=== PATIENT | female | born 1950 | race Caucasian/White ===

== ENCOUNTER 2018-05-21 15:03 | Outpatient (REF) | payer OTHER, SELFPAY ==
[2018-05-22 06:44] LABS: ALT 20 U/L (12-78); AST 6 U/L (15-37); Albumin 4.1 g/dL (3.4-5.0); Alkaline Phosphatase 59 U/L (46-116); Anion Gap 10.4 mmol/L (3-11); BUN 29 mg/dL (7-18); Bilirubin, Total 0.4 mg/dL (0.2-1.0); CO2 27.6 mmol/L (21.0-32.0); CREATININE 1.26 mg/dL (0.55-1.02); Calcium 9.6 mg/dL (8.5-10.1); Chloride 104 mmol/L (98-107); Cholesterol 207 mg/dL (50-200); Estimated GFR 42.36 (mL/min/1.73m2); Glucose 135 mg/dL (70-100); HDL Cholesterol 27 mg/dL (40-60); LDL CHOLESTEROL 107 mg/dL (<100); Potassium 4.5 mmol/L (3.5-5.1); Sodium 142 mmol/L (136-145); TSH (W/Ref FT4) 2.77 uIU/mL (0.358-3.74); Total Protein 7.2 g/dL (6.4-8.2); Triglyceride 271 mg/dL (30-150)
[2018-05-22 08:28] LABS: Hemoglobin A1C 6.7 % (4.5-6.2)
== END 2018-05-21 15:23 ==
LOC: NCHCN 15:03
PROVIDERS: PCP Nurse Practitioner Family; Visit Provider Physician Assistant Medical
DX: E03.9 Hypothyroidism, unspecified (principal); I10 Essential (primary) hypertension; E78.5 Hyperlipidemia, unspecified; E11.9 Type 2 diabetes mellitus without complications
CPT/HCPCS: 80053; 80061; 83721; 83036; 84443

== ENCOUNTER 2019-01-27 08:51 | Outpatient (REF) | payer OTHER, SELFPAY ==
[2019-01-27 22:26] LABS: ALT 18 U/L (14-59); AST 6 U/L (15-37); Albumin 4.2 g/dL (3.4-5.0); Alkaline Phosphatase 56 U/L (46-116); Anion Gap 11.6 mmol/L (3-11); BUN 32 mg/dL (7-18); Bilirubin, Total 0.5 mg/dL (0.2-1.0); CO2 26.4 mmol/L (21.0-32.0); CREATININE 1.35 mg/dL (0.55-1.02); Calcium 9.7 mg/dL (8.5-10.1); Calculated LDL 124 mg/dL; Chloride 103 mmol/L (98-107); Cholesterol 204 mg/dL (<200); Estimated GFR 39.12 (mL/min/1.73m2); Glucose 125 mg/dL (74-106); HDL Cholesterol 26 mg/dL (40-60); Potassium 3.7 mmol/L (3.5-5.1); Sodium 141 mmol/L (136-145); TSH 2.63 uIU/mL (0.36-3.74); Total Protein 7.3 g/dL (6.4-8.2); Triglyceride 271 mg/dL (<150)
[2019-01-27 22:27] LABS: Hemoglobin A1C 6.4 % (4.5-6.2)
== END 2019-01-27 09:11 ==
LOC: NCHCN 08:51
PROVIDERS: PCP Physician Assistant Medical; Visit Provider Physician Assistant Medical
DX: I10 Essential (primary) hypertension (principal); E11.9 Type 2 diabetes mellitus without complications; E03.9 Hypothyroidism, unspecified
CPT/HCPCS: 80053; 80061; 83036; 84443

== ENCOUNTER 2019-02-28 14:20 | Outpatient (REF) | payer OTHER, SELFPAY ==
[2019-02-28 19:49] LABS: BUN 25 mg/dL (7-18); CREATININE 1.17 mg/dL (0.55-1.02); Calcium 9.7 mg/dL (8.5-10.1); Chloride 104 mmol/L (98-107); Estimated GFR 46.14 (mL/min/1.73m2); Glucose 137 mg/dL (74-106); Potassium 3.9 mmol/L (3.5-5.1); Sodium 142 mmol/L (136-145)
== END 2019-02-28 14:40 ==
LOC: NCHCN 14:20
PROVIDERS: PCP Physician Assistant Medical; Visit Provider Physician Assistant Medical
DX: I10 Essential (primary) hypertension (principal)
CPT/HCPCS: 80048

== ENCOUNTER 2019-09-19 13:50 | Outpatient (REF) | payer OTHER, SELFPAY ==
[2019-09-19 19:56] LABS: ALT 21 U/L (14-59); AST 12 U/L (15-37); Alkaline Phosphatase 58 U/L (46-116); Anion Gap 10.8 mmol/L (3-11); BUN 26 mg/dL (7-18); Bilirubin, Total 0.8 mg/dL (0.2-1.0); CO2 24.2 mmol/L (21.0-32.0); CREATININE 1.35 mg/dL (0.55-1.02); Calcium 9.3 mg/dL (8.5-10.1); Calculated LDL 116 mg/dL (<100); Chloride 107 mmol/L (98-107); Cholesterol 179 mg/dL (<200); Glucose 136 mg/dL (74-106); HDL Cholesterol 26 mg/dL (40-60); Potassium 4.1 mmol/L (3.5-5.1); Sodium 142 mmol/L (136-145); Total Protein 6.8 g/dL (6.4-8.2); Triglyceride 186 mg/dL (<150)
[2019-09-19 21:33] LABS: Hemoglobin A1C 6.5 % (3.8-5.6)
== END 2019-09-19 14:10 ==
LOC: NCHCN 13:50
PROVIDERS: PCP Physician Assistant Medical; Visit Provider Physician Assistant Medical
DX: E11.9 Type 2 diabetes mellitus without complications (principal); E78.5 Hyperlipidemia, unspecified
CPT/HCPCS: 80053; 80061; 83036

== ENCOUNTER 2019-10-03 02:31 | Outpatient (CLI) | payer OTHER, SELFPAY ==
--- NOTE | 2019-10-03 | DI.US_ITS ---
EXAM: US RENAL CLINICAL HISTORY: ELEVATED CREATININE,R79.89. TECHNIQUE: Cortez scale, color and spectral Doppler were used. COMPARISON: No exams were available for comparison FINDINGS: Renal size in cm: Right: 12.7. Left: 12.1. Echogenicity: Normal. Hydronephrosis: No. Cyst or mass: No. Nephrolithiasis: No. Other findings: None. Bladder:Normal. Ureteral jets: Right: Visualized and unremarkable. Left: Visualized and unremarkable. Prevoid vol:122 cc Postvoid vol:14 cc Renal color flow: Symmetric and within normal limits. IMPRESSION: Unremarkable examination. DATA REPOSITORY:
== END 2019-10-03 02:51 ==
PROVIDERS: PCP Physician Assistant Medical; Visit Provider Physician Assistant Medical
DX: R94.4 Abnormal results of kidney function studies (principal)
CPT/HCPCS: 76770

== ENCOUNTER 2019-11-12 01:16 | Outpatient (CLI) | payer OTHER, SELFPAY ==
--- NOTE | 2019-11-12 13:22 | DI.MAMMO_ITS ---
EXAM: MG MAMMO SCREENING CLINICAL HISTORY: SCREENING, PREVENTIVE HEALTH CARE,Z00.00, H/O BREAST REDUCTION,Z98.82 TECHNIQUE: Bilateral full field digital CC and MLO mammographic images were obtained with 3D tomosyn thesis and utilizing computer aided detection (CAD). COMPARISON: Available for comparison. FINDINGS: Masses/Architectural Distortion: The asymmetric density in the upper-outer quadrant of the right murphy st is again noted. There is a biopsy clip within this area. It is unchanged compared to prior exami nations. Microcalcifications: No suspicious pleomorphic-type are seen. Skin Thickening/Nipple Retraction: None. IMPRESSION: 1. No significant interval change with no specific features of malignancy noted. 2. Unless there is more urgent need, screening mammography is recommended, as per [employer] [place] [employer] guidelines. BI-RADS Category 2 - Benign Findings Breast Density - Category B - Scattered areas of fibroglandular density A negative radiographic report should not delay biopsy if a dominant or clinically suspicious mass is present. Up to ten percent of cancers are not identified on mammography. A negative report may reinforce clinical impression. Adenosis and dense breasts may obscure an underlying neoplasm. False positive reports average 6 to 10%. Patient will receive a letter notifying them of these results.
== END 2019-11-12 01:36 ==
PROVIDERS: PCP Physician Assistant Medical; Visit Provider Physician Assistant Medical
DX: Z12.31 Encounter for screening mammogram for malignant neoplasm of breast (principal); Z00.00 Encounter for general adult medical examination without abnormal findings
CPT/HCPCS: 77063; 77067

== ENCOUNTER 2020-07-12 09:29 | Outpatient (REF) | payer OTHER, SELFPAY ==
[2020-07-12 17:03] LABS: ALT 22 U/L (14-59); AST 12 U/L (15-37); Albumin 3.9 g/dL (3.4-5.0); Alkaline Phosphatase 62 U/L (46-116); Anion Gap 12.8 mmol/L (3-11); BUN 24 mg/dL (7-18); Bilirubin, Total 0.8 mg/dL (0.2-1.0); CO2 24.2 mmol/L (21.0-32.0); CREATININE 1.1 mg/dL (0.55-1.02); Calcium 9.1 mg/dL (8.5-10.1); Calculated LDL 101 mg/dL (<100); Chloride 104 mmol/L (98-107); Cholesterol 172 mg/dL (<200); Estimated GFR 49.25 (mL/min/1.73m2); Glucose 134 mg/dL (74-106); HDL Cholesterol 27 mg/dL (40-60); Potassium 4.5 mmol/L (3.5-5.1); Sodium 141 mmol/L (136-145); Total Protein 6.6 g/dL (6.4-8.2); Triglyceride 222 mg/dL (<150)
[2020-07-12 17:21] LABS: Hemoglobin A1C 6.5 % (<5.7)
== END 2020-07-12 09:30 | disposition home or self-care (01) ==
LOC: NCHCN 09:29
PROVIDERS: PCP Physician Assistant Medical; Visit Provider Physician Assistant Medical
DX: E11.9 Type 2 diabetes mellitus without complications (principal); E03.9 Hypothyroidism, unspecified; E78.5 Hyperlipidemia, unspecified; I10 Essential (primary) hypertension
CPT/HCPCS: 80053; 80061; 83036; 84443

== ENCOUNTER 2020-12-02 15:41 | Outpatient (REF) | payer MEDICARE, SELFPAY ==
[2020-12-04 11:59] LABS: COVID-19 RT-PCR UVMMC Result Negative (Negative)
== END 2020-12-02 15:42 | disposition home or self-care (01) ==
LOC: NCHCN 15:41
PROVIDERS: PCP Physician Assistant Medical; Visit Provider Nurse Practitioner Family
DX: Z20.822 Contact with and (suspected) exposure to COVID-19 (principal); R42 Dizziness and giddiness
CPT/HCPCS: U0003; U0005

== ENCOUNTER → 2021-07-15 00:18 | Outpatient (CLI) | payer MEDICARE, SELFPAY ==
--- NOTE | 2021-07-15 11:20 | DI.MAMMO_ITS ---
Exam(s) MAMMO SCREENING EXAM: MAMMO SCREENING CLINICAL HISTORY: SCREENING, Z12.39, PREVENTIVE CARE, Z00.00 TECHNIQUE: Mammograms were interpreted according to the usual protocol including computer analysis w Endocyte CAD system, tomosynthesis and C-view imaging. COMPARISON: 2011 through 2019 FINDINGS: The breasts are composed of scattered fibroglandular densities, Breast Density category B. No suspicious masses or suspicious microcalcifications are seen. A nodule with adjacent biopsy clip is again noted in the upper outer quadrant the right breast, stable. No skin thickening or abnormal axillary lymph nodes are seen. There has been no significant change from prior exams. IMPRESSION: BI-RADS Cat 2 - Benign Findings Yearly screening mammography is recommended. Breast Density - Category B, scattered fibroglandular densities. A negative radiographic report should not delay biopsy if a dominant or clinically suspicious mass is present. Up to ten percent of cancers are not identified on mammography. A negative report may reinforce clinical impression. Adenosis and dense breasts may obscure an underlying neoplasm. False positive reports average 6 to 10%. Patient will receive a letter notifying them of these results.
== END ==
PROVIDERS: PCP Physician Assistant Medical; Visit Provider Physician Assistant Medical
DX: Z12.31 Encounter for screening mammogram for malignant neoplasm of breast (principal)
CPT/HCPCS: 77063; 77067

== ENCOUNTER 2021-08-09 14:52 | Outpatient (REF) | payer MEDICARE, SELFPAY ==
[2021-08-09 19:07] LABS: Abs Immature Grans 0.01 10^3/uL (0.0-0.06); Absolute Basophil Count 0.02 10^3/uL (0.0-0.2); Absolute Eosinophil Count 0.12 10^3/uL (0.0-0.7); Absolute Lymphocyte Count 1.61 10^3/uL (1.2-3.4); Absolute Monocyte Count 0.28 10^3/uL (0.1-0.8); Absolute Neutrophil Count 2.18 10^3/uL (1.2-6.7); Basophils % 0.5; Eosinophils % 2.8; HGB 13.3 g/dL (11.2-15.7); Immature Grans % 0.2; Lymphocytes % 38.2; MCH 28.2 pg (27.0-33.0); MCHC 33.3 % (32.0-36.0); MCV 85 fL (80-95); MPV 11.4 fL (8.0-11.0); Monocytes % 6.6; Neutrophils % 51.7; Platelet Count 274 10^3/uL (130-400); RBC 4.71 10^6/uL (3.93-5.22); RDW-SD 43.9 fL; WBC 4.22 10^3/uL (4.4-10.8)
[2021-08-09 19:21] LABS: ALT 23 U/L (14-59); AST 18 U/L (15-37); Albumin 4.2 g/dL (3.4-5.0); Alkaline Phosphatase 60 U/L (46-116); Anion Gap 9.2 mmol/L (3-11); BUN 29 mg/dL (7-18); Bilirubin, Total 0.4 mg/dL (0.2-1.0); CO2 25.8 mmol/L (21.0-32.0); CREATININE 1.2 mg/dL (0.55-1.02); Calcium 9.2 mg/dL (8.5-10.1); Chloride 103 mmol/L (98-107); Estimated GFR 44.41 (mL/min/1.73m2); Glucose 134 mg/dL (74-106); Potassium 4.5 mmol/L (3.5-5.1); Sodium 138 mmol/L (136-145); Total Protein 7.5 g/dL (6.4-8.2)
== END 2021-08-09 14:53 | disposition home or self-care (01) ==
LOC: NCHCN 14:52
PROVIDERS: PCP Physician Assistant Medical; Visit Provider Physician Assistant Medical
DX: R42 Dizziness and giddiness (principal)
CPT/HCPCS: 80053; 85025

== ENCOUNTER 2022-08-09 17:19 | Outpatient (REF) | payer MEDICARE, SELFPAY ==
[2022-08-09 20:10] LABS: Hemoglobin A1C 6.5 % (<5.7)
[2022-08-09 20:22] LABS: ALT 21 U/L (14-59); AST 14 U/L (15-37); Albumin 4.1 g/dL (3.4-5.0); Alkaline Phosphatase 66 U/L (46-116); Anion Gap 9.7 mmol/L (3-11); BUN 22 mg/dL (7-18); Bilirubin, Total 0.7 mg/dL (0.2-1.0); CO2 24.3 mmol/L (21.0-32.0); CREATININE 1.2 mg/dL (0.55-1.02); Calcium 9.1 mg/dL (8.5-10.1); Calculated LDL 79 mg/dL (<100); Chloride 107 mmol/L (98-107); Cholesterol 178 mg/dL (<200); Estimated GFR 48.39 (mL/min/1.73m2); Glucose 155 mg/dL (74-106); HDL Cholesterol 30 mg/dL (40-60); Potassium 4.3 mmol/L (3.5-5.1); Sodium 141 mmol/L (136-145); TSH 1.99 uIU/mL (0.36-3.74); Total Protein 7.5 g/dL (6.4-8.2); Triglyceride 349 mg/dL (<150)
== END 2022-08-09 17:20 | disposition home or self-care (01) ==
LOC: NCHCN 17:19
PROVIDERS: PCP Physician Assistant Medical; Visit Provider Physician Assistant Medical
DX: E11.9 Type 2 diabetes mellitus without complications (principal); E03.9 Hypothyroidism, unspecified; E78.5 Hyperlipidemia, unspecified; I10 Essential (primary) hypertension
CPT/HCPCS: 80053; 80061; 83036; 84443

== ENCOUNTER 2023-03-07 13:16 | Outpatient (REF) | payer MEDICARE, SELFPAY ==
[2023-03-07 20:09] LABS: Anion Gap 10.5 mmol/L (3-11); BUN 19 mg/dL (7-18); CO2 25.5 mmol/L (21.0-32.0); CREATININE 1.2 mg/dL (0.55-1.02); Calcium 9.8 mg/dL (8.5-10.1); Chloride 105 mmol/L (98-107); Estimated GFR 48.39 (mL/min/1.73m2); Glucose 159 mg/dL (74-106); Potassium 4.3 mmol/L (3.5-5.1); Sodium 141 mmol/L (136-145); Uric Acid 6.2 mg/dL (2.6-6.0)
[2023-03-07 20:16] LABS: Hemoglobin A1C 6.6 % (<5.7)
== END 2023-03-07 13:17 | disposition home or self-care (01) ==
LOC: NCHCN 13:16
PROVIDERS: PCP Physician Assistant Medical; Visit Provider Physician Assistant Medical
DX: I10 Essential (primary) hypertension (principal); E11.9 Type 2 diabetes mellitus without complications; M79.671 Pain in right foot
CPT/HCPCS: 80048; 83036; 84550

== ENCOUNTER 2023-04-16 18:07 | Outpatient (REF) | payer MEDICARE, SELFPAY | END 2023-04-16 18:08 | disposition home or self-care (01) | LOC: NCHCN 18:07 | PROVIDERS: PCP Physician Assistant Medical; Visit Provider Nurse Practitioner Family | DX: L03.031 Cellulitis of right toe (principal) | CPT/HCPCS: 87070; 87205 ==

== ENCOUNTER 2023-08-08 16:47 | Outpatient (REF) | payer MEDICARE, SELFPAY ==
[2023-08-08 20:26] LABS: Hemoglobin A1C 7.5 % (<5.7)
[2023-08-08 20:27] LABS: ALT 21 U/L (14-59); AST 10 U/L (15-37); Albumin 4.4 g/dL (3.4-5.0); Alkaline Phosphatase 70 U/L (46-116); Anion Gap 11.7 mmol/L (3-11); BUN 20 mg/dL (7-18); CO2 24.3 mmol/L (21.0-32.0); CREATININE 1.3 mg/dL (0.55-1.02); Calcium 9.8 mg/dL (8.5-10.1); Chloride 107 mmol/L (98-107); Estimated GFR 43.69 (mL/min/1.73m2); Glucose 99 mg/dL (74-106); Potassium 3.9 mmol/L (3.5-5.1); Sodium 143 mmol/L (136-145); TSH (W/Ref FT4) 1.57 uIU/mL (0.36-3.74); Total Protein 7.1 g/dL (6.4-8.2)
[2023-08-08 20:39] LABS: Calculated LDL 98 mg/dL (<100); Cholesterol 177 mg/dL (<200); HDL Cholesterol 33 mg/dL (40-60); Triglyceride 233 mg/dL (<150)
== END 2023-08-08 16:48 | disposition home or self-care (01) ==
LOC: NCHCN 16:47
PROVIDERS: PCP Physician Assistant Medical; Visit Provider Physician Assistant Medical
DX: I10 Essential (primary) hypertension (principal); E11.9 Type 2 diabetes mellitus without complications; E78.5 Hyperlipidemia, unspecified; E03.9 Hypothyroidism, unspecified
CPT/HCPCS: 80053; 80061; 83036; 84443; 84550

== ENCOUNTER 2023-11-01 16:44 | Outpatient (REF) | payer MEDICARE, SELFPAY ==
--- OUTSIDE RECORDS SUMMARY | 2023-11-01 16:48 | XMS_ITS | Encounter Summary ---
Author Organization [facility] Address [facility] [place] [address] Care Team Providers Care Weight Loss Centre Manager Name Role Phone Rodrigo Shin Primary Care Provider +1- [phone] Encounter Details Date Type Department Care Team (Late st Contact Info) Description 02/17/2021 Telephone Dermatology at [facility] [address] [place] [address] Apollo Gillis MD [facility] [place] [address] Social History Tobacco Use Types Packs/Day Years Used Date Smoking Tobacco: Never Smokeless Tobacco: Never Alcohol Use Standard Drinks/Week Comments Yes 4 (1 standard drink = 0.6 oz pur e alcohol) Sex and Gender Information Value Date Recorded Sex Assigned at Not on file Gender Identity Not on file Sexual Orientation Not on file documented as of this encounter Miscellaneous Notes * Telephone Encounter - Vibha Barone LPN - 02/17/2021 2:07 PM EST Mohs consultation and preoperative note (H&P) Patient Name: Quyen Bill Age: 70 y.o. Date of : 1950 Today's Date: 02/17/2021 REFERRING PROVIDER: Chantale Martin MD CC: Mohs micrographic surgery for treatment of a cutaneous tumor HPI: Quyen Bill is a 70 y.o. female presenting for biopsy-proven Squamous cell carcinoma, at least in situ, transected at the peripheral and deep ??specimen edges, invasive squamous cell carcinoma cannot be excluded ,location on the Right nasal dorsum. The dermatologic preoperative information sheet was reviewed with pertinent positive and negative as below. DERMATOLOGIC PRE-OPERATIVE EVALUATION AND REVIEW OF SYSTEMS She has had her Vaccine and Booster History of Mohs surgery-No Pacemaker/Defibrillator-No Joint replacement or other implantable devices (e.g. Cochlear implant)-No Do you take a blood thinner-Yes ASA 81mg History of organ transplant-No History of artificial valve or stroke-No History of liver disease or bleeding disorder-No Do you have any medical problems that may affect your upcoming surgery-No Do you have any concerns regarding your upcoming surgery-No We ask patients to discontinue Fish oil/Multivitamin/Vit E/?? supplements and natural medicines not prescribed by a physician 1 week prior to surgery. SOCIAL HISTORY: Makes Own Decisions Yes Hearing aid or other devices: No Relevant travel history or future plans: No Tobacco use (amount per day, type of tobacco):No Do you have any physical limitations that may affect your surgery-No ALLERGIES: Allergies reviewed MEDICATIONS: Medications reviewed documented in this encounter Plan of Treatment Not on file documented as of this encounter Visit Diagnoses Not on filedocumented in this encounter Care Teams Weight Loss Centre Manager Relationship Specialty Start Date End Date Rodrigo Shin PA [address] [place] [address] PCP - General Family Medicine 12/02/19 documented as of this encounter
--- OUTSIDE RECORDS SUMMARY | 2023-11-01 16:48 | XMS_ITS | Encounter Summary ---
Author Organization [facility] Address [facility] [place] [address] Care Team Providers Care Gas Derrick Operator Name Role Phone Rodrigo Shin Primary Care Provider +1- [phone] Encounter Details Date Type Department Care Team (Late st Contact Info) Description 10/19/2021 3:45 PM EDT Office Visit Dermatology at [facility] [address] [place] [address] Nona Moore MD [facility] [place] [address] Actinic keratosis Social History Tobacco Use Types Packs/Day Years Used Date Smoking Tobacco: Never Smokeless Tobacco: Never Alcohol Use Standard Drinks/Week Comments Yes 4 (1 standard drink = 0.6 oz pur e alcohol) Sex and Gender Information Value Date Recorded Sex Assigned at Not on file Gender Identity Not on file Sexual Orientation Not on file documented as of this encounter Progress Notes * Nona Moore MD - 10/19/2021 3:45 PM EDT Images from the original note were not included. DEPARTMENT OF DERMATOLOGY Medical Dermatology Clinic Provider: Nona Moore MD Patient's preferred name Quyen Preferred contact method for results [x]Phone [x]myD-H []Letter Detailed phone message OK? yes Are there any other people with whom we may discuss your care? Past Medical History Date, location, treatment Melanoma no Dysplastic nevi no SCC SCCis right nasal dorsum s/p mohs 02/2021 BCC 03/29/2015 Right lateral arm, shave biopsy: Pigmented BCC, extending to the peripheral and deep specimen edges. - s/p WLE??05/12/15 AKs yes UV Exposure & Protection Other relevant past medical history Family History Details Melanoma no NMSC no Other relevant family history Social History Occupation: retired Hobbies: Other: Pre-Procedure Questions Details Allergy to lidocaine, epinephrine, Dermabond, chlorhexidine, or adhesives no Bleeding disorder or blood thinners ASA 81 Pacemaker, defibrillator, deep brain stimulator, cochlear implant no History of Present Illness: Quyen Bill is a 71 y.o. Patient returns to clinic today for lesion on nose. Patient had mohs in February for an SCCis on the right nasal dorsum. Pt notes tenderness on left side of nose where she thought was the area she had the mohs. Last visit at Dermatology: 10/19/2021 Last visit with this provider: 10/19/2021 Medications: Reviewed in eD-H Allergies: Reviewed in eD-H Skin Examination: Focused skin examination of the face was normal with the exception of the findings below. Assessment/Plan # Favor AK vs BCC - 6mm on left nasal dorsum - Recommended a skin biopsy to confirm/clarify the nature of the skin lesion. After discussion of potential risks (scarring, bleeding, infection) and recurrence, patient agreed to proceed. - Patient denies known allergies to lidocaine and epinephrine. Procedure: Skin shave biopsy. Location: left nasal dorsum Time of procedure: 04:00pm Discussed indications for procedure and expectations including risks and benefits. Verbal consent obtained. Skin prepped with alcohol. Local anesthesia with 1% xylocaine, 1/100,000 epinephrine. A sample of the lesion was removed by shave technique to the level of the dermis and submitted to Pathology. Hemostasis obtained (AlCl and/or electrocautery). There were no complications; patient toleratedthe procedure well. Wound dressed. Post-procedure expectations, wound care and activity restrictions reviewed. ?? - Follow-up based on pathology results. Figure 1 Photo(s) taken and charted with patient's verbal consent. Other: ??? N/A RTC: Pending pathology []Note routed to executive legal secretary []Recall placed in scheduling system []Appointment scheduled at checkout Scribe attestation: JOSE EDUARDO Chambers has performed the documentation for this encounter in the presence of and acting as a scribe for Nona Moore MD. I performed the above scribed service and agree with the accuracy of the documentation in this encounter. Reviewed and signed by: Nona Moore MD Dermatology [facility] * Nona Moore MD - 10/19/2021 3:45 PM EDT Notified pt of results. Discussed use of 5FU. Pt to use it 2 x per day x 6 weeks. Consider mohs if pt unable to finish 6 weeks or if inadequate results. documented in this encounter Plan of Treatment Not on file documented as of this encounter Procedures Procedure Name Priority Date/Time Associated Diagnosis Comments SPECIMEN TO PATHOLOGY Routine 10/19/2021 4:09 PM EDT Actinic keratosis SURGICAL PATHOLOGY REPORT Routine 10/19/2021 4:00 PM EDT documented in this encounter Results * Specimen to Pathology (10/19/2021 4:09 PM EDT) AP Specimen 10/19/2021 4:09 PM EDT 10/19/2021 4:09 PM EDT Narrative [facility] - 10/19/2021 4:09 PM EDT Specimen requisition ordered. ??Separate Pathology report to follow Nona Moore MD PATHOLOGY/CYTOLOGY O RDERABLES [facility] [place] [address] * Surgical Pathology Report (10/19/2021 4:00 PM EDT) Final Diagnosis [id number] ? Location: [facility] The signing pathologist has (i) examined the relevant preparation(s) for the specimen(s) and (ii) rendered or confirmed the diagnosis(es). . ?Surgical Pathology DIAGNOSIS L eft nasal dorsum, skin shave biopsy ONLY: - ??Squamous cell carcinoma, at least in situ, transected at the base, invasive squamous cell carcinoma cannot be excluded Electronically signed by: ?Henry HU, PhD, Daniel Verified: ??10/21/2021 13:33 ??Dermatopathol ogist Performed at: ??-[facility] Dept. of Pathology, [place], [place] SPECIMEN(S) SUBMITTED A - left nasal dorsum, skin shave biopsy ONLY (1) CLINICAL INFORMATION 6 mm. Favor AK versus BCC SPECIMEN PROCESSING A - Labeled/Fixativ e: Patient demographics, formalin. Quantity/Size: ??Single, 0.7 x 0.6 cm. Tissue Description: Irregular, non-oriented botello-white skin shave with a 0.5 x 0.1 x 0.1 cm raised, botello granular lesion. Sections/Proces sing: Inked, trisected and entirely submitted in 1 cassette labeled A1. ??shb 10/21/2021 1:33 PM EDT [facility] SPECIMEN FROM SKIN / Unknown 10/19/2021 4:00 PM EDT 10/19/2021 4:00 PM EDT Nona Moore MD PATHOLOGY/CYTOLOGY O YONAS [facility] [place] [address] documented in this encounter Visit Diagnoses Diagnosis Actinic keratosis documented in this encounter Care Teams Gas Derrick Operator Relationship Specialty Start Date End Date Rodrigo Shin PA [address] [place] [address] PCP - General Family Medicine 12/02/19 documented as of this encounter
--- OUTSIDE RECORDS SUMMARY | 2023-11-01 16:48 | XMS_ITS | Encounter Summary ---
Author Organization [facility] Address [facility] [place] [address] Care Team Providers Care Electric Welder Name Role Phone Rodrigo Shin Primary Care Provider +1- [phone] Reason for Visit * Reason Comments Procedure Encounter Details Date Type Department Care Team (Late st Contact Info) Description 10/19/2021 3:30 PM EDT Office Visit Dermatology at [facility] [address] [place] [address] Nona Moore MD [facility] [address] [place] [address] Encounter for cosmetic procedure Social History Tobacco Use Types Packs/Day Years [...] Notes * Nona Moore MD - 10/19/2021 3:30 PM EDT DATE OF SERVICE: 10/18/2021 PROVIDER: MD Shannon Fitzpatrickdeyvi Albah : 1950 PATIENT PREFERENCES: -prefers to be called: Quyen LANGE Quyen Bill is a 71 y.o. year old female. Here for vbeam procedure 10/18/2021. Concerns from previous visit?: no COSMETIC TREATMENT VISIT -Questions or concerns today? Lesion on nose, pt elects to have medical visit added on to evaluate.Pt aware the medical visit is billed through insurance. -Any change in health or new diagnosis since last visit?: no -HSV prophylaxis? no -, lactating or trying to conceive?: no ADR: No Known Allergies MEDS: Current Outpatient Medications Medication Sig Dispense Refill ??? rosuvastatin (Crestor) 5 mg Tablet ??? levothyroxine (Synthroid) 25 mcg Tablet ??? simvastatin (Zocor) 20 mg Tablet ??? fluorouraciL (EFUDEX) 5 % Cream Apply a thin layer to affected areas on the nose twice daily (morning and night) as tolerated for 3 weeks. (Patient not taking: Reported on 02/21/2021) 40 g 0 ??? hydrochlorothiazide (HYDRODIURIL) 25 mg Tablet Take 25 mg by mouth daily. ??? fish oil-omega-3 fatty acids 1,000 mg Capsule Take 2 g by mouth daily. Pt takes 2,400 mg ??? lisinopril (PRINIVIL;ZESTRIL) 2.5 mg tablet Take 40 mg by mouth daily. ??? metFORMIN (GLUCOPHAGE) 500 mg tablet Take 500 mg by mouth daily. ??? gabapentin (NEURONTIN) 300 mg capsule Take 600 mg by mouth daily. ??? aspirin 81 mg EC tablet Take 81 mg by mouth daily. ??? gemfibrozil (LOPID) 600 mg tablet Take 500 mg by mouth 2 times daily (before meals). ??? amlodipine (NORVASC) 10 mg tablet Take 10 mg by mouth daily. ??? cholecalciferol, Vitamin D3, 400 unit tablet Take 1,200 Units by mouth daily. No current facility-administered medications for this visit. EXAMINATION: -New findings: TREATMENT MAPS: * DIAGNOSIS/ASSESSMENT: #??IPL??treatments for photodamage located on??face - Number of treatments recommeded:??1-2+?? - Special considerations for this pt:??may need LN2 - Area of main concern:??face - HSV prophylaxis needed?:??no??If yes, does pt have rx?:??no??date verified:??01/05/2021?? - borrego quoted:??$350??per treatment - See laser log for treatment dates and details -Additional notes: -??01/05/2021??suspect pt may need medical visits in future for actinic keratoses/damage ?? # Chemoprevention/correction: Emphasized value of retinoid-based skin care system to amplify and maintain benefits of any anti aging plan/procedures. -special considerations: -retinoid:?Will start at next visit??date started:?? -ZO skincare regimen: regimen or products:??Exfoliating cleanser, danish, Oil control pads??reviewed by:??DW??date:??01/05/2021?? -instructions in AVS dated?? -discussed importance of meticulous sun protection ?? PROCEDURE/TREATMENT LOG(S): LASER TREATMENT LOG ?? Date:??03/09/2021?Laser: IPL?Area: full face?Spot: large??Energy(J): 18?Pulse Duration: 3.5/15/3.5?Pulse#:??79?Paid:??$350?Tx By:RL?Notes:? Date: 04/14/2021 Laser: IPL Area: full face Spot: large Energy(J): 20 Pulse Duration: 3.5/15/3.5 Pulse #: 78 Paid: $350 Tx By:RL Notes: Date: 10/19/2021 Laser: Vbeam Area: full face Spot: 10 Energy(J): 8.5 Pulse Duration: 10 Pulse #: 307 Paid: $350 Tx By:LEA Notes: FOLLOW UP RETURN TO CLINIC: 1 month Vi Peel with 30 min. Pt to discuss alternating Vipeel and hydrafacial for regular maintenance 6 months vbeam to face 15 min $350 COSMETIC COST TODAY: $[address] Moore I am documenting this encounter acting as the scribe for and in the presence of Nona Moore MD,JOSE EDUARDO Chambers I performed the above scribed service and agree with the accuracy of the documentation in this encounter, MD Nona Fitzpatrick MD Department of Dermatology documented in this encounter Plan of Treatment Not on file documented as of this encounter Visit Diagnoses Diagnosis Encounter for cosmetic procedure documented in this encounter Care Teams Electric Welder Relationship Specialty Start Date End Date Rodrigo Shin PA [address] [place] [address] PCP - General Family Medicine 12/02/19 documented as of this encounter
--- OUTSIDE RECORDS SUMMARY | 2023-11-01 16:48 | XMS_ITS | Encounter Summary ---
Author Organization [facility] Address [facility] [place] [address] Care Team Providers Care Plastics Heat Welder Name Role Phone Rodrigo Shin Primary Care Provider +1- [phone] Encounter Details Date Type Department Care Team (Late st Contact Info) Description 03/09/2021 2:15 PM EST Office Visit Dermatology at [facility] [address] [place] [address] Nona Moore MD [facility] [address] [place] [address] Encounter for cosmetic procedure Social History Tobacco [...] Progress Notes * Nona Moore MD - 03/09/2021 2:15 PM EST DATE OF SERVICE: 03/09/2021 PROVIDER: MD Quyen Fitzpatrick Juan Albah : 1950 PATIENT PREFERENCES: -prefers to be called: Quyen LANGE Quyen Bill is a 70 y.o. year old female. Here for IPL procedure 03/09/2021. COSMETIC TREATMENT VISIT -Questions or concerns today? Questions about skin care -Any change in health or new diagnosis [...] medications for this visit. EXAMINATION: -New findings: DIAGNOSIS/ASSESSMENT: # IPL treatments for photodamage located on face - Number of treatments recommeded: 1-2+ - Special considerations for this pt: may need LN2 - Area of main concern: face - HSV prophylaxis needed?: no If yes, does pt have rx?: no date verified: 01/05/2021 - borrego quoted: $350 per treatment - See laser log for treatment dates and details -Additional notes: - 01/05/2021 suspect pt may need medical visits in future for actinic keratoses/damage ?? # Chemoprevention/correction: Emphasized value of retinoid-based skin care system to amplify and maintain benefits of any anti aging plan/procedures. -special considerations: -retinoid: Will start at next visit date started: -ZO skincare regimen: regimen or products: Exfoliating cleanser, chinese, Oil control pads reviewed by: PETER date: 01/05/2021 -instructions in AVS dated -discussed importance of meticulous sun protection ?? PROCEDURE/TREATMENT LOG(S): LASER TREATMENT LOG Date: 03/09/2021 Laser: IPL Area: full face Spot: large Energy(J): 18 Pulse Duration: 3.5/15/3.5 Pulse #: 79 Paid: $350 Tx By:RL Notes: FOLLOW UP 1 month IPL 15 min $350 COSMETIC COST TODAY: $350 - $100 consult = $[address] Moore I am [...] procedure documented in this encounter Care Teams Plastics Heat Welder Relationship Specialty Start Date End Date Rodrigo Shin PA [address] [place] [address] PCP - General Family Medicine 12/02/19 documented as of this encounter
--- OUTSIDE RECORDS SUMMARY | 2023-11-01 16:48 | XMS_ITS | Encounter Summary ---
[place] [address] Care Team Providers Care Head Of Loss Prevention Name Role Phone Rodrigo Shin Primary Care Provider +1- [phone] Encounter Details Date Type Department Care Team (Latest Contact Info) Description 07/03/2023 Travel Social History Tobacco Use Types Packs/Day Years Used Date Smoking Tobacco: Never Smokeless Tobacco: Never Alcohol Use Standard Drinks/Week Comments Yes 4 (1 standard drink = 0.6 oz pur e alcohol) Sex and Gender Information Value Date Recorded Sex Assigned at Not on file Gender Identity Not on file Sexual Orientation Not on file documented as of this encounter Plan of Treatment Not on file documented as of this encounter Visit Diagnoses Not on filedocumented in this encounter Care Teams Head Of Loss Prevention Relationship Specialty Start Date End Date Rodrigo Shin PA [address] [place] [address] PCP - General Family Medicine 12/02/19 documented as of this encounter
--- OUTSIDE RECORDS SUMMARY | 2023-11-01 16:48 | XMS_ITS | Encounter Summary ---
Author Organization [facility] Address [facility] [place] [address] Care Team Providers Care Appeals Examiner Name Role Phone Rodrigo Shin Primary Care Provider [phone]- [phone] Encounter Details Date Type Department Care Team (Late st Contact Info) Description 07/03/2023 1:30 PM EDT Office [place] [address] [facility] [place] [address] S/P abdominoplasty Social History Tobacco Use Types Packs/Day Years Used Date Smoking Tobacco: Never Smokeless Tobacco: Never Alcohol Use Standard Drinks/Week Comments Yes 4 (1 standard drink = 0.6 oz pur e alcohol) Sex and Gender Information Value Date Recorded Sex Assigned at Not on file Gender Identity Not on file Sexual Orientation Not on file documented as of this encounter Last Filed Vital Signs Vital Sign Reading Time Taken Comments Blood Pressure - - Pulse - - Temperature - - Respiratory Rate - - Oxygen Saturation - - Inhaled Oxygen Concentration - - Weight 88.2 kg (194 lb 6.4 oz) 07/03/2023 1:23 P M EDT Height 170.2 cm (5' 7) 07/03/2023 1:23 PM EDT Body Mass Index 30.45 07/03/2023 1:23 PM EDT documented in this encounter Progress Notes * Brad Riggs MD - 07/03/2023 1:30 PM EDT Plastic Surgery Consultation Note Brad Riggs MD PCP: ALANNA Porter CC: residual fat s/p abdominoplasty Date of surgery: 04/18/16 Procedure(s): Bilateral mastopexy and abdominoplasty (Jed) Complications: None reported HPI: Quyen Bill is a 73 y.o. female here to re-establish care. She underwent a bilateral mastopexy and abdominoplasty on 04/18/2016, performed by Dr. Adkins. She reports that she followed Dr. Neil's directions and wore the compression wrap. She notes that her weight has been stable and reports that regardless of what she does, she is unable to get rid of her roll of her upper abdomen. Patient Active Problem List Diagnosis Date Noted S/P abdominoplasty 05/01/2016 Breast ptosis 12/14/2015 Abdominal pannus 12/14/2015 Ingrown nail 05/26/2015 Thickened nails 04/21/2015 Diabetes mellitus 04/21/2015 Breast mass 08/19/2010 Past Medical History: Diagnosis Date Breast cyst 06/2010 Diabetes Hypercholesteremia Hypertension Past Surgical History: Procedure Laterality Date BREAST BIOPSY BREAST REDUCTION SURGERY Bilateral 2017 SECTION SECTION COLONOSCOPY MAMMO US BIOPSY RIGHT Right 07/03/2018 Mammo Us Biopsy Right 07/03/2018 Bisi Bryan MD [facility] RAD MAMMOGRAPHY PRO EXCISE EXCESS SKIN TISSUE, ABDOMEN, ADD-ON Bilateral 04/18/2016 ABDOMINOPLASTY EXC,W/ UMBILICAL TRANSPOSITION, FASCIAL PLICATION (WRVU 17.04) performed by Lorenza Adkins MD at [facility] MAIN OR PRO SUSPENSION OF BREAST Bilateral 04/18/2016 MASTOPEXY, BILATERAL (WRVU 11.09) performed by Lorenza Adkins MD at [facility] MA[facility] OR Social History Socioeconomic History Marital status: Spouse name: Not on file Number of children: 2 Years of education: Not on file Highest education level: Not on file Occupational History Occupation: Retired banker Tobacco Use Smoking status: Never Smokeless tobacco: Never Vaping Use Vaping Use: Never used Substance and Sexual Activity Alcohol use: Yes Alcohol/week: 4.0 standard drinks of alcohol Types: 4 Glasses of wine per week Drug use: No Sexual activity: Yes Partners: Male Other Topics Concern Not on file Social History Narrative Not on file Social Determinants of Health Financial Resource Strain: Not on file Food Insecurity: Not on file Transportation Needs: Not on file Physical Activity: Not on file Intimate Partner Violence: Not on file Housing Stability: Not on file No Known Allergies Current Outpatient Medications on File Prior to Visit Medication Sig Dispense Refill rosuvastatin (Crestor) 5 mg Tablet levothyroxine (Synthroid) 25 mcg Tablet fish oil-omega-3 fatty acids 1,000 mg Capsule Take 2 g by mouth daily. Pt takes 2,400 mg lisinopril (PRINIVIL;ZESTRIL) 2.5 mg tablet Take 40 mg by mouth daily. metFORMIN (GLUCOPHAGE) 500 mg tablet Take 500 mg by mouth daily. gabapentin (NEURONTIN) 300 mg capsule Take 600 mg by mouth daily. [DISCONTINUED] fluorouraciL (EFUDEX) 5 % Cream Apply topically to affected area on nose once a day for 6 weeks 40 g 0 [DISCONTINUED] simvastatin (Zocor) 20 mg Tablet [DISCONTINUED] fluorouraciL (EFUDEX) 5 % Cream Apply a thin layer to affected areas on the nose twice daily (morning and night) as tolerated for 3 weeks. (Patient not taking: Reported on 02/21/2021) 40g 0 [DISCONTINUED] hydrochlorothiazide (HYDRODIURIL) 25 mg Tablet Take 25 mg by mouth daily. [DISCONTINUED] aspirin 81 mg EC tablet Take 81 mg by mouth daily. [DISCONTINUED] gemfibrozil (LOPID) 600 mg tablet Take 500 mg by mouth 2 times daily (before meals). [DISCONTINUED] amlodipine (NORVASC) 10 mg tablet Take 10 mg by mouth daily. [DISCONTINUED] cholecalciferol, Vitamin D3, 400 unit tablet Take 1,200 Units by mouth daily. No current facility-administered medications on file prior to visit. Examination: Ht 170.2 cm (5' 7) Wt 88.2 kg (194 lb 6.4 oz) BMI 30.45 kg/m?? Constitutional: No acute distress Cardiovascular: Regular Pulmonary: Unlabored, no audible wheeze On exam she has a well-healed scar from her prior abdominoplasty. She has a protuberant abdomen with excess adiposity confluently in her upper abdomen and lower abdomen and flanks. There is subtle excess adiposity in the superior abdomen relative to the inferior abdomen There is no palpable hernias. Impression: Quyen Bill 73 y.o. female patient with concerns for her upper abdomen. I explained that we could do some liposuction to that area but would not completely address the excess skin and adiposity the way she is describing it. We could do a reverse abdominoplasty but I still think what she is describing is a concern with general excess adipose tissue confluently throughout her abdomenwhich would be best addressed by weight reduction. We discussed that the best option is weight reduction. After this we could certainly consider a reverse abdominoplasty as an option. I can appreciate the challenge of this and recommend that she try to discuss help with this from her PCP or weight and wellness center so that they can find the right strategy. Plan: Follow up PRN. I, Aleshia Hernandes, am acting as scribe for Brad Riggs MD. All work documented was performed by Brad Riggs MD. I performed the services which were documented by the scribe, and I agree with the accuracy of the documentation in this encounter. BRAD RIGGS MD documented in this encounter Plan of Treatment Not on file documented as of this encounter Visit Diagnoses Diagnosis S/P abdominoplasty Other postprocedural status documented in this encounter Care Teams Appeals Examiner Relationship Specialty Start Date End Date Rodrigo Shin PA [address] [place] [address] PCP - General Family Medicine 12/02/19 documented as of this encounter
--- OUTSIDE RECORDS SUMMARY | 2023-11-01 16:48 | XMS_ITS | Encounter Summary ---
Author Organization [facility] Address [facility] [place] [address] Care Team Providers Care Corporate Administrator Name Role Phone Rodrigo Shin Primary Care Provider +1- [phone] Encounter Details Date Type Department Care Team (Latest Contact Info) Description 02/28/2021 2:15 PM EST Clinical Support Dermatology at [facility] [address] [place] [address] Apollo Gillis MD [facility] [place] [address] Encounter for removal of sutures Social History Tobacco Use Types Packs/Day Years Used Date Smoking Tobacco: Never Smokeless Tobacco: Never Alcohol Use Standard Drinks/Week Comments Yes 4 (1 standard drink = 0.6 oz pur e alcohol) Sex and Gender Information Value Date Recorded Sex Assigned at Not on file Gender Identity Not on file Sexual Orientation Not on file documented as of this encounter Progress Notes * Apollo Gillis MD - 02/28/2021 2:15 PM EST Images from the original note were not included. Patient: Quyen Bill Date of . 1950 Today's Date: 02/28/2021 Quyen Bill is a 70 y.o. female here for suture removal, 7 days post op. Photograph: well healing flap. Plan: 1. Sutures removed today. 2. Follow up with referring provider or mathematics academic chair for skin exams. 3. Follow up with Dr. Gillis: as needed Note initiated by ARIEL Corcoran CMA has performed the documentation for this encounter in the presence of and acting as a scribe for Dr. Gillis I performed the above scribed service and agree with the accuracy of the documentation in this encounter. Reviewed and signed by: Apollo Gillis Dermatology [facility] documented in this encounter Plan of Treatment Not on file documented as of this encounter Visit Diagnoses Diagnosis Encounter for removal of sutures documented in this encounter Care Teams Corporate Administrator Relationship Specialty Start Date End Date Rodrigo Shin PA [address] [place] [address] PCP - General Family Medicine 12/02/19 documented as of this encounter
--- OUTSIDE RECORDS SUMMARY | 2023-11-01 16:48 | XMS_ITS | Encounter Summary ---
Author Organization [facility] Address [facility] [place] [address] Care Team Providers Care Restaurant Cook Name Role Phone Rodrigo Shin Primary Care Provider +1- [phone] Encounter Details Date Type Department Care Team (Late st Contact Info) Description 11/10/2021 8:00 AM EDT Office Visit Dermatology at [facility] [address] [place] [address] Nona Moore MD [facility] [address] LM [place] [address] Akin Rudolph Encounter for cosmetic procedure Social History Tobacco [...] as of this encounter Progress Notes * Akin Rudolph - 11/10/2021 8:00 AM EDT PROVIDER: Nona Moore MD CARTRIDGE MAKER: Akin Rudolph Quyen Bill : 1950 PATIENT PREFERENCES: -prefers to be called: Quyen LANGE Quyen Bill is a 71 y.o. year old female. Here for Hydrafacial. Concerns from previous visit?: pt concerned about a spot on her nose that had been biopsied at her last visit. Dr. Moore went in to speak with her about the results and advised Efudex. COSMETIC TREATMENT VISIT -Questions or concerns today? 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 no -, lactating or trying [...] No current facility-administered medications for this visit. DIAGNOSIS/ASSESSMENT: #??IPL??treatments for photodamage located on??face - [...] -ZO skincare regimen: regimen or products:??Exfoliating cleanser, iranian, Oil control pads??reviewed by:??DW??date:??01/05/2021?? -instructions in AVS dated?? -discussed importance of meticulous sun protection # Hydrafacial for skin maintenance on face - Number of treatments recommended: gave pt a range of options but suggested she might do it more frequently in beginning e.g. 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 Date:??03/09/2021?Laser: IPL?Area: full face?Spot: large??Energy(J): 18?Pulse Duration: 3.5/15/3.5?Pulse#:??79?Paid:??$350?Tx By:RL?Notes:? Date:??04/14/2021?Laser: IPL?Area: full face?Spot: large??Energy(J): 20?Pulse Duration: 3.5/15/3.5?Pulse#:??78?Paid:??$350?Tx By:RL?Notes:? Date: 10/19/2021 Laser: Vbeam Area: full face Spot: 10 Energy(J): 8.5 Pulse Duration: 10 Pulse #: 307 Paid: $350 Tx By:RL Notes: ?? HYDRAFACIAL TREATMENT LOG: Date: 11/10/2021 - Cleansing Tip Color: Blue - Booster: Retinol - GlySal level: Da MD - Perk: no - Paid: $250 - Next treatment to be completed: Hydrafacial - Time advised between treatments: 6 weeks alternating with Vi Peel. FOLLOW UP RETURN TO CLINIC: Appointment scheduled for Hydrafacial with for 60 min and follow up about SCC on the nose with RL. Plan to alternate Hydrafacial and Vipeel through the winter. COSMETIC COST TODAY: $[address] Moore I am documenting this encounter acting as the scribe for and in the presence of Nona Moore MD, Andrea C Sheehan I performed the above scribed service and agree with the accuracy of the documentation in this encounter, MD Nona Fitzpatrick MD Department of Dermatology documented in this encounter Plan of Treatment Not on file documented as of this encounter Visit Diagnoses Diagnosis Encounter for cosmetic procedure documented in this encounter Care Teams Restaurant Cook Relationship Specialty Start Date End Date Rodrigo Shin PA [address] [place] [address] PCP - General Family Medicine 12/02/19 documented as of this encounter
--- OUTSIDE RECORDS SUMMARY | 2023-11-01 16:48 | XMS_ITS | Encounter Summary ---
Author Organization [facility] Address [facility] [place] [address] Care Team Providers Care Pattern Molder Name Role Phone Rodrigo Shin Primary Care Provider +1- [phone] Encounter Details Date Type Department Care Team (Latest Contact Info) Description 02/21/2021 7:45 AM EST Clinical Support Dermatology at [facility] [address] [place] [address] Apollo Gillis MD [facility] [place] [address] Squamous cell carcinoma of nose Social History Tobacco Use Types Packs/Day Years Used Date Smoking Tobacco: Never Smokeless Tobacco: Never Alcohol Use Standard Drinks/Week Comments Yes 4 (1 standard drink = 0.6 oz pur e alcohol) Sex and Gender Information Value Date Recorded Sex Assigned at Not on file Gender Identity Not on file Sexual Orientation Not on file documented as of this encounter Progress Notes * Tianna Oden CMA - 02/21/2021 7:45 AM EST Mohs consultation and preoperative note (H&P) Patient Name: Quyen Bill Age: 70 y.o. Date of : 1950 Today's Date: 02/21/2021 REFERRING PROVIDER: Chantale Martin MD CC: Mohs micrographic surgery for treatment of a cutaneous tumor HPI: Quyen Bill is a 70 y.o. female presenting for biopsy-proven Squamous cell carcinoma, at least in situ, transected at the peripheral and deep specimen edges, invasive squamous cell carcinoma cannot be excluded ,location on the Right nasal dorsum. The dermatologic preoperative information sheet was reviewed with pertinent positive and negative as below. DERMATOLOGIC PRE-OPERATIVE EVALUATION AND REVIEW OF SYSTEMS She has had her Vaccine and Booster History of Mohs surgery-No Pacemaker/Defibrillator-No Joint replacement or other implantable devices (e.g. Cochlear implant)-No Do you take a blood thinner-no History of organ transplant-No History of artificial [...] as of this encounter Visit Diagnoses Diagnosis Squamous cell carcinoma of nose Malignant neoplasm of head, face, and neck documented in this encounter Care Teams Pattern Molder Relationship Specialty Start Date End Date Rodrigo Shin PA [address] [place] [address] PCP - General Family Medicine 12/02/19 documented as of this encounter
--- OUTSIDE RECORDS SUMMARY | 2023-11-01 16:48 | XMS_ITS | Encounter Summary ---
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 documented in this encounter Progress Notes * Apollo Gillis MD - 12/22/2021 2:45 PM EDT Images from the original note were not included. Mohs consultation and preoperative note (H&P) Patient Name: Quyen Bill Age: 71 y.o. Date of : 1950 Today's Date: 12/22/2021 REFERRING PROVIDER: Chantale Martin MD CC: Mohs micrographic surgery for treatment of a cutaneous tumor HPI: Quyen Bill is a 71 y.o. female presenting for follow up of biopsy proven squamous cell carcinoma at least in situ, can not exclude invasion located on the left nasal dorsum. The dermatologic preoperative information sheet was reviewed with pertinent positive and negative as below. DERMATOLOGIC PRE-OPERATIVE EVALUATION AND REVIEW OF SYSTEMS She has had her Vaccine and Booster History of Mohs surgery-Yes with Dr. Gillis Right nasal dorsum on 02/21/2021 Pacemaker/Defibrillator-No Joint replacement or other implantable devices [...] surgery-No ALLERGIES: Allergies reviewed MEDICATIONS: Medications reviewed PHYSICAL EXAMINATION: General: patient is awake, alert, oriented and in no acute distress. Skin: Focused examination of surgical site(s) performed which shows an erythematous scar corresponding with recent biopsy site with minimal surrounding hyperkeratosis. PHYSICIAN REVIEW OF REPORTS, RECORDS, IMAGES: 1) The accompanying pathology report(s) associated with aforementioned biopsy slide(s) were/was also reviewed. Assessment: Quyen Bill is a 71 y.o. female presenting for: 1. Biopsy-proven squamous cell carcinoma at least in-situ, can not exclude invasion located on the left nasal dorsum. Plan: 1. Findings from the biopsy report, my independent review of the histopathology from the biopsy slides, today's clinical exam, and other pertinent details were reviewed with patient today. All questions were answered. 2. Discussed treatment options based on the above findings. We recommended Efudex for treatment of this tumor based on the subtle clinical findings and the patient's desires to avoid additional surgery. We discussed importance of 6 weektreatment course and very close clinical monitoring for recurrence. 3. We discussed risks, benefits, and alternative treatment options to the Mohs micrographic surgeryprocedure and pertinent information including but not limited to the following: ?? Risks include bleeding, infection, scar, recurrence, incomplete tumor removal or inability to cure with surgery alone if the tumor features are more aggressive than the initial pathology indicates. Occasionally, additional adjuvant treatments may be recommended. Additional risks include large wound, prolonged wound and healing, pain, swelling, bruising, increased appearance of vessels or worsening erythema of baseline skin; more rarely risks include damage to underlying structures such as nerves, cartilage, or muscle which could lead to temporary or permanent loss of sensation or motor function. ?? Benefit is precise tumor removal ?? If reconstruction is performed, it is specific to the patient and defect. ?? Discussed that the shape, size, depth of the wound is often not known until the tumor is clearedand thus the reconstruction options are sometimes not known until after tumor clearance. Occasionally, referrals to other providers may be recommended for reconstruction based on patient preference and need. ?? Reviewed the pros and cons of common reconstructions used for this tumor type, size, and location, and that reconstruction may lead to change in appearance. ?? Natural history of scar was discussed, including that the scar will continue to mature for 1-2 years. Recommended avoidance of special ointments or scar creams, and avoidance of direct sun exposure to the scar for optimal recovery. ?? Reviewed that there are some aspects of cosmesis that are dependent on patient's characteristicssuch as age, skin laxity/texture factors, inflammatory skin diseases such as rosacea, prior surgery/radiation, degree of actinic damage, smoking status, strength of the patient's immune system, diligent wound care, medications, and genetics. ?? Having Mohs surgery may lead to physical limitations for optimal healing, such as restricted physical activity and heavy lifting. 4. Signs and symptoms of skin cancer reviewed. Patient to report any new, changing, or symptomatic lesions and follow up with his or her business development officer or other skin provider. 5. Patient elects to treat area with topical Efudex cream. Discussed applying Efudex once daily to nose x 6 weeks. Will follow up in 2 months. Apollo Gillis MD PhD Mohs Micrographic Surgery and Dermatologic Oncology Section of Dermatology, Department of Surgery Note initiated by Tianna Oden CMA. Tianna Oden CMA has performed the documentation for this encounter in the presence of and acting as a scribe for Dr. Gillis I performed the above scribed service and agree with the accuracy of the documentation in this encounter. 

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
--- OUTSIDE RECORDS SUMMARY | 2023-11-01 16:48 | XMS_ITS | Encounter Summary ---
Author Organization [facility] Address [facility] [place] [address] Care Team Providers Care Sales Service Technician Name Role Phone Rodrigo Shin Primary Care Provider +1- [phone] Encounter Details Date Type Department Care Team (Late st Contact Info) Description 03/02/2022 Telephone Dermatology at [facility] [address] [place] [id number] Jenifer Marina CMA Social History Tobacco Use Types Packs/Day Years [...] encounter Miscellaneous Notes * Telephone Encounter - Jenifer Marina CMA - 03/02/2022 9:52 AM EST LMOM to schedule follow up appt with Dr Quijano, From note 12/22/21: Patient elects to treat area with topical Efudex cream. Discussed applying Efudex once daily to nose x 6 weeks. Will follow up in 2 months. ?? documented in this encounter Plan of Treatment Not on file documented as of this encounter Visit Diagnoses Not on filedocumented in this encounter Care Teams Sales Service Technician Relationship Specialty Start Date End Date Rodrigo Shin PA [address] [place] [address] PCP - General Family Medicine 12/02/19 documented as of this encounter
--- OUTSIDE RECORDS SUMMARY | 2023-11-01 16:48 | XMS_ITS | Encounter Summary ---
Author Organization [facility] Address [facility] [place] [address] Care Team Providers Care Classification Inspector Name Role Phone Rodrigo Shin Primary Care Provider +1- [phone] Reason for Referral * Consultation (Urgent) - Closed Specialty Diagnoses / Procedures Referred By Venancio medeiros Referred To Contact Dermatology Diagnoses Squamous cell carcinoma in situ Chantale Martin MD [facility] [place] [address] Apollo Gillis MD [facility] [place] [address] Referral ID Status Reason Start Date Expiration Date V isits Requested Visits Authorized [id number] Closed Consult, Test & Treat 01/11/2021 01/11/2022 1 1 Encounter Details Date Type Department Care Team (Late st Contact Info) Description 01/11/2021 Orders Only Dermatology at [facility] [address] [place] [address] Chantale Martin MD [facility] [place] [address] Squamous cell carcinoma in situ Social History Tobacco Use Types Packs/Day Years Used Date Smoking Tobacco: Never Smokeless Tobacco: Never Alcohol Use Standard Drinks/Week Comments Yes 4 (1 standard drink = 0.6 oz pur e alcohol) Sex and Gender Information Value Date Recorded Sex Assigned at Not on file Gender Identity Not on file Sexual Orientation Not on file documented as of this encounter Progress Notes * Viri Corona LPN - 01/11/2021 4:17 PM EST Referred to [facility] per Dr. 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
--- OUTSIDE RECORDS SUMMARY | 2023-11-01 16:48 | XMS_ITS | Encounter Summary ---
[place] [address] Care Team Providers Care Labeling Associate Name Role Phone Rodrigo Shin Primary Care Provider +1- [phone] Encounter Details Date Type Department Care Team (Latest Contact Info) Description 12/22/2021 Travel Social History Tobacco Use Types Packs/Day [...] on filedocumented in this encounter Care Teams Labeling Associate Relationship Specialty Start Date End Date Rodrigo Shin PA [address] [place] [address] PCP - General Family Medicine 12/02/19 documented as of this encounter
--- OUTSIDE RECORDS SUMMARY | 2023-11-01 16:48 | XMS_ITS | Clinical Summary ---
Author Organization [facility] Address [facility] [place] [address] Care Team Providers Care Technical Support Associate Name Role Phone Rodrigo Shin Primary Care Provider +1- [phone] Allergies No known active allergies Medications Medication Sig Dispensed Refills Start Date End Date Status lisinopril (PRINIVIL;ZESTRIL) 2.5 mg tablet Take 40 mg by mouth daily. Active metFORMIN (GLUCOPHAGE) 500 mg tablet Take 500 mg by mouth daily. 08/19/2010 Active gabapentin (NEURONTIN) 300 mg capsule Take 600 mg by mouth daily. 08/19/2010 Active fish oil-omega-3 fatty acids 1,000 mg Capsule Take 2 g by mouth daily. Pt takes 2,400 mg Active levothyroxine (Synthroid) 25 mcg Tablet 10/09/2018 Active rosuvastatin (Crestor) 5 mg Tablet 02/09/2021 Active Active Problems Problem Noted Date Diagnosed Date S/P abdominoplasty 05/01/2016 Breast ptosis 12/14/2015 Abdominal pannus 12/14/2015 Ingrown nail 05/26/2015 Thickened nails 04/21/2015 Diabetes mellitus 04/21/2015 Breast mass 08/19/2010 Family History Medical History Relation Comments Alcohol Use Disorder Father Kidney Disease Mother Pain medication abuse Breast Cancer Neg Hx Relation Status Comments Father Mother Social History Tobacco Use Types Packs/Day Years Used Date Smoking Tobacco: Never Smokeless Tobacco: Never Alcohol Use Standard Drinks/Week Comments Yes 4 (1 standard drink = 0.6 oz pur e alcohol) Sex and Gender Information Value Date Recorded Sex Assigned at Not on file Gender Identity Not on file Sexual Orientation Not on file Last Filed Vital Signs Vital Sign Reading Time Taken Comments Blood Pressure 154/82 02/21/2021 7:54 AM EST Pulse 75 02/21/2021 7:54 AM EST Temperature 37 ??C (98.6 ??F) 11/28/2018 10:17 AM EDT Respiratory Rate 16 11/28/2018 10:17 AM EDT Oxygen Saturation 99% 11/28/2018 10:17 AM EDT Inhaled Oxygen Concentration - - Weight 88.2 kg (194 lb 6.4 oz) 07/03/2023 1:23 P M EDT Height 170.2 cm (5' 7) 07/03/2023 1:23 PM EDT Body Mass Index 30.45 07/03/2023 1:23 PM EDT Plan of Treatment Health Maintenance Due Date Last Done Comments CT Colonography 1950 Colonoscopy 1950 Colorectal Cancer Screening 1950 FIT DNA 1950 FIT 1950 Sigmoidoscopy (10 year) with FIT yearly 1950 Sigmoidoscopy 1950 Pneumoccocal Vaccine: 65+ (1 of 2 - PCV) 04/25/1957 DM Hemoglobin A1c 04/25/1961 DM Opthalmology Exam 04/25/1961 DM Urine Microalbumin yearly 04/25/1961 Hepatitis C Screening 04/25/1969 Tdap adult 04/25/1970 Tetanus vaccine 04/25/1970 Breast Cancer Share Decision Needed 1991 Zoster vaccine (1 of 2) 04/25/2001 Advance Directive 04/25/2006 Bone Density Scan 04/25/2016 DM Creatinine yearly 11/29/2019 11/28/2018 Breast Cancer screening 06/26/2020 06/27/19 19, 06/27/2017, 03/29/2015, Additional history exists Covid-19 Vaccine (1 - 2022-2 4 season) 2023 Influenza (Flu) vaccine (1 o f 1 - Influenza standard series) 10/21/2023 Medical Devices Implanted Type Area Copy Machine Operator Device Identifier Shelf Expiration Date Model / Serial / Lot Breast Clip-07/03/2018 Implanted:Qty: 1 on 07/03/2018 by Bisi Bryan MD Breast Clip Right: Breast [id number] / [id number] / Description:[employer] ULTR[employer] R ZIGGY Procedures Procedure Name Priority Date/Time Associated Diagnosis Comments BASIC METABOLIC PANEL Routine 11/28/2018 9:09 AM EDT Varicose veins of lower extremity with pain, unspecified laterality MAMMO SCREENING CAD AND TEDDY BILATERAL Routine 06/26/2018 1:40 PM EDT Encounter for screening mammogram for breast cancer from Last 3 Months or Most Recently Relevant to Health Maintenance Results * (ABNORMAL) Basic Metabolic Panel (non-fasting) (11/28/2018 9:09 AM EDT) Glucose 139 65 - 199 mg/dL [facility] Comment:Diabetes: >=200 mg/d L plus symptoms Blood Urea Nitrogen 27(H) 8 - 18 mg/dL [facility] Creatinine 1.42(H) 0.70 - 1.20 mg/dL [facility] Sodium 141 135 - 145 mmol/L [facility] Potassium 3.6 3.5 - 5.0 mmol/L [facility] Comment: Please note: ??Patients with WBC >100,000 may have falsely elevated Potassium levels. ??For accurate Potassium quantification in these patients send serum separator tube (gold top) for subsequent determinations. ??Contact the Clinical Chemistry Laboratory if there are any questions. Chloride 101 98 - 107 mmol/L [facility] Carbon Dioxide 25 22 - 31 mmol/L [facility] Anion Gap 15 5 - 15 mmol/L [facility] Calcium 9.5 8.5 - 10.5 mg/dL [facility] Est Glomerular Filtration Rate 38(L) >=60 mL/min/1. 73 m?? [facility] Comment: The eGFR was calculated using the CKD-EPI equation. As with all creatinine based estimates of kidney function, eGFR values calculated with the CKD-EPI equation are not accurate in patients with acute kidney failure, extremes of body mass or the acutely ill. http://EvntLive/DHnkf eGFR 44(L) >=60 mL/min/1. 73 m?? [facility] Comment: The eGFR was calculated using the CKD-EPI equation. As with all creatinine based estimates of kidney function, eGFR values calculated with the CKD-EPI equation are not accurate in patients with acute kidney failure, extremes of body mass or the acutely ill. http://EvntLive/[email or web address] Blood specimen (specimen) 11/28/2018 9:09 AM EDT 11/28/2018 9:32 AM EDT Narrative Resulting Agency Comment Spec In Lab Espinoza Garvin MD CHEMISTRY ORDERABLES [facility] [place] [address] * Mammo Screening Cad and Teddy Bilateral (06/26/2018 1:40 PM EDT) Anatomical Region Laterality Modality Breast Bilateral Mammography Impressions 06/27/2018 10:53 AM EDT BIRADS CATEGORY 0: Additional imaging required. Diagnostic imaging of the right breast. Thank you for letting us participate in the care of this patient. For questions regarding this report, please contact the number below. ? Narrative 06/27/2018 10:53 AM EDT REASON FOR EXAM: Screening TECHNIQUE: CC and MLO views were obtained of the bilateral breasts. Computer aided detection was used. 3D tomosynthesis images were obtained in addition to 2D images. COMPARISONS: ??Compared with prior images. FINDINGS: Breast density: The breasts are heterogeneously dense, which may obscure small masses. Left breast. ??There are no suspicious microcalcifications, masses, or areas of distortion. No changes compared to prior studies. The Right breast is abnormal and additional imaging is required. There is a focal asymmetry of the upper and outer right breast at approximately 11:00, 7 cm from the nipple, and measuring 1.3 cm. Nae Guthrie MD IMG MAMMO ORDERABLES from Last 3 Months or Most Recently Relevant to Health Maintenance Advance Directives * Full Code (Latest Code Status on File) Date Activated Date Inactivated Comments 04/18/2016 3:51 PM 04/19/2016 5:01 PM Question Answer Comments Does patient have capacity to make decision: Yes Care Teams Technical Support Associate Relationship Specialty Start Date End Date Rodrigo Shin PA [address] [place] [address] PCP - General Family Medicine 12/02/19
--- OUTSIDE RECORDS SUMMARY | 2023-11-01 16:48 | XMS_ITS | Encounter Summary ---
Author Organization [place] [address] Care Team Providers Care Teller Manager Name Role Phone Rodrigo Shin Primary Care Provider +1- [phone] Encounter Details Date Type Department Care Team (Late st Contact Info) Description 12/27/2021 Interpretation Only [address] [id number] Chase Castro, DPL[address] [place] [address] Social History Tobacco Use Types Packs/Day Years [...] Procedure Name Priority Date/Time Associated Diagnosis Comments XR FOOT MIN 3 VIEWS RIGHT Routine 12/27/2021 3:05 PM EST documented in this encounter Results * XR Foot Min 3 views Right (Generic) (12/27/2021 3:05 PM EST) PT CLASS O RAD ADMITDTTM RAD PT RAD MD INFO [id number]^W KOFI^CHASE^ P DH RAD EXAM DESC [id number]^XR RIGHT FOOT ROUTINE^RIS RAD Anatomical Region Laterality Modality Foot Right Radiographic Maureen ging Impressions 12/27/2021 3:15 PM EST Degenerative changes as above. No acute fracture or dislocation. Thank you for letting us participate in the care of this patient. ??If you are a health care provider and have any questions regarding this report, please contact the number below. ??For patients who have questions please contact the health plant health care technician that requested your imaging first. ? Electronically signed by: Woody Oseguera MD, [facility] ([phone]), at 12/27/2021 3:15 PM Narrative 12/27/2021 3:15 PM EST EXAMINATION: XR RIGHT FOOT ROUTINE CLINICAL HISTORY: Pain in right foot TECHNIQUE: 3 views of the right foot COMPARISON: None FINDINGS: No acute fracture or dislocation. Fixed flexion deformity of second digit. A degenerative ossicle at the first interphalangeal joint dorsally and medially. Maintained longitudinal arch. Inferior and superior calcaneal spurring. No focal osseous lesions. Procedure Note Woody Oseguera MD - 12/27/2021 EXAMINATION: XR RIGHT FOOT ROUTINE CLINICAL HISTORY: Pain in right foot TECHNIQUE: 3 views of the right foot COMPARISON: None FINDINGS: No acute fracture or dislocation. Fixed flexion deformity of second digit.A degenerative ossicle at the first interphalangeal joint dorsally andmedially. Maintained longitudinal arch. Inferior and superior calcaneal spurring. Nofocal osseous lesions. IMPRESSION Degenerative changes as above. No acute fracture or dislocation. Thank you for letting us participate in the care of this patient. If youare a health care provider and have any questions regarding this report,please contact the number below. For patients who have questions please contactthe health plant health care technician that requested your imaging first. Chase Castro DPLiv IMG DX ORDERABLES documented in this encounter Visit Diagnoses Not on filedocumented in this encounter Care Teams Teller Manager Relationship Specialty Start Date End Date Rodrigo Shin PA [address] [place] [address] PCP - General Family Medicine 12/02/19 documented as of this encounter
--- OUTSIDE RECORDS SUMMARY | 2023-11-01 16:48 | XMS_ITS | Encounter Summary ---
Author Organization [facility] Address [facility] [place] [address] Care Team Providers Care Professor Of Mathematics Name Role Phone Rodrigo Shin Primary Care Provider [phone]- [phone] Encounter Details Date Type Department Care Team (Late st Contact Info) Description 01/05/2021 3:30 PM EST Office Visit Dermatology at [facility] [address] [place] [address] Nona Moore MD [facility] [address] [place] [address] Encounter for cosmetic procedure Social History Tobacco [...] this encounter Patient Instructions * Patient Instructions* Arik Johnson CCMA - 01/05/2021 3:30 PM EST Images from the original note were not included. LASER BORREGO QUOTE We discussed IPL treatment(s) to your full face. We predict you will need 2-3+ treatments to get a meaningful, long lasting result. Those treatments would ideally be spaced 3-6 weeks apart. After that, we recommend you consider maintenance treatments. The cost is $350 per treatment. This is not a package borrego. Maintenance prices would be the same borrego unless we discuss a new plan. Any quote we give you for a procedure is valid for up to 6 months after your consult. After that, prices are subject to change. If you are unsure about the cost, please ask us to clarify before you undergo your procedure. IPL BEFORE AND AFTER TREATMENT INSTRUCTIONS The IPL procedure is one of the most popular and effective cosmetic treatments available. It is effective against the red and brown discoloration that accumulates on our skin with sun and age. It is typically performed as a series of 2-5 treatments. The best results are seen in patients who avoid the sun and maintain their skin with a skincare regimen that includes a retinoid. Ask your provider for help with this if you aren't already on such a regimen. Before treatment: ??? Put a couple of wet washcloths in the refrigerator before you leave for your treatment. ??? Do not wear makeup to your treatment. ??? Avoid using self-lynne on treatment area for 2 weeks prior to your appointment. ??? Stop all retinols, vitamin C, hydroxy acids 5 days before your treatment. (If on a ZO regimen products to avoid include: C Bright, TE Pads, Exfoliating Icelandic, Vitascrub, Cebatrol, Glycogent, Melamix, Tretinoin, Retamax, Brightenex, Brightamax, Growth Factor, Invisapeel.) Check with your doctorif you are unsure. ??? Men: shave the day of your treatment. ??? Women: do not wax or use a depilatory on treatment area for one week prior to treatment. ??? Avoid sun exposure for at least 2 weeks prior to your treatment. After treatment: ??? Swelling, redness and transient mild discomfort are normal. Brown spots may appear darker. ??? Most patients do not feel any discomfort once the procedure is over, although this can be normal. ??? Apply the wet washcloths you prepared. Repeat as needed. Ice packs are another option. Repeat 10 min on and 10 min off until heat and discomfort dissipate. ??? Sleep with your head elevated if you experience swelling. ??? Treated freckles and sun spots will darken immediately after treatment, often giving a ???coffee grounds?? appearance on the surface of the skin. Let them flake off naturally for best results. ??? If the skin is broken or a blister appears, apply vaseline and contact Dr. Moore at the number below. Be extra careful to avoid sun exposure. ??? Localized redness may also be present and will typically resolve in 24 to 48 hours. ??? Avoid hot tubs or spas for at least 24 to 48 hours after treatment. ??? Makeup may be applied as long as the skin is not broken. Try to wait until the day after treatment to apply makeup. ??? Men: Avoid shaving for 24 hours after your treatment. ??? Women: Don???t wax, tweeze or use depilatories in first week after treatment. ??? Resume your normal skincare routine when all redness, swelling or sensitive areas have healed. It is ok to resume your skincare before all the dark areas have faded but be gentle when using any costa rican or scrub. ??? The recommended time interval between treatments is 3-4 weeks. ??? Avoid sun exposure for at least 2 weeks following your treatment. Questions and/or concerns please call: ???s appointment medical secretary teacher On weekends of off hours please call [facility] main number and ask for the thermal technician instructional technology specialist: Or in an emergency, call [phone] Moore's cell IPL Frequently Asked Questions (FAQs) What is Photorejuvenation? Photorejuvenation is a light-based treatment used to improve the skin. It treats brown and red discoloration, blood vessels and overall tone and texture. Photorejuvenation can be performed using a variety of lasers or light sources. We use an Intense Pulsed Light (or IPL) unit made by [employer] ([employer]) and occasionally use a separate alexandrite or pulsed dye laser for any stubborn spots. How does it work? The technology behind photorejuvenation with Intense Pulsed Light (IPL) is based on the principle of selective photothermolysis (photo = light, thermal = heat, lysis = destruction, selective = targeted). Each pulse from the IPL machine delivers a high intensity flash of light. These intense pulses of light are absorbed very selectively by chromophores in the skin. Chromophores are pigmented substances that include melanin and hemoglobin. Structures that concentrate these substances (like blood vessels and brown ???age spots?? ) will be targeted by the energy of each pulse. This process is ???non-ablative?? , meaning the surface of the skin is left intact. What areas can I treat? The most commonly treated areas include the face, neck, chest, and hands. The most commonly treated conditions are sun damage, visible blood vessels and rosacea. How many treatments will I need? A series of 3-5 treatments, with each one scheduled 4-6 weeks apart is recommended for optimal results. With good sun protection and regular skincare results can lastup to five years. After completing a series, most patients will benefit from a yearly maintenance tr eatment. Does it hurt? The treatment consists of multiple pulses delivered by the IPL device. Each pulse feels like a brief stinging or snapping sensation that is mildly- moderately uncomfortable. How do I prepare for the procedure? Avoid the sun for 4 weeks before and 2 weeks after the treatment. ??? Avoid self-lynne for 2 weeks prior to the treatment ??? Use gentle skin care for 5 days prior to the procedure. Products to stop during those 5 days include: Retin A, tretinoin, retinol, alpha-hydroxy acid, abrasive scrubs or vitamin C ??? Use gentle skin care and regular sunscreen after your procedure. Resume your usual regimen (with retinoids, scrubs, alpha-hydroxy acids and vitamin C) 3-5 days after your procedure. ??? If taking a medication that is photosensitizing (e.g. Oracea, MCN, doxycycline, Monodox etc), stop the medication 3 days prior to the treatment to prevent adverse side effects. Such medications can be restarted immediately after the treatment. ??? Let us know if you have a history of cold sores. Light treatments can trigger cold sores so we often prescribe a medication to prevent that. ??? Take up to 600mg of ibuprofen 1 hour prior to treatment to help make the process more comfortable. What should I expect after the procedure? Mild swelling and redness are typical immediately after the treatment and will resolve within 2days. ??? Discomfort is usually very temporary and most patients leave with no discomfort. A minority of patients (who need more aggressive treatments) will have moderate burning and stinging that can lastfor several hours. ??? Pigmented lesions (freckles or age spots) darken into a coffee grounds appearance on the skin???s surface before sloughing away in about 1-2 weeks on the face and 2-3 weeks for non-facial areas. ??? Most people feel comfortable returning to work and normal activities immediately after the treatment, but we advise that you plan to avoid major social events for one week. How is the treatment performed? Protective eye patches are applied, your face is cleaned and cold air is blown on your skin as we deliver pulses with the laser, covering the entire desired area. Sessions usually last about 20 minutes. What are the risks? Treated areas are prone to hyperpigmentation (darkening of the skin) if not protected from the sun. Avoidance of the sun and wearing sunscreen daily are advised. ??? Superficial lopez on the skin are very uncommon but possible. What type of results can I expect? Skin discoloration is improved with a fading of brown spots and reduction in redness. ??? Blood vessels are less noticeable ??? Pores are less visible ??? Overall skin tone is brighter and more youthful. ??? Excellent duration of effect when maintained with a good skincare regimen and sun protection. Each treatment will bring improvements but optimal results and better duration of response are seen when patients complete their series adequately treated by 3 treatments but the redness of rosacea mayrequire up to 5 treatments. Before IPL Series After Before IPL Series After documented in this encounter Progress Notes * Nona Moore MD - 01/05/2021 3:30 PM EST DATE OF SERVICE: 01/05/2021 PROVIDER: MD Quyen Fitzpatrick : 1950 PATIENT PREFERENCES: -prefers to be called: Quyen LANGE Quyen Martinez Landy is a 70 y.o. year old female. Here for consult 01/05/2021. ADR: No Known Allergies MEDS: Current Outpatient Medications Medication Sig Dispense Refill ??? levothyroxine (Synthroid) 25 mcg Tablet ??? simvastatin (Zocor) 20 mg Tablet ??? fluorouraciL (EFUDEX) 5 % Cream Apply a thin layer to affected areas on the nose twice daily (morning and night) as tolerated for 3 weeks. 40 g 0 ??? hydrochlorothiazide (HYDRODIURIL) 25 [...] medical visits in future for actinic keratoses/damage # Chemoprevention/correction: Emphasized value of retinoid-based skin care system to amplify and maintain benefits of any anti aging plan/procedures. -special considerations: -retinoid: Will start at next visit date started: -ZO skincare regimen: regimen or products: Exfoliating cleanser, costa rican, Oil control pads reviewed by: PETER date: 01/05/2021 -instructions in AVS dated -discussed importance of meticulous sun protection FOLLOW UP WHEN: next available FOR WHAT: IPL LENGTH OF VISIT: 15 min NUMBING?: no PICTURES NEEDED? no LEVEL: 2 Notes: COSMETIC COST TODAY: $100 consult Treatment delivered by Dr. Moore I am [...] procedure documented in this encounter Care Teams Professor Of Mathematics Relationship Specialty Start Date End Date Rodrigo Shin [place] [address] [place] [address] PCP - General Family Medicine 12/02/19 documented as of this encounter
--- OUTSIDE RECORDS SUMMARY | 2023-11-01 16:48 | XMS_ITS | Encounter Summary ---
Author Organization [facility] Address [facility] [place] [address] Care Team Providers Care Physician Allergist Immunologist Name Role Phone Rodrigo Shin Primary Care Provider [phone]- [phone] Encounter Details Date Type Department Care Team (Late st Contact Info) Description 04/14/2021 1:45 PM EST Office Visit Dermatology at [facility] [address] [place] [address] Nona Moore MD [facility] [address] [place] [address] Encounter for cosmetic procedure Social History Tobacco [...] * Patient Instructions* Arik Johnson CCMA - 04/14/2021 2:36 PM EST LASER BORREGO QUOTE We discussed Vbeam treatment(s) to your full face. We predict you will need 1+ treatments to get a meaningful, long lasting [...] to clarify before you undergo your procedure. VBEAM You've made a great choice! The Vbeam procedure is one of the most commonly performed treatments inour office. It is intense, effective and safe. This laser treatment treats redness and blood vessels that detract from a healthy, evenly colored complexion. It also treats the inflammation of rosaceaand acne and can be effective at stimulating collagen growth. Treatments are usually performed as a series. We often suggest 2-5 treatments, performed monthly toobtain substantial improvement. We then advise maintenance treatments every 6-12 months because, whether treating rosacea, sun damage or aging in general, there is always a tendency to re accumulate redness and blood vessels. The best, most long-lasting results are seen in patients who maintain with a good skincare routine that includes excellent sun protection and a retinoid. Discuss this with your provider if you don't have such a regimen. Before Your Vbeam Procedure: Consider taking 400-600 mg Ibuprofen to minimize discomfort during the procedure. Stop all retinols, vitamin C, hydroxy acids 5 days before your treatment. (If on a ZO regimen products to avoid include: C Bright, TE Pads, Exfoliating Khmer, Vitascrub, Cebatrol, Glycogent, Melamix, Tretinoin, Retamax, Brightenex, Brightamax, Growth Factor, Invisapeel.) Check with your doctor if you are unsure. If you plan to receive numbing cream, please be sure to come 30 min before your appointment time and tell the vest front presser that you were told to do so. Don't plan a major engagement within one week. (Prolonged swelling is very unlikely but better to be safe and allow a week.) Expect redness and swelling for typically 24 hours. After Your Vbeam Procedure: Apply ice jethro as needed for comfort. Avoid heat or sun exposure until redness and swelling subside. Swelling can be minimal to severe. If severe, consider sleeping with the head of your bed elevated. Blood vessels and redness may seem worse than they were before the treatment in some areas. This doesn't mean the treatment wasn't effective. Expect improvement to evolve over the following 3 weeks. OK to resume your normal skin care routine when swelling, sensitivity and redness have resolved (typically 24-48 hours). Avoid sun exposure directly to the skin for 1 week after treatment. Questions and/or concerns please call: ???s appointment workers compensation legal secretary For urgent concerns on weekends or off hours please call [facility] main number and ask for the armored cable machine operator medical oncologist: or call Dr. Moore's cell: [phone] documented in this encounter Progress Notes * Nona Moore MD - 04/14/2021 1:45 PM EST DATE OF SERVICE: 04/14/2021 PROVIDER: MD Quyen Fitzpatrick Juan Albah : 1950 PATIENT PREFERENCES: -prefers to be called: Quyen LANGE Quyen Bill is a 70 y.o. year old female. Here for IPL procedure 04/14/2021. Concerns from previous visit?: pt not sure what it did COSMETIC TREATMENT VISIT -Questions or concerns today? Had compound filler the glabella and lip area while on recent cruise -Any change in health or new diagnosis since last visit?: as above -HSV prophylaxis? no -, lactating or trying [...] for this visit. EXAMINATION: -New findings: DIAGNOSIS/ASSESSMENT: #??IPL??treatments for photodamage located on??face - [...] -ZO skincare regimen: regimen or products:??Exfoliating cleanser, greek, Oil control pads??reviewed by:??DW??date:??01/05/2021?? -instructions in AVS dated?? -discussed importance of meticulous sun protection PROCEDURE/TREATMENT LOG(S): LASER TREATMENT LOG ?? Date: 03/09/2021 Laser: IPL Area: full face Spot: large Energy(J): 18 Pulse Duration: 3.5/15/3.5 Pulse #: [phone] Paid: $350 Tx By:LEA Notes: ?? Date: 04/14/2021 Laser: IPL Area: full face Spot: large Energy(J): 20 Pulse Duration: 3.5/15/3.5 Pulse #: 78 Paid: $350 Tx By:RL Notes: FOLLOW UP July 2021 vbeam 15 min COSMETIC COST TODAY: $[address] Moore I am documenting this encounter acting as the scribe for and in the presence of Nona Moore MD,JOSE EDUARDO Romero I performed the above scribed service and agree with the accuracy of the documentation in this encounter, MD Nona Fitzpatrick MD Department of Dermatology documented in this encounter Plan of Treatment Not on file documented as of this encounter Visit Diagnoses Diagnosis Encounter for cosmetic procedure documented in this encounter Care Teams Physician Allergist Immunologist Relationship Specialty Start Date End Date Rodrigo Shin PA [address] [place] [address] PCP - General Family Medicine 12/02/19 documented as of this encounter
--- OUTSIDE RECORDS SUMMARY | 2023-11-01 16:48 | XMS_ITS | Encounter Summary ---
Author Organization [facility] Address [facility] [place] [address] Care Team Providers Care Hand Pattern Marker Name Role Phone Rodrigo Shin Primary Care Provider [phone] Reason for Visit * Consultation (Urgent) - Closed Specialty Diagnoses / Procedures Referred By Venancio medeiros Referred To Contact Dermatology Diagnoses Squamous cell carcinoma in situ Chantale Martin MD [facility] [place] [address] Apollo Gillis MD [facility] DR LM [facility] [address] Referral ID Status Reason Start Date Expiration Date V isits Requested Visits Authorized [id number] Closed Consult, Test & Treat 01/11/2021 01/11/2022 1 1 Encounter Details Date Type Department Care Team (Latest Contact Info) Description 02/21/2021 8:00 AM EST Procedure visit Dermatology at [facility] [address] [place] [address] Apollo Gillis MD [facility] DR LM [place] [address] Squamous cell carcinoma of nose Social History [...] Pulse 75 02/21/2021 7:54 AM EST Temperature - - Respiratory Rate - - Oxygen Saturation - - Inhaled Oxygen Concentration - - Weight - - Height - - Body Mass Index - - documented in this encounter Progress Notes * Apollo Gillis MD - 02/21/2021 8:00 AM EST Images from the original note were not included. Summary of Procedure(s): Site: right nasal dorsum Tumor Type: Squamous Cell Carcinoma in-situ Stages to clear tumor: 2 Repair: advancement flap Images: Note there was actinic keratoses identified at margin that after discussion were treated with curettage, I also think the patient would benefit from Efudex treatment to the entire nasal tip in the future. The patient was asked to call with any issues and is aware that I am available 11/09 should questions arise. Apollo Gillis MD PhD Mohs Micrographic Surgery and Dermatologic Oncology Department of Dermatology Please note that I have reviewed the preoperative checklist from today's nursing visit including relevant social history and medications. I have reviewed the preoperative photos if available and the biopsy report. VITAL SIGNS: BP 154/82 (BP Location (NBP): Left arm, Patient Position: Sitting, BP Cuff Sizes: Adult (25-34 cm)) Pulse 75 PHYSICAL EXAMINATION: General: patient is awake, alert, oriented and in no acute distress. Skin: Focused examination of surgical site(s) performed which shows a well healed biopsy site with poorly defined surrounding hyperkeratosis. PHYSICIAN REVIEW OF REPORTS, RECORDS, IMAGES: 1) The accompanying pathology report(s) associated with aforementioned biopsy slide(s) were/was also reviewed. Assessment: Quyen Bill is a 70 y.o. female presenting for: 1. 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 Plan: 1. Findings from the biopsy report, today's clinical exam, and other pertinent details were reviewed with patient today. All questions were answered. 2. Discussed treatment options based on the above findings. We recommended Mohs micrographic surgery for treatment of this tumor. Mohs micrographic surgery was indicated due to patient, site and/or tumor characteristics (see operative report for specific indication). 3. We discussed risks, benefits, and alternative [...] restricted physical activity and heavy lifting. 4. The nature of sun-induced photo-aging and skin cancers was discussed. Recommended sun avoidance when possible, especially peak hours of sun 10 am to 2pm, protective clothing such as wide-brimmed hats and long-sleeved clothing, and the use of SPF broad-spectrum sunscreen SPF 50 or higher. 5. Signs and symptoms of skin cancer reviewed. Patient to report any new, changing, or symptomatic lesions and follow up with his or her reimbursement liaison or other skin provider. 6. Discussed avoiding direct sun exposure to scars for best cosmetic result. Note initiated by ARIEL Zayas CMA has performed the documentation for this encounter in the presence of and acting as a scribe for Dr. Gillis I performed the above scribed service and agree with the accuracy of the documentation in this encounter. Reviewed and signed by: Apollo Gillis [facility]ermat[facility] * Apollo Gillis MD - 02/21/2021 8:00 AM EST Mohs micrographic Surgery Operative Report Patient name: Quyen Bill : 1950 Date: 02/21/2021 Staff Surgeon: Apollo Gillis MD PhD Nursing/Linen Grader(s): Kaye Joya RN, Tianna Oden CMA, Vibha Barone LPN, Jenifer Marina CMA, Franco Pantoja CMA, Bisi Richards CMA, Claribel Ga RN Genomics Scientist (s): Sherie Kahn Pre-operative diagnosis: Squamous Cell Carcinoma in-situ Post-operative diagnosis: Squamous Cell Carcinoma in-situ Location/Site:Right nasal dorsum Procedure: Mohs micrographic surgery Indication(s) for Mohs micrographic surgery: Anatomic location for tissue conservation Stages: 2 Preoperative size of tumor: 0.9 x 0.7 cm Stage I The nature and purpose of the procedure, associated risks, possible consequences and complications,and alternative forms of treatment were explained in detail. We reviewed the possible repairs basedon the clinical appearance of tumor but discussed that often the repair options may not be known until the tumor has hay extirpated. Informed consent and permission to take photographs were obtained. The site was confirmed with the patient/authorized traffic representative/referring physician and/or a photograph form time of biopsy. A pre-operative time-out (procedural pause) was conducted with no unresolved discrepancies noted. Local anesthesia was obtained with 1% lidocaine with 1:100,000 epinephrine. The surgical site was prepped and draped in the usual sterile manner. With all visible gross tumor completely excised, the borders of the tumor and 2- 3 mm margins were excised as a complete layer. Hemostasis was achieved by electrocoagulation. The excised tissue was oriented and divided into 2 sections, chromacoded, and submitted for frozen sections. The patient tolerated the procedure well and without complications. On microscopic evaluation of the frozen sections, residual tumor was identified as squamous cell carcinoma in-situ on section A2 (see section number on map). Stage II The surgical site was re-anesthetized with 1% lidocaine with 1:100,000 epinephrine, re-prepped and redraped in a sterile manner. The residual tumor was re-excised as a complete layer 2-3mm in thickness using the Mohs map to delineate area of residual tumor. Hemostasis was achieved with electrocoagul ation. The tissue was oriented and divided into 1 sections, chromacoded, and submitted for frozen sections. The patient tolerated the procedure well and without complications. On microscopic evaluation of the frozen sections, no residual tumor was identified on the deep or outer border of the sections. Note there was actinic keratosis that was treated with gentle curettage. I also think the patient would benefit from Efudex in the future. Depth of excision subcutaneous tissue Final defect size: 1.1 x 0.9 cm Apollo Gillis MD PhD Mohs Micrographic Surgery and Dermatologic Oncology Department of Dermatology [address] [place] [address] Repair Report (Flap) Patient name: Quyen Amaralrah Staff Surgeon: Apollo Gillis MD PhD Transition Mgr(s): same as above paperhanger assistant: Raj Nails MD, Tianna Oden [facility] Date: 02/21/2021 Clinical Diagnosis: skin and soft tissue defect status post Mohs micrographic surgery Location/Site: Right nasal dorsum Indication: repair of wound with yazidism of anatomy/function Defect size to be repaired: 1.1 x 0.9 cm Procedure: Advancement flap repair (tissue rearrangement) Final flap size: 3 x 2 cm 2 Procedure Details: Due to the size and location of the defect resulting from the complete removal of the tumor, the postoperative risk of hemorrhage, infection, and the possibility of serious deformity from scarring, and in order to restore proper function and prevent loss of function, the defect was closed with an advancement flap. The nature and purpose of the procedure, associated risks, possible consequences, complications andalternative methods of treatment were explained to the patient in detail. An informed consent was obtained. Local anesthesia was obtained with a solution of 1-% lidocaine with 1:100,000 epinephrine. The surgical site was prepped and draped in the usual sterile manner. Any beveled edges of the defect were repaired with a scalpel blade. The flap was created by making incisions along nasal dorsum and nasal tip. The flap and the wound edges were undermined, and hemostasis was obtained with electrocoagulation. The flap was advanced onto the defect. The skin edges were closed using 4.0 Monocryl dermal/subcutaneous sutures and 6.0 Prolene skin sutures. Final flap size: 3 x 2 cm2. Estimated blood loss: Minimal. Complications: None. Wound care: Routine. Follow up for suture removal in 7 days. The patient was discharged in good condition. Total local anesthesia with 1% lidocaine with 1:100,000 epinephrine used: 5.5 cc Total local with 0.25% bupivacaine used: 3 cc Apollo Gillis MD PhD Mohs Micrographic Surgery and Dermatologic Oncology Department of Dermatology [address] [place] [address] Note initiated by Tianna Oden CMA. Tianna Oden CMA has performed the documentation for this encounter in the presence of and acting as a scribe for Dr. Gillis I performed the above scribed service and agree with the accuracy of the documentation in this encounter. Reviewed and signed by: Apollo Gillis [facility]ermat[facility] documented in this encounter Plan of Treatment Not on file documented as of this encounter Visit Diagnoses Diagnosis Squamous cell carcinoma of nose Malignant neoplasm of head, face, and neck documented in this encounter Care Teams Hand Pattern Marker Relationship Specialty Start Date End Date Rodrigo Shin [place] [address] [place] [address] PCP - General Family Medicine 12/02/19 documented as of this encounter
--- OUTSIDE RECORDS SUMMARY | 2023-11-01 16:49 | XMS_ITS | Encounter Summary ---
Author Organization [facility] Address [facility] [place] [address] Care Team Providers Care Spiral Binder Name Role Phone Nae Guthrie MD Primary Care Provider [phone] Reason for Visit * Reason Comments Follow Up Surgery s/p abdominoplasty/m astopexy 04/18/16 Encounter Details Date Type Department Care Team (Late st Contact Info) Description 06/12/2016 1:30 PM EDT Office [place] [address] Lorenza Adkins MD [facility] [place] [address] S/P abdominoplasty Social History Tobacco Use Types [...] this encounter Patient Instructions * Patient Instructions* Lorenza Adkins MD - 06/12/2016 1:30 PM EDT Plan: 1. Follow up 6 months 2. Maintain support garments 3. No activity restrictions 4. Resume normal mammograms beginning 6 months after surgery. 5. Scar massage to any firm areas. -SCAR MASSAGE TECHNIQUE: to begin 4-6 weeks following surgery What is a scar? When an injury occurs, the body immediately begins to repair itself & the area becomes swollen & sore. Eventually small collagen fibers form, becoming a solid tissue that results in a scar. This scar will continue to change in appearance for 1-2 years. Ideally, a scar is smooth & flat, blending in with the surrounding skin. However, some scars may become highly visible & unattractive due to factors such as your age, scar location & size, nutrition, genetics, or infection. A hypertrophic scar occurs when there is an excess production of collagen tissue that is elevated but remains within the wound boundaries. The scar is tense, red, & can be associated with itching & tenderness. A hypertrophic scar can be ordinary (usually stabilizes in 3 months & may even get smaller and smoother) or keloid. The keloid scar invades nearby tissue that was not part of the original wound, tends to enlarge even after 6 months & does not get softer. Will scar massage make my scars disappear? Nothing can make scars disappear. However, massaging the scar assists the body in breaking down thescar tissue to give it a flatter, softer, appearance. Massage also mobilizes the scar, preventing it from adhering to underlying tissue, tendons, & nerves. You can make the greatest difference in the appearance of the scar if you massage it in the first 3months. What should I use on my scars? You will hear many recommendations. This clinic finds that it is the massage itself that reduces the scar & not necessarily the choice of ointments or creams. We do discourage the use of Vitamin E oil, however, due to studies that have reported scar inflammation & deterioration. How do I massage my scars? Generously apply the lotion or cream into the scar 3-4 times a day for 8 weeks on new scars, and 3-4 times per day for 3 to 6 months on existing scars. Using your finger, apply pressure to the scar in a crosswise & circular direction, bearing down as hard as tolerated. Remember to protect your scar from the sun, especially in the first 6-12 months, by using a moisturizer with sunblock and wearing a physical barrier (ie: a hat) when possible documented in this encounter Progress Notes * Lorenza Adkins MD - 06/12/2016 1:30 PM EDT Plastic Surgery Follow Up Note Reason for visit: F/U status post procedure Date of surgery: 04/18/16 Procedure(s): Mastopexy (30 g bilaterally), abdominoplasty (2.2 kg) Complications: None reported Pain: 0/10 HPI: Pt reports she has been well and pleased with her outcome thus far. She reports she feels fantastic. It has been difficult to find pants that fit. Examination: Patient is alert, conversant, comfortable, ambulating Breasts: NAC viable, pink Symmetric shape and size. No collection. No erythema. Scars fine, soft. Abdomen: Incision: CDI, healing well. No collection, no erythema, no evidence of cellulitis. Healthy and viable umbilicus. Flat abdominal scar. Dog ears bilaterally R > L Pathology Report: DIAGNOSIS A - Right breast, excision - Benign breast tissue. B - Left breast, excision - Benign breast tissue. Impression: Quyen Bill is a 66 y.o. female who was seen today for follow-up after the above procedure. Please see the operative note for details. She is doing well to date. We discussed the potential for dog ear revision in the future should she desire this. Plan: 1. Follow up 6 months 2. Maintain support garments 3. No activity restrictions 4. Resume normal mammograms beginning 6 months after surgery. 5. Scar massage to any firm areas. 6. Consider dog ear revisions if she wishes I, Margaret Brown, am acting as scribe for Dr Adkins. All work documented was performed by Dr Adkins. ???I performed the above scribed service and agree with the accuracy of the note?? LORENZA ADKINS MD documented in this encounter Plan of Treatment Not on file documented as of this encounter Visit Diagnoses Diagnosis S/P abdominoplasty Other postprocedural status documented in this encounter Care Teams Spiral Binder Relationship Specialty Start Date End Date Nae Guthrie MD [address] [place] [address] PCP - General Family Medicine 04/10/16 05/29/18 documented as of this encounter
--- OUTSIDE RECORDS SUMMARY | 2023-11-01 16:49 | XMS_ITS | Encounter Summary ---
Author Organization [facility] [place] [address] Care Team Providers Care Turbine Attendant Name Role Phone Nae Guthrie MD Primary Care Provider [phone] Encounter Details Date Type Department Care Team (Latest Contact Info) Description 06/27/2017 11:31 AM EDT - 06/27/2017 11:59 PM EDT Hospital En[place] [id number] Rodrigo Shin PA [address] [place] [address] Encounter for screening mammogram for breast cancer Discharge Disposition: Home Social History Tobacco Use Types Packs/Day Years Used Date Smoking Tobacco: Never Smokeless Tobacco: Never Alcohol Use Standard Drinks/Week Comments Yes 4 (1 standard drink = 0.6 oz pur e alcohol) Sex and Gender Information Value Date Recorded Sex Assigned at Not on file Gender Identity Not on file Sexual Orientation Not on file documented as of this encounter Medications at Time of Discharge Medication Sig Dispensed Refills Start Date End Date fish oil-omega-3 fatty acids 1,000 mg Capsule Take 2 g by mouth daily. Pt takes 2,400 mg lisinopril (PRINIVIL;ZESTRIL) 2.5 mg tablet Take 40 mg by mouth daily. metFORMIN (GLUCOPHAGE) 500 mg tablet Take 500 mg by mouth daily. 08/19/2010 gabapentin (NEURONTIN) 300 mg capsule Take 600 mg by mouth daily. 08/19/2010 hydrochlorothiazide (HYDRODIURIL) 25 mg Tablet Take 25 mg by mouth daily. 07/03/2023 aspirin 81 mg EC tablet Take 81 mg by mouth daily. 07/03/2023 gemfibrozil (LOPID) 600 mg tablet Take 500 mg by mouth 2 times daily (before meals). 07/03/2023 amlodipine (NORVASC) 10 mg tablet Take 10 mg by mouth daily. 07/03/2023 cholecalciferol, Vitamin D3, 400 unit tablet Take 1,200 Units by mouth daily. 07/03/2023 documented as of this encounter Plan of Treatment Not on file documented as of this encounter Procedures Procedure Name Priority Date/Time Associated Diagnosis Comments MAMMO SCREENING CAD AND TEDDY BILATERAL Routine 06/27/2017 11:47 AM EDT Encounter for screening mammogram for breast cancer documented in this encounter Results * Mammo Screening Cad and Teddy Bilateral (06/27/2017 11:47 AM EDT) Anatomical Region Laterality Modality Breast Bilateral Mammography Narrative 06/27/2017 12:12 PM EDT BILATERAL MAMMOGRAPHY REASON FOR EXAM: Screening TECHNIQUE: CC and MLO views were obtained of each breast using standard 2-D mammography as well as 3-D tomosynthesis. Computer aided detection was used. This is compared with prior images. FINDINGS: There are scattered areas of fibroglandular density. There are no suspicious microcalcifications, masses, or areas of distortion. The pattern is stable. CONCLUSION: No mammographic evidence of malignancy. RECOMMENDATION: The [employer] and The Society of Breast Imaging recommend annual screening beginning at age 40 for the general female population. Screening should continue as long as a woman is in good health and is expected to live 10 more years or longer. All women should be familiar with the known benefits, limitations, and potential harms linked to breast cancer screening. They should also know how their breasts normally look and feel and report any breast changes to a health care provider right away. Some women - because of their family history, a genetic tendency, or certain other factors - should be screened with MRIs along with mammograms. (The number of women who fall into this category is very small.) The patient and health care provider should discuss the patient history and decide if earlier screening and breast MRI are appropriate. A result letter has been sent to this patient by the [facility]. BIRADS CATEGORY 1: NEGATIVE Rodrigo [facility] IMG MAMMO ORDERABL ES documented in this encounter Visit Diagnoses Diagnosis Encounter for screening mammogram for breast cancer documented in this encounter Care Teams Turbine Attendant Relationship Specialty Start Date End Date Nae Guthrie MD [address] [place] [address] PCP - General Family Medicine 04/10/16 05/29/18 documented as of this encounter
--- OUTSIDE RECORDS SUMMARY | 2023-11-01 16:49 | XMS_ITS | Encounter Summary ---
Author Organization [facility] Address [facility] [place] [address] Care Team Providers Care Captain Cannery Tender Name Role Phone Nae Guthrie MD Primary Care Provider [phone] Reason for Visit * Reason Comments Procedure Encounter Details Date Type Department Care Team (Late st Contact Info) Description 02/25/2018 1:00 PM EST Office Visit Dermatology at [facility] [address] [place] [address] Nona Moore MD [facility] DR [place] [address] Arik Johnson RN Encounter for cosmetic procedure Social History Tobacco [...] as of this encounter Progress Notes * Arik Johnson - 02/25/2018 1:00 PM EST Chief Problem: 1. Unwanted fat distrubution HISTORY: 67 y.o. y.o. year old female, here for coolsculpting consultation with possible treatment today. Established patient to me. Hx of abdominal hernias? no Hx of cold induced urticaria? no Hx of bleeding disorders? no EXAMINATION: Focal examination of the abdomen. Abdomen with adequate fat distribution to benefit from cryolipolysis. Patient weight? 185lbs DIAGNOSIS/ASSESSMENT: # Photography: - Date: 10/09/2017 View: Coolsculpt view Initials: DW #Unwanted fat distrubution Area of primary concern upper abdomen Patient is amenable to cryolipolysis Goal areas for future treatments: lower abdomen Coolsculpting Log Treatment #1 Date: 10/09/2017 Area Treated: Upper abdomen Attachments: Coolcore advantage x 4 Total Cost- $3,000 Treatment #2 Date: 02/25/2018 Area Treated: Upper abdomen Attachments: Coolcore advantage x 2 Total Cost- $1,500 - 20% = $1,200 Cosmetic Cost paid today: $1,200 paid upon exiting clinic FOLLOW UP WHEN: 3 months FOR WHAT: Coolsculpt f/u LENGTH OF VISIT: 30 min NUMBING?: no PICTURES NEEDED? yes COST: no charge NOTES: Treatment delivered by Margarito Ralph (trained cool sculpting pen ruler operator) under indirect onsite supervision of Nona Moore MD. Margarito Ralph documented in this encounter Plan of Treatment Not on file documented as of this encounter Visit Diagnoses Diagnosis Encounter for cosmetic procedure documented in this encounter Care Teams Captain Cannery Tender Relationship Specialty Start Date End Date Nae Guthrie MD [address] [place] [address] PCP - General Family Medicine 04/10/16 05/29/18 documented as of this encounter
--- OUTSIDE RECORDS SUMMARY | 2023-11-01 16:49 | XMS_ITS | Encounter Summary ---
Author Organization [facility] [place] [address] Care Team Providers Care Clinical Care Leader Name Role Phone Rodrigo Shin Primary Care Provider [phone]- [phone] Reason for Visit * Auth/Cert Specialty Diagnoses / Procedures Referred By Venancio medeiros Referred To Contact Diagnoses varicose vein Procedures PRO ENDOVENOUS RF, 1ST VEIN ENDOVENOUS ABLATION THERAPY OF INCOMPETENT VEIN, EXTREMITY, FIRST VEIN (WRVU 5.3) Referral ID Status Reason Start Date Expiration Date Visits Re quested Visits Authorized [id number] 1 1 Encounter Details Date Type Department Care Team (Late st Contact Info) Description 11/28/2018 10:26 AM EDT Anesthesia [place] [address] Rehana Dickens MD [facility] [place] [address] Anesthesia Record Procedure Summary Procedure Name Responsible Anesthesiologist Anesthesia Start Time Anesthesia Stop Time ENDOVENOUS ABLATION THERAPY OF INCOMPETENT VEIN, EXTREMITY, FIRST VEIN (WRVU 5.3) (Right: Leg Upper) Events Date Time Event Comment 11/28/2018 1033 Meds * Agents No agents on file. * Blood No blood administrations on file. Lines, Drains, and Airways Type Details Placement Removal Drain/Device Site 04/18/16; 1302; Right; chest 0 04/18/16 1302 by Gatito Wayne, RN Drain/Device Site 04/18/16; 1303; Left; chest 1303 by Gatito Wayne RN Drain/Device Site 04/18/16; 1303; Righ t; abdomen 04/18/16 1303 by Gatito Wayne RN Drain/Device Site 04/18/16; 1304; Left; abdomen 04/18/16 1304 by Gatito Wayne RN documented in this encounter Social History Tobacco Use Types Packs/Day Years Used Date Smoking Tobacco: Never Smokeless Tobacco: Never Alcohol Use Standard Drinks/Week Comments Yes 4 (1 standard drink = 0.6 oz pur e alcohol) Sex and Gender Information Value Date Recorded Sex Assigned at Not on file Gender Identity Not on file Sexual Orientation Not on file documented as of this encounter OR Notes * Anesthesia Preprocedure Evaluation - Rehana Dickens MD - 11/27/2018 6:51 PM EDT Pre-Anesthesia Evaluation for: Quyen Juan hargrove 68 y.o. female. Procedure(s): ENDOVENOUS ABLATION THERAPY OF INCOMPETENT VEIN, EXTREMITY, FIRST VEIN (WRVU 5.3) Patient Active Problem List Diagnosis ??? S/P abdominoplasty ??? Breast ptosis ??? Abdominal pannus ??? Ingrown nail ??? Thickened nails ??? Diabetes mellitus ??? Breast mass Past Medical History: Diagnosis Date ??? Breast cyst 06/2010 ??? Diabetes ??? Hypercholesteremia ??? Hypertension Past Surgical History: Procedure Laterality Date ??? BREAST BIOPSY ??? BREAST REDUCTION SURGERY Bilateral 2016 ??? SECTION ??? SECTION ??? COLONOSCOPY ??? MAMMO US BIOPSY RIGHT Right 07/03/2018 Mammo Us Biopsy Right 07/03/2018 Bisi Bryan MD [facility] RAD MAMMOGRAPHY ??? PRO EXCISE EXCESS SKIN TISSUE, ABDOMEN, ADD-ON Bilateral 04/18/2016 ABDOMINOPLASTY EXC,W/ UMBILICAL TRANSPOSITION, FASCIAL PLICATION (WRVU 17.04) performed by Lorenza Adkins MD at [facility] MAIN OR ??? PRO SUSPENSION OF BREAST Bilateral 04/18/2016 MASTOPEXY, BILATERAL (WRVU 11.09) performed by Lorenza Adkins MD at [facility] MAIN OR Social History Tobacco Use ??? Smoking status: Never Smoker ??? Smokeless tobacco: Never Used Substance Use Topics ??? Alcohol use: Yes Alcohol/week: 4.0 standard drinks Types: 4 Glasses of wine per week Social History Substance and Sexual Activity Drug Use No No Known Allergies Medications: MAR and/or home medications have been reviewed. Physical Exam: There were no vitals filed for this visit. There is no height or weight on file to calculate BMI. Airway Assessment: Mallampati: II TM distance: >3 FB Neck ROM: full Cardiovascular Assessment: cardiovascular exam normal Pulmonary Assessment: pulmonary exam normal Dental Assessment: - normal exam Misc Assessment: Patient is wearing No contact(s). Anesthesia Plan: ASA 2 with a(n) intravenous induction Mrs. Bill is a 68 yo F with PMH of HTN, HLD, diabetes here for the following procedure. ENDOVENOUS ABLATION THERAPY OF INCOMPETENT VEIN, EXTREMITY, FIRST VEIN Previous Anesthesia: Easy mask, Grade 2b with mac 3/mil2, passed 7 ETT over boogie. Plan: GETA, CMAC, 7 ETT, Standard ASA monitoring Region - Other Informed Consent: Anesthetic plan and risks discussed with patient. Plan discussed with attending and resident. PAT Clinic Note documented in this encounter Plan of Treatment Not on file documented as of this encounter Visit Diagnoses Not on filedocumented in this encounter Care Teams Clinical Care Leader Relationship Specialty Start Date End Date Rodrigo Shin PA [address] [place] [address] PCP - General Family Medicine 05/30/18 10/07/19 documented as of this encounter
--- OUTSIDE RECORDS SUMMARY | 2023-11-01 16:49 | XMS_ITS | Encounter Summary ---
Author Organization [facility] [place] [address] Care Team Providers Care Balloon Seller Name Role Phone Rodrigo Shin Primary Care Provider +1- [phone] Encounter Details Date Type Department Care Team (Late st Contact Info) Description 02/20/2019 Telephone [place] [phone] Anna Adams Social History Tobacco Use Types Packs/Day Years [...] encounter Miscellaneous Notes * Telephone Encounter - Anna Adams - 02/20/2019 4:05 PM EST Left a message for patient to call and schedule follow up from recall documented in this encounter Plan of Treatment Not on file documented as of this encounter Visit Diagnoses Not on filedocumented in this encounter Care Teams Balloon Seller Relationship Specialty Start Date End Date Rodrigo Shin PA [address] [place] [address] PCP - General Family Medicine 05/30/18 10/07/19 documented as of this encounter
--- OUTSIDE RECORDS SUMMARY | 2023-11-01 16:49 | XMS_ITS | Encounter Summary ---
Author Organization [facility] [place] [address] Care Team Providers Care Paint Roller Covermaker Name Role Phone Rodrigo Shin Primary Care Provider +1- [phone] Encounter Details Date Type Department Care Team (Latest Contact Info) Description 06/26/2018 12:50 PM EDT - 06/26/2018 11:59 PM EDT Hospital Encounter Mammography/[place] [phone] Nae Guthrie MD [address] [place] [address] Encounter for screening mammogram for breast cancer [...] cm. Nae Guthrie MD IMG MAMMO ORDERABLES documented in this encounter Visit Diagnoses Diagnosis Encounter for screening mammogram for breast cancer documented in this encounter Care Teams Paint Roller Covermaker Relationship Specialty Start Date End Date Rodrigo Shin PA [address] [place] [address] PCP - General Family Medicine 05/30/18 10/07/19 documented as of this encounter
--- OUTSIDE RECORDS SUMMARY | 2023-11-01 16:49 | XMS_ITS | Encounter Summary ---
Author Organization [facility] Address [facility] [place] [address] Care Team Providers Care Pilot Submersible Name Role Phone Nae Guthrie MD Primary Care Provider [phone] Reason for Visit * Reason Comments Follow Up Surgery s/p abdominoplasty/m astopexy 04/18 Encounter Details Date Type Department Care Team (Late st Contact Info) Description 05/01/2016 1:30 PM EDT Office [place] [address] Lorenza Adkins MD [facility] [place] [address] S/P abdominoplasty Social History Tobacco Use Types [...] * Patient Instructions* Lorenza Adkins MD - 05/01/2016 1:30 PM EDT Plan: 1. Follow up 6 weeks 2. Maintain support garments 3. Place a piece of dry guaze in place in the IMF. 4. No lifting more than 5 lbs. 5. Apply Bacitracin twice daily to incision sites and switch to Aquaphor after 48 hours. documented in this encounter Progress Notes * Lorenza Adkins MD - 05/01/2016 1:30 PM EDT Plastic Surgery Post Op Note Reason for visit: F/U status post procedure Date of surgery: 04/18/16 Procedure(s): Mastopexy (30 g bilaterally), abdominoplasty (2.2 kg) Complications: None reported HPI: Pt reports that she is doing well. The patient is unaccompanied to today's visit. The patient reports her drain output is less than 20 ml for the last 2 days. She denies taking any pain medication. The patient believes her left breast is larger than her right. Examination: Patient is alert, conversant, comfortable, ambulating Breasts: NAC viable, pink Symmetric shape and size. No collection. No erythema. Abdomen: Incision: CDI, healing well. No collection, no erythema, no evidence of cellulitis. Left GOLD removed today. Healthy and viable umbilicus. Surfacing suture material was debrided. Flat abdominal scar. Umbilicus viable Impression: Quyen Bill is a 66 y.o. female who was seen today for follow-up after the above procedure. Please see the operative note for details. She is doing well without complaints. I discussedwith the patient that she is still experiencing swelling and this will improve over time. I assuredher these are not the final results of surgery. I advise the patient to apply Bacitracin to the incision sites twice daily for 48 hours and transition to Aquaphor. I recommend the patient keep a piece of dry guaze in place in the IMF. We discussed the importance of wearing a bra with compression. Pathology Report: DIAGNOSIS A - Right breast, excision - Benign breast tissue. B - Left breast, excision - Benign breast tissue. Plan: 1. Follow up 6 weeks 2. Maintain support garments 3. Place a piece of dry guaze in place in the IMF. 4. No lifting more than 5 lbs. 5. Apply Bacitracin twice daily to incision sites and switch to Aquaphor after 48 hours. I, Rajesh Curiel, am acting as scribe for Dr. Adkins. All work documented was performed by Dr. Adkins. ???I performed the above scribed service and agree with the accuracy of the note?? LORENZA ADKINS MD documented in this encounter Plan of Treatment Not on file documented as of this encounter Visit Diagnoses Diagnosis S/P abdominoplasty Other postprocedural status documented in this encounter Care Teams Pilot Submersible Relationship Specialty Start Date End Date Nae Guthrie MD [address] [place] [address] PCP - General Family Medicine 04/10/16 05/29/18 documented as of this encounter
--- OUTSIDE RECORDS SUMMARY | 2023-11-01 16:49 | XMS_ITS | Encounter Summary ---
Author Organization [facility] Address [facility] [place] [address] Care Team Providers Care Outpatient Physical Therapist Assistant Name Role Phone Rodrigo Shin Primary Care Provider [phone]- [phone] Reason for Visit * Reason Comments Procedure Encounter Details Date Type Department Care Team (Late st Contact Info) Description 08/03/2015 12:00 PM EDT Office Visit Dermatology at [facility] [address] [place] [address] Nell Davila MD [facility] [address] [place] [address] Vera Godoy RN Fat deposits Social History Tobacco Use Types Packs/Day Years Used Date Smoking Tobacco: Never Alcohol Use Standard Drinks/Week Comments Not Asked 0 (1 standard drink = 0.6 oz pur e alcohol) Sex and Gender Information Value Date Recorded Sex Assigned at Not on file Gender Identity Not on file Sexual Orientation Not on file documented as of this encounter Progress Notes * Vera Godoy RN - 08/03/2015 1:10 PM EDT Images from the original note were not included. Chief Problem: 1. Unwanted fat distrubution HISTORY & DISCUSSION: 65 y.o.. Year old female, here for treatment today for reduction of unwanted fat distribution Established patient to me. Happy with the results from previous coolsculpting procedures, feels like she has a waist. Patient most interested in the cryolipolysis treatment . Body sculpting with the cryolipolysis technique most appropriate for the patient and his/her expectations/goals. Re-discussed potential adverse events including pain, cramping, strong suction sensation, stinging and (during the procedure and 1-21 days after), , edema and erythema (temporary for 2-3 days) possible bruising (uncommon) . Patient clearly understood these potential risks. Wished to proceed. Multiple treatments may be required for optimum benefit. Total number of treatments depend on the baseline degree of fat deposits, patient's response, expectations and desires. Individual patients respond differently. No guarantees of outcome have been made. Discussed. The patient knows that cryolipolysis , for this purpose, is strictly a cosmetic procedure, and willnot be coverd by insurance. Discussed cost today. The patient will have to pay for the treatment, at the time of the procedure/visit. Understood. Patient without history of abdominal hernia, no cold induced urticaria, no bleeding disorders. EXAMINATION: Focal examination of the trunkel area Flanks with adequate fat distribution to benefit from cryolipolysis DIAGNOSIS/ASSESSMENT: 1. Unwanted fat distrubution 2. Amenable to cryolipolysis PLAN: 1. Patient wished to proceed. Verbal consent obtained, (original signed consent recorded in EDH), expectations, and potential adverse events discussed. 2. Coolmax treatment head measured and marked on patients right and left flanks 3. Photos taken with patient consent 4. Coolmax head applied to right and left flank and treatment was delivered x one hour per side. Patient tolerated procedure well. I would like to treat lower abdomen centrally as she has had right and left sides treated. Pt awarethat coolsculpting will not help with excess skin there for wishes to have consult in Plastics with, I called and scheduled with his office. Pt wishes to have a consult for a tummy tuck / excess skin with, scheduled on August 18, pt aware. She will have cool sculpting later the same day totreat lower abdomen centrally with coolmax. 5. Treatment sites massaged x 5 minutes after D/C of cooling Cosmetic Cost paid today: $ 2400.00 documented in this encounter Plan of Treatment Not on file documented as of this encounter Visit Diagnoses Diagnosis Fat deposits Localized adiposity documented in this encounter Care Teams Outpatient Physical Therapist Assistant Relationship Specialty Start Date End Date Rodrigo Shin PA [address] [place] [address] PCP - General Family Medicine 02/22/15 2 documented as of this encounter
--- OUTSIDE RECORDS SUMMARY | 2023-11-01 16:49 | XMS_ITS | Encounter Summary ---
Author Organization [facility] Address [facility] [place] [address] Care Team Providers Care Crutcher Helper Name Role Phone Rodrigo Shin Primary Care Provider [phone]- [phone] Reason for Visit * Reason Comments Procedure Encounter Details Date Type Department Care Team (Late st Contact Info) Description 08/19/2015 11:00 AM EDT Office Visit Dermatology at [facility] [address] [place] [address] Valentin Rothman MD [facility] [address] [place] [address] Vera Godoy RN Fat deposits Social History [...] Progress Notes * Vera Godoy RN - 08/19/2015 11:59 AM EDT Images from the original note were not included. Chief Problem: 1. Unwanted fat distrubution HISTORY & DISCUSSION: 65 y.o. female, here for treatment today for reduction of unwanted fat distribution Established patient to me. Happy with the results from previous coolsculpting procedures, feels like she has a waist and she is noticing improvement all the time Pt states she still has some discomfort from the last procedure on her right and left flanks. Was scheduled for a consult in plastic surgery today however was pulled for surgery so herappointment was canceled. Patient most interested in the cryolipolysis treatment [...] EXAMINATION: Focal examination of the trunkel area Lower abdomen with adequate fat distribution to benefit from cryolipolysis Photo below from previous treatmetn DIAGNOSIS/ASSESSMENT: 1. Unwanted fat distrubution 2. Amenable to cryolipolysis PLAN: 1. Patient wished to proceed. Verbal consent obtained, (original signed consent recorded in EDH), expectations, and potential adverse events discussed. 2. Coolmax treatment head measured and marked on patients lower abdomen centrally 3. Photos used from previous procedure 4. Coolmax head applied to lower abdomen centrally and treatment was delivered x one hour. Patient tolerated procedure well. Pt aware that coolsculpting will not help with excess skin there for wishes to still have consult in Plastics with , pt was scheduled with however he had to reschedule her, she is scheduled fo 09/02/2015. Pt wishes to have a consult for a tummy tuck / excess skin with, scheduled 5. Treatment sites massaged x 5 minutes after D/C of cooling Cosmetic Cost paid today: $ 1200.00 Treatment delivered by Vera Godoy RN (trained cool sculpting warping machine operator) under indirect on site supervision of documented in this encounter Plan of Treatment Not on file documented as of this encounter Visit Diagnoses Diagnosis Fat deposits Localized adiposity documented in this encounter Care Teams Crutcher Helper Relationship Specialty Start Date End Date Rodrigo Shin PA [address] [place] [address] PCP - General Family Medicine 02/22/15 04/09/16 documented as of this encounter
--- OUTSIDE RECORDS SUMMARY | 2023-11-01 16:49 | XMS_ITS | Encounter Summary ---
Author Organization [facility] Address [facility] [place] [address] Care Team Providers Care Calciminer Name Role Phone Rodrigo Shin Primary Care Provider +1- [phone] Encounter Details Date Type Department Care Team (Late st Contact Info) Description 07/03/2018 Notes [place] [id number] Dominick Torre MD [facility] [place] [address] Social History Tobacco Use Types Packs/Day Years Used Date Smoking Tobacco: Never Smokeless Tobacco: Never Alcohol Use Standard Drinks/Week Comments Yes 4 (1 standard drink = 0.6 oz pur e alcohol) Sex and Gender Information Value Date Recorded Sex Assigned at Not on file Gender Identity Not on file Sexual Orientation Not on file documented as of this encounter Progress Notes * Dominick Torre MD - 07/03/2018 3:37 PM EDT Pre-procedure note for needle breast biopsies performed in radiology. Procedure date: Today Procedure type: right breast ultrasound guided biopsy Allergies: Patient has no known allergies. Medications: Current Outpatient Medications: ??? hydrochlorothiazide (HYDRODIURIL) 25 mg Tablet, Take 25 mg by mouth daily., Disp: , Rfl: ??? fish oil-omega-3 fatty acids 1,000 mg Capsule, Take 2 g by mouth daily. Pt takes 2,400 mg, Disp: , Rfl: ??? lisinopril (PRINIVIL;ZESTRIL) 2.5 mg tablet, Take 40 mg by mouth daily., Disp: , Rfl: ??? metFORMIN (GLUCOPHAGE) 500 mg tablet, Take 500 mg by mouth daily., Disp: , Rfl: ??? gabapentin (NEURONTIN) 300 mg capsule, Take 600 mg by mouth daily., Disp: , Rfl: ??? aspirin 81 mg EC tablet, Take 81 mg by mouth daily., Disp: , Rfl: ??? gemfibrozil (LOPID) 600 mg tablet, Take 500 mg by mouth 2 times daily (before meals)., Disp: , Rfl: ??? amlodipine (NORVASC) 10 mg tablet, Take 10 mg by mouth daily., Disp: , Rfl: ??? cholecalciferol, Vitamin D3, 400 unit tablet, Take 1,200 Units by mouth daily., Disp: , Rfl: Anticoagulation status: low dose aspirin stopped on: N/A Imaging reviewed and procedural plan approved by Dr. DOMINICK TORRE MD documented in this encounter Plan of Treatment Not on file documented as of this encounter Visit Diagnoses Not on filedocumented in this encounter Care Teams Calciminer Relationship Specialty Start Date End Date Rodrigo Shin PA [address] [place] [address] PCP - General Family Medicine 05/30/18 10/07/19 documented as of this encounter
--- OUTSIDE RECORDS SUMMARY | 2023-11-01 16:49 | XMS_ITS | Encounter Summary ---
Author Organization [facility] Address [facility] [place] [address] Care Team Providers Care Hand Grinder Name Role Phone Rodrigo Shin Primary Care Provider +1- [phone] Encounter Details Date Type Department Care Team (Late st Contact Info) Description 04/21/[address] [facility] [address] [place] [phone] Arik Johnson RN Social History Tobacco Use Types Packs/Day Years [...] encounter Miscellaneous Notes * Telephone Encounter - Aurora Morris - 04/21/2019 4:14 PM EST I returned patient's call today to reschedule her canceled 04/18 appointment w/ Arik Johnson. I was unable to speak w/ anyone when I called, but I was able to leave [phone] for call back. documented in this encounter Plan of Treatment Not on file documented as of this encounter Visit Diagnoses Not on filedocumented in this encounter Care Teams Hand Grinder Relationship Specialty Start Date End Date Rodrigo Shin PA [address] [place] [address] PCP - General Family Medicine 05/30/18 10/07/19 documented as of this encounter
--- OUTSIDE RECORDS SUMMARY | 2023-11-01 16:49 | XMS_ITS | Encounter Summary ---
Author Organization [facility] [place] [address] Care Team Providers Care Referral Agent Name Role Phone Rodrigo Shin Primary Care Provider [phone] Reason for Visit * Auth/Cert Specialty Diagnoses / Procedures Referred By Venancio medeiros Referred To Contact Diagnoses varicose vein Procedures PRO ENDOVENOUS RF, 1ST VEIN ENDOVENOUS ABLATION THERAPY OF INCOMPETENT VEIN, EXTREMITY, FIRST VEIN (WRVU 5.3) Referral ID Status Reason Start Date Expiration Date Visits Re quested Visits Authorized [id number] 1 1 Encounter Details Date Type Department Care Team (Latest Contact Info) Description 11/28/2018 8:47 AM EDT - 11/28/2018 11:37 AM EDT Hospital Encounter [place] [address] Julianna Hernandes MD [facility] [place] [address] Varicose veins of lower extremity with pain, unspecified laterality Discharge Disposition: Home Social History Tobacco Use [...] Sign Reading Time Taken Comments Blood Pressure 123/72 11/28/2018 10:17 AM EDT Pulse 80 11/28/2018 10:17 AM EDT Temperature 37 ??C (98.6 ??F) 11/28/2018 10:17 AM EDT Respiratory Rate 16 11/28/2018 10:17 AM EDT Oxygen Saturation 99% 11/28/2018 10:17 AM EDT Inhaled Oxygen Concentration - - Weight - - Height - - Body Mass Index - - documented in this encounter Medications at Time of Discharge Medication Sig Dispensed Refills Start Date End Date levothyroxine (Synthroid) 25 mcg Tablet 10/09/2018 fish oil-omega-3 fatty acids 1,000 mg Capsule [...] daily. 07/03/2023 documented as of this encounter H&P Notes * Lennox Maurice MD - 11/28/2018 10:37 AM EDT Vascular Surgery History and Physical HPI: Ms Bill is a 68F who presents with symptomatic RLE varicose veins. She has had these for many years. They result in aching and cause her discomfort with prolonged standing. She has tried compression stockings for many months without relief. She denies history of DVT. Review of Systems: As per HPI Past Medical History Patient Active Problem List Diagnosis Code ??? Breast mass N63.0 ??? Thickened nails L60.2 ??? Diabetes mellitus E11.9 ??? Ingrown nail L60.0 ??? Breast ptosis N64.81 ??? Abdominal pannus E65 ??? S/P abdominoplasty Z98.890 Past Surgical History Past Surgical History: Procedure Laterality Date ??? BREAST BIOPSY ??? BREAST REDUCTION SURGERY Bilateral 2016 ??? SECTION ??? SECTION ??? COLONOSCOPY ??? MAMMO US BIOPSY RIGHT Right 07/03/2018 Mammo Us Biopsy Right 07/03/2018 Bisi Bryan MD [facility] RAD MAMMOGRAPHY ??? PRO EXCISE EXCESS SKIN TISSUE, ABDOMEN, ADD-ON Bilateral 04/18/2016 ABDOMINOPLASTY EXC,W/ UMBILICAL TRANSPOSITION, FASCIAL PLICATION (WRVU 17.04) performed by Lorenza Adkins MD at [facility] MAIN OR ??? PRO SUSPENSION OF BREAST Bilateral 04/18/2016 MASTOPEXY, BILATERAL (WRVU 11.09) performed by Lorenza Adkins MD at [facility] MAIN OR Functional Status/Social Hx: Social History Socioeconomic History ??? Marital status: Spouse name: Not on file ??? Number of children: 2 ??? Years of education: Not on file ??? Highest education level: Not on file Occupational History ??? Occupation: Retired banker Social Needs ??? Financial resource strain: Not on file ??? Food insecurity: Worry: Not on file Inability: Not on file ??? Transportation needs: Medical: Not on file Non-medical: Not on file Tobacco Use ??? Smoking status: Never Smoker ??? Smokeless tobacco: Never Used Substance and Sexual Activity ??? Alcohol use: Yes Alcohol/week: 4.0 standard drinks Types: 4 Glasses of wine per week ??? Drug use: No ??? Sexual activity: Yes Partners: Male Lifestyle ??? Physical activity: Days per week: Not on file Minutes per session: Not on file ??? Stress: Not on file Relationships ??? Social connections: Talks on phone: Not on file Gets together: Not on file Attends catholic service: Not on file Active member of club or organization: Not on file Attends meetings of clubs or organizations: Not on file Relationship status: Not on file ??? Intimate partner violence: Fear of current or ex partner: Not on file Emotionally abused: Not on file Physically abused: Not on file Forced sexual activity: Not on file Other Topics Concern ??? Not on file Social History Narrative ??? Not on file Family Hx: Negative for Thrombosis, Bleeding Disorders Medications: No current facility-administered medications on file prior to encounter. Current Outpatient Medications on File Prior to Encounter Medication Sig Dispense Refill ??? hydrochlorothiazide (HYDRODIURIL) 25 mg Tablet Take [...] tablet Take 1,200 Units by mouth daily. Allergies: Patient has no known allergies. Physical Exam: Temp: [37 ??C (98.6 ??F)] Heart Rate: [80] Resp: [16] BP: (123)/(72) SpO2: [99 %] Heart Rate from SpO2: -- General: NAD, resting comfortably HEENT: PERRL, anicteric sclerae CVS: Regular rate Pulm: Clear bilaterally Abd: soft, non tender, non distended Ext: RLE: mild edema, spider veins of thigh; palpable pedal pulses Neuro: Grossly nonfocal, moving all extremities. Labs: Recent Labs 11/28/18 0919 WBC 10.3* HGB 12.0 HCT 36.2 PLATELET 315 Recent Labs 11/28/18 0909 NA 141 K 3.6 CL 101 CO2 25 BUN 27* CREATININE 1.42* CALCIUM 9.5 Imaging/Studies: Venous Reflux Study (11/28/18) Findings: ?? Right ?Reflux?Diameter (mm) ??Depth (mm) ?? Common Femoral Vein ??Competent ? Femoral Vein ? Competent ? Popliteal ?Competent ? GSV, Near SFJ ?Reflux ? 4.1 ?16.5 ?? GSV, Proximal Thigh ??Reflux ? 3.5 ?14.6 ?? GSV, Mid Thigh ? Reflux ? 2.9 ?12.5 ?? GSV, Distal Thigh ?Competent ? GSV, ??Knee ? Competent ? GSV Prox Calf ?Competent ? GSV, Mid Calf ?Competent ? GSV, Distal Calf ? Competent ? SSV ?Competent ? Interpretation: ?? RIGHT: Superficial venous reflux >1.0 seconds in the great saphenous vein from the level of the saphenofemoral junction to the mid thigh. ?? No significant reflux noted in the common femoral vein, femoral vein in the thigh, the popliteal vein or the small saphenous vein. ?? No evidence of common femoral, femoral, or popliteal DVT. No evidence of superficial (GSV and SSV) thrombus. Assessment and Plan: Ms Bill is a 68F presenting with symptomatic RLE varicose veins. Plan for RLE GSV VNUS ablation today Lennox Maurice MD Vascular Surgery Resident Addendum After discussion about risks and benefits of procedure, patient elects to hold off on GSV ablation procedure today. Will arrange for clinic follow up to discuss sclerotherapy of R thigh telangiectasias documented in this encounter Plan of Treatment Not on file documented as of this encounter Procedures Procedure Name Priority Date/Time Associated Diagnosis Comments EKG 12-LEAD Routine 11/28/2018 10:37 AM EDT Varicose veins of lower extremity with pain, unspecified laterality ENDOVENOUS ABLATION THERAPY OF INCOMPETENT VEIN, EXTREMITY, FIRST VEIN Routine 11/28/2018 9:21 AM EDT HC HEMOGLOBIN, BLOOD STAT 11/28/2018 9:19 AM EDT ABORH RECHECK STATUS STAT 11/28/2018 9:09 AM EDT HC ANTIBODY DETECTION,CAPTURE-R STAT 11/28/2018 9:09 AM EDT Varicose veins of lower extremity with pain, unspecified laterality ABO/RH TYPING STAT 11/28/2018 9:09 AM EDT Varicose veins of lower extremity with pain, unspecified laterality ANTIBODY SCREEN STAT 11/28/2018 9:09 AM EDT Varicose veins of lower extremity with pain, unspecified laterality HC PREALBUMIN, SERUM Routine 11/28/2018 9:09 AM EDT Varicose veins of lower extremity with pain, unspecified laterality BASIC METABOLIC PANEL Routine 11/28/2018 9:09 AM EDT Varicose veins of lower extremity with pain, unspecified laterality documented in this encounter Results * EKG 12 Lead (11/28/2018 10:37 AM EDT) Ventricular rate 70 BPM MUSE SYSTEM Atrial Rate 70 BPM MUSE SYSTEM P-R Interval 144 ms MUSE SYSTEM QRS Duration 92 ms MUSE SYSTEM Q-T Interval 408 ms MUSE SYSTEM QTC Calculated (Bezet) 440 ms MUSE SYSTEM Calculated P [place] 38 degrees MUSE SYSTEM Calculated R [place] 23 degrees MUSE SYSTEM Calculated T [place] 29 degrees MUSE SYSTEM INTERPRETATION Normal sinus rhythm Normal ECG No previous ECGs available Confirmed by ADRIAN, ??, CHASE ([id number]) on 11/28/2018 3:53:26 PM MUSE SYSTEM 11/28/2018 10:3 7 AM EDT 11/28/2018 3:53 PM EDT Espinoza Garvin MD ECG ORDERABLES MUSE SYSTEM * (ABNORMAL) Hemogram (11/28/2018 9:19 AM EDT) White Blood Cell 10.3(H) 4.0 - 9.5 x10(3)/mc L [facility] Red Blood Cell 4.14 4.00 - 5.21 x10(6)/mc L [facility] Hemoglobin 12.0 11.7 - 15.5 gm/dL [facility] Hematocrit 36.2 35.7 - 45.8 % [facility] Mean Cell Volume 87.4 82.6 - 94.4 fL [facility] Mean Cell Hemoglobin 29.0 27.1 - 32.0 pg [facility] Mean Cell Hemoglobin Concentration 33.1 31.7 - 35.0 gm/dL [facility] Platelet 315 145 - 357 x10(3)/mc L [facility] RDW Standard Deviation 43.2 37.0 - 46.0 fL [facility] RDW coefficient of variation 13.4 11.5 - 14.1 % [facility] Mean Platelet Volume 11.3 7.6 - 12.9 fL [facility] NRBC% auto 0.0 % [facility] NRBC Absolute 0.000 0.000 - 0.000 x10(3)/mc L [facility] Blood specimen (specimen) 11/28/2018 9:19 AM EDT 11/28/2018 9:31 AM EDT Narrative Resulting Agency Comment Spec In Lab Julianna Hernandes MD HEMATOLOGY ORDERABLE S [facility] [place] [address] * ABORH Recheck Status (11/28/2018 9:09 AM EDT) ABORH Recheck Order Order Placed [facility] ABORH Type Recheck Complete [facility] Blood specimen (specimen) 11/28/2018 9:09 AM EDT 11/28/2018 9:12 AM EDT Narrative Resulting Agency Comment Spec In Lab Espinoza Garvin MD BLOOD BANK LAB ORDER TIA Performing Organization Address [facility]/ZIP Co de Phone Number [facility] [place] [address] * Antibody screen (11/28/2018 9:09 AM EDT) Ab Screen Interp Negative [facility] Expires at [id number] on: 01/12/2019 [facility] Comment: Corrected from 12/01/18 0:00:00 EDT [Unknown] on 11/29/18 16:21:22 EDT by Delilah Pennington I.. Blood specimen (specimen) 11/28/2018 9:09 AM EDT 11/28/2018 9:12 AM EDT Narrative Resulting Agency Comment Spec In Lab Espinoza Garvin MD BLOOD BANK LAB ORDER TIA Performing Organization Address City/[facility]/ZIP Co de Phone Number [facility] [place] [address] * ABO/Rh Typing (11/28/2018 9:09 AM EDT) ABORH Type A Pos [facility] Blood specimen (specimen) 11/28/2018 9:09 AM EDT 11/28/2018 9:12 AM EDT Narrative Resulting Agency Comment Spec In Lab Espinoza Garvin MD BLOOD BANK LAB ORDER TIA [facility] [place] [address] * (ABNORMAL) Basic Metabolic Panel (non-fasting) (11/28/2018 9:09 AM EDT) Glucose 139 65 - 199 mg/dL [facility] Comment:Diabetes: >=200 mg/d L plus symptoms Blood Urea Nitrogen 27(H) 8 - 18 mg/dL [facility] Creatinine 1.42(H) 0.70 - 1.20 mg/dL [facility] Sodium 141 135 - 145 mmol/L [facility] Potassium 3.6 3.5 - 5.0 mmol/L [facility] Comment: Please note: ??Patients with WBC >100,000 may have falsely elevated Potassium levels. ??For accurate Potassium quantification in these patients send serum separator tube (gold top) for subsequent determinations. ??Contact the Clinical Chemistry Laboratory if there are any questions. Chloride 101 98 - 107 mmol/L [facility] Carbon Dioxide 25 22 - 31 mmol/L [facility] Anion Gap 15 5 - 15 mmol/L [facility] Calcium 9.5 8.5 - 10.5 mg/dL [facility] Est Glomerular Filtration Rate 38(L) >=60 mL/min/1. 73 m?? [facility] Comment: The eGFR was calculated using the CKD-EPI equation. As with all creatinine based estimates of kidney function, eGFR values calculated with the CKD-EPI equation are not accurate in patients with acute kidney failure, extremes of body mass or the acutely ill. [email or web address] eGFR 44(L) >=60 mL/min/1. 73 m?? [facility] Comment: The eGFR was calculated using the CKD-EPI equation. As with all creatinine based estimates of kidney function, eGFR values calculated with the CKD-EPI equation are not accurate in patients with acute kidney failure, extremes of body mass or the acutely ill. [email or web address] Blood specimen (specimen) 11/28/2018 9:09 AM EDT 11/28/2018 9:32 AM EDT Narrative Resulting Agency Comment Spec In Lab Espinoza Garvin MD CHEMISTRY ORDERABLES Performing Organization Address [facility] Co de Phone Number [facility] [place] [address] * Prealbumin (11/28/2018 9:09 AM EDT) Prealbumin 23 20 - 40 mg/dL [facility] Comment: Prealbumin levels are generally lower in the pediatric population; adult concentrations are usually attained near puberty. Blood specimen (specimen) 11/28/2018 9:09 AM EDT 11/28/2018 9:32 AM EDT Narrative Resulting Agency Comment Spec In Lab Espinoza Garvin MD CHEMISTRY ORDERABLES Performing Organization Address [facility] Co de Phone Number [facility] [place] [address] documented in this encounter Visit Diagnoses Diagnosis Varicose veins of lower extremity with pain, unspecified laterality documented in this encounter Administered Medications Inactive Administered Medications - up to 3 most recent administrations Medication Order MAR Action Action Date Dose Rate Site acetaminophen (TYLENOL) tablet 1,000 mg 1,000 mg, Oral, ONCE, 1 dose, On [place] 11/28/18 at 1030, Administer with SIP of H2O only., Day of Surgery (Day of Procedure), Routine Given 11/28/2018 10:30 AM EDT 1,000 mg lactated ringers infusion 1,000 mL, at 100 mL/hr, Intravenous, CONTINUOUS, Starting on [place] 11/28/18 at 1030, Until [place] 11/28/18 at 1337, Day of Surgery (Day of Procedure) lidocaine (XYLOCAINE) 10 mg/mL (1 %) injection 3 mg 3 mg (0.3 mL), Subcutaneous, ONCE PRN, 1 dose, Starting on [place] 11/28/18 at 1009, Until [place] 11/28/18 at 1337, for discomfort with PIV insertion, Day of Surgery (Day of Procedure), Routine sodium chloride 0.9 % (flush) flush 5-20 mL 5-20 mL, Intravenous, EVERY 1 MIN PRN, Starting on [place] 11/28/18 at 1009, Until [place] 11/28/18 at 1337, flush, Flush pertains to all indwelling lines. Flush per protocol found in the job aid using the link provided on this medication record., Day of Surgery (Day of Procedure), Routine documented in this encounter Active and Recently Administered Medications Times are shown in EDT. Scheduled Medication Order 11/26/2018 11/27/2018 11/28/2018 acetaminophen (TYLENOL) tablet 1,000 mg (COMPLETED) 1,000 mg, Oral, ONCE, 1 dose, On [place] 11/28/18 at 1030, Administer with SIP of H2O only., Day of Surgery (Day of Procedure), Routine 1030 (Given - Provid er: Randy Covarrubias RN) ceFAZolin (ANCEF) 2g in dextrose 5% 100 mL 2 g, Intravenous, ONCE, 1 dose, On [place] 11/28/18 at 1030, Administer over 30 Minutes, Redose every 3 hours if CrCl is greater than 20. Redose every 8 hours if CrCl is less than 20., Day of Surgery (Day of Procedure), Indication for (Active or Suspected): Prophylaxis 1030 (Due) Continuous Medication Order 11/26/2018 11/27/2018 11/28/2018 lactated ringers infusion 1,000 mL, at 100 mL/hr, Intravenous, CONTINUOUS, Starting on [place] 11/28/18 at 1030, Until [place] 11/28/18 at 1337, Day of Surgery (Day of Procedure) 1030 (Due) PRN Medication Order 11/26/2018 11/27/2018 11/28/2018 lidocaine (XYLOCAINE) 10 mg/mL (1 %) injection 3 mg 3 mg (0.3 mL), Subcutaneous, ONCE PRN, 1 dose, Starting on [place] 11/28/18 at 1009, Until [place] 11/28/18 at 1337, for discomfort with PIV insertion, Day of Surgery (Day of Procedure), Routine sodium chloride 0.9 % (flush) flush 5-20 mL 5-20 mL, Intravenous, EVERY 1 MIN PRN, Starting on [place] 11/28/18 at 1009, Until [place] 11/28/18 at 1337, flush, Flush pertains to all indwelling lines. Flush per protocol found in the job aid using the link provided on this medication record., Day of Surgery (Day of Procedure), Routine documented in this encounter Care Teams Referral Agent Relationship Specialty Start Date End Date Rodrigo Shin PA [address] [place] [address] PCP - General Family Medicine 05/30/18 10/07/19 documented as of this encounter
--- OUTSIDE RECORDS SUMMARY | 2023-11-01 16:49 | XMS_ITS | Encounter Summary ---
Author Organization [facility] [place] [address] Care Team Providers Care Meteorological Technician Name Role Phone Nae Guthrie MD Primary Care Provider [phone] Reason for Visit * Auth/Cert Specialty Diagnoses / Procedures Referred By Venancio medeiros Referred To Contact Diagnoses N64.81 - Breast ptosis E65 - Abdominal pannus Tentative DOS - 04/18/2016 CPT: [id number] Procedures PRO SUSPENSION OF BREAST MASTOPEXY, BILATERAL Referral ID Status Reason Start Date Expiration Date Visits Re quested Visits Authorized [id number] 1 1 Encounter Details Date Type Department Care Team (Latest Contact Info) Description 04/18/2016 9:31 AM EST - 04/19/2016 3:00 PM EST Hospital Encounter Intermediate [place] [address] Lorenza Mcmillan MD [facility] [place] [address] Discharge Disposition: Home Social History Tobacco Use [...] Sign Reading Time Taken Comments Blood Pressure 112/74 04/19/2016 11:38 AM EST Pulse 81 04/19/2016 11:38 AM EST Temperature 37 ??C (98.6 ??F) 04/19/2016 11:38 AM EST Respiratory Rate 17 04/19/2016 11:38 AM EST Oxygen Saturation 93% 04/19/2016 11:38 AM EST Inhaled Oxygen Concentration - - Weight 85.5 kg (188 lb 9.6 oz) 04/18/2016 10:08 AM EST Height 167.6 cm (5' 6) 04/18/2016 10:08 AM EST Body Mass Index 30.44 04/18/2016 10:08 AM EST documented in this encounter Discharge Summaries * Mariaelena Phillips PA - 04/19/2016 8:18 AM EST PLASTIC SURGERY DISCHARGE SUMMARY Patient Name: Quyen Bill Patient Age, : 65 y.o. 1950 Language, race, ethnicity: Vietnamese, White, Not nor Date of Admission: 04/18/2016 Date of Discharge: 04/19/2016 Attending Physician: Lorenza Mcmillan MD Discharge Physician: Lorenza Mcmillan MD Discharge Diagnoses (Hospital Problems) and Secondary Diagnoses (Chronic Problems): Active Hospital Problems Diagnosis ??? Breast ptosis Resolved Hospital Problems Diagnosis Date Resolved No resolved problems to display. Active Non-Hospital Problems Diagnosis ??? Abdominal pannus ??? Ingrown nail ??? Thickened nails ??? Diabetes mellitus ??? Breast mass Operations/Major Procedures: Procedure(s): MASTOPEXY, BILATERAL (WRVU 11.09) ABDOMINOPLASTY EXC,W/ UMBILICAL TRANSPOSITION, FASCIAL PLICATION (WRVU 17.04) 04/18/2016 - 04/19/2016 History of Presentation: Per clinic note on 12/14/1015 by Quyen Mansfield Juan Bill is a 65 y.o. female who presents today for evaluation of breast ptosis and abdominal pannus. She is not accompanied for today???s visit. She weighs 192 pounds. She reports she has lost approximately 30 pounds in the past 1-2 years. She presents today because of increasing difficulty with keeping the fold under her breasts free of rashes and infection and clean and odor free. She reports this has been ongoing for years. She has tried anti-fungal sprays which helps temporarily but then the infection recurs. This has been going on for many years without improvement. She reports she simply wishes to feel comfortable in clothes. She reports her breasts seem to hang too low. She wears a minimizer underwire brain an attempt to reduce this. She is not happy with her nipple size, which she feels is too large; she feels she cannot wear white blouses. She reports that when she finds clothes to fit her frame her breast size prohibits her from buying the clothes she would like. She denies any family history of breast cancer. Her last mammogram was March of this year and was normal. In regards to her abdomen, she has tried multiple treatments of coolsculpting but reports this has not addressed her main concerns. She is unhappy with the fullness and contour of her abdomen. She feels this does not fit her small frame. She has had no issues with intertrigo. On 04/18/2016 pt underwent bilateral mastopexy and abdominoplasty by Dr Mcmillan. History obtained through patient interview, review of relevant records, and/or discussion with referring provider. Past Medical History Past Medical History Diagnosis Date ??? Breast cyst 06/2010 ??? Diabetes ??? Hypercholesteremia ??? Hypertension Past Surgical History Past Surgical History Procedure Laterality Date ??? Breast biopsy ??? section ??? section ??? Colonoscopy ??? Pro suspension of breast Bilateral 04/18/2016 MASTOPEXY, BILATERAL (WRVU 11.09) performed by Lorenza cMmillan MD at [facility] MA[facility] OR ??? Pro excise excess skin tissue, abdomen, add-on Bilateral 04/18/2016 ABDOMINOPLASTY EXC,W/ UMBILICAL TRANSPOSITION, FASCIAL PLICATION (WRVU 17.04) performed by Lorenza Mcmillan MD at [facility] MAIN OR Procedures: 04/18/2016 Surgeon(s) and Role: * Lorenza Mcmillan MD - Primary * Gisela Swain MD - Resident-Surgeon Chief: Procedure(s): MASTOPEXY, BILATERAL (WRVU 11.09) ABDOMINOPLASTY EXC,W/ UMBILICAL TRANSPOSITION, FASCIAL PLICATION (WRVU 17.04) Hospital Course: Patient was admitted electively to [facility] via the same day surgery program and underwent the above procedure. The patient tolerated the above procedure well and was admitted post-operatively for routine post- operative care. Her hospital course was uncomplicated. Pt remained afebrile,with stable vital signs throughout her hospital stay. Today, POD#1 she has met all criteria for discharge home: her pain is well controlled with medications by mouth, she is tolerating a regular diet, is voiding spontaneously without difficulties, and is up and ambulating without complications. Pt has been deemed safe for discharge to home. Vital Signs at Discharge: Wt Readings from Last 1 Encounters: 04/18/16 85.5 kg (188 lb 9.6 oz) Ht Readings from Last 1 Encounters: 04/18/16 167.6 cm (5' 6) Body mass index is 30.44 kg/(m^2). Last value Range last 24 hrs Temperature Temp: 37 ??C (98.6 ??F) Temp: [36.1 ??C (97 ??F)-37 ??C (98.6 ??F)] Heart Rate Heart Rate: 91 Heart Rate: [69-91] Blood Pressure BP: 103/66 BP: (92-149)/(37-85) Respiratory Rate Resp: 16 Resp: [10-26] SpO2 SpO2: 97 % SpO2: [89 %-100 %] Physical Exam on d/c: Intake/Output Summary (Last 24 hours) at 04/19/16 0817 Last data filed at 04/19/16 0600 Gross per 24 hour Intake 1150 ml Output 1753 ml Net -603 ml General: Appears in no acute distress, pleasant, cooperative, resting comfortably in bed HEENT: atraumatic, normocephalic, sclerae anicteric, supple neck, trachea midline, no noted facial asymmetries/echymosis/edema Respiratory: Breathing is non-labored, breath sounds are equal and present bilaterally on room air Cardiovascular: No peripheral edema, RRR Breast: postoperative bra intact, postoperative dressings intact/clean/dry, breast pink/warm, incisions c/d/i, no evidence of hematoma/sermoa/infection, bilateral GOLD drains intact with SS output and good suction Abdomen: Abdominal binder intact, incisions covered with c/d/i bandages, abdomen non distended, appropriately tender, no erythema, bilateral GOLD drains intact with SS output and good suction Umbilicus: viable, incision c/d/i, no erythema Extremities: no clubbing, no cyanosis, capillary refill <2sec, warm/dry and pink, motor and sensation intact on gross exam Mental Status: alert and oriented, normal mood/behavior, speech, motor activity, thought process Functional and Cognitive Status: Ambulating and cognitively intact. Important Studies and Lab Data: Labs:Last 3 wbc, hgb, hct plt No results for input(s): WBC, HGB, HCT, PLATELET in the last 7068 hours. Imaging Studies: n/a Pending Studies and Lab Data: No current labs Medications: Your Medications New Medications Dose Details oxyCODONE 5 mg Tab Commonly known as: ROXICODONE Take 1 tablet by mouth every 4 hours as needed for Pain. 5 mg Quantity: 20 tablet Refills: 0 Continued medications, unchanged Dose Details amLODIPine 10 mg Tab Commonly known as: NORVASC Take 10 mg by mouth daily. 10 mg Refills: 0 aspirin 81 mg Tbec Take 81 mg by mouth daily. 81 mg Refills: 0 cholecalciferol (Vitamin D3) 400 unit Tab Take 1,200 Units by mouth daily. 1200 Units Refills: 0 fish oil-omega-3 fatty acids 1,000 mg Cap Take 2 g by mouth daily. Pt takes 2,400 mg 2 g Refills: 0 gabapentin 300 mg Cap Commonly known as: NEURONTIN Take 600 mg by mouth daily. 600 mg Refills: 0 gemfibrozil 600 mg Tab Commonly known as: LOPID Take 500 mg by mouth 2 times daily (before meals). 500 mg Refills: 0 hydroCHLOROthiazide 25 mg Tab Commonly known as: HYDRODIURIL Take 25 mg by mouth daily. 25 mg Refills: 0 lisinopril 2.5 mg Tab Commonly known as: PRINIVIL;ZESTRIL Take 40 mg by mouth daily. 40 mg Refills: 0 metFORMIN 500 mg Tab Commonly known as: GLUCOPHAGE Take 500 mg by mouth daily. 500 mg Refills: 0 Allergies: No Known Allergies Immunizations Given this Hospitalization: There is no immunization history on file for this patient. Smoking Status at Discharge: History Smoking Status ??? Never Smoker Smokeless Tobacco ??? Never Used Discharge to: Home Discharge Instructions: Patient Instructions Discharge Instructions: During the first 1-3 weeks, expect to feel tired from the anesthesia and in general due to the healing process. Rest frequently during the day. You may have altered sensation, numbness, burning and or shooting pain which is common after surgery in the area operated on. Normal or near normal sensation should return within a few months but some areas may stay numb permanently. Please refrain from using any ice or heat to your surgical site. Heat or cold application to postoperative areas with altered sensation may lead to thermal injury ofthat skin. You will not be able to lift more than 5 pound for 6 weeks and no more than 10- 20 pounds for 3 months. You can return to work in 4-6 weeks or as determined by your provider. Do not engage in strenuous exercise like aerobics, jogging, tennis...etc for 3 months. Feel free towalk as much as you want, this improves your circulation, respiratory function and healing. Do not drive while taking your pain medication. You may wear your safety belt if you place a small pillow over your abdominal incision. No sexual activity for 6 weeks. No smoking for at least 3 weeks following your surgery. Drain Care: -The drains are made to collect fluid to reduce the risk of an infection and or the formation of a seroma or hematoma. The amount of fluid should decrease daily and turn light pink or light yellow. The drains will be removed by the provider when the output is < 30cc/day for two days in a row. Please keep a log of the output from each drain as you empty the drains and bring the log to your follow up visit with your surgeon. -At the end of each day milk the tubing and pour out the contents. This is done by sliding 2 fingers along the tubing toward the bulb. Hold the tubing in place with your thumb and index finger from your left hand and pinch the tubing with your thumb and index finger from your right hand and slide the fluid toward the bulb. This prevents the tube from malfunctioning and clogging. When you empty the bulb, unplug the stopper and empty the contents into a cup and record the amount in your log. After that, you can pour the fluid into the toilet. -After emptying the fluid, squeeze the bulb and place the stopper into the bulb. This creates suction to draw out the fluid from the pouch. When the bulb is compressed, it resembles a donut shape. The bulb will expand as fluid drains. Keep the bulb secure by fastening the bulb to your garment with a safety pin. Fasten the bulb below the place where tubing exits the body. There is a tab on the bulb to attach the safety pin made especially for that. -Remember to wash your hands for approximately 30sec before and after handling the drain system anddry your hands with a clean towel to prevent infection each time. If you don't already have a follow-up appointment scheduled with the nurses, you may call the clinic at [phone] and schedule an appointment to have your drains removed when the drainage is 30cc or less in a 24 hour period for 2 consecutive days. Incision Care: Generalized abdominal swelling above the incision may last for weeks to months due to tissue fluid build-up. Do not use ice or heat on your surgical site. After surgery sensation is altered and application ofice or heat may damage the tissues in that area. You may shower 48 hours after surgery. Do not take a bath or use a hot tub until your skin is completely healed. To reduce the strain on your incision, you should remain in a flexed/recliner chair position for about 5 days, this may take longer in some instances so let your body be your guide. You may remove your dressings after 48 hours if you still have some on. If you feel more comfortable with dressings under the binder, then you may replace them to suit your comfort needs. If present, nonabsorbable stitches are removed during your follow-up appointment. Occasionally you may get a spitting suture where a dissolving stitch becomes irritated and pushes to the surface of your skin. If this occurs, it is not an emergency. You may clip the stitch with clean scissor or call for an appointment with a nurse. Avoid tanning on incision lines for at least 6 months to minimize scarring. Do not use any ueyj-efq-vthvheg lotions, solutions, or herbal preparations on your incisions unlessdirected by your doctor. You will be provided with an abdominal binder or girdle. Wear this binder 24 hours a day until you see your doctor. You may remove it briefly to shower. Narcotics: You may be given a prescription for a narcotic medication immediately following your surgery. Narcotics are prescribed for short-term use to help treat your pain. Surgical pain requiring narcotics will usually be greatly decreased 2-3 days after surgery & should be mild to absent by 10-14 days. We will prescribe a narcotic pain reliever for no longer than 2 weeks following your surgery. This will be determined by your surgeon. Narcotics do not reduce inflammation and it is inflammation that is usually a major cause of pain after surgery. Narcotics have many side effects such as constipation, lightheadedness, dizziness, sedation, confusion, nausea and vomiting. Driving and the use of alcohol are not recommended while you are using narcotic pain medications. Non-steroidal anti-inflammatories (NSAIDS) such as aspirin, Aleve and ibuprofen (Advil, Motrin) aremedications that reduce pain and inflammation. If you find your pain is not adequately controlled with the prescribed dose of your narcotic pain medication, NSAIDS may be used 48 hours after surgery with your narcotic to help alleviate the pain caused by inflammation. As you progress through your post-operative period, your pain should decrease and the use of narcotic medications should be less necessary. To reduce your chance of side effects, it is recommended that you save your narcotic medication for nighttime use and switch to NSAIDS or Acetaminophen (Tylenol) during the day. Alternative means of pain relief such as rest and relaxation, positioning, as well as decreasing stimulants such as coffee, tea, soft drinks, and nicotine may also help to alleviate pain. If you continue to experience significant pain 4-5 days after your procedure, it may be necessary to be re-evaluated by your physician. PRESCRIPTION RENEWALS: Renewal requests should be called in to our prescription line at [phone]. Narcotic renewals may be requested from 8am-4pm Sunday through Sunday. Due to patient safety, narcotic renewals will not be honored after hours or on weekends. It is best to make your request 2-3 days before you run out of your medication as it will take at least 24 hours for physician approval and nurse follow-up. Note that certain prescriptions, such as Percocet, Oxycodone, Vicodin, & Hydrocodone can not becalled in to a pharmacy and must be picked up or mailed to you. If mailed to you, expect 2-5 business days prior to arrival. Contact your doctor if: Your incision opens up. You have signs of infection that include: a temperature over 100.4F or 38C, redness or warmth spreading away from the incision lines after the first 48 hours, you notice a yellow pus-like or foul smelling drainage larger than dime size from the incisions or drainage sites, you feel increased pain that is not relived by your pain medicine, you have increasing swelling. During office hours: Sunday - Sunday 8am-5pm call [phone]. On weekends or after hours call [phone] and ask the black oxide operator to page the plastic surgery resident medical collections representative. General Instructions None Future Appointments and Orders Future Appointments Provider Department Dept Phone 05/01/2016 1:30 PM Lorenza Mcmillan MD Plastic Surgery [phone] Discharge Medications: Your Medications New Medications Dose Details oxyCODONE 5 mg Tab Commonly known as: ROXICODONE Take 1 tablet by mouth every 4 hours as needed for Pain. 5 mg Quantity: 20 tablet Refills: 0 Continued medications, unchanged Dose Details amLODIPine 10 mg Tab Commonly known as: NORVASC Take 10 mg by mouth daily. 10 mg Refills: 0 aspirin 81 mg Tbec Take 81 mg by mouth daily. 81 mg Refills: 0 cholecalciferol (Vitamin D3) 400 unit Tab Take 1,200 Units by mouth daily. 1200 Units Refills: 0 fish oil-omega-3 fatty acids 1,000 mg Cap Take 2 g by mouth daily. Pt takes 2,400 mg 2 g Refills: 0 gabapentin 300 mg Cap Commonly known as: NEURONTIN Take 600 mg by mouth daily. 600 mg Refills: 0 gemfibrozil 600 mg Tab Commonly known as: LOPID Take 500 mg by mouth 2 times daily (before meals). 500 mg Refills: 0 hydroCHLOROthiazide 25 mg Tab Commonly known as: HYDRODIURIL Take 25 mg by mouth daily. 25 mg Refills: 0 lisinopril 2.5 mg Tab Commonly known as: PRINIVIL;ZESTRIL Take 40 mg by mouth daily. 40 mg Refills: 0 metFORMIN 500 mg Tab Commonly known as: GLUCOPHAGE Take 500 mg by mouth daily. 500 mg Refills: 0 Follow-up plan: Neuro: no active issues Spine: no active issues Resp: no active issues CV: no active issues GI: no active issues : no active issues Heme: no active issues Endo: no active issues ID: no active issues Other/Consults: Code status: full code Future Appointments and Orders Future Appointments Provider Department Dept Phone 05/01/2016 1:30 PM Lorenza Mcmillan MD Plastic Surgery [phone] Future Appointments Date Time Provider Department Center 05/01/2016 1:30 PM Lorenza Mcmillan MD [facility] Primary Care Provider: Nae Guthrie MD [phone] VNA: No discharge procedures on file. General Instructions None Your care was managed by the Plastic SurgeryTeam at [facility]. If you haveany questions or concerns, please feel free to contact us. Provider Contact Information: Plastic Surgery Clinic: [facility] (after business hours): Associated attestation - Lorenza Mcmillan MD - 04/25/2016 4:58 PM EST Attending Documentation: I have independently seen and examined the patient and agree with the above findings, formulation and plan. Any changes to the above plan have been documented within the above note. Lorenza Mcmillan MD documented in this encounter Discharge Instructions * Patient Instructions* Mariaelena Phillips PA - 04/19/2016 8:14 AM EST Discharge Instructions: During the first 1-3 weeks, expect to feel tired from the anesthesia and in general due to the healing process. Rest frequently during the day. You may have altered sensation, numbness, burning and or shooting pain which is common after surgery in the area operated on. Normal or near normal sensation should return within a few months but some areas may stay numb permanently. Please refrain from using any ice or heat to your surgical site. Heat or cold application to postoperative areas with altered sensation may lead to thermal injury ofthat skin. You will not be able to lift more than 5 pound for 6 weeks and no more than 10- 20 pounds for 3 months. You can return to work in 4-6 weeks or as determined by your provider. Do not engage in strenuous exercise like aerobics, jogging, tennis...etc for 3 months. Feel free towalk as much as you want, this improves your circulation, respiratory function and healing. Do not drive while taking your pain medication. You may wear your safety belt if you place a small pillow over your abdominal incision. No sexual activity for 6 weeks. No smoking for at least 3 weeks following your surgery. Drain Care: -The drains are made to collect fluid to reduce the risk of an infection and or the formation of a seroma or hematoma. The amount of fluid should decrease daily and turn light pink or light yellow. The drains will be removed by the provider when the output is < 30cc/day for two days in a row. Please keep a log of the output from each drain as you empty the drains and bring the log to your follow up visit with your surgeon. -At the end of each day milk the tubing and pour out the contents. This is done by sliding 2 fingers along the tubing toward the bulb. Hold the tubing in place with your thumb and index finger from your left hand and pinch the tubing with your thumb and index finger from your right hand and slide the fluid toward the bulb. This prevents the tube from malfunctioning and clogging. When you empty the bulb, unplug the stopper and empty the contents into a cup and record the amount in your log. After that, you can pour the fluid into the toilet. -After emptying the fluid, squeeze the bulb and place the stopper into the bulb. This creates suction to draw out the fluid from the pouch. When the bulb is compressed, it resembles a donut shape. The bulb will expand as fluid drains. Keep the bulb secure by fastening the bulb to your garment with a safety pin. Fasten the bulb below the place where tubing exits the body. There is a tab on the bulb to attach the safety pin made especially for that. -Remember to wash your hands for approximately 30sec before and after handling the drain system anddry your hands with a clean towel to prevent infection each time. If you don't already have a follow-up appointment scheduled with the nurses, you may call the clinic at [phone] and schedule an appointment to have your drains removed when the drainage is 30cc or less in a 24 hour period for 2 consecutive days. Incision Care: Generalized abdominal swelling above the incision may last for weeks to months due to tissue fluid build-up. Do not use ice or heat on your surgical site. After surgery sensation is altered and application ofice or heat may damage the tissues in that area. You may shower 48 hours after surgery. Do not take a bath or use a hot tub until your skin is completely healed. To reduce the strain on your incision, you should remain in a flexed/recliner chair position for about 5 days, this may take longer in some instances so let your body be your guide. You may remove your dressings after 48 hours if you still have some on. If you feel more comfortable with dressings under the binder, then you may replace them to suit your comfort needs. If present, nonabsorbable stitches are removed during your follow-up appointment. Occasionally you may get a spitting suture where a dissolving stitch becomes irritated and pushes to the surface of your skin. If this occurs, it is not an emergency. You may clip the stitch with clean scissor or call for an appointment with a nurse. Avoid tanning on incision lines for at least 6 months to minimize scarring. Do not use any zexn-nbl-ilnkpbr lotions, solutions, or herbal preparations on your incisions unlessdirected by your doctor. You will be provided with an abdominal binder or girdle. Wear this binder 24 hours a day until you see your doctor. You may remove it briefly to shower. Narcotics: You may be given a prescription for a narcotic medication immediately following your surgery. Narcotics are prescribed for short-term use to help treat your pain. Surgical pain requiring narcotics will usually be greatly decreased 2-3 days after surgery & should be mild to absent by 10-14 days. We will prescribe a narcotic pain reliever for no longer than 2 weeks following your surgery. This will be determined by your surgeon. Narcotics do not reduce inflammation and it is inflammation that is usually a major cause of pain after surgery. Narcotics have many side effects such as constipation, lightheadedness, dizziness, sedation, confusion, nausea and vomiting. Driving and the use of alcohol are not recommended while you are using narcotic pain medications. Non-steroidal anti-inflammatories (NSAIDS) such as aspirin, Aleve and ibuprofen (Advil, Motrin) aremedications that reduce pain and inflammation. If you find your pain is not adequately controlled with the prescribed dose of your narcotic pain medication, NSAIDS may be used 48 hours after surgery with your narcotic to help alleviate the pain caused by inflammation. As you progress through your post-operative period, your pain should decrease and the use of narcotic medications should be less necessary. To reduce your chance of side effects, it is recommended that you save your narcotic medication for nighttime use and switch to NSAIDS or Acetaminophen (Tylenol) during the day. Alternative means of pain relief such as rest and relaxation, positioning, as well as decreasing stimulants such as coffee, tea, soft drinks, and nicotine may also help to alleviate pain. If you continue to experience significant pain 4-5 days after your procedure, it may be necessary to be re-evaluated by your physician. PRESCRIPTION RENEWALS: Renewal requests should be called in to our prescription line at [phone]. Narcotic renewals may be requested from 8am-4pm Sunday through Sunday. Due to patient safety, narcotic renewals will not be honored after hours or on weekends. It is best to make your request 2-3 days before you run out of your medication as it will take at least 24 hours for physician approval and nurse follow-up. Note that certain prescriptions, such as Percocet, Oxycodone, Vicodin, & Hydrocodone can not becalled in to a pharmacy and must be picked up or mailed to you. If mailed to you, expect 2-5 business days prior to arrival. Contact your doctor if: Your incision opens up. You have signs of infection that include: a temperature over 100.4F or 38C, redness or warmth spreading away from the incision lines after the first 48 hours, you notice a yellow pus-like or foul smelling drainage larger than dime size from the incisions or drainage sites, you feel increased pain that is not relived by your pain medicine, you have increasing swelling. During office hours: Sunday - Sunday 8am-5pm call [phone]. On weekends or after hours call [phone] and ask the black oxide operator to page the plastic surgery resident medical collections representative. documented in this encounter Medications at Time [...] Take 600 mg by mouth daily. 08/19/2010 oxyCODONE (ROXICODONE) 5 mg Tablet Take 1 tablet by mouth every 4 hours as needed for Pain. 20 tablet 04/19/2016 04/24/2016 hydrochlorothiazide (HYDRODIURIL) 25 mg Tablet Take 25 [...] daily. 07/03/2023 documented as of this encounter Progress Notes * Nae Nava RN - 04/19/2016 3:00 PM EST AOx4. VSS. Pain managed w/ prn oxycodone. ALANNA Phillips at bedside explaining d/c summary as well aswith this RN, any questions answered. Family friend Nae providing ride home. D/c'ed SpO2 and IV. * Mariaelena Phillips PA - 04/19/2016 8:17 AM EST Opioid PDMP 12/14/2015 [place] PDMP Query Date 04/18/2016 [place] PDMP Query Date 04/18/2016 [place] QUERY DATE: 04/19/16 Risk Assessment Category: Low Quyen Bill is getting a prescription opioid for the treatment of acute post- operative pain related to the surgical procedure during this encounter. Pt has been advised to take the smallest dose possible to control pain and as the pain improves to take smaller doses and increase the time betweendoses. In addition to this medication, pt was educated on the non-opioid pain medications that can be taken for adjunct treatment of pain. Non-pharmacological treatments were also discussed that include but not limited to ice, elevation, and activity modification as appropriate. The Acute Opioid Therapy Informed Consent form has been completed during this encounter and sent tomedical records for scanning to chart. Mariaelena Phillips PA-C Plastic Surgery Pager [phone] * Lorenza Mcmillan MD - 04/18/2016 10:53 PM EST General Surgery Post-Operative Note Quyen Bill is a 65 y.o. female who is s/p MASTOPEXY, BILATERAL (WRVU 11.09) (Bilateral) ABDOMINOPLASTY EXC,W/ UMBILICAL TRANSPOSITION, FASCIAL PLICATION (WRVU 17.04) (Bilateral) Patient states that pain is well controlled. Denies cp/sob, n/v/d. No complaints at this time, ayad has a high pain tolerance. Most pain is over abdomen, feels like waves going across abdomen. Just finished eating half of a sandwich. Temp: [36.1 ??C (97 ??F)-36.8 ??C (98.2 ??F)] Heart Rate: [69-88] Resp: [10-26] BP: (92-134)/(37-73) SpO2: [92 %-100 %] Heart Rate from SPO2: [69 bpm-89 bpm] Intake/Output Summary (Last 24 hours) at 04/18/16 2944 Last data filed at 04/18/16 2200 Gross per 24 hour Intake 1000 ml Output 875 ml Net 125 ml No results for input(s): WBC, HGB, HCT, PLATELET, PT, INR, PTT in the last 72 hours. No results for input(s): NA, K, CL, CO2, BUN, CREATININE, GLUCOSE, CALCIUM, MAGNESIUM, PHOS in the last 72 hours. Physical Examination Gen: Alert, arousable and cooperative Chest: Bilateral nipple incisions with incisions extending inferior to nipple are c/d/i, no obviousdeformity, swelling or hematoma present. Cardio: RRR. No additional sounds or murmurs heard Pulm:NVBS heard in all areas. ABD: soft, appropriately tender and not distended. Abdominal incisions are c/d/i underneath binder,surgical drains x4 all holding suction well, lines patent. Imaging: None Assessment and plan: - - Doing well post-operatively - Continue current management Attending Documentation: I have independently seen and examined the patient and agree with the above findings, formulation and plan. Any changes to the above plan have been documented within the above note. Lorenza Mcmillan MD * Marfier Tinoco RN - 04/18/2016 10:00 PM EST Pt from PACU. A+O. VSS. Continuous pulse ox initiated. Dressings c/d/i. GOLD drains intact and draining. Leonard per protocol. No complaints of pain. Pt oriented to room. Tolerating PO intake well - progress as tolerated. * Smith Barahona RN - 04/18/2016 4:30 PM EST 1625 dinner break coverage documented in this encounter H&P Notes * Annie Crawley MD - 04/18/2016 11:18 AM EST Patient Name: Quyen Bill Patient Age: 65 y.o. Birthdate: 1950 Admit date: 04/18/2016 Attending Physician: Lorenza Mcmillan MD INTERVAL H&P S: Quyen Bill's condition unchanged since H&P originally performed Denies any new ED visits, hospitalizations, trauma, or new events. Has been overall doing well. O: Patient Vitals for the past 24 hrs: BP Temp Temp src Pulse Resp SpO2 Height Weight 04/18/16 1008 149/85 36.3 ??C (97.3 ??F) Oral 76 16 98 % 167.6 cm (5' 6) 85.5 kg (188 lb 9.6 oz) NAD, A&Ox3 Non-labored respirations, clear to auscultation bilaterally Regular rate and rhythm, no murmur on auscultation Site marked AP: 65 y.o. female with breast ptosis and unacceptable abdominal contour. - After extensive discussion of the risks, benefits, and alteratives of surgical intervention, the patient consented to proceed with surgery. - IV antibiotics ordered - Proceed to OR for: Procedure(s): MASTOPEXY, BILATERAL (WRVU 11.09) ABDOMINOPLASTY EXC,W/ UMBILICAL TRANSPOSITION, FASCIAL PLICATION (WRVU 17.04) * Lorenza Mcmillan MD - 04/18/2016 10:49 AM EST Patient Name: Quyen Bill Patient Age: 65 y.o. Birthdate: 1950 Admit date: 04/18/2016 Attending Physician: Lorenza Mcmillan MD No interval changes Vitals: 04/18/16 1008 BP: 149/85 Pulse: 76 Resp: 16 Temp: 36.3 ??C (97.3 ??F) nad nsr Breathing is non labored Breast ptosis and abdominal pannus A/p TO OR for mastopexy and abdominoplasty. The operative procedure, risks, benefits, alternatives and complications were discussed, patient's questions were answered and she elected to proceed. Consent was verified. There have been no interval changes in the health of the patient. I have examined and marked her and we will proceed with abdominolasty with fascial plication and mastopexy today. We have discussed the skin marking. We have re- reviewed the risks including scar, infection, bleeding/hematoma, seroma,skin loss, delayed healing, contour irregularity, fat necrosis, sensation loss, spitting sutures and asymmetry and she wishes to proceed. Lorenza Mcmillan MD documented in this encounter Miscellaneous Notes * Plan of Care - Marifer Tinoco RN - 04/19/2016 3:45 AM EST Problem: Patient Care Overview Goal: Plan of Care Review Outcome: Ongoing (Interventions Implemented as Appropriate) 04/18/16204404/18/162199 Coping/Psychosocial Plan Of Care Reviewed With -- patient Plan of Care Review Progress no change -- OUTCOME EVALUATION NOTE: OUTCOME SUMMARY: Pt alert and oriented. VSS. Room air. Dressings c/d/i. GOLD drains monitored per protocol. Incisionalpain managed with PRN oxycodone (see MAR). Post op fluids running per order. Pt able to sleep between care interventions. PLAN MOVING FORWARD: Pain management. Continue to monitor. D/c home today. INDIVIDUALIZED FALL PREVENTION INTERVENTIONS: Patient-specific fall risk factors per assessment: [current deficits]: Unfamiliar environment, GOLD drains, first day post-op Assistance [level of assistance required for transfers and ambulation]: 1 assist Supervision [direct monitoring required during toileting and ADLs]: 1 assist Surveillance [continuous indirect monitoring]: Continuous pulse ox, hourly rounding, call light within reach Patient-specific fall prevention interventions for sensory deficits provided, if applicable: [X] No CPG GOAL OUTCOME EVALUATION: Goal: Individualization & Mutuality Outcome: Ongoing (Interventions Implemented as Appropriate) 04/18/161999 Mutuality/Individual Preferences What Anxieties, Fears or Concerns Do You Have About Your Health or Care? none What Questions Do You Have About Your Health or Care? none What Information Would Help Us Give You More Personalized Care? nothing Goal: Fall Prevention-Safe Patient Handling Outcome: Ongoing (Interventions Implemented as Appropriate) 04/18/16204404/18/16219904/19/16199 Restraint Interventions Safety Promotion/Fall Prevention -- -- activity supervised;fall prevention program maintained;muscle strengthening facilitated;nonskid shoes/slippers when out of bed Positioning Body Position -- independent -- Daily Care Interventions Self-Care Promotion independence encouraged;BADL personal objects within reach -- -- Dinh Fall Risk History of Falling -- 0 -- Secondary Diagnosis -- 15 -- Ambulatory Aids -- 0 -- Intravenous Therapy/Heparin/Saline Lock -- 20 -- Gait/Transferring -- 10 -- Mental Status -- 0 -- Score -- 45 -- OTHER Dinh Fall Risk -- High -- Goal: Infection Control Outcome: Ongoing (Interventions Implemented as Appropriate) 04/18/16219904/19/16199 Safety Interventions Isolation Precautions -- standard precautions maintained Infection Prevention -- cohorting utilized;environmental surveillance performed Coping Strategies Supportive Measures active listening utilized -- * Plan of Care - Caden Wilks - 04/18/2016 8:55 PM EST Problem: Patient Care Overview Goal: Plan of Care Review Outcome: Ongoing (Interventions Implemented as Appropriate) 04/18/162044 Coping/Psychosocial Plan Of Care Reviewed With patient Plan of Care Review Progress no change OUTCOME EVALUATION NOTE: OUTCOME SUMMARY: Noted and reported to tolerate plan of care. Reviewed medication regime, pain management, wound care, and personal safety recommendations. Amend prn. PLAN MOVING FORWARD: Continue plan of care per MD order, nursing process, and patient participation. Amend prn. INDIVIDUALIZED FALL PREVENTION INTERVENTIONS: Patient-specific fall risk factors per assessment: [current deficits]: S/p surgical intervention, inpatient status Assistance [level of assistance required for transfers and ambulation]: One person Supervision [direct monitoring required during toileting and ADLs]: One person Surveillance [continuous indirect monitoring]: meme Patient-specific fall prevention interventions for sensory deficits provided, if applicable: no CPG GOAL OUTCOME EVALUATION: Goal: Fall Prevention-Safe Patient Handling Outcome: Ongoing (Interventions Implemented as Appropriate) 02/28/17 2000 02/28/17 2045 Restraint Interventions Safety Promotion/Fall Prevention -- fall prevention program maintained;safety round/check completed Positioning Body Position -- independent Daily Care Interventions Self-Care Promotion -- independence encouraged;BADL personal objects within reach Dinh Fall Risk History of Falling 0 -- Secondary Diagnosis 15 -- Ambulatory Aids 0 -- Intravenous Therapy/Heparin/Saline Lock 20 -- Gait/Transferring 10 -- Mental Status 0 -- Score 45 -- OTHER Dinh Fall Risk High -- Goal: Infection Control Outcome: Ongoing (Interventions Implemented as Appropriate) 04/18/162044 Safety Interventions Isolation Precautions standard precautions maintained Infection Prevention rest/sleep promoted Coping Strategies Supportive Measures active listening utilized Goal: Discharge Needs Assessment Outcome: Ongoing (Interventions Implemented as Appropriate) 04/18/162044 Discharge Needs Assessment Concerns To Be Addressed no discharge needs identified Readmission Within The Last 30 Days no previous admission in last 30 days Provider Choice List(s) Given yes Equipment Needed After Discharge none Discharge Disposition still a patient Current Health Anticipated Changes Related to Illness none Activity/Self Care Review of Systems Equipment Currently Used at Home none Living Environment Transportation Available family or friend will provide Goal: Interdisciplinary Rounds/Family Conf Outcome: Ongoing (Interventions Implemented as Appropriate) 04/18/162044 Interdisciplinary Rounds/Family Conf Summary nurse nate godinez Participants nursing;patient * Op Note - Lorenza Mcmillan MD - 04/18/2016 4:55 PM EST [facility] [place]ative Note Patient Name: Quyen Bill : [id number] MR#: [id number] Case Date: 04/18/2016 Surgeon: Surgeon(s) and Role: * Lorenza Mcmillan MD - Primary * Gisela Swain MD - Resident-Surgeon Chief Preoperative diagnosis: breast ptosis and unacceptable abdominal contour Postoperative diagnosis: breast ptosis and unacceptable abdominal contour Procedure(s) (LRB): MASTOPEXY, BILATERAL (WRVU 11.09) (Bilateral) ABDOMINOPLASTY EXC,W/ UMBILICAL TRANSPOSITION, FASCIAL PLICATION (WRVU 17.04) (Bilateral) Anesthesia: General Estimated Blood Loss: 110 mL Specimens removed during surgery: Left and right breast tissue Drains: Drain/Device Site 04/18/16 1302 Right chest (Active) Insertion Site clean and dry 04/18/2016 4:01 PM Drainage Characteristics/Odor serosanguineous 04/18/2016 4:01 PM Drain/Device Site 04/18/16 1303 Left chest (Active) Insertion Site clean and dry 04/18/2016 4:01 PM Drainage Characteristics/Odor serosanguineous 04/18/2016 4:01 PM Drain/Device Site 04/18/16 1303 Right abdomen (Active) Insertion Site clean and dry 04/18/2016 4:01 PM Drainage Characteristics/Odor serosanguineous 04/18/2016 4:01 PM Drain/Device Site 04/18/16 1304 Left abdomen (Active) Insertion Site clean and dry 04/18/2016 4:01 PM Drainage Characteristics/Odor serosanguineous 04/18/2016 4:01 PM Surgical Closure: Primary Closure - closure of ALL tissue levels during the original surgery regardless of wires, wickes, drains, or other devices extruding through the incision Disposition: awakened from anesthesia, extubated and taken to the recovery room in a stable condition, having suffered no apparent untoward event. Condition: doing well without problems (Please see the Surgical Encounter Summary for any Implant and Specimen details pertinent to this patient.) HPI/Surgical Indications: Quyen is a 65 yo F who presents for mastopexy and abdominoplasty with fascial plication. Procedure Description: Procedure Description: The patient was marked in the standing position in the preoperative area. The risks were again reviewed, asymmetries noted to the patient and she wishes to proceed. After informed consent was obtained, she was brought to the Main Operating Room where she was placed supine on the Operating Room table. She was given a single prophylactic dose of antibiotics, and SCDs placed. After the induction of general anesthesia, a leonard was placed and the patientwas turned to the prone position and the breasts and all bony prominences padded. She was then prepared and draped in the standard sterile fashion. Immediately prior to the start of the procedure, the procedural care team participated in an active process whereby the following were confirmed and agreed upon by all present: patient's identity, intended procedure, including site and side; correct positioning/presence of niles; and availability of special equipment/implant. The patient was positioned supine on the OR table. All bony prominences were padded. We began the procedure with the mastopexy. Through a small stab wound on each breast, the breasts were infiltratedeach with a total of 100 cc of tumescent solution of saline, epinephrine and xylocaine. The preciseoutline of the areolar diameter was marked using a 42 mm template. Methylene blue was tattooed (using a 25 gauge needle) into the funez anatomic landmarks and quadrants of the areolar diameter. A tourniquet was then wrapped around the base of each breast and the entire superior pedicle was deepithelialized. The incisions bordering the central pedicle along the inferior portion of the planned new are mine site and lateral and medial were made through skin and superficial subcutaneous tissue approximately 2 cm deep. The flaps were then elevated approximately 2 cm in either direction to allow the flaps to come together along the vertical portion of the PETERSON pattern without distorting or tethering the NAC. The central base of the pedicle was maintained in continuity with the chest wall. No abnormal masses were noted. The inferior breast skin was elevated off the underlying breast tissue and theinferior breast elevated off the pectoralis muscle. A keel of tissue was excised centrally at the inferior pole. The lateral and medial pillars were identified. The breast wounds were then irrigated with warm normal saline. Hemostasis was meticulously achieved with Bovie cautery. A 15 Abel drain was inserted into each breast. Closure was then begun by approximating the medial and lateral pillarswith 3-0 PDS sutures. We then approximated the 12 o'clock position of the NAC with a deep dermal stitch of 4-0 PDS. The rest of the wound closure was achieved with deep dermal 4-0 PDS and running 4-0Monocryl and then Dermabond was applied. The breasts were symmetrical at the end of the case and there was good color/perfusion of the NAC complex bilaterally. The removed breast skin weighed 30 g oneither side. We then turned our attention the abdomen. 250 cc of tumescent injection was used to infiltrate the abdomen. The perumbilical incision was made and the umbilical stalk developed with Purmela scissor dissection. Then the inferior skin incision was made and with the electrocautery it was extended down tothe deep fascia. The abdominal flap was then undermined up to the costal margin and hemostasis was a ssured while protecting the integrity of the umbilical stalk. A mild rectus diastasis was noted andthis was plicated vertically with 0-Vicryl figure of eight sutures then a 0-PDS suture, as two separate running sutures one above and the other below the umbilicus. The bed was then flexed. The flap was then split in the midline and pulled inferiorly and the extent of resection planned. The superior excisional line was then cut and the excess skin removed. The pannus was weighed at 2.2 Kg. Once again, hemostasis was assured. The superior skin flap was approximated to the lower incision in the midline. The new site for the umbilicus was determined, an inverted V-incision made and the umbilicusbrought out. Two drains were placed in the wound and brought out through lateral stab wound incisions. Closure of the abdomen was then undertaken with a deep layer of 0 Vicryl in Caron's fascia, interrupted buried deep dermal 3-0 Vicryl and finally a running subcuticular of 4-0 Monocryl. Completion of the umbilical inset was done with deep dermal 4-0 PDSs and then half buried 5-0 Fast absorbing sutures. The wound was dressed with dermabond and steristrips and a sterile Primapore dressing. The two drains were each filled with 15 cc of 1/4% Marcaine with epinephrine. Sponge and needle counts were all correct at the end of the case. A binder and bra were placed, There were no intraoperative complications. The patient was awakened from anesthesia without any difficulties. Infection Bundle used? N/A Attestation: Case Date: 04/18/2016 I was present and I participated during the entire procedure. LORENZA MCMILLAN MD 04/18/2016 * Brief Op Note - Gisela Swain MD - 04/18/2016 3:43 PM EST Brief Operative Note Patient Name: Quyen Bill : [id number] MR#: [id number] Case Date: 04/18/2016 Surgeon: Surgeon(s) and Role: * Lorenza Mcmillan MD - Primary * Gisela Swain MD - Resident-Surgeon Chief Preoperative diagnosis: breast ptosis and unacceptable abdominal contour Postoperative diagnosis: breast ptosis and unacceptable abdominal contour Procedure(s) (LRB): MASTOPEXY, BILATERAL (WRVU 11.09) (Bilateral) ABDOMINOPLASTY EXC,W/ UMBILICAL TRANSPOSITION, FASCIAL PLICATION (WRVU 17.04) (Bilateral) Anesthesia: General Findings: Bilateral mastopexy Abdominoplasty 2.060grams resected Complications: none Estimated Blood Loss: 110 mL Fluids: 1.1 L PRBCs: none (See Anesthesia Record/Report for Other Blood Products) Urine Output: 135 mL Drains: 15F x2 19F x2 Disposition: awakened from anesthesia, extubated and taken to the recovery room in a stable condition, having suffered no apparent untoward event. Condition: doing well without problems (Please see the Surgical Encounter Summary for any Implant and Specimen details pertinent to this patient.) Infection Bundle used? N/A Post-Op Plan: - Follow up in: 7-10days - Wound Check - Suture removal: None - Dressings: remove dressings (leave steri strips) Remove drains when less 30cc/24hrs x2 days documented in this encounter Plan of Treatment Not on file documented as of this encounter Procedures Procedure Name Priority Date/Time Associated Diagnosis Comments FINANCIAL OPERATIONS CONSULTANT SCAN 04/20/2016 12:00 AM EST POCT GLUCOSE Routine 04/18/2016 4:03 PM EST SPECIMEN TO PATHOLOGY Routine 04/18/2016 1:28 PM EST SURGICAL PATHOLOGY REPORT Routine 04/18/2016 1:25 PM EST SPECIMEN TO PATHOLOGY Routine 04/18/2016 1:25 PM EST ABDOMINOPLASTY EXC,W/ UMBILICAL TRANSPOSITION, FASCIAL PLICATION (WRVU 17.04) 04/18/2016 11:53 AM EST breast ptosis and unacceptable abdominal contour MASTOPEXY, BILATERAL (WRVU 11.09) 04/18/2016 11:53 AM EST breast ptosis and unacceptable abdominal contour POCT GLUCOSE Routine 04/18/2016 10:00 AM EST ABDOMINOPLASTY EXC,W/ UMBILICAL TRANSPOSITION, FASCIAL PLICATION Routine 04/18/2016 9:50 AM EST documented in this encounter Results * SCAN DOC: FINANCIAL OPERATIONS CONSULTANT (04/20/2016 12:00 AM EST) Anatomical Region Laterality Modality Other Narrative 04/20/2016 12:00 AM EST Ordered by an unspecified provider. Scanning Provider MEDIA MGR SCAN EXT O RDR/RSLT * (ABNORMAL) POCT Glucose (04/18/2016 4:03 PM EST) Glucose, POC 236(H) 65 - 199 mg/dL [facility] Comment: Supplemental ranges: <140 mg/dL before meals <180 mg/dL all other times of the day Blood specimen (specimen) 04/18/2016 4:03 PM EST 04/18/2016 4:03 PM EST Lorenza Mcmillan MD POINT OF CARE TEST O YONAS Performing Organization Address [facility] Co de Phone Number [facility] [place] [place] [address] * Specimen to Pathology (surgical or derm) (04/18/2016 1:28 PM EST) AP Specimen 04/18/2016 1:28 PM EST 04/18/2016 1:28 PM EST Narrative [facility] - 04/18/2016 1:28 PM EST Specimen requisition ordered. ??Separate Pathology report to follow Lorenza Mcmillan MD PATHOLOGY/CYTOLOGY O YONAS Performing Organization Address [facility] Co de Phone Number [facility] [place] [place] [address] * Surgical Pathology Report (04/18/2016 1:25 PM EST) Final Diagnosis [id number] ?Location: [facility]; [facility]; A The signing pathologist has (i) examined the relevant preparation(s) for the specimen(s) and (ii) rendered or confirmed the diagnosis(es). . ?Surgical Pathology DIAGNOSIS A - Right breast, excision - ?Benign breast tissue. B - Left breast, excision - ?Benign breast tissue. Electronically signed by: ??Farnaz Patton DO Verified: ??04/19/2016 ?Pathologist CLINICAL INFORMATION Specimen Submitted: A - Rt breast B - Left breast Clinical History: Mastopexy Clinical Diagnosis: Same SPECIMEN PROCESSING A - ??Labeled/Fixat isaiah: Right breast, fresh. Qty/Size/Weight : Multiple, 17.0 x 4.5 x 1.8 cm, 65 gram. Tissue Description: Fibrofatty breast tissue with attached and detached botello-pink skin. Skin: Unremarkable. Parenchyma: Adipose and dense, nelson-white fibrous tissue. Sections/Proces sing: (R3) B - ??Labeled/Fixat isaiah: Left breast tissue, fresh. Qty/Size/Weight : Multiple, 6.2 x 5.1 x 2.0 cm, 24 gram. Tissue Description: Fibrofatty breast tissue with attached and detached botello-pink skin. Skin: Unremarkable. Parenchyma: Adipose and dense, nelson-white fibrous tissue. Sections/Proces sing: (R3) ?? LENNOX 04/19/2016 4:34 PM EST [facility] BREAST STRUCTURE / Unknown 04/18/2016 1:25 PM EST 04/18/2016 1:25 PM EST BREAST STRUCTURE / Unknown 04/18/2016 1:25 PM EST 04/18/2016 1:25 PM EST Lorenza Mcmillan MD PATHOLOGY/CYTOLOGY O YONAS [facility] [place] [place] [address] * Specimen to Pathology (surgical or derm) (04/18/2016 1:25 PM EST) AP Specimen 04/18/2016 1:25 PM EST 04/18/2016 1:25 PM EST Narrative [facility] - 04/18/2016 1:25 PM EST Specimen requisition ordered. ??Separate Pathology report to follow Lorenza Mcmillan MD PATHOLOGY/CYTOLOGY O YONAS Performing Organization Address City/[facility]/ZIP Co de Phone Number [facility] [place] [place] [address] * POCT Glucose (04/18/2016 10:00 AM EST) Glucose, POC 170 65 - 199 mg/dL [facility] Comment: Supplemental ranges: <140 mg/dL before meals <180 mg/dL all other times of the day Blood specimen (specimen) 04/18/2016 10:00 AM EST 04/18/2016 10:00 AM EST Lorenza Mcmillan MD POINT OF CARE TEST O YONAS Performing Organization Address City/[facility] Co de Phone Number [facility] [place] [place] [address] documented in this encounter Visit Diagnoses Diagnosis Breast ptosis Ptosis of breast documented in this encounter Administered Medications Inactive Administered Medications - up to 3 most recent administrations Medication Order MAR Action Action Date Dose Rate Site acetaminophen (TYLENOL) tablet 1,000 mg 1,000 mg, Oral, ONCE, 1 dose, On Sun04/18/16 at 1030, Administer with SIP of H2O only., Day of Surgery (Day of Procedure), Routine Given 04/18/2016 10:20 AM EST 1,000 mg amLODIPine (NORVASC) tablet 10 mg 10 mg, Oral, DAILY, First dose on Sun04/19/16 at 0900, Until Discontinued, Routine Given 04/19/2016 9:25 AM EST 10 mg aspirin EC tablet 81 mg 81 mg, Oral, DAILY, First dose on Sun04/18/16 at 2030, Until Discontinued, Routine Given 04/18/2016 9:31 PM EST 81 mg docusate sodium (COLACE) capsule 100 mg 100 mg, Oral, 2 TIMES DAILY, First dose on Sun04/18/16 at 2100, Until Discontinued, Routine Given 04/19/2016 9:26 AM EST 100 mg Given 04/18/2016 9:31 PM EST 100 mg gabapentin (NEURONTIN) capsule 600 mg 600 mg, Oral, ONCE, 1 dose, On Sun04/18/16 at 1030, Administer with SIP of H2O only., Day of Surgery (Day of Procedure), Routine Given 04/18/2016 10:[address] 600 mg gabapentin (NEURONTIN) capsule 600 mg 600 mg, Oral, DAILY, First dose on Sun04/18/16 at 2030, Until Discontinued, Routine Given 04/19/2016 9:25 AM EST 600 mg Given 04/18/2016 9:31 PM EST 600 mg gemfibrozil (LOPID) tablet 600 mg 600 mg (rounded from 500 mg), Oral, 2 TIMES DAILY BEFORE MEALS, First dose on Sun04/19/16 at 0730, Until Discontinued, Routine Given 04/19/2016 9:24 AM EST 600 mg hydroCHLOROthiazide (HYDRODIURIL) tablet 25 mg 25 mg, Oral, DAILY, First dose on Sun04/19/16 at 0900, Until Discontinued, Routine Given 04/19/2016 9:26 AM EST 25 mg HYDROmorphone (DILAUDID) syringe 0.2-0.4 mg 0.2-0.4 mg, Intravenous, EVERY 5 MIN PRN, Pain, Starting on Sun04/18/16 at 1604, Until Sun04/18/16 at 2218, For moderate pain (4-6) give: 0.2 mg every 5 minute prn For severe pain (7-10) give: 0.4 mg every 5 minutes prn Maximum dose: 4 mg per hour Hold for respiratory rate less than 10 per minute., PACU Recovery Given 04/18/2016 5:28 PM EST 0.4 mg Given 04/18/2016 5:17 PM EST 0.4 mg lactated ringers infusion 1,000 mL 1,000 mL, at 100 mL/hr, Intravenous, CONTINUOUS, Starting on Sun04/18/16 at 1030, Until Sun04/18/16 at 2001, Day of Surgery (Day of Procedure) New Bag 04/18/2016 3:17 PM EST New Bag 04/18/2016 11:49 AM EST New Bag 04/18/2016 10:22 AM EST 1,000 mLs 100 mL/hr lactobacillus (BACID) tablet 1 tablet 1 tablet, Oral, DAILY, First dose on Sun04/19/16 at 0900, Until Discontinued, Routine Given 04/19/2016 9:24 AM EST 1 tablet lisinopril (PRINIVIL;ZESTRIL) tablet 40 mg 40 mg, Oral, DAILY, First dose on Sun04/19/16 at 0900, Until Discontinued, Routine Given 04/19/2016 9:26 AM EST 40 mg metFORMIN (GLUCOPHAGE) tablet 500 mg 500 mg, Oral, DAILY, First dose on Sun04/19/16 at 0900, Until Discontinued, Routine Given 04/19/2016 9:[address] 500 mg oxyCODONE (ROXICODONE) immediate release tablet 10 mg 10 mg, Oral, EVERY 4 HOURS PRN, Starting on Sun04/18/16 at 1614, Until Sun04/19/16 at 1700, Pain, Use if acetaminophen and/or ibuprofen ineffective. May repeat 5 mg in 60 minutes if pain not relieved., Routine Given 04/19/2016 1:59 PM EST 10 mg Given 04/19/2016 8:48 AM EST 10 mg Given 04/19/2016 4:00 AM EST 10 mg senna-docusate (PERICOLACE) 8.6-50 mg per tablet 2 tablet 2 tablet, Oral, 2 TIMES DAILY, First dose on Sun04/18/16 at 2200, Until Discontinued, Routine Given 04/19/2016 9:25 AM EST 2 tablets Given 04/18/2016 9:31 PM EST 2 tablets sodium chloride 0.9 % flush 5 mL 5 mL, Intravenous, 2 TIMES DAILY, First dose on Sun04/18/16 at 2100, Until Discontinued, Recovery (Recovery-Hospital Unit), Routine Given 04/19/2016 9:00 AM EST 5 mLs Given 04/18/2016 9:31 PM EST 5 mLs sodium chloride 0.9% infusion 1,000 mL, at 100 mL/hr, Intravenous, CONTINUOUS, Starting on Sun04/18/16 at 1630, Until Sun04/19/16 at 1700, Recovery (Recovery-Hospital Unit) New Bag 04/18/2016 4:22 PM EST 1,000 mLs 100 mL/hr documented in this encounter Active and Recently Administered Medications Times are shown in EST. Scheduled Medication Order 04/17/2016 04/18/2016 04/19/2016 acetaminophen (TYLENOL) tablet 1,000 mg (COMPLETED) 1,000 mg, Oral, ONCE, 1 dose, On Sun04/18/16 at 1030, Administer with SIP of H2O only., Day of Surgery (Day of Procedure), Routine 1020 (Given - Provider: Amanda Lopez, ABDULLAHI) amLODIPine (NORVASC) tablet 10 mg 10 mg, Oral, DAILY, First dose on Sun04/19/16 at 0900, Until Discontinued, Routine 924 (Given - Provid er: Nae Nava RN) aspirin EC tablet 81 mg 81 mg, Oral, DAILY, First dose on Sun04/18/16 at 2030, Until Discontinued, Routine 2130 (Given - Provider: Caden Wilks) 0900 (Hold - Provider: Nae Nava RN - Reason: Per MD Order) ceFAZolin (ANCEF) 2g in dextrose 5% 50 mL (COMPLETED) 2 g, Intravenous, ONCE, 1 dose, On Sun04/18/16 at 1115, Administer over 30 Minutes, Indication for (Active or Suspected): Prophylaxis 1215 (Given - Provider: Ale Weiss)1514 (Given - Provider: Ale Weiss) docusate sodium (COLACE) capsule 100 mg 100 mg, Oral, 2 TIMES DAILY, First dose on Sun04/18/16 at 2100, Until Discontinued, Routine 2130 (Given - Provider: Caden Wilks) 0926 (Given - Provider: Nae Nava RN) gabapentin (NEURONTIN) capsule 600 mg (COMPLETED) 600 mg, Oral, ONCE, 1 dose, On Sun04/18/16 at 1030, Administer with SIP of H2O only., Day of Surgery (Day of Procedure), Routine 1021 (Given - Provider: Amanda Lopez, ABDULLAHI) gabapentin (NEURONTIN) capsule 600 mg 600 mg, Oral, DAILY, First dose on Sun04/18/16 at 2030, Until Discontinued, Routine 2130 (Given - Provider: Caden Wilks) 0925 (Given - Provider: Nae Nava RN) gemfibrozil (LOPID) tablet 600 mg 600 mg (rounded from 500 mg), Oral, 2 TIMES DAILY BEFORE MEALS, First dose on Sun04/19/16 at 0730, Until Discontinued, Routine 923 (Given - Provid er: Nae Nava RN) hydroCHLOROthiazide (HYDRODIURIL) tablet 25 mg 25 mg, Oral, DAILY, First dose on Sun04/19/16 at 0900, Until Discontinued, Routine 925 (Given - Provid er: Nae Nava RN) lactobacillus (BACID) tablet 1 tablet 1 tablet, Oral, DAILY, First dose on Sun04/19/16 at 0900, Until Discontinued, Routine 923 (Given - Provid er: Nae Nava RN) lisinopril (PRINIVIL;ZESTRIL) tablet 40 mg 40 mg, Oral, DAILY, First dose on Sun04/19/16 at 0900, Until Discontinued, Routine 925 (Given - Provid er: Nae Nava RN) metFORMIN (GLUCOPHAGE) tablet 500 mg 500 mg, Oral, DAILY, First dose on Sun04/19/16 at 0900, Until Discontinued, Routine 922 (Given - Provid er: Nae Nava RN) senna-docusate (PERICOLACE) 8.6-50 mg per tablet 2 tablet 2 tablet, Oral, 2 TIMES DAILY, First dose on Sun04/18/16 at 2200, Until Discontinued, Routine 2130 (Given - Provider: Caden Wilks) 0925 (Given - Provider: Nae Nava RN) sodium chloride 0.9 % flush 5 mL 5 mL, Intravenous, 2 TIMES DAILY, First dose on Sun04/18/16 at 2100, Until Discontinued, Recovery (Recovery-Hospital Unit), Routine 2130 (Given - Provider: Caden Wilks) 0900 (Given - Provider: Nae Nava RN) Continuous Medication Order 04/17/2016 04/18/2016 04/19/2016 lactated ringers infusion 1,000 mL (CANCELED) 1,000 mL, at 100 mL/hr, Intravenous, CONTINUOUS, Starting on Sun04/18/16 at 1030, Until Sun04/18/16 at 2001, Day of Surgery (Day of Procedure) 1022 (New Bag - Provider: Santana Lopez RN)1149 (New Bag - Provider: Ale Weiss)1517 (New Bag - Provider: Ale Weiss) sodium chloride 0.9% infusion 1,000 mL, at 100 mL/hr, Intravenous, CONTINUOUS, Starting on Sun04/18/16 at 1630, Until Sun04/19/16 at 1700, Recovery (Recovery-Hospital Unit) 1622 (New Bag - Provider: Gila Perry RN) PRN Medication Order 04/17/2016 04/18/2016 04/19/2016 bisacodyl (DULCOLAX) suppository 10 mg 10 mg, Rectal, DAILY PRN, Starting on Sun04/18/16 at 2001, Until Sun04/19/16 at 1700, Constipation, Administer if needed per patient's routine or if no bowel movement within 48 hours to achieve: 1) One bowel movement at least every 48 hours, AND 2) Without straining. If multiple bowel medications ordered, consider adding if docusate or milk of magnesia not sufficient., Routine BUpivacaine-EPINEPHrine 0.25 %-1:200,000 injection (CANCELED) ONCE PRN, Starting on Sun04/18/16 at 1400, Until Sun04/19/16 at 1700, Intra-Operative (Intra-Procedure), Routine 1400 (Given - Provider: Lorenza Mcmillan MD) EPINEPHrine (ADRENALIN) injection (CANCELED) ONCE PRN, Starting on Sun04/18/16 at 1300, Until Sun04/19/16 at 1700, Intra-Operative (Intra-Procedure), Routine 1300 (Given - Provider: Lorenza Mcmillan MD) HYDROmorphone (DILAUDID) syringe 0.2-0.4 mg (CANCELED) 0.2-0.4 mg, Intravenous, EVERY 5 MIN PRN, Pain, Starting on Sun04/18/16 at 1604, Until Sun04/18/16 at 2218, For moderate pain (4-6) give: 0.2 mg every 5 minute prn For severe pain (7-10) give: 0.4 mg every 5 minutes prn Maximum dose: 4 mg per hour Hold for respiratory rate less than 10 per minute., PACU Recovery 1717 (Given - Provider: Carolyn Perry RN)1728 (Given - Provider: Carolyn Perry RN) lidocaine (XYLOCAINE) 10 mg/mL (1 %) injection 3 mg 3 mg (0.3 mL), Subcutaneous, ONCE PRN, 1 dose, Starting on Sun04/18/16 at 2000, Until Sun04/19/16 at 1700, for discomfort with PIV insertion, Recovery (Recovery-Hospital Unit), Routine lidocaine (XYLOCAINE) 10 mg/mL (1 %) injection 3 mg (COMPLETED) 3 mg (0.3 mL), Subcutaneous, ONCE PRN, 1 dose, Starting on Sun04/18/16 at 1007, Until Sun04/18/16 at 1334, for discomfort with PIV insertion, Day of Surgery (Day of Procedure), Routine 1334 (Given - Provider: Lorenza Mcmillan MD) oxyCODONE (ROXICODONE) immediate release tablet 10 mg 10 mg, Oral, EVERY 4 HOURS PRN, Starting on Sun04/18/16 at 1614, Until Sun04/19/16 at 1700, Pain, Use if acetaminophen and/or ibuprofen ineffective. May repeat 5 mg in 60 minutes if pain not relieved., Routine 2321 (Given - Provider: Marifer Tinoco RN) 0400 (Given - Provider: Marifer Tinoco RN)0848 (Given - Provider: Nae Nava, RN)1359 (Given - Provider: Nae Nava, RN) sodium chloride 0.9 % flush 5-20 mL 5-20 mL, Intravenous, EVERY 1 MIN PRN, Starting on Sun04/18/16 at 2000, Until Sun04/19/16 at 1700, flush, Flush pertains to all indwelling lines. Flush per protocol found in the job aid using the link provided on this medication record., Recovery (Recovery-Hospital Unit), Routine documented in this encounter Care Teams Meteorological Technician Relationship Specialty Start Date End Date Nae Guthrie MD [address] [place] [address] PCP - General Family Medicine 04/10/16 05/29/18 documented as of this encounter
--- OUTSIDE RECORDS SUMMARY | 2023-11-01 16:49 | XMS_ITS | Encounter Summary ---
[facility] Address [facility] [place] [address] Care Team Providers Care Receiving Room Clerk Name Role Phone Rodrigo Shin Primary Care Provider [phone]- [phone] Reason for Visit * Reason Comments Advice Only bbr, abdominoplasty * Consultation (Routine) - Closed Specialty Diagnoses / Procedures Referred By Contac t Referred To Contact Plastic Surgery Diagnoses panni consult Self mail [facility] Surg [address] [place] [address] Referral ID Status Reason Start Date Expiration Date Visits Re quested Visits Authorized [id number] Closed 08/20/2015 08/19/2016 1 1 Encounter Details Date Type Department Care Team (Late st Contact Info) Description 12/14/2015 9:30 AM EDT Office [place] [id number] Lorenza Adkins MD [facility] [place] [address] Breast ptosis; Abdominal pannus Social History Tobacco Use Types Packs/Day Years [...] - Inhaled Oxygen Concentration - - Weight 87.4 kg (192 lb 9.6 oz) 12/14/2015 9:58 A M EDT Height 167.6 cm (5' 6) 12/14/2015 9:58 AM EDT Body Mass Index 31.09 12/14/2015 9:58 AM EDT documented in this encounter Progress Notes * Lorenza Adkins MD - 12/14/2015 9:30 AM EDT Plastic Surgery Consultation Note Provider: LORENZA ADKINS MD PCP: ALANNA NICHOLS Requesting Physician: as above Reason for office visit: Breast ptosis and abdominal pannus HPI: Quyen Bill is a 65 y.o. female who presents today for evaluation of breast ptosis and abdominal pannus. She is not accompanied for today???s visit. She weighs 192 pounds. She reports she haslost approximately 30 pounds in the past 1-2 years. She presents today because of increasing difficulty with keeping the fold under her breasts free of rashes and infection and clean and odor free. She reports this has been ongoing for years. She has tried anti-fungal sprays which helps temporarilybut then the infection recurs. This has been going on for many years without improvement. She reports she simply wishes to feel comfortable in clothes. She reports her breasts seem to hang too low. She wears a minimizer underwire bra in an attempt to reduce this. She is not happy with her nipple size, which she feels is too large; she feels she cannot wear white blouses. She reports that when shefinds clothes to fit her frame her breast [...] She has had no issues with intertrigo. Pertinent findings to emphasize are: PLASTICS BREAST QUESTIONS 12/14/2015 Headaches? None of the time Pain in your breast area? Some of the time Lack of energy? None of the time Difficulty doing vigorous physical activities (e.g. running or exercising)? A little of the time Feeling physically unbalanced? A little of the time Shoulder pain? None of the time Difficulty sleeping because of discomfort in your breast area? None of the time Neck pain? None of the time Painful gouges or grooves in your shoulders from your bra straps? Some of the time Feeling physically uncomfortable? A little of the time Rashes under your breasts? Some of the time Back pain? A little of the time Arm pain? None of the time Pain, numbness or tingling in your hands because of your breast size? None of the time Satisfaction with Breasts 29 PsychoSocial Well-being 53 Sexual Well-being 46 Physical Well-being 71 Conservative Therapy Treatments: MYD-H PLASTICS CONSERVATIVE THERAPY TREATMENTS 12/14/2015 Physical therapy was effective at relieving my symptoms. Never Tried Use of custom support bras relieved my symptoms. Some Relief How many months did you try this treatment? More than 6 months Treatment by a chiropractor relieved my symptoms. Never Tried Weight loss relieved my symptoms. No Relief How many months did you try this treatment? Less than 3 months Non-narcotic medications (such as Tylenol, Aspirin, Ibuprofen, Aleve, etc) have relieved my symptoms. Never Tried Narcotic pain relievers (such as Tylenol #3, Percocet, etc) have relieved my symptoms. Never Tried Other Treatments have relieved my symptoms. Never Tried Over the counter or prescription medication has relieved the rashes under my breasts. Some Relief How many months did you try this treatment? More than 6 months Past Medical History Diagnosis Date ??? Breast cyst 06/2010 ??? Hypertension ROS: HEENT, GI, /Renal, Psych, Pulm, Endo, Heme, Immun, Neuro: negative +Hypertension Past Surgical History Procedure Laterality Date ??? Breast biopsy ??? section ??? 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 hydrochlorothiazide (HYDRODIURIL) [...] facility-administered medications on file prior to visit. Allergies: No Known Allergies She was cautioned to avoid taking aspirin or NSAIDs for at least two weeks prior to surgery if possible to lessen the risk of bleeding. If an analgesic were required, Tylenol would be the drug of choice. Examination: Ht 167.6 cm (5' 6) Wt 87.4 kg (192 lb 9.6 oz) BMI 31.09 kg/m2 Body surface area is 2.02 meters squared. General: On my examination today, the patient appears to be in good health. Her emotional outlook is positive and she asked appropriate questions throughout the visit. Overweight woman in no acute distress. She was well oriented and asked appropriate questions throughout the visit. HEENT: MMM, normocephalic, no facial abrasions, sclera white Neuro: PERRLA, extra ocular movement intact, facial movement symmetric, tongue midline Resp: No stridor, no wheezes, regular rate Extrem : wwp no c/e/e, no rashes Abd: She has a large abdominal pannus Grade 1: Panniculus barely covers the hairline of the mons pubis but not the genitalia 6cm of subcutaneous pinch below umbilicus, 4 cm above No active intertrigo Low transverse scar Supraumbilical diastasis, no hernia palpable Musculoskeletal: Her back is straight without evidence of kyphosis. Breast Measurements Right Left Ptosis III III SN-N (cm) 33.5 33.5 IMF-N (cm) 12 13 NAC elevat (cm) 12 12 Masses absent absent Shoulder grooves 2+ 2+ Rash Redness from prior rashes Redness from prior rashes Axillary rolls 1+ 1+ Surgical Scars none none Breast Vol (estimate in cc) 900 900 Impression: Bilateral breast ptosis and abdominal pannus Breasts: Bilateral breast mastopexy is indicated for relief of her breast-related symptoms. We discussed that I would not recommend reduction as her breasts would be reduced to approximately 2/3 of their current size. This would be a dramatic change, which I discussed with her, and may be disfiguring. The procedure for mastopexy was discussed in detail. Abdomen: We talked about the scars and risks from abdominoplasty. For her I would recommend abdominoplasty with fascial plication. She is aware that infection, delayed wound healing, seroma and numbness are possibilities. She has been provided with the [facility] patient information brochure as well as their standard informed consent documents on both abdominoplasty and I have drawn out for her the difference in scarring between a cosmetic abdominoplasty and a panniculectomy. She has expressed a desire to proceed with surgical correction. We have verified that we already have photographs on file. I feel strongly that she will gain significant symptom relief and avoid further intertrigo following surgery. We reviewed the timing of surgery relative to weight fluctuations and I've advised that surgery is best done at a realistic fdc stable weight. We talked about the outpatient nature of the surgery, drains, postoperative recovery, and time required off work. The following risks were reviewed in the video or in our discussion: Liposuction: minimal risks but swelling for several months is to be expected. Disadvantage is that not as much lifting is achieved. We talked about the sometimes need to increase the length of the inframammary fold incision and do a direct excision of tissue if we cannot meet our planned volume of resection. Surgical Risks which are greater with open reduction: bleeding with risk of hematoma (<5%); numbness, which may be temporary or permanent; scarring, including abnormal scarring; infection (5-10%);fat necrosis resulting in a breast mass and possible need for revision. I stressed the likelihood of minor problems with delayed wound healing (~30%) and the rare complication of nipple areolar necrosis. She is also aware that there may be some residual pain after the surgery and that there may possibly be some asymmetry. She has expressed a desire to proceed with surgical correction. [employer]/[place] Medicaid All other / Schnur 2.00 935 628 2.01 950 2.02 965 2.03 985 2.04 1000 2.05 1000 687 She would like to proceed with surgery and I will inform her PCP of this plan. We have obtained photographs today. Plan:l 1. Preoperative teaching 2. Maintain ideal body weight 3. Surgical scheduling for bilateral breast mastopexy and abdominoplasty with fascial plication Surgeon: EBR MAIN OR Duration: 5 hours + 1 night overnight Timeframe: elective Coordinated with: None Procedure: bilateral mastopexy and abdominoplasty with fascial plication CPT: 68729, 60630 Surgical site: Breast/abdomen Side: Bilateral Anesthesia: General Follow up: 10 Days after discharge with EBR or AE PAT: Medical clearance from PCP Margaret Charles am acting as scribe for Dr Adkins. All work documented was performed by Dr Adkins. ???I performed the above scribed service and agree with the accuracy of the note?? LORENZA ADKINS MD * Allyson Fleming RN - 12/14/2015 9:30 AM EDT Pre-Op Teaching for Surgery Surgery: mastopexy, abdominoplasty Written and verbal pre-operative instructions were given and reviewed with patient: Patient was advised to discontinue use of NSAIDS and aspirin products (unless otherwise advised by patient's PCP/Pediatric Neurologist for cardiac symptoms), fish oil, Vitamin E and herbal supplements for 14 days prior to surgery, to perform the pre-op scrub, and to coordinate a ride home following surgery. Smoking status and medications were further reviewed to rule out/address current use of Nicotine, Coumadin, Plavix, Estrogen or Tamoxifen. Photos were taken Patient was instructed to call the clinic at with any questions or concerns prior tosurgery. documented in this encounter Plan of Treatment Not on file documented as of this encounter Procedures Procedure Name Priority Date/Time Associated Diagnosis Comments MASTOPEXY, BILATERAL Routine 12/14/2015 10:50 AM EDT documented in this encounter Visit Diagnoses Diagnosis Breast ptosis Ptosis of breast Abdominal pannus Localized adiposity documented in this encounter Care Teams Receiving Room Clerk Relationship Specialty Start Date End Date Rodrigo Shin PA [address] [place] [address] PCP - General Family Medicine 02/22/15 04/09/16 documented as of this encounter
--- OUTSIDE RECORDS SUMMARY | 2023-11-01 16:49 | XMS_ITS | Encounter Summary ---
Author Organization [facility] Address [facility] [place] [address] Care Team Providers Care Development Director Name Role Phone Nae Guthrie MD Primary Care Provider [phone] Reason for Visit * Reason Comments Follow Up Surgery drain removal s/p ab dominoplasty/mastopexy 04/18 Encounter Details Date Type Department Care Team (Late st Contact Info) Description 04/24/2016 4:00 PM EST Office [place] [address] Lorenza Adkins MD [facility] [place] [address] S/P abdominoplasty Social History Tobacco Use Types [...] this encounter Patient Instructions * Patient Instructions* Aracelis Mendoza RN - 04/24/2016 4:00 PM EST We have removed your drain(s) and applied a dressing. You may remove the dressing in 24 hours and shower. After showering, you may cover the drain site(s) with a bandaid. The drain site is typically closed in approximately three days. Please call the clinic with any questions or concerns @ [phone] Sunday through Sunday from 8-5. On weekends, nights, or holidays, call the Main Hospital number @ [phone] and ask for the Plastic Surgeon condemnation engineer. documented in this encounter Progress Notes * Lorenza Adkins MD - 04/24/2016 4:00 PM EST Plastic Surgery Post Op Note Reason for visit: F/U status post procedure Date of surgery: 04/18/16 Procedure(s): Mastopexy (30 g bilaterally), abdominoplasty (2.2 kg) Complications: None reported HPI: Pt reports that she is doing ok. She is here with her friend at today's visit. Examination: There were no vitals taken for this visit. Patient is alert, conversant, comfortable, ambulating Breasts: NAC viable, pink Symmetric shape and size. No collection. No erythema. Drains removed today Abdomen: Incision: CDI, healing well. No collection, no erythema, no evidence of cellulitis. Left GOLD in place. R GOLD has been removed. Impression: Quyen Bill is a 65 y.o. female who was seen today for follow-up after the above procedure. Please see the operative note for details. She is doing well without complaints. Pathology Report: DIAGNOSIS A - Right breast, excision - Benign breast tissue. B - Left breast, excision - Benign breast tissue. Plan: 1. Follow up: when drain puts out less than 30 cc daily x 2 days 2. Maintain support garments 3. Continue steristrips x 6 weeks 4. No lifting more than 5 lbs. 5. Stay flexed in bed and ambulating. documented in this encounter Plan of Treatment Not on file documented as of this encounter Visit Diagnoses Diagnosis S/P abdominoplasty Other postprocedural status documented in this encounter Care Teams Development Director Relationship Specialty Start Date End Date Nae Guthrie MD [address] [place] [address] PCP - General Family Medicine 04/10/16 05/29/18 documented as of this encounter
--- OUTSIDE RECORDS SUMMARY | 2023-11-01 16:49 | XMS_ITS | Encounter Summary ---
Author Organization [facility] [place] [address] Care Team Providers Care Engineering Drafter Name Role Phone Rodrigo Shin Primary Care Provider [phone]- [phone] Encounter Details Date Type Department Care Team (Late st Contact Info) Description 03/21/2019 Telephone Dermatology at [facility] [address] [place] [address] Julio Hernandez MD [address] [facility] [place] [address] Social History Tobacco Use Types Packs/Day Years [...] encounter Miscellaneous Notes * Telephone Encounter - Bart Greenfield LNA - 03/21/2019 9:13 AM EST Called Ms. Bill to scheduled full skin exam with , she declined to do so states shew was just at the office for a spot of concern and that was good enough. She will call our office if needing future appointments. documented in this encounter Plan of Treatment Not on file documented as of this encounter Visit Diagnoses Not on filedocumented in this encounter Care Teams Engineering Drafter Relationship Specialty Start Date End Date Rodrigo Shin PA [address] [place] [address] PCP - General Family Medicine 05/30/18 10/07/19 documented as of this encounter
--- OUTSIDE RECORDS SUMMARY | 2023-11-01 16:49 | XMS_ITS | Encounter Summary ---
Author Organization [facility] Address [facility] [place] [address] Care Team Providers Care Benefits Director Name Role Phone Rodrigo Shin Primary Care Provider [phone]- [phone] Encounter Details Date Type Department Care Team (Latest Contact Info) Description 07/03/2018 3:59 PM EDT - 07/03/2018 11:59 PM EDT Hospital [place] [phone] Bisi Bryan MD [facility] [place] [address] Abnormal mammogram Discharge Disposition: Home Social History Tobacco Use [...] Name Priority Date/Time Associated Diagnosis Comments MAMMO DIAGNOSTIC WITHOUT CAD RIGHT Routine 07/03/2018 4:16 PM EDT Abnormal mammogram documented in this encounter Results * Mammo Diagnostic Without Cad Right (07/03/2018 4:16 PM EDT) Anatomical Region Laterality Modality Breast Right Mammography Impressions 07/04/2018 11:34 AM EDT Concordant benign result RECOMMENDATION: Routine annual screening. I phoned these results and recommendations to the patient on 07/04/2018 at 1130 hours. REVIEW PATH CONFERENCE?: Yes, fat necrosis versus carcinoma Thank you for letting us participate in the care of this patient. For questions regarding this report, please contact the number below. ? Narrative 07/04/2018 11:34 AM EDT RIGHT BREAST ULTRASOUND GUIDED AUTOMATED CORE BIOPSY CLINICAL HISTORY: Abnormal mammogram. Right breast mass 11:00 radian 7 cm from the nipple measuring 1 cm. Patient status post reduction mammoplasty. PROCEDURAL DETAILS: Informed consent was obtained and a timeout procedure was performed per protocol. Using local anesthetic (less than 5 cc of 1% lidocaine), sterile technique, and ultrasound guidance the lesion in the right breast was localized and sampled. Multiple satisfactory core biopsy specimens were obtained using a 14-gauge automated device. A [employer] 14G marker clip was placed. The clip was in satisfactory position both sonographically and at follow-up cranio-caudal and true lateral digital mammography. COMPLICATIONS: None. PROCEDURAL ATTESTATION: Resident: None I performed the procedure without a resident. IMAGING DIFFERENTIAL DIAGNOSIS: Fat necrosis, invasive carcinoma PATHOLOGIC DIAGNOSIS: Postsurgical change, no evidence of atypia or malignancy. Bisi Bryan MD IMG MAMMO ORDERABL ES documented in this encounter Visit Diagnoses Diagnosis Abnormal mammogram Abnormal mammogram, unspecified documented in this encounter Care Teams Benefits Director Relationship Specialty Start Date End Date Rodrigo Shin PA [address] [place] [address] PCP - General Family Medicine 05/30/18 10/07/19 documented as of this encounter
--- OUTSIDE RECORDS SUMMARY | 2023-11-01 16:49 | XMS_ITS | Encounter Summary ---
Author Organization [facility] Address [facility] [place] [address] Care Team Providers Care Web Content Specialist Name Role Phone Rodrigo Shin Primary Care Provider [phone]- [phone] Reason for Visit * Reason Comments Skin Lesion Nose Encounter Details Date Type Department Care Team (Late st Contact Info) Description 03/20/2019 9:15 AM EST Office Visit Dermatology at [facility] [address] [place] [address] Manasa Torres MD [facility] [place] [address] [place] (actinic keratosis) Social History Tobacco Use Types Packs/Day Years [...] this encounter Patient Instructions * Patient Instructions* [facility], [facility] - 03/20/2019 9:15 AM EST How to use 5-fluorouracil (Efudex) 5% cream Area(s) to be treated: Nose Treatment length: Twice daily (morning and evening) for 3 weeks. Instructions for use: 1. Wash your hands before applying. 2. Wash area with a gentle cleanser and pat dry. 3. Use a clean fingertip to apply a small amount to the affected area. Use just enough to cover thearea with a thin film. Avoid your eyes, nostrils and mouth. (Note: Even when treating the entire face, a pea-sized amount should be sufficient.) 4. Rub cream into skin. Do NOT cover with a Band-Aid or other coverings. 5. Wash your hands after applying. 6. After 1 hour, you may apply moisturizer, sunscreen and/or makeup to the area. What to expect: Reactions vary from person to person. During this treatment, your skin may become red, inflamed, irritated (i.e., burning, crusting, weeping, oozing, etc.) and potentially tender or painful. This is a normal reaction. After the treatment period is complete, your skin will take several weeks to heal completely. For discomfort, you may take Tylenol or ibuprofen. You may also apply wet compresses as well as petroleum jelly, such as Vaseline or Aquaphor, to soothe the skin. While you should expect some [id number] discomfort and tenderness, if pain is excessive and interferes with daily activity or keeps you awake at night, you may pause treatment for 1-2 days. Please contact the clinic if you develop a fever or a thick yellow/honey-colored crust over the treatedarea. Warnings: - Use only as directed. - Do not share this medication. - Do not use other topical or medicated products on the treatment area unless instructed to do so by your doctor. Contact information: On weekdays (8am to 5pm), please call the clinic at [phone]. After 5pm, and on weekends and holidays, please call the hospital at [phone] and ask for the Forest Pathology Associate Professor Leases And Land Supervisor. documented in this encounter Progress Notes * Manasa Torres MD - 03/20/2019 9:15 AM EST DERMATOLOGY ESTABLISHED PATIENT NOTE Date of service: 03/20/2019 Quyen Bill : 1950 Provider: Manasa Torres MD Chief Complaint Patient presents with ??? Skin Lesion Nose SKIN HX 03/29/2015 Right lateral arm, shave biopsy: Pigmented BCC, extending to the peripheral and deep specimen edges. - s/p WLE 05/12/15 Other: - Actinic keratoses - s/p LN2 - Molluscum contagiosum - Peter angiomas - Telangiectasias - Skin tags - Nevi Family Skin History: Skin cancer: No known Social History: Marital status: Children: 2 Occupation: Retired, banking Procedure Screening Questions: Allergies to lidocaine or epinephrine: No Blood thinners: Yes, ASA 81mg Pacemaker/defibrillator: No Patient Preferences: Preferred name: Quyen Uses myD-H?: No Preferred contact method with results: Home phone Detailed message including biopsy results okay?: Yes Are there any other people with whom we may discuss your care?: (Gadiel) Preferred pharmacy: [facility] in [facility] Quyen Bill is a 68 y.o. female, established patient last seen by Dr. Hernandez on 04/04/16. Here today for a focused exam of the nose. Patient is concerned about an intermittently crusty lesion on her nose. This area was previously treated with cryotherapy by Dr. Hernandez. Additionally, patient wouldlike recommendations for skin products. She is currently using Lorraine. ADR No Known Allergies MEDS Current Outpatient Medications Medication Sig Dispense Refill ??? levothyroxine (Synthroid) 25 mcg Tablet ??? simvastatin (Zocor) 20 mg Tablet ??? fish oil-omega-3 fatty acids 1,000 mg [...] tablet Take 1,200 Units by mouth daily. ??? hydrochlorothiazide (HYDRODIURIL) 25 mg Tablet Take 25 mg by mouth daily. No current facility-administered medications for this visit. ROS General: feeling well Skin: denies other skin complaints EXAM General: NAD, pleasant, cooperative Skin: A focused skin examination of the nose, significant for??the following: Significant skin findings: A. Nose: 0.2-0.3 cm scaly irregular pink papule, refractory to LN2. B. Face: Cosmetic skin concerns ASSESSMENT/PLAN A. Actinic Keratosis Refractory to LN2 - Explained etiology, natural history and premalignant potential of these lesions. - Discussed treatment options (LN2, 5-FU) and their respective risks and benefits. - Patient elects to proceed with 5-FU treatment. - Start Rx: 5-fluorouracil (Efudex) 5% cream: Apply a thin layer to affected areas on the nose twice daily (morning and night) as tolerated for 3 weeks. Patient counselin-FU - Reviewed expectations, typical reaction, and restrictions on light exposure during treatment. Patient understands that affected area will likely become red, irritated and tender during treatment and that this is a normal reaction. - Discussed option to hold treatment for 1-2 days if inflammation becomes too intense or patient experiences discomfort. Advised patient to call clinic if pain is excessive, or infection is suspected. - Counseled that patient may apply moisturizer, sunscreen and/or other cosmetics to the treated area 1 hour following application. B. Cosmetic Concerns - Suggested consultation with spring Ralph. See her cosmetic note for details. FOLLOW UP: RTC as scheduled with Dr. Hernandez for a full skin exam, sooner if needed. Appointment scheduled before exiting. Instructed patient to call with questions or concerns. I am documenting this encounter acting as the scribe for and in the presence of Dr. Torres: JOSE EDUARDO Shrestha and JOSE EDUARDO Cooper I performed the above scribed service and agree with the accuracy of the documentation in this encounter. Manasa Torres MD Section of Dermatology [facility] documented in this encounter Plan of Treatment Not on file documented as of this encounter Visit Diagnoses Diagnosis AK (actinic keratosis) Actinic keratosis documented in this encounter Care Teams Web Content Specialist Relationship Specialty Start Date End Date Rodrigo Shin PA [address] [place] [address] PCP - General Family Medicine 05/30/18 10/07/19 documented as of this encounter
--- OUTSIDE RECORDS SUMMARY | 2023-11-01 16:49 | XMS_ITS | Encounter Summary ---
Author Organization [facility] Address [facility] [place] [address] Care Team Providers Care Fraud Analyst Name Role Phone Rodrigo Shin Primary Care Provider [phone]- [phone] Encounter Details Date Type Department Care Team (Latest Contact Info) Description 07/03/2018 3:01 PM EDT - 07/03/2018 3:40 PM EDT Hospital [place] [id number] Caden Sanchez MD [facility] [place] [address] Abnormal mammogram Discharge Disposition: Home Social History [...] Name Priority Date/Time Associated Diagnosis Comments MAMMO BREAST US LIMITED RIGHT Routine 07/03/2018 3:41 PM EDT Abnormal mammogram documented in this encounter Results * US Breast Limited Right (07/03/2018 3:41 PM EDT) Anatomical Region Laterality Modality Breast Right Mammography Impressions 07/03/2018 4:12 PM EDT Indeterminate 1 cm solid mass right upper outer quadrant middle third for which ultrasound-guided core biopsy is recommended. This is performed and dictated separately on the day of the patient's visit. BI-RADS Category 4: Suspicious Finding - Biopsy Should Be Considered Thank you for letting us participate in the care of this patient. For questions regarding this report, please contact the number below. ? Narrative 07/03/2018 4:12 PM EDT EXAMINATION: MAMMO CALL BACK DIAGNOSTIC MAGED WITHOUT CAD RIGHT, US BREAST LIMITED RIGHT CLINICAL HISTORY: abnormal mammogram TECHNIQUE: True lateral, spot compression CC and spot compression MLO views were obtained of the right breast. 2-D direct digital capture, 3-D tomosynthesis and computer aided detection (CAD) were used.. I performed high-resolution ultrasound following the technologist. COMPARISON: This study was compared with prior images. FINDINGS: There is a persistent faint 1 cm mammographic mass in the right upper outer quadrant middle third, 7 cm from the nipple. Right breast ultrasound: I performed high-resolution ultrasound following the technologist and there is a slightly heterogeneously hypoechoic shadowing mass at the 11:00 radian sonographically 7 cm from the nipple measuring 1 cm in maximal diameter. Caden Sanchez MD IMG MAMMO ORDERABLES documented in this encounter Visit Diagnoses Diagnosis Abnormal mammogram Abnormal mammogram, unspecified documented in this encounter Care Teams Fraud Analyst Relationship Specialty Start Date End Date Rodrigo Shin PA [address] [place] [address] PCP - General Family Medicine 05/30/18 10/07/19 documented as of this encounter
--- OUTSIDE RECORDS SUMMARY | 2023-11-01 16:49 | XMS_ITS | Encounter Summary ---
Author Organization [facility] [place] [address] Care Team Providers Care Corn Shredder Name Role Phone Rodrigo Shin Primary Care Provider [phone]- [phone] Reason for Visit * Auth/Cert Specialty Diagnoses / Procedures Referred By Venancio medeiros Referred To Contact Diagnoses varicose vein Procedures PRO ENDOVENOUS RF, 1ST VEIN ENDOVENOUS ABLATION THERAPY OF INCOMPETENT VEIN, EXTREMITY, FIRST VEIN (WRVU 5.3) Referral ID Status Reason Start Date Expiration Date Visits Re quested Visits Authorized [id number] 1 1 Encounter Details Date Type Department Care Team (Late st Contact Info) Description 11/28/2018 10:26 AM EDT - 11/28/2018 12:50 PM EDT [place] [address] Julianna Hernandes MD [facility] [place] [address] Not Performed ENDOVENOUS ABLATION THERAPY OF INCOMPETENT VEIN, EXTREMITY, FIRST VEIN (WRVU 5.3) Social History Tobacco Use Types Packs/Day Years [...] Us Biopsy Right 07/03/2018 Bisi Bryan MD [facility] RAD MAMMOGRAPHY ??? PRO EXCISE EXCESS SKIN TISSUE, ABDOMEN, ADD-ON Bilateral 04/18/2016 ABDOMINOPLASTY EXC,W/ UMBILICAL TRANSPOSITION, FASCIAL PLICATION (WRVU 17.04) performed by Lorenza Adkins MD at [facility] MAIN OR ??? PRO SUSPENSION OF BREAST Bilateral 04/18/2016 MASTOPEXY, BILATERAL (WRVU 11.09) performed by Lorenza Adkins MD at [facility] MAIN OR Functional Status/Social Hx: Social History [...] file Gets together: Not on file Attends scientology service: Not on file Active member of [...] (Bezet) 440 ms MUSE SYSTEM Calculated P Withee 38 degrees MUSE SYSTEM Calculated R Withee 23 degrees MUSE SYSTEM Calculated T Withee 29 degrees MUSE SYSTEM INTERPRETATION Normal sinus rhythm Normal ECG No previous ECGs available Confirmed by ADRIAN, ??, CHASE ([id number]) on 11/28/2018 3:53:26 PM MUSE SYSTEM 11/28/2018 10:3 7 AM EDT 11/28/2018 3:53 PM EDT Espinoza Garvin MD ECG ORDERABLES MUSE SYSTEM * (ABNORMAL) Hemogram (11/28/2018 9:19 AM EDT) Pathologist [facility] White Blood Cell 10.3(H) 4.0 - 9.5 x10(3)/mc L [facility] Red Blood Cell 4.14 4.00 - 5.21 x10(6)/mc L [facility] Hemoglobin 12.0 11.7 - 15.5 gm/dL [facility] Hematocrit 36.2 35.7 - 45.8 % [facility] Mean Cell Volume 87.4 82.6 - 94.4 fL [facility] Mean Cell Hemoglobin 29.0 27.1 - 32.0 pg [facility] Mean Cell Hemoglobin Concentration 33.1 31.7 - 35.0 gm/dL [facility] Platelet 315 145 - 357 x10(3)/mc L [facility] RDW Standard Deviation 43.2 37.0 - 46.0 fL [facility] RDW coefficient of variation 13.4 11.5 - 14.1 % [facility] Mean Platelet Volume 11.3 7.6 - 12.9 fL [facility] NRBC% auto 0.0 % [facility] NRBC Absolute 0.000 0.000 - 0.000 x10(3)/mc L [facility] Blood specimen (specimen) 11/28/2018 9:19 AM EDT 11/28/2018 9:31 AM EDT Narrative Resulting Agency Comment Spec In Lab Julianna Hernandes MD HEMATOLOGY ORDERABLE S [facility] [place] [address] * ABORH Recheck Status (11/28/2018 9:09 AM EDT) ABORH Recheck Order Order Placed [facility] ABORH Type Recheck Complete [facility] Blood specimen (specimen) 11/28/2018 9:09 AM EDT 11/28/2018 9:12 AM EDT Narrative Resulting Agency Comment Spec In Lab Espinoza Garvin MD BLOOD BANK LAB ORDER TIA Performing Organization Address City/[facility]/ZIP Co de Phone Number [facility] [place] [address] * Antibody screen (11/28/2018 9:09 AM EDT) Ab Screen Interp Negative [facility] Expires at [id number] on: 01/12/2019 [facility] Comment: Corrected from 12/01/18 0:00:00 EDT [Unknown] on 11/29/18 16:21:22 EDT by Delilah Pennington I.. Blood specimen (specimen) 11/28/2018 9:09 AM EDT 11/28/2018 9:12 AM EDT Narrative Resulting Agency Comment Spec In Lab Espinoza Garvin MD BLOOD BANK LAB ORDER TIA [facility] [place] [address] * ABO/Rh Typing (11/28/2018 9:09 AM EDT) ABORH Type A Pos [facility] Blood specimen (specimen) 11/28/2018 9:09 AM EDT 11/28/2018 9:12 AM EDT Narrative Resulting Agency Comment Spec In Lab Espinoza Garvin MD BLOOD BANK LAB ORDER TIA [facility] [place] [address] * (ABNORMAL) Basic Metabolic Panel (non-fasting) (11/28/2018 9:09 AM EDT) Glucose 139 65 - 199 mg/dL [facility] Comment:Diabetes: >=200 mg/d L plus symptoms Blood Urea Nitrogen 27(H) 8 - 18 mg/dL [facility] Creatinine 1.42(H) 0.70 - 1.20 mg/dL [facility] Sodium 141 135 - 145 mmol/L [facility] Potassium 3.6 3.5 - 5.0 mmol/L [facility] Comment: Please note: ??Patients with WBC >100,000 may have falsely elevated Potassium levels. ??For accurate Potassium quantification in these patients send serum separator tube (gold top) for subsequent determinations. ??Contact the Clinical Chemistry Laboratory if there are any questions. Chloride 101 98 - 107 mmol/L [facility] Carbon Dioxide 25 22 - 31 mmol/L [facility] Anion Gap 15 5 - 15 mmol/L [facility] Calcium 9.5 8.5 - 10.5 mg/dL [facility] Est Glomerular Filtration Rate 38(L) >=60 mL/min/1. 73 m?? [facility] Comment: The eGFR was calculated using the CKD-EPI equation. As with all creatinine based estimates of kidney function, eGFR values calculated with the CKD-EPI equation are not accurate in patients with acute kidney failure, extremes of body mass or the acutely ill. http://Bitbar/[facility] eGFR 44(L) >=60 mL/min/1. 73 m?? [facility] Comment: The eGFR was calculated using the CKD-EPI equation. As with all creatinine based estimates of kidney function, eGFR values calculated with the CKD-EPI equation are not accurate in patients with acute kidney failure, extremes of body mass or the acutely ill. http://Bitbar/[facility] Blood specimen (specimen) 11/28/2018 9:09 AM EDT 11/28/2018 9:32 AM EDT Narrative Resulting Agency Comment Spec In Lab Espinoza Garvin MD CHEMISTRY ORDERABLES Performing Organization Address [facility] de Phone Number [facility] [place] [address] * Prealbumin (11/28/2018 9:09 AM EDT) Prealbumin 23 20 - 40 mg/dL [facility] Comment: Prealbumin levels are generally lower in the pediatric population; adult concentrations are usually attained near puberty. Blood specimen (specimen) 11/28/2018 9:09 AM EDT 11/28/2018 9:32 AM EDT Narrative Resulting Agency Comment Spec In Lab Espinoza Garvin MD CHEMISTRY ORDERABLES Performing Organization Address [facility] Co de Phone Number [facility] [place] [address] documented in this encounter Visit Diagnoses Not on filedocumented in this encounter Administered Medications Inactive Administered [...] Procedure) 1030 (Due) PRN Medication Order 11/26/2018 11/27/201811/28/2018 lidocaine (XYLOCAINE) 10 mg/mL (1 %) injection [...] Routine documented in this encounter Care Teams Corn Shredder Relationship Specialty Start Date End Date Rodrigo Shin PA [address] [place] [address] PCP - General Family Medicine 05/30/18 10/07/19 documented as of this encounter
--- OUTSIDE RECORDS SUMMARY | 2023-11-01 16:49 | XMS_ITS | Encounter Summary ---
Author Organization [facility] Address [facility] [address] Care Team Providers Care Polarity Tester Name Role Phone Rodrigo Shin Primary Care Provider [phone]- [phone] Reason for Visit * Reason Comments Advice Only Encounter Details Date Type Department Care Team (Late st Contact Info) Description 03/20/2019 10:30 AM EST Office Visit Dermatology at [facility] [address] [place] [address] Manasa Torres MD [facility] [place] [address] Arik Johnson RN Encounter for cosmetic procedure [...] Patient Instructions * Patient Instructions* Arik Johnson - 03/20/2019 10:30 AM EST YOUR SKIN CARE INSTRUCTIONS Overview: This cleansing routine can dramatically improve your overall skin health. Dry or aging skin can be ???lazy?? . ???Lazy?? skin doesn???t exfoliate efficiently on its own (leading to dullness and even breakouts at times), nor does it maintain healthy, productive activities necessary to maintain firmness and resist wrinkling. This cleansing system alone is an important first step toward waking up your skin. An additional benefit of this system is its ability to ???Get Skin Ready?? (GSR) for other helpful ingredients that can be used. Once you tolerate your GSR system, you may benefitfrom a more comprehensive system that incorporates active ingredients like Vitamin C and retinol. Until then, apply sunscreens (daily) and moisturizers as needed. Notify Dr. Moore if you experience excessive irritation and need solutions. AM 1. Gentle Cleanser: Wash face with lukewarm water. 2. Exfoliating St Helenian: Apply to moistened face, massage for 60 seconds and rinse. Start 1-2 times per week and increase to 5-7 days per week. See information below. 3. Complexion Renewal Pads: Pat face dry with towel then wipe entire face with pad. Stinging is normal. 4. Your daytime moisturizer//sunscreen PM 1. Gentle Cleanser 2. Complexion Renewal Pad 3. Your night time moisturizer (for now). This is where we'll add a retin A type product Neck and Chest Use Your products can be used on your neck and chest but it is very common to see the neck react much more severely than the face. Be careful to introduce each new product slowly. General Precautions *Stop Exfoliating St Helenian 5 days before any skin procedure (waxing, laser, chemical peel or facials): Sun Precautions Exfoliating St Helenian can increase your risk of sunburn and possibly make you susceptible to discoloration if you use it without also taking sun precautions. Your regimen should include a sunscreen. Ideally, one with zinc and titanium as main ingredients. You should also seek shade when possible. Sun exposure interferes with every healthy skin goal. Do not stop your regimen in the summertime. Your skin is healthier on this program. Just be sure not to get unprotected and/or heavy sun exposure. Avoid any direct sunlight on your face (protected or not) whenever you are experiencing redness, peeling or sensitivity as you adjust to your skin care regimen. Extra Information Exfoliating St Helenian: Benefits: 1) Increases circulation and skin turnover 2) Enhances penetration of other products you use 3) Helps to remove , dry skin generated from the use of a retinoid (when you start your retinoid you???ll likely experience this.) The general instructions are to apply it to a moistened face. When you really need to remove skin, and/or as you get used to this product, you may want to try using it with a less moistened-almost dry face. That heightens the microdermabrasion effect. Safe to go near the eyes (to the ???bony rim?? ). Precautions: Don???t overuse while acclimating to your retinoids (Brightenex, Retamax, Growth Factor, Tretinoin or Daily Power Defense). It is very helpful when you need to lift off skin generated by the retinoid but if overdone when the skin is red and sensitive then you may aggravate the irritation. Product Sales Statement All product sales are final unless the patient experiences an allergic reaction or receives a defective product. If this is the case the patient must notify the [facility] within 2 weeks of purchase in order to receive an exchange or refund. In order to refund or exchange the product, the product needs to be brought back to the clinic before action is taken. documented in this encounter Progress Notes * Arik Johnson - 03/20/2019 10:30 AM EST DERMATOLOGY CASE MANAGERS NOTE Date of service: 03/20/2019 Quyen Bill : 1950 SUPERVISED BY: Manasa Torres MD Chief Complaint Patient presents with ??? Advice Only ROS General: feeling well Skin: denies other skin complaints Breast feeding: no Trying to get :no HSV Hx and Details n/a HPI Quyen Bill is a 68 y.o. year old female . Here today for: Skin care Exam: Patient with browns. A/P: # Chemoprevention/correction: Emphasized value of retinoid based skin care system to amplify and maintain benefits of any anti aging plan/procedures. -retinoid: Will add at next visit date started: n/a -ZO skincare regimen: regimen or products: Gentle Cleanser, St Helenian, CR Pads reviewed by: DW date: 03/20/2019 -instructions in AVS dated 03/20/2019 -discussed importance of meticulous sun protection # Photography: needs photos Patient charged today: no charge FOLLOW UP WHEN: PRN FOR WHAT: skin care f/u, start tretinoin LENGTH OF VISIT: 30 min NUMBING?: no PICTURES NEEDED? yes COST: no charge NOTES: Arik Johnson Front Man documented in this encounter Plan of Treatment Not on file documented as of this encounter Visit Diagnoses Diagnosis Encounter for cosmetic procedure documented in this encounter Care Teams Polarity Tester Relationship Specialty Start Date End Date Rodrigo Shin PA [address] [place] [address] PCP - General Family Medicine 05/30/18 10/07/19 documented as of this encounter
--- OUTSIDE RECORDS SUMMARY | 2023-11-01 16:49 | XMS_ITS | Encounter Summary ---
Author Organization [facility] Address [facility] [place] [address] Care Team Providers Care Manager Life Insurance Name Role Phone Rodrigo Shin Primary Care Provider +1- [phone] Reason for Visit * Reason Comments Skin Lesion Encounter Details Date Type Department Care Team (Late st Contact Info) Description 09/02/2015 10:00 AM EDT Office Visit Dermatology at [facility] [address] [place] [address] Julio Hernandez MD [address] [facility] [place] [address] Molluscum contagiosum (Primary Dx); Sun-damaged skin; Multiple benign nevi; Peter angioma; History of nonmelanoma skin cancer; Hypertrophic scar Social History Tobacco Use Types Packs/Day Years Used Date Smoking Tobacco: Never Alcohol Use Standard Drinks/Week Comments Not Asked 0 (1 standard drink = 0.6 oz pur e alcohol) Sex and Gender Information Value Date Recorded Sex Assigned at Not on file Gender Identity Not on file Sexual Orientation Not on file documented as of this encounter Progress Notes * Ana Fan LPN - 09/02/2015 10:00 AM EDT Chief Complaint: lesions History of Present Illness Quyen Bill is a 65 y.o. female. Complains of an acute eruptions of red lesions on the right proximal arm and axilla that was first identified in the last few days. Mild pruritus for a a few weeks. No bleeding. Never been treated orbiopsied. Requests full body skin cancer screening. Interval changes to Medications and Medical, Family and Social Histories (including alcohol and tobacco use) Since Last Visit 19 Aug 2015: No significant interval history. Skin Cancer History No personal history of skin cancer No family history of skin cancer / Family history of skin cancer - Allergies No Known Allergies Medications ??? hydrochlorothiazide (HYDRODIURIL) 25 mg Tablet ??? fish oil-omega-3 fatty acids 1,000 mg Capsule ??? lisinopril (PRINIVIL;ZESTRIL) 2.5 mg tablet ??? metFORMIN (GLUCOPHAGE) 500 mg tablet ??? gabapentin (NEURONTIN) 300 mg capsule ??? aspirin 81 mg EC tablet ??? gemfibrozil (LOPID) 600 mg tablet ??? amlodipine (NORVASC) 10 mg tablet ??? cholecalciferol, Vitamin D3, 400 unit tablet Review of Systems Significant for no fevers, chills, night sweats, or fatigue and no other pertinent and acute changes in constitutional, other skin, HEENT, allergy/immunology systems upon specific queries. Examination Standby: Jaye Rene, Clinical Scribe Pain 0/10. Mood is appropriate and congruent with effect. Well developed, well- nourished in no apparent distress, alert and oriented to time, person, place and situation. Skin Type: II Patient was asked to disrobe to the level of comfort. Examination of the head - including the scalp, face, ears, nose, lips, tongue, oral mucosa - neck, chest, abdomen, back, axillae, buttocks, upperand lower extremities, including the nail plates, significant for the following: ?? Moderate sun-damage on sun-exposed areas including irregular botello macules on sun-exposed areas and epidermal thinning with dyspigmentation and/or telangectia sun-exposed areas of the neck, chest. ?? Multiple, peter red 1-4mm papules on the neck, trunk, and lower extremities ?? Well-demarcated, round or oval, botello or brown macules and papules with benign morphology on the trunk and extremities, including dorsum toes ?? 2-3 mm, pink, pearly, umbilicated papules on the right medial upper arm and right axilla [Total:8] ?? No evidence of recurrence in scar on the right lateral arm but the scar is firm, raised but within the confines of the scar c/w hypertrophic scar Assessment and Plan Molluscum, right medial upper arm, right axiila Counseled: molluscum, viral etiology therefore contagious, usually self-limited with immunity and resolution in 12 months, and treatment options, including but not limited to cryotherapy. Answered all questions. Handout given. Total 8 treated with cryotherapy, 1-2 cycle at 3-4 seconds for each, after verbally discussing the disease and treatment options, cryotherapy method, expected results/course and potential adverse effects, including crusting, persistent erythema, scar, blister, pain, dyspigmentation, and recurrence.Parent verbally agreed. Patient tolerated well with no complications. Wound care instructions provided. If no resolution in 14d, may contact clinic for re- evaluation and management. Solar Damage Benign but evidence of moderate chronic sun damage. Counseled: risks for skin cancer, thinning of skin, the nature of sun-induced photo-aging and skin cancers. Sun avoidance, protective clothing, and the use of 30-SPF sunscreens is advised. Observe closely for skin damage/changes, and call if such occurs. Answered all questions. Hypertrophic Scar Asymtomatic DDx: Hypertrophic scar v keloid Discussed hypertrophic scar v keloid, HS tendency to resolve within a year and treatment options, including but not limited to observation or intralesional Kenalog/bleomycin/5-FU =/- scar revision, laser, topical steroids/imiquimod, and risks and benefits. Patient will monitor and consider treatment after first year if necessary. Peter Angiomas Counseled: peter angiomas. Benign. No treatment necessary unless symptoms develop. Treatment considered cosmetic and [id number]. Treatment options, including but not limited to electrocautery, discussed. Handout given. Nevi Morphology reassuring for benign nevi. No treatment at this time. Return to clinic prn if changes in nevi observed or symptoms develop. History of NMSC No evidence of recurrence Patient Counseling (Skin Cancer) Counseled: Counseled: sun protection, self skin exams, provider skin exams every 6 months, and the ABCDEs of melanoma/NMSC (handout given). Answered all questions. Follow-up: Skin cancer screening in 6 months or return to clinic prn for new suspicious lesions or if changes/symptoms in existing lesions develop. Appointment made before exiting. Note initiated by DINAH TEIXEIRA, Clinical Scribe has performed the documentation for this encounter in the presence of and acting as a scribe for Dr. Hernandez. I performed the above scribed service and agree with the accuracy of the documentation in this encounter. Julio Hernandez MD FAAD Section of Dermatology [facility] documented in this encounter Plan of Treatment Not on file documented as of this encounter Visit Diagnoses Diagnosis Molluscum contagiosum- Primary Sun-damaged skin Other chronic dermatitis due to solar radiation Multiple benign nevi Benign neoplasm of skin, site unspecified Peter angioma Nevus, non-neoplastic History of nonmelanoma skin cancer Personal history of other malignant neoplasm of skin Hypertrophic scar Keloid scar documented in this encounter Care Teams Manager Life Insurance Relationship Specialty Start Date End Date Rodrigo Shin [address] [place] [address] PCP - General Family Medicine 02/22/15 04/09/16 documented as of this encounter
--- OUTSIDE RECORDS SUMMARY | 2023-11-01 16:49 | XMS_ITS | Encounter Summary ---
Author Organization [facility] [place] [address] Care Team Providers Care Train Announcer Name Role Phone Rodrigo Shin Primary Care Provider +1- [phone] Encounter Details Date Type Department Care Team (Late st Contact Info) Description 09/02/2018 Telephone [place] [id number] Ana Guevara RN Social History Tobacco Use Types Packs/Day [...] encounter Miscellaneous Notes * Telephone Encounter - Ana Guevara RN - 09/02/2018 1:20 PM EDT P/c returned to Pt regarding her surgery scheduled for tomorrow. Review of chart shows that Pt is due to VV surgery tomorrow. Pt is reluctant to continue with surgery given that she heard the surgerywill not be covered by her insurance, or only partially. Pt questioning how much surgery will cost her and she does have questions as she felt not all her questions were answered during her clinic vis it. Pt questioning if the surgery needs to be done now or can be postponed until the fall. This nurse informed the certified surgical technologist that the surgery needs to be postponed until Pt can get her questions answered and set her mind at ease. epidemiologist sending surgeon an email of the cancellation and request for phone call to answer questions. documented in this encounter Plan of Treatment Not on file documented as of this encounter Visit Diagnoses Not on filedocumented in this encounter Care Teams Train Announcer Relationship Specialty Start Date End Date Rodrigo Shin PA [address] [place] [address] PCP - General Family Medicine 05/30/18 10/07/19 documented as of this encounter
--- OUTSIDE RECORDS SUMMARY | 2023-11-01 16:49 | XMS_ITS | Encounter Summary ---
Author Organization [facility] [place] [address] Care Team Providers Care Acute Care Nurse Practitioner Name Role Phone Rodrigo Shin Primary Care Provider +1- [phone] Encounter Details Date Type Department Care Team (Late st Contact Info) Description 02/26/2019 Telephone [place] [phone] Aracelis Macias Social History Tobacco Use Types Packs/Day Years [...] encounter Miscellaneous Notes * Telephone Encounter - Aracelis Macias - 02/26/2019 10:29 AM EST 2-3 MO FU no studies per email 02/04 lft msg SLL Lmx2 02-20-19, MML 02/26/2019 sent letter, closing reminder documented in this encounter Plan of Treatment Not on file documented as of this encounter Visit Diagnoses Not on filedocumented in this encounter Care Teams Acute Care Nurse Practitioner Relationship Specialty Start Date End Date Rodrigo Shin PA [address] [place] [address] PCP - General Family Medicine 05/30/18 10/07/19 documented as of this encounter
--- OUTSIDE RECORDS SUMMARY | 2023-11-01 16:49 | XMS_ITS | Encounter Summary ---
Author Organization [facility] Address [facility] [place] [address] Care Team Providers Care Devops Name Role Phone Nae Guthrie MD Primary Care Provider Reason for Visit * Reason Comments Establish Care Encounter Details Date Type Department Care Team (Latest Contact Info) Description 04/11/2017 4:00 PM EST Office Visit Podiatry at [facility] [place] [address] Matthew Barrow DPM [facility] [place] [address] Contusion of foot including toes, left, initial encounter; Type 2 diabetes mellitus with polyneuropathy Social History Tobacco Use Types Packs/Day Years [...] Sign Reading Time Taken Comments Blood Pressure 154/99 04/11/2017 4:09 PM EST Pulse 81 04/11/2017 4:09 PM EST Temperature - - Respiratory Rate - - Oxygen Saturation - - Inhaled Oxygen Concentration - - Weight - - Height - - Body Mass Index - - documented in this encounter Progress Notes * Matthew Barrow DPM - 04/11/2017 4:00 PM EST Subjective: Quyen Bill is a 66 y.o. female who presents with a chief complaint of discomfort inthe left forefoot. Patient reports her Labrador retriever stepped on her foot in January 2017. Shehad discomfort and ecchymosis. Most of this is resolved. Still feels a lump on the dorsal aspect of the forefoot. Blood pressure (!) 154/99, pulse 81. Review of Systems: 1. General -patient reports she feels well today. Denies fever or chills. 2. Neurologic-patient reports some numbness and tingling in her feet. Chart reviewed. Reviewed patient's current problem list, medications and allergies. She was diagnosed with diabetes about 15 years ago. Objective: Alert and oriented ??3. Affect appropriate. Palpable dorsalis pedis and posterior tibialpulses bilaterally. Light touch is grossly intact bilaterally. Muscle strength was 5/5 in all 3 lower leg muscle groups. Very mild tenderness with palpation and range of motion of the second metatarsophalangeal joint of the left foot. No edema, erythema or ecchymosis noted. No crepitus with range of motion of the joint. Assessment: Contusion left foot in a diabetic. Plan: Reviewed etiology of this problem. I would expect this problem to completely resolve. Removable foot strap applied to the left foot. Discussed appropriate shoes. Follow-up if symptoms do not completely resolve over the next 2-4 weeks. documented in this encounter Plan of Treatment Not on file documented as of this encounter Visit Diagnoses Diagnosis Contusion of foot including toes, left, initial encounter Type 2 diabetes mellitus with polyneuropathy Type II or unspecified type diabetes mellitus with neurological manifestations, not stated as uncontrolled documented in this encounter Care Teams Devops Relationship Specialty Start Date End Date Nae Guthrie MD [address] [place] [address] PCP - General Family Medicine 04/10/16 05/29/18 documented as of this encounter
--- OUTSIDE RECORDS SUMMARY | 2023-11-01 16:49 | XMS_ITS | Encounter Summary ---
Author Organization [facility] Address [facility] [place] [address] Care Team Providers Care Back Shoe Worker Name Role Phone Rodrigo Shin Primary Care Provider +1- [phone] Reason for Visit * Reason Comments Procedure Encounter Details Date Type Department Care Team (Late st Contact Info) Description 07/22/2015 1:30 PM EDT Office Visit Dermatology at [facility] [address] [place] [address] Nell Davila MD [facility] [address] [place] [address] Vera Godoy RN Spider veins Social History Tobacco Use Types Packs/Day Years [...] Progress Notes * Vera Godoy RN - 07/22/2015 2:47 PM EDT See cosmetic note documented in this encounter Plan of Treatment Not on file documented as of this encounter Visit Diagnoses Diagnosis Spider veins Nevus, non-neoplastic documented in this encounter Care Teams Back Shoe Worker Relationship Specialty Start Date End Date Rodrigo Shin PA [address] [place] [address] PCP - General Family Medicine 02/22/15 04/09/16 documented as of this encounter
--- OUTSIDE RECORDS SUMMARY | 2023-11-01 16:49 | XMS_ITS | Encounter Summary ---
Author Organization [facility] Address [facility] [place] [address] Care Team Providers Care Kiln Puller Name Role Phone Rodrigo Shin Primary Care Provider +1- [phone] Reason for Visit * Reason Comments Procedure Encounter Details Date Type Department Care Team (Late st Contact Info) Description 07/22/2015 10:30 AM EDT Office Visit Dermatology at [facility] [address] [place] [address] Nell Davila MD [facility] [place] [address] Vera Godoy RN Fat deposits; Spider veins Social History Tobacco Use Types [...] Notes * Vera Godoy RN - 07/22/2015 2:34 PM EDT Chief Problem: 1. Unwanted fat distrubution HISTORY & DISCUSSION: 65 y.o.. Year old female, here for treatment today for reduction of unwanted fat distribution, discussed at previous consult appointment that she would be treating with the coolmax to her right and left flanks Established patient to me. Patient most interested in the cryolipolysis treatment [...] EXAMINATION: Focal examination of the trunkel area Moderate with adequate fat distribution to benefit from cryolipolysis DIAGNOSIS/ASSESSMENT: 1. Unwanted fat distrubution 2. Amenable to cryolipolysis 3. Spider veins on right and left inner thighs PLAN: 1. Patient wished to proceed. Verbal consent obtained, expectations, and potential adverse events discussed. 2. Coolmax treatment head measured and marked on patients right and left upper abdomen 3. Photos taken with patient consent 4. Coolmax head applied to patients right and left upper abdomen and treatment was delivered x one hour per site patient tolerated procedure well. 5. Treatment site massaged x 5 minutes after D/C of cooling 6. I will call pt to schedule for next procedure, she will treat with Coolcore x 2 sites on right and left inferior flanks = $1500 - 20 % = $1200.00 7. Proceeded with sclerotherapy procedure: alcohol prep to vessels, and slow injection 18% hypertonic saline, of the most advanced and noticeable spider veins on legs. Hemostasis with mild pressure needed. Pt tolerated procedure well. Cosmetic Cost paid today: $$3000.00, pt paid upon leaving clinic today I performed the above scribed service and agree with the accuracy of the documentation in this encounter. Vera Godoy RN Section of Dermatology [facility] Patient seen and evaluated with staff scale mechanic: Nell Davila MD Section of Dermatology [facility] documented in this encounter Plan of Treatment Not on file documented as of this encounter Visit Diagnoses Diagnosis Fat deposits Localized adiposity Spider veins Nevus, non-neoplastic documented in this encounter Care Teams Kiln Puller Relationship Specialty Start Date End Date Rodrigo Shin PA [address] [place] [address] PCP - General Family Medicine 02/22/15 2 documented as of this encounter
--- OUTSIDE RECORDS SUMMARY | 2023-11-01 16:49 | XMS_ITS | Encounter Summary ---
Author Organization [facility] [place] [address] Care Team Providers Care Flattening Press Operator Name Role Phone Nae Guthrie MD Primary Care Provider [phone] Reason for Visit * Auth/Cert Specialty Diagnoses / Procedures Referred By Contrenita t Referred To Contact Diagnoses N64.81 - Breast ptosis E65 - Abdominal pannus Tentative DOS - 04/18/2016 CPT: [id number], [id number] Procedures PRO SUSPENSION OF BREAST MASTOPEXY, BILATERAL Referral ID Status Reason Start Date Expiration Date Visits Re quested Visits Authorized [id number] 1 1 Encounter Details Date Type Department Care Team (Late st Contact Info) Description 04/18/2016 11:49 AM EST Anesthesia [place] [address] Meghann Duran MD [facility] [place] [address] Ale Swann MD [facility] [place] [address] Anesthesia Record Procedure Summary Procedure Name Responsible Anesthesiologist Anesthesia Start Time Anesthesia Stop Time MASTOPEXY, BILATERAL (WRVU 11.09) (Bilateral: Breast) Meghann Duran MD 04/18/16 1149 04/18/16 1605 Events Date Time Event Comment 04/18/2016 1124 1149 Start 1152 AN Verify 1154 An Start Data 1159 An Induction 1209 An Intubation 1215 Anesthesia Ready 1230 Procedure Start 1312 Quick Note SPO2 probe move d to finger from ear 1457 Break/Relief In BLAIR A G ILCHREST, SUPERVISOR EDGING 1513 Break/Relief Out 1549 Extubation/LMA Out 1556 an stop data 1602 Recovery or ICU Handoff Di ent care was transferred to the destination unit staff after review of the patient's medical history, current anesthetic/surgical status and plan, according to the Provider Handoff Checklist. 1605 Stop Meds Name Total Midazolam 2 mg fentaNYL 100 mcg Propofol 230 mg Rocuronium 110 mg PHENYLephrine 640 mcg ePHEDrine 10 mg Ondansetron 4 mg Dexamethasone 8 mg Neostigmine 3 mg Glycopyrrolate 0.4 mg ceFAZolin (ANCEF) 2g in dextrose 5% 50 m L 4 g HYDROmorphone 1.4 mg Propofol INF 1,395.79 mg PHENYLephrine INF 2,220 mcg lactated ringers infusion 1,000 mL 1,000 mL * Agents Name O2 Air N2O Sevoflurane (et) * Blood No blood administrations on file. Lines, Drains, and Airways Type Details Placement Removal Drain/Device Site 04/18/16; 1302; Righ t; chest 04/18/16 1302 by Gatito Wayne, ABDULLAHI Drain/Device Site 04/18/16; 1303; Left ; chest 04/18/16 1303 by Gatito Wayne, ABDULLAHI Drain/Device Site 04/18/16; 1303; Righ t; abdomen 04/18/16 1303 by Gatito Wayne, ABDULLAHI Drain/Device Site 04/18/16; 1304; Left ; abdomen 04/18/16 1304 by Gatito Wayne RN (RETIRED) Peripheral IV Line - Single Lumen 04/18/16; 1030; metacarpal vein (top of hand), right; jbzy-ran-[id number] catheter system; 20 gauge; es; 06/04/17 (Auto removal via utility); 0921 (Auto removal via utility) 04/18/16 1030 by Amanda Lopez RN 06/04/17 0921 by Epic, User ETT Mask Ventilation: Ea sy (1); ETT Type: Cuffed; ETT Size: 7 mm; Mac Blade: 3; Perrin Blade: 2; Exchange: Bougie; Notes: Asleep, Pre-O2, Cricoid Pressure; Attempts: 2; Laryngoscopy Grade: 2; ETT Placement Verified By: Auscultation, Capnometry, Visual; Secured at Teeth: 22 cm; Inserted by: Abhishek; Removal Date: 04/18/16; Removal Time: 1549 04/18/16 1214 by Ale Swann MD 04/18/16 1549 by Ale Swann MD Incision 04/18/16; 1230; [address]; 10/17/21 (LDA cleanup utility RA#[id number]); 1715 (LDA cleanup utility RA#[id number]) 04/18/16 1230 by Gatito Wayne RN 10/17/21 1715 by Anjelica Olemdo Incision 04/18/16; 1230; [address]; 10/17/21 (LDA cleanup utility RA#[id number]); 1715 (LDA cleanup utility RA#[id number]) 04/18/16 1230 by Gatito Wayne RN 10/17/21 1715 by Anjelica Olmedo Incision 04/18/16; 1330; abdomen; 10/17/21 (LDA cleanup utility RA#[id number]); 1715 (LDA cleanup utility RA#[id number]) 04/18/16 1330 by Gatito Wayne RN 10/17/21 1715 by Anjelica Olmedo Urethral Catheter 04/18/16; 1530; Abdominal surgery; indwelling catheter with core temperature probe (placed intraop ); urethral catheter removed, tubing intact, per protocol/policy; 04/19/16; 0240 04/18/16 1530 by Carolyn Perry RN 04/19/16 0240 by Becki Jefferson RN documented in this encounter Social History [...] of this encounter OR Notes * Anesthesia Postprocedure Evaluation - Ale Swann - 04/18/2016 4:28 PM EST [facility] Department of Anesthesiology Post-procedure Note Patient: Quyen Bill Procedure Summary Date Anesthesia Start Anesthesia Stop Room / Location 04/18/16 1149 1605 [facility] OR [facility] MAIN OR Procedure Diagnosis Surgeon Responsible Provider MASTOPEXY, BILATERAL (WRVU 11.09) (Bilateral Breast); ABDOMINOPLASTY EXC,W/ UMBILICAL TRANSPOSITION, FASCIAL PLICATION (WRVU 17.04) (Bilateral Abdomen) (breast ptosis and unacceptable abdominal contour) Lorenza Adkins MD Chaimberg, Kathleen H, MD All Anesthesia Providers: Anesthesiologist: Meghann Duran MD Event Marketing Specialist: Ale Swann MD Last (1hr) Vitals: BP 108/63 (04/18/16 1615) Temp 36.1 ??C (97 ??F) (04/18/16 1601) Pulse 69 (04/18/16 1615) Resp 24 (04/18/16 1615) SpO2 92 % (04/18/16 1615) Patient Location: PACU/[facility] Level of Consciousness: Awake and Alert Pain Management: Satisfactory Analgesia PONV: None Cardiovascular Status: At Baseline Respiratory Status: At Baseline Postoperative Fluid Status: Intravascular EUvolemia Possible Anesthetic Complications: NONE apparent at time of evaluation Final Primary Anesthesia Type: General (The anesthetic type performed was the same as planned.) Comments: * Anesthesia Preprocedure Evaluation - Meghann Duran MD - 04/17/2016 7:11 PM EST Pre-Anesthesia Evaluation for: Quyen Bill a 65 y.o. female. Procedure(s): MASTOPEXY, BILATERAL (WRVU 11.09) ABDOMINOPLASTY EXC,W/ UMBILICAL TRANSPOSITION, FASCIAL PLICATION (WRVU 17.04) Patient Active Problem List Diagnosis ??? Breast ptosis ??? Abdominal pannus ??? Ingrown nail ??? Thickened nails ??? Diabetes mellitus ??? Breast mass Past Medical History Diagnosis Date ??? Breast cyst 06/2010 ??? Diabetes ??? Hypercholesteremia ??? Hypertension Past Surgical History Procedure Laterality Date ??? Breast biopsy ??? section ??? section ??? Colonoscopy Social History Substance Use Topics ??? Smoking status: Never Smoker ??? Smokeless tobacco: Not on file ??? Alcohol use 2.4 oz/week 4 Glasses of wine per week History Drug Use No No Known Allergies Medications: MAR and/or home medications have been reviewed. Physical Exam: There were no vitals filed for this visit. There is no height or weight on file to calculate BMI. Airway Assessment: Mallampati: II TM distance: >3 FB Neck ROM: full Cardiovascular Assessment: Rhythm: regular Rate: normal Pulmonary Assessment: breath sounds clear to auscultation Dental Assessment: - normal exam Misc Assessment: Anesthesia Plan: ASA 2 general, with a(n) intravenous induction This is a PRELIMINARY NOTE for procedure scheduled on 04/18/16. Pt has not been seen by an assigned anesthesia provider nor is the anesthetic plan listed below final. This is a 65 y.o. female with a history of NIDDM c/b LE neuropathy (latest A1C 7.0%, gabapentin), HTN. HLD, hypothyroidism, and obesity (BMI 31) who presents for bilateral mastopexy and abdominoplasty. NKDA. Non-smoker. Adequate exercise tolerance; can ascend 2 FOS without dyspnea/CP. Appropriately NPO, denies symptoms of ALEXSANDRA at present. Labs checked at OSH; reviewed and WNL, including hgb 12.4, Cr 1.14. Pre-op EKG w/ NSR, WNL. Patient's documented history was negative for seizures, CVA, cardiopulmonary disease, GERD, hepatic/renal disease or coagulopathy. Of note, patient reports URI symptoms over past several weeks. Largely dry cough and mild nasal congestion; PCP prescribed flonase, presumed to be viral vs allergic. Anesthetic History: No prior anesthetic documentation. Denies personal or familial history of malignant hyperthermia, although history notable for PONV. Anesthetic Plan: GA with ETT Partial TIVA, multimodal analgesia Standard ASA monitoring Adequate IV access, possible second IV The patient was informed of the risks, benefits and alternatives of anesthesia. All questions sought and answered. Consent was signed and placed in chart. ALE SWANN MD 04/17/2016 Region - Other Informed Consent: Anesthetic plan and risks discussed with patient. Plan discussed with resident. PAT Staff Note documented in this encounter Plan of Treatment Not on file documented as of this encounter Visit Diagnoses Not on filedocumented in this encounter Administered Medications Inactive Administered Medications - up to 3 most recent administrations Medication Order MAR Action Action Date Dose Rate Site ceFAZolin (ANCEF) 2g in dextrose 5% 50 mL 2 g, Intravenous, ONCE, 1 dose, On Sun04/18/16 at 1115, Administer over 30 Minutes, Indication for (Active or Suspected): Prophylaxis Given 04/18/2016 3:14 PM EST 2 g Given 04/18/2016 12:15 PM EST 2 g dexamethasone (DECADRON) injection PRN, Starting on Sun04/18/16 at 1159, Until Sun04/18/16 at 1605, Anesthesia Intra-op, Routine Given 04/18/2016 11:59 AM EST 8 mg ePHEDrine 5 mg/mL multi-dose injection PRN, Starting on Sun04/18/16 at 1259, Until Sun04/18/16 at 1605, Anesthesia Intra-op, Routine Given 04/18/2016 1:10 PM EST 5 mg Given 04/18/2016 12:59 PM EST 5 mg fentaNYL 50 mcg/mL multi-dose injection PRN, Starting on Sun04/18/16 at 1159, Until Sun04/18/16 at 1605, Pain, Anesthesia Intra-op, Routine Given 04/18/2016 11:59 AM EST 100 mcg glycopyrrolate (ROBINUL) multi-dose injection PRN, Starting on Sun04/18/16 at 1540, Until Sun04/18/16 at 1605, Anesthesia Intra-op, Routine Given 04/18/2016 3:40 PM EST 0.4 mg HYDROmorphone (DILAUDID) injection PRN, Starting on Sun04/18/16 at 1304, Until Sun04/18/16 at 1605, Pain, Anesthesia Intra-op, Routine Given 04/18/2016 3:37 PM EST 0.2 mg Given 04/18/2016 3:18 PM EST 0.4 mg Given 04/18/2016 1:59 PM EST 0.4 mg lactated ringers infusion 1,000 mL 1,000 mL, at 100 mL/hr, Intravenous, CONTINUOUS, Starting on Sun04/18/16 at 1030, Until Sun04/18/16 at 2001, Day of Surgery (Day of Procedure) New Bag 04/18/2016 3:17 PM EST New Bag 04/18/2016 11:49 AM EST New Bag 04/18/2016 10:22 AM EST 1,000 mLs 100 mL/hr midazolam (PF) (VERSED) 1 mg/mL multi-dose injection PRN, Starting on Sun04/18/16 at 1149, Until Sun04/18/16 at 1605, Sleep, Anesthesia Intra-op, Routine Given 04/18/2016 11:49 AM EST 2 mg neostigmine (PROSTIGMINE) multi-dose injection PRN, Starting on Sun04/18/16 at 1540, Until Sun04/18/16 at 1605, Anesthesia Intra-op, Routine Given 04/18/2016 3:40 PM EST 3 mg ondansetron (ZOFRAN) injection PRN, Starting on Sun04/18/16 at 1519, Until Sun04/18/16 at 1605, Nausea, Anesthesia Intra-op, Routine Given 04/18/2016 3:19 PM EST 4 mg PHENYLephrine (KRISHAN-SYNEPHRINE) 20 mg in sodium chloride 250 mL (standard ADULT & Karin greater than 20kg) infusion CONTINUOUS PRN, Starting on Sun04/18/16 at 1338, Until Sun04/18/16 at 1605, Anesthesia Intra-op, Routine Rate/Dose Change 04/18/2016 3:30 PM EST 10 mcg/min 7.5 mL/hr Rate/Dose Change 04/18/2016 2:15 PM EST 20 mcg/min 15 mL/h r Rate/Dose Change 04/18/2016 1:59 PM EST 10 mcg/min 7.5 mL/ hr PHENYLephrine HCl in NS (PF) (KRISHAN-SYNEPHRINE) 0.8 mg/10 mL (80 mcg/mL) multi-dose injection Syrg PRN, Starting on Sun04/18/16 at 1247, Until Sun04/18/16 at 1605, Anesthesia Intra-op, Routine Given 04/18/2016 1:36 PM EST 80 mcg Given 04/18/2016 1:09 PM EST 160 mcg Given 04/18/2016 12:58 PM EST 80 mcg propofol (DIPRIVAN) 10 mg/mL bolus injection (Anesthesia) PRN, Starting on e 04/18/16 at 1159, Until Sun04/18/16 at 1605, Anesthesia Intra-op Given 04/18/2016 3:36 PM EST 30 mg Given 04/18/2016 12:08 PM EST 20 mg Given 04/18/2016 12:05 PM EST 30 mg propofol (DIPRIVAN) infusion CONTINUOUS PRN, Starting on Sun04/18/16 at 1215, Until Sun04/18/16 at 1605, Anesthesia Intra-op, Routine Rate/Dose Change 04/18/2016 3:14 PM EST 50 mcg/kg/min 25.7 mL/hr Rate/Dose Change 04/18/2016 1:41 PM EST 75 mcg/kg/min 38.5 mL/hr New Bag 04/18/2016 12:15 PM EST 100 mcg/kg/min 51.3 mL/ hr rocuronium (ZEMURON) multi-dose injection PRN, Starting on Sun04/18/16 at 1159, Until Sun04/18/16 at 1605, Anesthesia Intra-op, Routine Given 04/18/2016 2:27 PM EST 20 mg Given 04/18/2016 1:49 PM EST 20 mg Given 04/18/2016 12:56 PM EST 20 mg documented in this encounter Care Teams Flattening Press Operator Relationship Specialty Start Date End Date Nae Guthrie MD [address] [place] [address] PCP - General Family Medicine 04/10/16 05/29/18 documented as of this encounter
--- OUTSIDE RECORDS SUMMARY | 2023-11-01 16:49 | XMS_ITS | Encounter Summary ---
Author Organization [facility] [place] [address] Care Team Providers Care Crystal Calibrator Name Role Phone Rodrigo Shin Primary Care Provider [phone] Encounter Details Date Type Department Care Team (Latest Contact Info) Description 09/23/2020 9:38 PM EDT - 09/23/2020 11:59 PM EDT [place] [id number] Discharge Disposition: Home Social History Tobacco Use [...] Take 600 mg by mouth daily. 08/19/2010 simvastatin (Zocor) 20 mg Tablet 03/03/2019 07/03/2023 fluorouraciL (EFUDEX) 5 % CreamIndications:AK (actinic keratosis) Apply a thin layer to affected areas on the nose twice daily (morning and night) as tolerated for 3 weeks. 40 g 03/20/2019 07/03/2023 hydrochlorothiazide (HYDRODIURIL) 25 mg Tablet Take 25 [...] Associated Diagnosis Comments SURGICAL PATHOLOGY REPORT Routine 09/23/2020 10:21 AM EDT documented in this encounter Results * Surgical Pathology Report (09/23/2020 10:21 AM EDT) Final Diagnosis [id number] ? Location: [facility] The signing pathologist has (i) examined the relevant preparation(s) for the specimen(s) and (ii) rendered or confirmed the diagnosis(es). . ?Surgical Pathology DIAGNOSIS Bilateral hallux toe, nail clippings: - PAS/F is negative for fungal hyphae Electronically signed by: ?Rito Layne MD Verified: ??09/27/2020 17:29 ??Dermatopatholog ist, Bone & Soft Tissue Pathologist Performed at: ??[place] [place], [place], [place] SPECIMEN(S) SUBMITTED A - Nail clippings from bilateral hallux toe nails Referring Identifier: ??[id number] CLINICAL INFORMATION Thick dystrophic nails. Onychomycosis SPECIMEN PROCESSING A - Labeled/Fixative: Patient demographics, fresh. Quantity/Size: Multiple, 2.4 x 1.6 x 0.5 cm in aggregate. Tissue Description: Nonoriented, irregular nelson to yellow-white thickened unguis fragments. Sections/Processi ng: Submitted en toto ??in 1 cassette labeled A1. ??shb 09/27/2020 5:29 PM EDT [facility] NAIL SPECIMEN / Unknown 09/23/2020 10:21 AM EDT 09/23/2020 10:21 AM EDT Narrative Resulting Agency Comment Spec In Lab / [facility] Arianna Davidson DPM PATHOLOGY/CYTOLOGY O RDERABLES [facility] [place] [address] documented in this encounter Visit Diagnoses Not on filedocumented in this encounter Care Teams Crystal Calibrator Relationship Specialty Start Date End Date Rodrigo Shin PA [address] [place] [address] PCP - General Family Medicine 12/02/19 documented as of this encounter
--- OUTSIDE RECORDS SUMMARY | 2023-11-01 16:49 | XMS_ITS | Encounter Summary ---
Author Organization [facility] Address [facility] [place] [address] Care Team Providers Care Assistant Principal Name Role Phone Nae Guthrie MD Primary Care Provider [phone] Reason for Visit * Reason Comments Procedure Encounter Details Date Type Department Care Team (Late st Contact Info) Description 10/09/2017 10:00 AM EDT Office Visit Dermatology at [facility] [address] [place] [address] Raj Lucas MD [facility] [address] [place] [address] Arik Johnson RN Encounter for cosmetic procedure [...] as of this encounter Progress Notes * Raj Lucas MD - 10/09/2017 10:00 AM EDT Chief Problem: 1. Unwanted fat distrubution HISTORY: 67 y.o. y.o. year old female, here for coolsculpting consultation with possible treatment today. New patient to me. Hx of abdominal hernias? [...] Coolcore advantage x 4 Total Cost- $3,000 Cosmetic Cost paid today: $3,000 paid upon exiting clinic FOLLOW UP WHEN: 3 months FOR WHAT: Coolsculpt f/u LENGTH OF VISIT: 30 min NUMBING?: no PICTURES NEEDED? yes COST: no charge NOTES: Treatment delivered by Margarito Ralph (trained cool sculpting automatic operator) under indirect onsite supervision of Meagan Lucas MD. Margarito Ralph documented in this encounter Plan of Treatment Not on file documented as of this encounter Visit Diagnoses Diagnosis Encounter for cosmetic procedure documented in this encounter Care Teams Assistant Principal Relationship Specialty Start Date End Date Nae Guthrie MD [address] [place] [address] PCP - General Family Medicine 04/10/16 05/29/18 documented as of this encounter
--- OUTSIDE RECORDS SUMMARY | 2023-11-01 16:49 | XMS_ITS | Encounter Summary ---
Author Organization [facility] Address [facility] [place] [address] Care Team Providers Care Grocery Caddy Name Role Phone Rodrigo Shin Primary Care Provider +1- [phone] Encounter Details Date Type Department Care Team (Late st Contact Info) Description 07/24/2018 2:00 PM EDT Office [place] [id number] Espnioza Garvin MD [facility] [place] [address] Venous reflux Social History Tobacco Use Types Packs/Day Years [...] Sign Reading Time Taken Comments Blood Pressure 139/79 07/24/2018 2:04 PM EDT Pulse 69 07/24/2018 2:04 PM EDT Temperature - - Respiratory Rate - - Oxygen Saturation - - Inhaled Oxygen Concentration - - Weight 86.2 kg (190 lb) 07/24/2018 2:04 PM EDT r eported Height 170.2 cm (5' 7) 07/24/2018 2:04 PM EDT r eported Body Mass Index 29.76 07/24/2018 2:04 PM EDT documented in this encounter Progress Notes * Espinoza Garvin MD - 07/24/2018 2:00 PM EDT This is a new patient to the practice who is being evaluated for right thigh spider veins and was referred by ALANNA Porter. These are bothersome and cause discomfort to the patient with prolonged standing. She has attempted using compression stockings for many months without successful mitigation of symptoms. She underwent a venous reflux study today. PMHx: Past Medical History: Diagnosis Date ??? Breast cyst 06/2010 ??? Diabetes ??? Hypercholesteremia ??? Hypertension PSxHx: Past Surgical History: Procedure Laterality Date ??? BREAST BIOPSY ??? BREAST REDUCTION SURGERY Bilateral 2016 ??? SECTION ??? SECTION ??? COLONOSCOPY ??? MAMMO US BIOPSY RIGHT Right 07/03/2018 Mammo Us Biopsy Right 07/03/2018 Bisi Bryan MD [facility] RAD MAMMOGRAPHY ??? PRO EXCISE EXCESS SKIN TISSUE, ABDOMEN, ADD-ON Bilateral 04/18/2016 ABDOMINOPLASTY EXC,W/ UMBILICAL TRANSPOSITION, FASCIAL PLICATION (WRVU 17.04) performed by Lorenza Adkins MD at [facility] MAIN OR ??? PRO SUSPENSION OF BREAST Bilateral 04/18/2016 MASTOPEXY, BILATERAL (WRVU 11.09) performed by Lorenza Adkins MD at [facility] MAIN OR Family Hx: Family History Problem Relation Age of Onset ??? Kidney Disease Mother 85 Pain medication abuse ??? Alcohol Abuse Father ??? Breast Cancer Neg Hx Social Hx: Social History Tobacco Use ??? Smoking status: Never Smoker ??? Smokeless tobacco: Never Used Substance Use Topics ??? Alcohol use: Yes Alcohol/week: 2.4 oz Types: 4 Glasses of wine per week Medications: Medications 07/24/18 1406 Medication Sig Taking? hydrochlorothiazide (HYDRODIURIL) 25 mg Tablet Take 25 mg by mouth daily. Yes fish oil-omega-3 fatty acids 1,000 mg Capsule Take 2 g by mouth daily. Pt takes 2,400 mg Yes lisinopril (PRINIVIL;ZESTRIL) 2.5 mg tablet Take 40 mg by mouth daily. Yes metFORMIN (GLUCOPHAGE) 500 mg tablet Take 500 mg by mouth daily. Yes gabapentin (NEURONTIN) 300 mg capsule Take 600 mg by mouth daily. Yes aspirin 81 mg EC tablet Take 81 mg by mouth daily. Yes gemfibrozil (LOPID) 600 mg tablet Take 500 mg by mouth 2 times daily (before meals). Yes amlodipine (NORVASC) 10 mg tablet Take 10 mg by mouth daily. Yes cholecalciferol, Vitamin D3, 400 unit tablet Take 1,200 Units by mouth daily. Yes Allergies: No Known Allergies Review of Systems: Constitutional (weight change, fever) - Denies Neuro (dizziness, seizures, numbness, tingling) - Denies Eyes (vision) - Denies Ears, nose, throat (hearing) - Denies Cardiovascular (CP) - Denies Respiratory (SOB) - Denies GI (abd pain, nausea, emesis, blood in stool) - Denies (hematuria, dysuria, frequency) - Denies Muscoloskeletal (extremity pain, weakness) - denies Skin (ulcers, rashes) - denies All other ROS negative Physical Exam: Vitals: Most Recent Vitals: 07/24/18 1404 BP: 139/79 Pulse: 69 PainSc: 0 - No pain Gen: No acute distress. HEENT: Normocephalic, atraumatic. PERR, EOMs intact bilaterally. No scleral icterus. Normal dentition Neck: Supple, no JVD. Heart: Regular rate and rhythm. (+) S1/S2. No snaps, clicks, rubs, or murmurs. No lifts/heaves Lungs: Regular respiratory rate with no increased work of breathing. Clear to auscultation bilaterally. Abd: Soft, nontender, not distended. Audible bowel sounds. No bruits or pulsatile mass on exam. No hepato/splenomegaly. Aortic pulsation normal Vascular Exam: R L Carotid 2/2 bruit (-) 2/2 bruit (-) Radial 2/2 2/2 Femoral 2/2 2/2 Popliteal 2/2 2/2 DP 2/2 2/2 PT 2/2 2/2 No edema or varicosities bilateral lower extremities <3 sec cap refill Right distal thigh spider veins Skin: normal Digits/Nails: No evidence of clubbing, cyanosis, ischemia, or tissue loss. Musculoskeletal: Gait - normal, no notable motor sensory deficits on gross examination. Psych: AAOx3, mood/affect congruent Labs/Studies: Recent Results (from the past 72 hour(s)) LE Unilateral Valvular Incomp Study Result Value Ref Range VB Text Report Department: Vascular Surgery Lab Patient: [id number] (QUYEN BILL) CPT: 46414 ICD10: I87.2;I78.1 Referring Physician: GADIEL WILLARD Phone: Indications: 68 year old female with symptomatic RIGHT lower extremity varicose veins/spider veins, ? reflux ICD10 Diagnosis Code: I78.1 Findings: Right Reflux? Diameter (mm) Depth (mm) Common Femoral Vein Competent Femoral Vein Competent Popliteal Competent GSV, Near SFJ Reflux 4.1 16.5 GSV, Proximal Thigh Reflux 3.5 14.6 GSV, Mid Thigh Reflux 2.9 12.5 GSV, Distal Thigh Competent GSV, Knee Competent GSV Prox Calf Competent GSV, Mid Calf Competent GSV, Distal Calf Competent SSV Competent Interpretation: RIGHT: Superficial venous reflux >1.0 seconds in the great saphenous vein from the level of the saphenofemoral junction to the mid thigh. No significant reflux noted in the common femoral vein, femoral vein in the thigh, the popliteal vein or the small saphenous vein. No evidence of common femoral, femoral, or popliteal DVT. No evidence of superficial (GSV and SSV) thrombus. Comparison: No previous study in our vascular lab database for comparison. VB Text Report End of Report Impression: Ms. Bill has right [id number] greater saphenous vein reflux, contributing to a patch of spider veins on her medial distal thigh. I explained to Ms. Bill that the best treatment strategy here would be in 2 stages. The first stage would be a radiofrequency ablation of her above-knee greater saphenous vein on the right side. When she recovered from that, we could then treat her spider veins using either surface laser therapy or sclerotherapy. Ms. Bill prefers sclerotherapy. Therefore we would see her back in vascular clinic when she had fully recovered from her saphenous vein treatment in order to perform the sclerotherapy procedure. I think this can be done with either 1or 2 vials of polidocanol. We will get Ms. Bill scheduled for her right saphenous vein ablation procedure at her earliest convenience. documented in this encounter Plan of Treatment Not on file documented as of this encounter Visit Diagnoses Diagnosis Venous reflux Unspecified venous (peripheral) insufficiency documented in this encounter Care Teams Grocery Caddy Relationship Specialty Start Date End Date Rodrigo Shin PA [address] [place] [address] PCP - General Family Medicine 05/30/18 10/07/19 documented as of this encounter
--- OUTSIDE RECORDS SUMMARY | 2023-11-01 16:49 | XMS_ITS | Encounter Summary ---
Author Organization [facility] Address [facility] [place] [address] Care Team Providers Care Hospitalist Name Role Phone Rodrigo Shin Primary Care Provider +1- [phone] Encounter Details Date Type Department Care Team (Latest Contact Info) Description 07/03/2018 3:00 PM EDT Hospital [place] [address] Caden Sanchez MD [facility] [place] [address] Abnormal mammogram Discharge Disposition: Home Social History [...] Name Priority Date/Time Associated Diagnosis Comments MAMMO CALL BACK DIAGNOSTIC TEDDY WITHOUT CAD RIGHT Routine 07/03/2018 3:18 PM EDT Abnormal mammogram documented in this encounter Results * Mammo Call Back Diagnostic Teddy Without Cad Right (07/03/2018 3:18 PM EDT) Anatomical Region Laterality Modality Breast [...] PM EDT EXAMINATION: MAMMO CALL BACK DIAGNOSTIC TEDDY WITHOUT CAD RIGHT, US BREAST LIMITED RIGHT [...] unspecified documented in this encounter Care Teams Hospitalist Relationship Specialty Start Date End Date Rodrigo Shin PA [address] [place] [address] PCP - General Family Medicine 05/30/18 10/07/19 documented as of this encounter
--- OUTSIDE RECORDS SUMMARY | 2023-11-01 16:49 | XMS_ITS | Encounter Summary ---
Author Organization [facility] [place] [address] Care Team Providers Care Heading Pinner Name Role Phone Rodrigo Shin Primary Care Provider +1- [phone] Encounter Details Date Type Department Care Team (Late st Contact Info) Description 05/31/2018 Orders [place] [id number] Ana Guevara RN Spider veins Social History Tobacco Use [...] on file documented as of this encounter Results * LE Unilateral Valvular Incomp Study (07/24/2018 1:11 PM EDT) VB Text Report Department: Vascular Surgery Lab Patient: [id number] (QUYEN BILL) CPT: 59341 ICD10: I87.2;I78.1 Referring Physician: GADIEL WILLARD ?? Phone: Indications: 68 year old female with symptomatic RIGHT lower extremity varicose veins/spider veins, ? reflux ICD10 Diagnosis Code: I78.1 Findings: Right ?Reflux?Diameter (mm) ??Depth (mm) ?? Common [...] ? Competent ? SSV ?Competent ? Interpretation: RIGHT: Superficial venous reflux >1.0 seconds [...] in our vascular lab database for comparison. Electronically Signed by: MAXWELL CARR MD on 2018-07-25 06:38:26 PM VASCUBASE VB Text Report End of Report VASCUBASE 07/24/2018 1:11 PM EDT Gadiel Willard MD VASCULAR ORDERA BLES VASCUBASE documented in this encounter Visit Diagnoses Diagnosis Spider veins Nevus, non-neoplastic documented in this encounter Care Teams Heading Pinner Relationship Specialty Start Date End Date Rodrigo Shin PA [address] [place] [address] PCP - General Family Medicine 05/30/18 10/07/19 documented as of this encounter
--- OUTSIDE RECORDS SUMMARY | 2023-11-01 16:49 | XMS_ITS | Encounter Summary ---
Author Organization [facility] Address [facility] [place] [address] Care Team Providers Care Utility Worker [employer] Name Role Phone Rodrigo Shin Primary Care Provider +1- [phone] Encounter Details Date Type Department Care Team (Latest Contact Info) Description 07/03/2018 3:41 PM EDT - 07/03/2018 3:58 PM EDT Hospital [place] [phone] Bisi Bryan MD [facility] [place] [address] Abnormal mammogram Discharge Disposition: Home Social History [...] Name Priority Date/Time Associated Diagnosis Comments MAMMO US BIOPSY RIGHT Routine 07/03/2018 4:01 PM EDT Abnormal mammogram SPECIMEN TO PATHOLOGY Routine 07/03/2018 3:57 PM EDT SURGICAL PATHOLOGY REPORT Routine 07/03/2018 3:52 PM EDT documented in this encounter Results * Mammo Us Biopsy Right (07/03/2018 4:01 PM EDT) Anatomical Region Laterality Modality Breast [...] report, please contact the number below. ? Electronically signed by: Bisi Bryan [facility] ([phone]), at 07/04/2018 11:34 AM Narrative 07/04/2018 11:34 AM EDT RIGHT BREAST [...] obtained using a 14-gauge automated device. A weeSPIN 14G marker clip was placed. The clip was in satisfactory position both sonographically and at follow-up cranio-caudal and true lateral digital mammography. COMPLICATIONS: None. PROCEDURAL ATTESTATION: Resident: None I performed the procedure without a resident. IMAGING DIFFERENTIAL DIAGNOSIS: Fat necrosis, invasive carcinoma PATHOLOGIC DIAGNOSIS: Postsurgical change, no evidence of atypia or malignancy. Bisi Bryan MD IMG MAMMO ORDERABL ES * Specimen to Pathology (07/03/2018 3:57 PM EDT) AP Specimen 07/03/2018 3:57 PM EDT 07/03/2018 3:57 PM EDT Narrative [facility] - 07/03/2018 3:57 PM EDT Specimen requisition ordered. ??Separate Pathology report to follow Bisi Bryan MD PATHOLOGY/CYTOLOGY ORDERABLES [facility] [place] [address] * Surgical Pathology Report (07/03/2018 3:52 PM EDT) Final Diagnosis [id number] ? Location: 3L The signing pathologist has (i) examined the relevant preparation(s) for the specimen(s) and (ii) rendered or confirmed the diagnosis(es). . ?Surgical Pathology DIAGNOSIS Needle biopsies: ?Right breast Diagnosis: ?Benign breast tissue with stromal fibrosis and features suggestive of scar/prior surgical site changes Microcalcificat ions: Electronically signed by: ??Sarwat HU, Julio Gregory Verified: ??07/04/2018 ?Pathologist Performed at: ??-[facility] Dept. of Pathology, [place], [place] CLINICAL INFORMATION Specimen Submitted: A - Right breast ultrasound biopsy Clinical History and Diagnosis: Mass: 1. Fat necrosis 2. IDC Report to: Rodrigo Shin SPECIMEN PROCESSING Labeled/Fixativ e: Right breast ultrasound biopsy, formalin. Quantity/Size: Three, ranging from 0.7-1 cm in length by 0.2 cm in diameter. Tissue Description: Yellow-botello fibrofatty needle core biopsies. Sections/Proces sing: Entirely submitted in 1 cassette labeled A1. Ischemic Time: Five minutes ??jmb 07/04/2018 10:45 AM EDT [facility] BREAST STRUCTURE / Unknown 07/03/2018 3:52 PM EDT 07/03/2018 3:52 PM EDT Bisi Bryan MD PATHOLOGY/CYTOLOGY ORDERABLES [facility] [place] [address] documented in this encounter Visit Diagnoses Diagnosis Abnormal mammogram Abnormal mammogram, unspecified documented in this encounter Administered Medications Inactive Administered Medications - up to 3 most recent administrations Medication Order MAR Action Action Date Dose Rate Site lidocaine (XYLOCAINE) 10 mg/mL (1 %) injection 10 mg 10 mg, Intradermal, ONCE, 1 dose, On Sun07/03/18 at 1615, Routine Given 07/03/2018 1:35 PM EDT 10 mg documented in this encounter Care Teams Utility Worker [employer] Relationship Specialty Start Date End Date Rodrigo Shin PA [address] [place] [address] PCP - General Family Medicine 05/30/18 10/07/19 documented as of this encounter
--- OUTSIDE RECORDS SUMMARY | 2023-11-01 16:49 | XMS_ITS | Encounter Summary ---
Author Organization [facility] [place] [address] Care Team Providers Care Sec Reporting Consultant Name Role Phone Rodrigo Shin Primary Care Provider +1- [phone] Reason for Visit * Consultation (Routine) - Specialty Diagnoses / Procedures Referred By Venancio medeiros Referred To Contact Vascular Surgery Diagnoses SPIDER VEIN OF RIGHT LEG Rodrigo Shin PA [address] [place] [address] [facility] Vascular Surg [address] [place] [address] Referral ID Status Reason Start Date Expiration Date V isits Requested Visits Authorized [id number] Consult, Test & Treat Connection [facility] 05/30/2018 05/30/2019 6 6 Encounter Details Date Type Department Care Team (Late st Contact Info) Description 07/24/2018 1:00 PM EDT Tech [place] [address] Maggi Kim, [place] Spider veins Social History Tobacco Use Types [...] Procedure Name Priority Date/Time Associated Diagnosis Comments UNLATERAL VALVULAR INCOMP Routine 07/24/2018 1:11 PM EDT Spider veins documented in this encounter Results * LE Unilateral Valvular Incomp Study (07/24/2018 1:11 PM EDT) VB Text Report Department: Vascular Surgery Lab Patient: [id number] (QUYEN BILL) CPT: 93958 ICD10: I87.2;I78.1 Referring Physician: GADIEL KOVACS ?? Phone: Indications: 68 year old female [...] Report VASCUBASE 07/24/2018 1:11 PM EDT Gadiel [facility]ovacs [facility] Address City/State/[facility] Co de Phone Number VASCUBASE documented in this encounter Visit Diagnoses Diagnosis Spider veins Nevus, non-neoplastic documented in this encounter Care Teams Sec Reporting Consultant Relationship Specialty Start Date End Date Rodrigo Shin PA [address] [place] [address] PCP - General Family Medicine 05/30/18 10/07/19 documented as of this encounter
--- OUTSIDE RECORDS SUMMARY | 2023-11-01 16:49 | XMS_ITS | Encounter Summary ---
Author Organization [facility] [place] [address] Care Team Providers Care Commercial Photographer Name Role Phone Rodrigo Shin Primary Care Provider +1- [phone] Encounter Details Date Type Department Care Team (Late st Contact Info) Description 10/29/2018 Telephone [place] [address] Ana Guevara RN Social History Tobacco Use [...] Telephone Encounter - Ana Guevara RN - 10/29/2018 1:43 PM EDT Msg left on vascular RN line that Pt would like to proceed with venous ablation surgery. Review of chart shows that surgery orders are in Pt's chart with no schedule date. This information sent to surgical processor. documented in this encounter Plan of Treatment Not on file documented as of this encounter Visit Diagnoses Not on filedocumented in this encounter Care Teams Commercial Photographer Relationship Specialty Start Date End Date Rodrigo Shin PA [address] [place] [address] PCP - General Family Medicine 05/30/18 10/07/19 documented as of this encounter
--- OUTSIDE RECORDS SUMMARY | 2023-11-01 16:49 | XMS_ITS | Encounter Summary ---
Author Organization [facility] [place] [address] Care Team Providers Care Database Security Administrator Name Role Phone Rodrigo Shin Primary Care Provider +1- [phone] Reason for Visit * Reason Comments Skin Lesion Encounter Details Date Type Department Care Team (Late st Contact Info) Description 04/04/2016 3:15 PM EST Office Visit Dermatology at [facility] [address] [place] [address] Julio Hernandez MD [address] [facility] [place] [address] Molluscum contagiosum; AK (actinic keratosis); Multiple benign nevi; Peter angioma; History of nonmelanoma skin cancer Social History Tobacco Use Types Packs/Day Years Used Date Smoking Tobacco: Never Alcohol Use Standard Drinks/Week Comments Yes 4 (1 standard drink = 0.6 oz pur e alcohol) Sex and Gender Information Value Date Recorded Sex Assigned at Not on file Gender Identity Not on file Sexual Orientation Not on file documented as of this encounter Progress Notes * Julio Hernandez MD - 04/04/2016 3:15 PM EST Chief Complaint: lesion History of Present Illness Quyen Bill is a 65 y.o. female. Complains of a lesion on the tip of the nose that was first identified over the past several months. Rough and scaly, intermittently. No bleeding. Never been treated or biopsied. Also complains of possibly unresolved molluscum on the right arm treated with cryotherapy last visit. It is red, inflamed, mildly tender. Never been biopsied. Requests only focused examination of the previous cancer site and the back, which she can't see. Norecurrence on the right arm. No other suspicious lesions Interval changes to Medications and Medical, Family and Social Histories (including alcohol and tobacco use) Since Last Visit 09-02-15: No significant interval history. Skin Cancer History Right lateral arm BCC s/p excision No family history of skin cancer Allergies No Known Allergies Medications ??? hydrochlorothiazide (HYDRODIURIL) 25 mg Tablet ??? fish oil-omega-3 fatty acids 1,000 mg Capsule ??? lisinopril (PRINIVIL;ZESTRIL) 2.5 mg tablet ??? metFORMIN (GLUCOPHAGE) 500 mg tablet ??? gabapentin (NEURONTIN) 300 mg capsule ??? aspirin 81 mg EC tablet ??? gemfibrozil (LOPID) 600 mg tablet ??? amlodipine (NORVASC) 10 mg tablet ??? cholecalciferol, Vitamin D3, 400 unit tablet Social History Marital Status: Yes Children: 2 Occupation: Banking, retired for 10 years Tobacco: Never Alcohol: Socially Review of Systems Significant for no pertinent and acute changes in constitutional, other skin systems upon specific queries. Examination Standby: Jaye Rene, Charli Scribe Mood is appropriate and congruent with effect. Well developed, well-nourished in no apparent distress, alert and oriented to time, person, place and situation. Focused examination of the nose - neck, chest, abdomen, back, axillae, buttocks, upper and lower extremities, including the nail plates, significant for the following: ?? [place], hyperkeratotic slightly irregular papule on the right nasal tip [Total AK: 1] ?? 3-4 mm, bright pink, umbilicated papule on the right medial proximal arm ?? Scattered, peter red 1-4mm papules on the back ?? Well-demarcated, round or oval, botello or brown macules and papules with benign morphology on the back ?? No evidence of recurrence in scars on the right lateral arm Assessment and Plan Molluscum, right medial arm Persistent or new molluscum on the right arm. Consistent with molluscum. No features of BCC or SCC at this time. Reviewed: molluscum, viral etiology therefore contagious, and treatment options, including but not limited to cryotherapy. Answered all questions. Handout given. ?? Total 1 treated with cryotherapy, 2 cycles at 3-4 seconds each cycle with 30-45 seconds thaw interval for each, after verbally discussing the disease and treatment options, cryotherapy method, expected results/course and potential adverse effects, including crusting, persistent erythema, scar, blister, pain, dyspigmentation, and recurrence. Patient verbally agreed. Patient tolerated well with no complications. Wound care instructions provided. If no resolution in 14d or if scaling recurs after initial resolution, may contact clinic for re- evaluation and management. ?? Actinic Keratosis, Nasal Tip Counseled: AKs, risk for progression to SCCs, and treatment options, including observation, cryotherapy, topicals, and PDT. Answered all questions. Handout given. Total 1 treated with cryotherapy, 1 cycle at 5 seconds, after verbally discussing the disease and treatment options, cryotherapy method, expected results/course and potential adverse effects, including crusting, persistent erythema, scar, blister, pain, dyspigmentation, and recurrence. Patient verbally agreed. Patient tolerated well with no complications. Wound care instructions provided. If no resolution in 14d or if scaling recurs after initial resolution, may contact clinic for re-evaluationand management. Nevi Morphology reassuring for benign nevi. No treatment at this time. Return to clinic prn if changes in nevi observed or symptoms develop. Peter Angiomas Counseled: peter angiomas. Benign. No treatment necessary unless symptoms develop. Treatment considered cosmetic and vol-xz-zemrxg. Treatment options, including but not limited to electrocautery, discussed. Handout given. History of Skin Cancer No evidence of recurrence Patient Counseling (Skin Cancer) Counseled: Counseled: sun protection, self skin exams, provider skin exams every 12months, and the ABCDEs of melanoma/NMSC (handout given). Answered all questions. Patient elects 12 months. Follow-up: Skin cancer screening in Aug 2016 or return to clinic prn for new suspicious lesions or if changes/symptoms in existing lesions develop. Note initiated by DINAH ZAPATA, Clinical Scribe has performed the documentation for this encounter in the presence of and acting as a scribe for Dr. Hernandez. I performed the above scribed service and agree with the accuracy of the documentation in this encounter. Julio Hernandez MD [facility] Section of Dermatology [facility] documented in this encounter Plan of Treatment Not on file documented as of this encounter Visit Diagnoses Diagnosis Molluscum contagiosum AK (actinic keratosis) Actinic keratosis Multiple benign nevi Benign neoplasm of skin, site unspecified Peter angioma Nevus, non-neoplastic History of nonmelanoma skin cancer Personal history of other malignant neoplasm of skin documented in this encounter Care Teams Database Security Administrator Relationship Specialty Start Date End Date Rodrigo Shin PA [address] [place] [address] PCP - General Family Medicine 02/22/15 04/09/16 documented as of this encounter
--- OUTSIDE RECORDS SUMMARY | 2023-11-01 16:49 | XMS_ITS | Encounter Summary ---
Author Organization [facility] Address [facility] [place] [address] Care Team Providers Care Regulator Mechanic Name Role Phone Nae Guthrie MD Primary Care Provider [phone] Reason for Visit * Auth/Cert Specialty Diagnoses / Procedures Referred By Venancio medeiros Referred To Contact Diagnoses N64.81 - Breast ptosis E65 - Abdominal pannus Tentative DOS - 04/18/2016 CPT: [id number], 84150 Procedures PRO SUSPENSION OF BREAST MASTOPEXY, BILATERAL Referral ID Status Reason Start Date Expiration Date Visits Re quested Visits Authorized [id number] 1 1 Encounter Details Date Type Department Care Team (Late st Contact Info) Description 04/18/2016 10:56 AM EST - 04/18/2016 4:24 PM EST Surgery [place] [address] Lorenza Mcmillan MD [facility] [place] [address] MASTOPEXY, BILATERAL (WRVU 11.09) Social History Tobacco Use Types Packs/Day Years [...] Sign Reading Time Taken Comments Blood Pressure 108/63 04/18/2016 4:15 PM EST Pulse 69 04/18/2016 4:15 PM EST Temperature 36.1 ??C (97 ??F) 04/18/2016 4:01 PM EST Respiratory Rate 24 04/18/2016 4:15 PM EST Oxygen Saturation 92% 04/18/2016 4:15 PM EST Inhaled Oxygen Concentration - - Weight 85.5 kg (188 lb 9.6 oz) 04/18/2016 10:08 AM EST Height 167.6 cm (5' 6) 04/18/2016 10:08 AM EST Body Mass Index 30.44 04/18/2016 10:08 AM EST documented in this encounter Discharge Summaries * Mariaelena Phillips PA - 04/19/2016 8:18 AM EST PLASTIC SURGERY DISCHARGE SUMMARY Patient Name: Qyuen Bill Patient Age, : 65 y.o. 1950 Language, race, ethnicity: Maldivian, White, Not nor Date of Admission: 04/18/2016 [...] MASTOPEXY, BILATERAL (WRVU 11.09) performed by Lorenza Mcmillan MD at [facility] MAIN OR ??? Pro excise excess skin tissue, abdomen, add-on Bilateral 04/18/2016 ABDOMINOPLASTY EXC,W/ UMBILICAL TRANSPOSITION, FASCIAL PLICATION (WRVU 17.04) performed by Lorenza Mcmillan MD at [facility] MAIN OR Procedures: 04/18/2016 Surgeon(s) and Role: * Lorenza Mcmillan MD - Primary * Gisela Swain MD - Resident-Surgeon Chief: Procedure(s): MASTOPEXY, BILATERAL (WRVU 11.09) ABDOMINOPLASTY EXC,W/ UMBILICAL TRANSPOSITION, FASCIAL PLICATION (WRVU 17.04) Hospital Course: Patient was admitted electively to [facility] via the same day surgery program and [...] nurses, you may call the clinic at [phone] and schedule an appointment to have your [...] to minimize scarring. Do not use any hfam-umq-gyewsmx lotions, solutions, or herbal preparations on your [...] called in to our prescription line at [phone]. Narcotic renewals may be requested from 8am-4pm [...] office hours: Sunday - Sunday 8am-5pm call [phone]. On weekends or after hours call [phone] and ask the cloth washer operator to page the plastic surgery resident agronomy teacher. General Instructions None Future Appointments and Orders Future Appointments Provider Department Dept Phone 05/01/2016 1:30 PM Lorenza Mcmillan MD Plastic Surgery [phone] Discharge Medications: Your Medications New Medications Dose [...] 1:30 PM Lorenza Mcmillan MD Plastic Surgery [phone] Future Appointments Date Time Provider Department Center 05/01/2016 1:30 PM Lorenza Mcmillan MD [facility] Primary Care Provider: Nae Guthrie MD [phone] VNA: No discharge procedures on file. General Instructions None Your care was managed by the Plastic [facility] at [facility]. If you haveany questions or concerns, please feel free to contact us. Provider Contact Information: Plastic Surgery Clinic: [facility] (after business hours): Associated attestation - Lorenza [...] nurses, you may call the clinic at [phone] and schedule an appointment to have your [...] to minimize scarring. Do not use any gqbg-dru-ayqhmue lotions, solutions, or herbal preparations on your [...] called in to our prescription line at [phone]. Narcotic renewals may be requested from 8am-4pm [...] office hours: Sunday - Sunday 8am-5pm call [phone]. On weekends or after hours call [phone] and ask the cloth washer operator to page the plastic surgery resident agronomy teacher. documented in this encounter Medications at Time [...] 04/19/2016 8:17 AM EST Opioid PDMP 12/14/2015 [place] PDMP Query Date 04/18/2016 [place] PDMP Query [...] chart. Mariaelena Phillips PA-C Plastic Surgery Pager [phone] * Lorenza Mcmillan MD - 04/18/2016 10:53 PM EST General Surgery Post-Operative Note Quyen Bill is a 65 y.o. female who is s/p MASTOPEXY, BILATERAL (WRVU 11.09) (Bilateral) ABDOMINOPLASTY EXC,W/ UMBILICAL TRANSPOSITION, FASCIAL PLICATION (WRVU 17.04) (Bilateral) Patient states that pain is well controlled. Denies cp/sob, n/v/d. No complaints at this time, saymichela has a high pain tolerance. Most pain is over abdomen, feels like waves going across abdomen. Just finished eating half of a sandwich. Temp: [36.1 ??C (97 ??F)-36.8 ??C (98.2 ??F)] Heart Rate: [69-88] Resp: [10-26] BP: (92-134)/(37-73) SpO2: [92 %-100 %] Heart Rate from SPO2: [69 bpm-89 bpm] Intake/Output Summary (Last 24 hours) at 04/18/16 2253 Last data filed at 04/18/16 2200 Gross [...] the above note. Lorenza Mcmillan MD * Marifer Tinoco RN - 04/18/2016 10:00 PM EST [...] Handling Outcome: Ongoing (Interventions Implemented as Appropriate) 04/18/16199904/18/162044 Restraint Interventions Safety Promotion/Fall Prevention -- fall [...] Mcmillan MD - 04/18/2016 4:55 PM EST [facility] Operative Note Patient Name: Quyen Bill : [id number] MR#: [id number] Case Date: 04/18/2016 Surgeon: Surgeon(s) and Role: [...] made and the umbilical stalk developed with Yaz scissor dissection. Then the inferior skin incision [...] Operative Note Patient Name: Quyen Bill : [id number] MR#: [id number] Case Date: 04/18/2016 Surgeon: Surgeon(s) and Role: [...] Procedure Name Priority Date/Time Associated Diagnosis Comments CEO AND FOUNDER SCAN 04/20/2016 12:00 AM EST POCT GLUCOSE [...] in this encounter Results * SCAN DOC: CEO AND FOUNDER (04/20/2016 12:00 AM EST) Anatomical Region Laterality Modality Other Narrative 04/20/2016 12:00 AM EST Ordered by an unspecified provider. Scanning Provider MEDIA MGR SCAN EXT O RDR/RSLT * (ABNORMAL) POCT Glucose (04/18/2016 4:03 PM EST) Glucose, POC 236(H) 65 - 199 mg/dL [facility] Comment: Supplemental ranges: <140 mg/dL before meals <180 mg/dL all other times of the day Blood specimen (specimen) 04/18/2016 4:03 PM EST 04/18/2016 4:03 PM EST Lorenza Mcmillan MD POINT OF CARE TEST O YONAS Performing Organization Address [facility] Co de Phone Number [facility] [place] [address] * Specimen to Pathology (surgical or derm) (04/18/2016 1:28 PM EST) AP Specimen 04/18/2016 1:28 PM EST 04/18/2016 1:28 PM EST Narrative [facility] - 04/18/2016 1:28 PM EST Specimen requisition ordered. ??Separate Pathology report to follow Lorenza Mcmillan MD PATHOLOGY/CYTOLOGY O RDXIN Performing Organization Address [facility] Co de Phone Number [facility] [place] [address] * Surgical Pathology Report (04/18/2016 1:25 PM EST) Final Diagnosis [id number] ?Location: [facility]; [facility]; A The signing pathologist has (i) examined [...] (R3) ?? LENNOX 04/19/2016 4:34 PM EST [facility] BREAST STRUCTURE / Unknown 04/18/2016 1:25 PM EST 04/18/2016 1:25 PM EST BREAST STRUCTURE / Unknown 04/18/2016 1:25 PM EST 04/18/2016 1:25 PM EST Lorenza Mcmillan MD PATHOLOGY/CYTOLOGY O SHAWNERAOG [facility] [place] [address] * Specimen to Pathology (surgical or derm) (04/18/2016 1:25 PM EST) AP Specimen 04/18/2016 1:25 PM EST 04/18/2016 1:25 PM EST Narrative [facility] - 04/18/2016 1:25 PM EST Specimen requisition ordered. ??Separate Pathology report to follow Lorenza Mcmillan MD PATHOLOGY/CYTOLOGY O YONAS Performing Organization Address [facility] Co de Phone Number [facility] [place] [address] * POCT Glucose (04/18/2016 10:00 AM EST) Glucose, POC 170 65 - 199 mg/dL [facility] Comment: Supplemental ranges: <140 mg/dL before meals <180 mg/dL all other times of the day Blood specimen (specimen) 04/18/2016 10:00 AM EST 04/18/2016 10:00 AM EST Lorenza Mcmillan MD POINT OF CARE TEST O YONAS Performing Organization Address [facility] de Phone Number [facility] [place] [address] documented in this encounter Visit Diagnoses Not [...] Given 04/18/2016 9:31 PM EST 81 mg BUpivacaine-EPINEPHrine 0.25 %-1:200,000 injection ONCE PRN, Starting on Sun04/18/16 at 1400, Until Sun04/19/16 at 1700, Intra-Operative (Intra-Procedure), Routine Given 04/18/2016 2:00 PM EST 30 mLs 19- Surgical Site docusate sodium (COLACE) capsule 100 mg 100 mg, Oral, 2 TIMES DAILY, First dose on Sun04/18/16 at 2100, Until Discontinued, Routine Given 04/19/2016 9:26 AM EST 100 mg Given 04/18/2016 9:31 PM EST 100 mg EPINEPHrine (ADRENALIN) injection ONCE PRN, Starting on Sun04/18/16 at 1300, Until Sun04/19/16 at 1700, Intra-Operative (Intra-Procedure), Routine Given 04/18/2016 1:00 PM EST 0.1 mg 19- Surgical Site gabapentin (NEURONTIN) capsule 600 mg 600 mg, Oral, ONCE, 1 dose, On Sun04/18/16 at 1030, Administer with SIP of H2O only., Day of Surgery (Day of Procedure), Routine Given 04/18/2016 10:21 AM EST 600 mg gabapentin (NEURONTIN) capsule 600 mg [...] Given 04/19/2016 9:24 AM EST 1 tablet lidocaine (XYLOCAINE) 10 mg/mL (1 %) injection 3 mg 3 mg (0.3 mL), Subcutaneous, ONCE PRN, 1 dose, Starting on Sun04/18/16 at 1007, Until Sun04/18/16 at 1334, for discomfort with PIV insertion, Day of Surgery (Day of Procedure), Routine Given 04/18/2016 1:34 PM EST 50 mLs 19- Surgical Site lisinopril (PRINIVIL;ZESTRIL) tablet 40 mg 40 mg, Oral, DAILY, First dose on Sun04/19/16 at 0900, Until Discontinued, Routine Given 04/19/2016 9:26 AM EST 40 mg metFORMIN (GLUCOPHAGE) tablet 500 mg 500 mg, Oral, DAILY, First dose on Sun04/19/16 at 0900, Until Discontinued, Routine Given 04/19/2016 9:23 AM EST 500 mg oxyCODONE (ROXICODONE) immediate release tablet [...] Procedure), Routine 1020 (Given - Provider: Amanda Lopez RN) amLODIPine (NORVASC) tablet 10 mg 10 mg, Oral, DAILY, First dose on Sun04/19/16 at 0900, Until Discontinued, Routine 0925 (Given - Provid er: Nae Nava RN) [...] Routine 2130 (Given - Provider: Caden Wilks) 925 (Given - Provider: Nae Nava RN) gabapentin (NEURONTIN) capsule 600 mg (COMPLETED) 600 mg, Oral, ONCE, 1 dose, On Sun04/18/16 at 1030, Administer with SIP of H2O only., Day of Surgery (Day of Procedure), Routine 1020 (Given - Provider: Amanda Lopez RN) gabapentin (NEURONTIN) capsule 600 mg 600 mg, Oral, DAILY, First dose on Sun04/18/16 at 2030, Until Discontinued, Routine 2130 (Given - Provider: Caden Wilks) 924 (Given - Provider: Nae Nava RN) gemfibrozil [...] on Sun04/18/16 at 2200, Until Discontinued, Routine 213 (Given - Provider: Caden Wilks) 0925 (Given - Provider: Nae Nava, RN) sodium chloride 0.9 % flush 5 mL 5 mL, Intravenous, 2 TIMES DAILY, First dose on Sun04/18/16 at 2100, Until Discontinued, Recovery (Recovery-Hospital Unit), Routine 213 (Given - Provider: Caden Wilks) 0900 (Given - Provider: Nae Nava, RN) Continuous Medication Order 04/17/2016 04/18/2016 04/19/2016 [...] PRN, 1 dose, Starting on Sun04/18/16 at 2001, Until Sun04/19/16 at 1700, for discomfort with [...] Marifer Tinoco RN)0848 (Given - Provider: Nae Nava RN)8921 (Given - Provider: Nae Nava RN) sodium chloride 0.9 % flush 5-20 mL 5-20 mL, Intravenous, EVERY 1 MIN PRN, Starting on Sun04/18/16 at 2001, Until Sun04/19/16 at 1700, flush, Flush pertains to all indwelling lines. Flush per protocol found in the job aid using the link provided on this medication record., Recovery (Recovery-Hospital Unit), Routine documented in this encounter Care Teams Regulator Mechanic Relationship Specialty Start Date End Date Nae Guthrie MD [address] [place] [address] PCP - General Family Medicine 04/10/16 05/29/18 documented as of this encounter
--- OUTSIDE RECORDS SUMMARY | 2023-11-01 16:49 | XMS_ITS | Encounter Summary ---
Author Organization [facility] Address [place] [address] Care Team Providers Care Mixed Livestock Farm Worker Name Role Phone Nae Guthrie MD Primary Care Provider [phone] Encounter Details Date Type Department Care Team (Late st Contact Info) Description 09/13/2017 Telephone Dermatology at [facility] [address] [place] [phone] Arik Johnson RN Social History Tobacco Use [...] encounter Miscellaneous Notes * Telephone Encounter - Ivette Washington - 09/13/2017 1:43 PM EDT Called and left a message for Quyen J Landy requesting a call back to schedule coolsculpting with Arik. She had a consult years ago and lives far away. Per Arik, you can schedule her for outer thigh 5hrs, inner thigh 3hrs, and abdomen 5hrs. Please let patient know that she may not be a candidate anymore due to having a tummy tuck. documented in this encounter Plan of Treatment Not on file documented as of this encounter Visit Diagnoses Not on filedocumented in this encounter Care Teams Mixed Livestock Farm Worker Relationship Specialty Start Date End Date Nae Guthrie MD [address] [place] [address] PCP - General Family Medicine 04/10/16 05/29/18 documented as of this encounter
--- OUTSIDE RECORDS SUMMARY | 2023-11-01 16:49 | XMS_ITS | Encounter Summary ---
Author Organization [facility] [place] [address] Care Team Providers Care Business Division Chair Name Role Phone Rodrigo Shin Primary Care Provider [phone] Encounter Details Date Type Department Care Team (Late st Contact Info) Description 07/25/2018 Orders Only [place] [id number] More Rock RN Varicose veins of lower extremity with pain, unspecified laterality Social History Tobacco Use Types Packs/Day Years Used Date Smoking Tobacco: Never Smokeless Tobacco: Never Alcohol Use Standard Drinks/Week Comments Yes 4 (1 standard drink = 0.6 oz pur e alcohol) Sex and Gender Information Value Date Recorded Sex Assigned at Not on file Gender Identity Not on file Sexual Orientation Not on file documented as of this encounter Plan of Treatment Scheduled Orders Name Type Priority Associated Diagnoses Orde r Schedule ENDOVENOUS ABLATION THERAPY OF INCOMPETENT VEIN, EXTREMITY, FIRST VEIN Procedures Routine One Time for 1 Occurrences starting 07/25/2018 until 07/25/2018 documented as of this encounter Results * EKG 12 Lead (11/28/2018 10:37 AM EDT) Ventricular rate 70 BPM MUSE SYSTEM Atrial Rate 70 BPM MUSE SYSTEM P-R Interval 144 ms MUSE SYSTEM QRS Duration 92 ms MUSE SYSTEM Q-T Interval 408 ms MUSE SYSTEM QTC Calculated (Bezet) 440 ms MUSE SYSTEM Calculated P [place] 38 degrees MUSE SYSTEM Calculated R [place] 23 degrees MUSE SYSTEM Calculated T [place] 29 degrees MUSE SYSTEM INTERPRETATION Normal sinus rhythm Normal ECG No previous ECGs available Confirmed by ADRIAN, ??CAHSE HU ([id number]) on 11/28/2018 3:53:26 PM MUSE SYSTEM 11/28/2018 10:3 7 AM EDT 11/28/2018 3:53 PM EDT Espinoza Garvin MD ECG ORDERABLES MUSE SYSTEM * Prealbumin (11/28/2018 9:09 AM EDT) Prealbumin 23 20 - 40 mg/dL [facility] Comment: Prealbumin levels are generally lower in the pediatric population; adult concentrations are usually attained near puberty. Blood specimen (specimen) 11/28/2018 9:09 AM EDT 11/28/2018 9:32 AM EDT Narrative Resulting Agency Comment Spec In Lab Espinoza Garvin MD CHEMISTRY ORDERABLES Performing Organization Address City/[facility]/ZIP Co de Phone Number [facility] [place] [address] * (ABNORMAL) Basic Metabolic Panel (non-fasting) (11/28/2018 9:09 AM EDT) Glucose 139 65 - 199 mg/dL [facility] Comment:Diabetes: >=200 mg/d L plus symptoms Blood Urea Nitrogen 27(H) 8 - 18 mg/dL [facility] Creatinine 1.42(H) 0.70 - 1.20 mg/dL [facility] Sodium 141 135 - 145 mmol/L [facility] Potassium 3.6 3.5 - 5.0 mmol/L [facility] Comment: Please note: ??Patients with WBC >100,000 may have falsely elevated Potassium levels. ??For accurate Potassium quantification in these patients send serum separator tube (gold top) for subsequent determinations. ??Contact the Clinical Chemistry Laboratory if there are any questions. Chloride 101 98 - 107 mmol/L [facility] Carbon Dioxide 25 22 - 31 mmol/L [facility] Anion Gap 15 5 - 15 mmol/L [facility] Calcium 9.5 8.5 - 10.5 mg/dL [facility] Est Glomerular Filtration Rate 38(L) >=60 mL/min/1. 73 m?? [facility] Comment: The eGFR was calculated using the CKD-EPI equation. As with all creatinine based estimates of kidney function, eGFR values calculated with the CKD-EPI equation are not accurate in patients with acute kidney failure, extremes of body mass or the acutely ill. http://isocket/[facility] eGFR 44(L) >=60 mL/min/1. 73 m?? [facility] Comment: The eGFR was calculated using the CKD-EPI equation. As with all creatinine based estimates of kidney function, eGFR values calculated with the CKD-EPI equation are not accurate in patients with acute kidney failure, extremes of body mass or the acutely ill. http://isocket/[facility] Blood specimen (specimen) 11/28/2018 9:09 AM EDT 11/28/2018 9:32 AM EDT Narrative Resulting Agency Comment Spec In Lab Espinoza Garvin MD CHEMISTRY ORDERABLES [facility] [place] [address] documented in this encounter Visit Diagnoses Diagnosis Varicose veins of lower extremity with pain, unspecified laterality documented in this encounter Care Teams Business Division Chair Relationship Specialty Start Date End Date Rodrigo Shin PA [address] [place] [address] PCP - General Family Medicine 05/30/18 10/07/19 documented as of this encounter
--- OUTSIDE RECORDS SUMMARY | 2023-11-01 16:50 | XMS_ITS | Encounter Summary ---
Author Organization [facility] Address [address] [place] [address] Care Team Providers Care Four H Agent Name Role Phone Rodrigo Shin PA-C Primary Care Provider + Reason for Visit * Vascular Lab (Routine) - Closed Specialty Diagnoses / Procedures Referred By Venancio medeiros Referred To Contact Diagnoses Varicose veins of other specified sites Procedures US VARICOSE VEIN DUPLEX Apollo Stubbs MD [address] [place] [address] Referral ID Status Reason Start Date Expiration Date Visits Re quested Visits Authorized [id number] Closed 09/13/2020 1 1 Encounter Details Date Type Department Care Team (Latest Contact Info) Description 10/22/2020 10:00 EDT Ancillary Procedure [facility] Vascular Surgery - [facility] [address], [place] [id number] Varicose veins of other specified sites Social History Tobacco Use Types Packs/Day Years Used Date Smoking Tobacco: Never Assessed Sex and Gender Information Value Date Recorded Sex Assigned at Not on file Gender Identity Not on file Sexual Orientation Not on file COVID-19 Exposure Response Date Recorded In the last month, have you been in contact with someone who was confirmed or suspected to have Coronavirus / COVID-19? No / Unsure 10/22/2020 11:31 EDT documented as of this encounter Plan of Treatment Upcoming Encounters Date Type Department Care Team (Late st Contact Info) Description 11/16/2023 11:00 EDT Office Visit [facility] Vascular Surgery [facility] [address] [place] [address] Eros Cervantes MD [address] [facility] [place] [phone] documented as of this encounter Procedures Procedure Name Priority Date/Time Associated Diagnosis Comments US VARICOSE VEIN DUPLEX BILATERAL Routine 10/22/2020 10:50 EDT Varicose veins of other specified sites documented in this encounter Results * US VARICOSE VEIN DUPLEX BILATERAL (10/22/2020 10:50 EDT) Left GSMT alida 0.38 cm MERGE CARDIO Right GSMT alida 0.36 cm MERGE CARDIO Left SSPC alida 0.21 cm MERGE CARDIO Right SSPC alida 0.21 cm MERGE CARDIO Left GSJ alida 0.69 cm MERGE CARDIO Right GSJ alida 0.71 cm MERGE CARDIO Left GSDT alida 0.31 cm MERGE CARDIO Right GSDT alida 0.42 cm MERGE CARDIO Right GSJ reflux 0.8 s MERGE CARDIO Right GSMT reflux 1.8 s MERGE CARDIO Right GSDT reflux 0.6 s MERGE CARDIO Right SSPC reflux 0.0 s MERGE CARDIO Right AAS alida 0.30 cm MERGE CARDIO Right AAS reflux 2.5 s MERGE CARDIO Left GSJ reflux 0.9 s MERGE CARDIO Left GSMT reflux 1.6 s MERGE CARDIO Left GSDT reflux 1.0 s MERGE CARDIO Left SSPC reflux 0.0 s MERGE CARDIO Anatomical Region Laterality Modality Vascular Ultrasound Narrative 10/22/2020 15:07 EDT ?No evidence of deep or superficial venous thrombosis in the bilateral lower extremities. ?Superficial venous insufficiency noted within the bilateral lower extremities; no evidence of deep venous insufficiency. Right Lower Venous Other The right external iliac, common femoral, proximal greater saphenous, proximal profunda femoris, femoral, and popliteal veins demonstrate normal Doppler flow/waveforms and compression. Left Lower Venous Other The left external iliac, common femoral, proximal greater saphenous, proximal profunda femoris, femoral, and popliteal veins demonstrate normal Doppler flow/waveforms and compression. Venous HPI and Indications Bilateral varicose veins with pain and inflammation. Venous Past Medical History Varicose veins. Apollo Stubbs MD IMG US VASCULAR O RDERABLES documented in this encounter Visit Diagnoses Diagnosis Varicose veins of other specified sites documented in this encounter Care Teams Four H Agent Relationship Specialty Start Date End Date Rodrigo Shin PA-C [address] [place] [address] PCP - General 10/18/20 documented as of this encounter
--- OUTSIDE RECORDS SUMMARY | 2023-11-01 16:50 | XMS_ITS | Encounter Summary ---
Author Organization [facility] Address [address] [place] [address] Care Team Providers Care Tool Filer Hand Name Role Phone Unavailable Primary Care Provider Unavailabl e Encounter Details Date Type Department Care Team (Late st Contact Info) Description 05/23/2001 Results Only [facility] [address] [place] [address] Pritesh Lazar MD [address] [facility] [address] [place] [address] [place] [phone] Social History Tobacco Use Types Packs/Day Years Used Date Smoking Tobacco: Never Assessed Sex and Gender Information Value Date Recorded Sex Assigned at Not on file Gender Identity Not on file Sexual Orientation Not on file documented as of this encounter Plan of Treatment Upcoming Encounters Date Type Department Care Team (Late Contact Info) Description 11/16/2023 11:00 EDT Office Visit [facility] Vascular Surgery [place] [address] [facility] [place] [address] Eros Cervantes MD [address] [facility], [address] [place] [phone] documented as of this encounter Procedures Procedure Name Priority Date/Time Associated Diagnosis Comments CYTOPATHOLOGY Routine 05/23/2001 0:00 EST documented in this encounter Results * CYTOPATHOLOGY (05/23/2001 0:00 EST) Pathology Report: CYTOPATHOLOGY REPORT Reports generated via electronic interface contain original data; however they are lacking the format of the original report. Caution should be taken when reading/interpreti ng unformatted reports. Name: ? QUYEN BILL ? Accession #: ? [id number] : ? 1950 (Age: 51) ??F ?Collect Date: ? 05/23/2001 Location: ? [facility] ? Receive Date: ? 05/27/2001 Provider: ?PRITESH LAZAR MD Copy to: ? Specimen/Source: ?Conventional Pap Test, Cervix/Endocervix Last Menstrual Period: ? 05/02/01 ? SPECIMEN ADEQUACY ? Satisfactory for Evaluation - transformation zone component present GENERAL CATEGORIZATION ? Negative for Intraepithelial Lesion or Malignancy ? Document reviewed and electronically signed by: ? EDER Cross(ASCP) ? Report Date: ??05/31/2001 12:26 End of Report WILIAM ACUNA 05/23/2001 05/27/2001 Pritesh Lazar MD PATHOLOGY ORDERABLES WILIAM ACUNA [address] [place] [address] documented in this encounter Visit Diagnoses Not on filedocumented in this encounter
--- OUTSIDE RECORDS SUMMARY | 2023-11-01 16:50 | XMS_ITS | Encounter Summary ---
Author Organization [facility] Address [address] [facility] [place] [address] Care Team Providers Care University Counselor Name Role Phone Rodrigo Shin Primary Care Provider [phone]- [phone] Reason for Visit * Reason Comments Skin Lesion * Consultation (Routine) - Closed Specialty Diagnoses / Procedures Referred By Contac t Referred To Contact Dermatology Diagnoses ABNORMAL SKIN LESION Procedures COORDINATE W/MAMMO PLEASE Rodrigo Shin PA [address] [place] [address] [facility] Dermatology [address] [place] [address] Referral ID Status Reason Start Date Expiration Date V isits Requested Visits Authorized [id number] Closed Consult, Test & Treat Connection [facility] 02/23/2015 02/23/2016 1 1 Encounter Details Date Type Department Care Team (Late st Contact Info) Description 03/29/2015 3:45 PM EST Office Visit Dermatology at [facility] [address] [place] [phone] Julio Hernandez MD [address] [facility] [place] [address] Neoplasm of uncertain behavior of skin (Primary Dx); Telangiectasia; Accessory skin tags Social History Tobacco Use Types Packs/Day Years Used Date Smoking Tobacco: Never Alcohol Use Standard Drinks/Week Comments Not Asked 0 (1 standard drink = 0.6 oz pur e alcohol) Sex and Gender Information Value Date Recorded Sex Assigned at Not on file Gender Identity Not on file Sexual Orientation Not on file documented as of this encounter Patient Instructions * Patient Instructions* Jaye Rene - 03/29/2015 4:21 PM EST Post-Biopsy Wound Care Instructions You have just had a skin biopsy. Wound care will be important to prevent infection and minimize scarring. ??? Keep the wound clean. You may wash the wound with soapy water running over the wound. Do not scrub. ??? Apply antibiotic ointment - e.g., polysporin, neosporin, bacitracin or bactroban - or clean vaseline to the wound and cover with a bandaid 1-2 times a day. ??? Keep the wound dressed this way 24h a day until healed - typically 7-14 days, though healing times may vary depending on the size of the wound and the location. ??? Do not let the wound scab over or dry up, which may delay wound healing and more likely producea more apparent scar than will already be formed. ??? The site may be itchy for up to several weeks. ??? If you notice redness spreading out from the wound, thick white or yellow drainage, increased swelling, tenderness at the wound or have any other questions or problems about the biopsy, please contact the clinic immediately. If you have any questions, please contact the clinic during the day at . In the case of urgency after 5PM and on weekends, please call the hospital number and ask for the Gas Pit Worker propulsion generator repairer. Pathology results may take 5-14 days depending on the number of stains that must be performed. If you do not hear back within 3 weeks of the biopsy, contact the clinic nurse or lockstitch front maker during normal business hours for the results. documented in this encounter Progress Notes * Perfecto Elias LPN - 03/29/2015 3:52 PM EST Images from the original note were not included. DEPARTMENT DERMATOLOGY AT [facility] Dermatology At [facility] [address] [facility] [phone] NEW PATIENT / CONSULT Reason for Referral: Skin Lesion Date of Referral: 02/23/15 Referred by: Rodrigo Shin Pa [address] [place] [address] Chief Complaint: Lesion History of Present Illness Quyen Bill is a 64 y.o. female. Complains of a red and sometimes weeping lesion on the right arm that was first identified 2-3 years ago. No bleeding. No symptoms. Never been treated or biopsied. Also, patient is concerned about the cosmetic appearance of visible vessels on the right thigh. No symptoms. Requests evaluation for cosmetic treatment. Also, patient requests cosmetic removal of asymptomatic skin tags on the neck and right breast. Present for months. Tried to pick and pull them off but that did not end well. ? No Skin Cancer History No personal history of skin cancer. No family history of skin cancer. Allergies None Medications ??? lisinopril (PRINIVIL;ZESTRIL) 2.5 mg tablet ??? metFORMIN (GLUCOPHAGE) 500 mg tablet ??? gabapentin (NEURONTIN) 300 mg capsule ??? aspirin 81 mg EC tablet ??? gemfibrozil (LOPID) 600 mg tablet ??? amlodipine (NORVASC) 10 mg tablet ??? niacin (NIASPAN ER) 500 mg ER tablet ??? vitamin E 400 unit capsule ??? cholecalciferol, Vitamin D3, 400 unit tablet Review of Systems Significant for no fevers, chills, night sweats, or fatigue and no other pertinent and acute changes in constitutional, other skin, HEENT, gastrointestinal, respiratory, cardiovascular, genitourinary, lymphatic, musculoskeletal, endocrine, neurologic, psychiatric, allergy/immunology systems upon specific queries. Past Medical History Overall healthy Past Surgical History None Family Medical History None Social History Marital Status: Yes Children: 2 Occupation: Banking, retired for 10 years Tobacco: Never Alcohol: Socially Examination Standby: Jaye Rene, Clinical Scribe Pain 0/10. Mood is appropriate and congruent with effect. Well developed, well- nourished in no apparent distress, alert and oriented to time, person, place and situation. Skin Type:II Focused examination of skin from the of the right arm and right thigh significant for the following: ?? 10 x 9 mm red scaly patch with peripheral brown globules on the right lateral arm (Figures A, B) 1-2 mm caliber purple vessels on the right medial thigh Multiple 1-4mm pedunculated, soft papules, including on the right breast x 1,left neck x 6, right neck x 2, breast x 1, posterior neckl x 1 [Total: 10] Images Photos obtained and charted with patient's consent for documentation purposes. Figure A Figure B Procedure Shave Procedure Discussed with patient diagnostic options, including the risks and benefits of observation, empirictreatment, and biopsy, including but not limited to recurrence, cosmesis (scar, dyspigmentation, scar spread), pain, keloid/hypertrophic scar, bleeding, infection, hematoma, nerve damage, and bruising. Patient verbally understands and elects biopsy. Allergies See above or Breast Feeding Denies Defibrillator or Pacemaker No Time Out Performed: Full Name, , and site(s) confirmed with patient Procedure (s) A. Shave Location (s) A. Right lateral arm Pre-Operative Diagnosis A. SCC v AK v BCC v other Anesthesia: 1% lidocaine+1:100,000 epinephrine Sterile Prep Alcohol Lesion biopsied with shave technique using pawan blade. Hemostasis achieved with Drysol. <1mlblood loss. No complications. Specimen(s): Placed in formalin and sent to Pathology for histologic examination. Post-op care: Vaseline, Pressure Dressing Post-operative pain: 0/10 Assessment and Plan Neoplasm of Uncertain Behavior Wound care instructions provided. Wound care: Vaseline or antiobiotic ointment 1-2 x per day and cover with bandaid until healed. May shower and let soapy water over top. Vitamin E oil or Mederma massaged into wound 1-3 x per day for several months to minimize scar after wound healed (limited efficacy data to support) Counseled: Ddx SCC v AK v BCC v other. Proceeded with biopsy at Patient's request. Counseled natureof lesions, biopsy to identify etiology, and removal options. Handout given. Plan based on pathology results. Patient can be reached at [phone] and results may be left on voicemail. Telangiectasia, Cosmetic Discussed cosmetic options for treatment, including sclerotherapy and its risks and benefits. Patient will schedule appointment with Dr Lucas to discuss cosmetic therapy. Skin Tags Asymptomatic. Patient requests cosmetic removal. Counseled: skin tags, benign, a/w age, obesity and diabetes and sites of friction, and treatment options for symptomatic lesions, including but not limited to OTC products, shave or scissor removal, cryotherapy, electrocautery, laser. Answered all questions. Patient elects cosmetic removal today.I reviewed with the patient the cosmetic nature of the proposed treatment, as well as the cost involved. Patient understands that payment of $150.00 is to be made at time of exit. Total 10 treated with cryotherapy, 1-2 cycles at 3-6 seconds for each, after verbally discussing the disease and treatment options, cryotherapy method, expected results/course and potential adverse effects, including crusting, persistent erythema, scar, blister, pain, dyspigmentation, and recurrence. Patient verbally agreed. Patient tolerated well with no complications. Wound care instructions provided. If no resolution in 7-14d, may contact clinic for re-evaluation and management. Follow-up: Based on pathology results. Patient will be contacted on MyD-[facility]. Patient will call with questions or concerns, or if changes/symptoms in new or existing lesions develop. I am documenting this encounter acting as the scribe for and in the presence of Dr. Hernandez: PERFECTO ELIAS LPN and Jaye Rene, Clinical Scribe I performed the above scribed service and agree with the accuracy of the documentation in this encounter. Julio Hernandez MD FAAD Section of Dermatology [facility] documented in this encounter Plan of Treatment Not on file documented as of this encounter Procedures Procedure Name Priority Date/Time Associated Diagnosis Comments SPECIMEN TO PATHOLOGY (NON-OR) Routine 03/29/2015 4:34 PM EST Neoplasm of uncertain behavior of skin SURGICAL PATHOLOGY REPORT Routine 03/29/2015 4:34 PM EST documented in this encounter Results * Surgical Pathology Report (03/29/2015 4:34 PM EST) Final Diagnosis [id number] ?Location: [facility] The signing pathologist has (i) examined the relevant preparation(s) for the specimen(s) and (ii) rendered or confirmed the diagnosis(es). . ?Surgical Pathology DIAGNOSIS Skin, right lateral arm, shave biopsy only: - PIGMENTED BASAL CELL CARCINOMA, extending to the peripheral and deep specimen edges. 03/30/15 BJ 03/31/15 Verified by: ? Nella HU, Sameer Gregory ?Dermatopathol ogist ?(Electronic Signature) The attending pathologist whose signature appears on this report has reviewed all diagnostic slides and has edited the gross and/or microscopic portion of the report in rendering the final pathologic diagnosis. CLINICAL INFORMATION Specimen Submitted: A - Skin, right lateral arm, shave only (1) Clinical History: 10 x 9 mm red scaly patch with peripheral globules Clinical Diagnosis: SCC versus AK versus BCC versus other SPECIMEN PROCESSING A - Labeled/Fixativ e: Right lateral arm, formalin. Quantity/Size: Single, 1.3 x 1.0 x 0.1 cm. Tissue Description: Irregular shave of botello-white skin. Sections/Proces sing: The specimen is inked, serially sectioned (6) and entirely submitted. (T2) ??ejr 03/31/2015 1:58 PM EST [facility] SPECIMEN FROM SKIN / Unknown 03/29/2015 4:34 PM EST 03/29/2015 4:34 PM EST Julio Hernandez MD PATHOLOGY/CYTOLOGY O RDERABLES [facility] [place] [address] * Specimen to Pathology (NON-OR) (03/29/2015 4:34 PM EST) AP Specimen 03/29/2015 4:34 PM EST 03/29/2015 6:17 PM EST Narrative ROBIN SANCHEZ - 03/29/2015 6:17 PM EST Specimen requisition ordered. ??Separate Pathology report to follow Resulting Agency Comment Spec In Lab Julio Hernandez MD PATHOLOGY/CYTOLOGY O RDERABLES ROBIN SANCHEZ documented in this encounter Visit Diagnoses Diagnosis Neoplasm of uncertain behavior of skin- Primary Telangiectasia Other and unspecified capillary diseases Accessory skin tags Other specified congenital anomaly of skin documented in this encounter Care Teams University Counselor Relationship Specialty Start Date End Date Rodrigo Shin PA [address] [place] [address] PCP - General Family Medicine 02/22/15 04/09/16 documented as of this encounter
--- OUTSIDE RECORDS SUMMARY | 2023-11-01 16:50 | XMS_ITS | Encounter Summary ---
Author Organization [facility] [place] [address] Care Team Providers Care Passenger Representative Name Role Phone Unavailable Primary Care Provider Unavailabl e Encounter Details Date Type Department Care Team (Late st Contact Info) Description 2006 12:05 AM EST Ancillary Procedure Radiology Library at [facility] [place] [address] Rodrigo Shin PA [address] [place] [address] Social History Tobacco Use Types Packs/Day Years Used Date Smoking Tobacco: Never Assessed Sex and Gender Information Value Date Recorded Sex Assigned at Not on file Gender Identity Not on file Sexual Orientation Not on file documented as of this encounter Plan of Treatment Not on file documented as of this encounter Procedures Procedure Name Priority Date/Time Associated Diagnosis Comments FILM LIBRARY-STORAGE ONLY US BREAST Routine 2006 12:05 AM EST documented in this encounter Results * Film Library Storage Only US Breast (2006 12:05 AM EST) Narrative RAD - 01/24/2021 1:45 PM EST This exam is auto-finalizing. It's purpose is for storage only. Rodrigo KRUSE FILM LIBRARY O RDERABLES [place], [place] documented in this encounter Visit Diagnoses Not on filedocumented in this encounter
--- OUTSIDE RECORDS SUMMARY | 2023-11-01 16:50 | XMS_ITS | Encounter Summary ---
Author Organization [facility] Address [address] [place] [address] Care Team Providers Care Commercial Leasing Manager Name Role Phone Rodrigo Shin PA-C Primary Care Provider + Encounter Details Date Type Department Care Team (Late st Contact Info) Description 12/03/2020 Lab Requisition [facility] Pathology & Laboratory Medicine - [facility] [address] [place], [place] [phone] Outr Resulting Lab, Provider Social History Tobacco Use Types Packs/Day Years [...] have Coronavirus / COVID-19? No / Unsure 11/08/2020 10:54 EDT documented as of this encounter Plan of Treatment Upcoming Encounters Date Type Department Care Team (Late st Contact Info) Description 11/16/2023 11:00 EDT Office Visit [facility] Vascular Surgery - [place] [address] [place] [address] Eros Cervantes MD [address] [facility], [address] [place] [phone] documented as of this encounter Procedures Procedure Name Priority Date/Time Associated Diagnosis Comments MANOJCOVID-19 TEST [facility] PCR Today 12/02/2020 14:40 EDT COVID-19 TESTING Routine 12/02/2020 14:4 0 EDT documented in this encounter Results * COVID-19 TEST [facility] PCR (12/02/2020 14:40 EDT) Swab ENTIRE NASOPHARYNX / Unknown 12/02/2020 14:40 EDT 12/03/2020 17:16 EDT Provider Outr Resulting Lab MICROBIOLOGY - GENERAL ORDERABLES [facility] [address] [place] [address] * COVID-19 TESTING (12/02/2020 14:40 EDT) COVID-19 rt-PCR Result Negative Negative 12/04/2020 11:52 EDT [facility] Comment: This test has not been FDA cleared or approved. This test has been authorized by FDA under an EUA for use by authorized laboratories. This test has been authorized only for detection of nucleic acid from 2019-nCoV, not for any other viruses or pathogens. This test is only authorized for the duration of the declaration that circumstances exist justifying the authorization of emergency use of in vitro diagnostic tests for detection and/or diagnosis of 2019-nCoV under section 564(b)(1) of Act, 21 U.S.C ?? 360bbb-3(b) (1), unless the authorization is terminated or revoked sooner. Negative results do not preclude 2019-nCoV infection and should not be used as the sole basis for treatment or other patient management decisions. Negative results must be combined with clinical observations, patient history, and epidemiological information. Testing was performed using the dianelys SARS-CoV-2 assay ([employer] on the Dianelys 6800 System Performing Lab Dianelys [address] [facility] 12/04/2020 11:52 EDT [facility] Swab 12/02/2020 14:4 0 EDT 12/03/2020 17:16 EDT Provider Outr Resulting Lab MICROBIOLOGY - GENERAL ORDERABLES [facility] [address] [place] [address] documented in this encounter Visit Diagnoses Not on filedocumented in this encounter Care Teams Commercial Leasing Manager Relationship Specialty Start Date End Date Rodrigo Shin PA-C [address] [place] [phone] PCP - General 10/18/20 documented as of this encounter
--- OUTSIDE RECORDS SUMMARY | 2023-11-01 16:50 | XMS_ITS | Encounter Summary ---
Author Organization [facility] Address [address] [place] [address] Care Team Providers Care Hedge Trimmer Name Role Phone Unknown, Provider Primary Care Provider Encounter Details Date Type Department Care Team (Late st Contact Info) Description 01/09/2012 Results Only [facility] Laboratory Services - [address] [address] Estelita Stevens, ROSAURA Social History Tobacco Use Types Packs/Day Years Used Date Smoking Tobacco: Never Assessed Sex and Gender Information Value Date Recorded Sex Assigned at Not on file Gender Identity Not on file Sexual Orientation Not on file documented as of this encounter Plan of Treatment Upcoming Encounters Date Type Department Care Team (Late st Contact Info) Description 11/16/2023 11:00 EDT Office Visit [facility] Vascular Surgery - [place] [address] [place] [address] Eros Cervantes MD [address] [facility], [facility] [address] [place] [phone] documented as of this encounter Procedures Procedure Name Priority Date/Time Associated Diagnosis Comments PAP TEST- RESULT ONLY Routine 01/09/2012 0:00 EST documented in this encounter Results * PAP TEST- RESULT ONLY (01/09/2012 0:00 EST) Pathology Report: CYTOPATHOLOGY REPORT Reports generated via electronic interface contain original data; however they are lacking the format of the original report. Caution should be taken when reading/interpreti ng unformatted reports. Name: ? QUYEN BILL ? Accession #: ? [id number] ? : ? 1950 (Age: 61) ??F ?Collect Date: ? 01/09/2012 ? Location: ? [facility] ? Receive Date: ? 01/10/2012 ? Provider: ESTELITA STEVENS INTEGRATED CIRCUIT FABRICATOR Copy to: ? Final Report SPECIMEN ADEQUACY ? Satisfactory for Evaluation - transformation zone component present GENERAL CATEGORIZATION ? Negative for Intraepithelial Lesion or Malignancy ?? Last Menstrual Period: 11/2010 Other: Additional clinical information: 2006 WNL pap Specimen/Source: ??Pap Test, Source Not Provided, [employer] [facility] with manual evaluation Document reviewed and electronically signed by: ? EDER Frausto(ASCP) ? Report ??Date: 01/18/2012 12:47 HPV with Pap Test ? Date Ordered: ? 01/18/2012 ? Status: ?? Signed Out ?Date Complete: ? 01/22/2012 ? By: ??System Interface ? Date Reported: ? 01/22/2012 ? Interpretation RESULT: Negative for HPV. No E6 or E7 mRNA is detected from HPV types 16,18,31,33,35, 39,45,51,52,56,58, 59,66, and 68 by head holder mediated amplification. Comments Document reviewed and electronically signed by: ? System Interface ? Report date: 01/22/2012 By the signature above, the attending physician certifies that he/she has personally conducted a gross and/or microscopic examination of the described specimens and rendered or confirmed the above diagnosis. End of Report WILIAM ACUNA 01/09/2012 01/10/2012 Estelita Stevens NP PATHOLOGY ORDERABLES Performing Organization Address City/State/[facility] Co de Phone Number [facility] [address] [place] [address] documented in this encounter Visit Diagnoses Not on filedocumented in this encounter Care Teams Hedge Trimmer Relationship Specialty Start Date End Date Unknown, Provider, PCP - General 01/30/11 10/17/20 documented as of this encounter
--- OUTSIDE RECORDS SUMMARY | 2023-11-01 16:50 | XMS_ITS | Encounter Summary ---
Author Organization [facility] Address [address] [place] [address] Care Team Providers Care Diamond Cutter Name Role Phone Unavailable Primary Care Provider Unavailabl e Encounter Details Date Type Department Care Team (Late st Contact Info) Description 10/16/2002 Results Only [facility] - [facility] conversion [address] [place] [address] Anne Marie Lee MD [address] [place] [address] [place] [address] Social History Tobacco Use Types Packs/Day Years Used Date Smoking Tobacco: Never Assessed Sex and Gender Information Value Date Recorded Sex Assigned at Not on file Gender Identity Not on file Sexual Orientation Not on file documented as of this encounter Plan of Treatment Upcoming Encounters Date Type Department Care Team (Late st Contact Info) Description 11/16/2023 11:00 EDT Office Visit [facility] Vascular Surgery [place] [address] [place] [address] Eros Cervantes MD [address] [facility], [facility], [address] [place] [id number] documented as of this encounter Procedures Procedure Name Priority Date/Time Associated Diagnosis Comments SURGICAL PATHOLOGY Routine 10/16/2002 0:00 EDT documented in this encounter Results * SURGICAL PATHOLOGY (10/16/2002 0:00 EDT) Pathology Report: SURGICAL PATHOLOGY REPORT Reports generated via electronic interface contain original data; however they are lacking the format of the original report. Caution should be taken when reading/interpreti ng unformatted reports. Name: ? QUYEN BILL ? Accession #: ? [id number] ? : ? 1950 (Age: 52) ??F ? Collect Date: ? 10/16/2002 ? Location: ? [facility] ? Receive Date: ? 10/16/2002 ? Provider: ANNE MARIE LEE MD Copy to: THAIS BROWER EDI COORDINATOR ? Final Pathologic Diagnosis: ? Endometrium, curettage: 1. ?Polypoid endocervical tissue with microglandular hyperplasia. 2. ?Chronic endometritis. 3. ?Predecidualized endometrial stroma suggestive of progesterone effect. Document reviewed and electronically signed by: Chance Mondragon MD Report ??Date: 10/21/2002 16:18 By the signature above, the attending physician certifies that he/she has personally conducted a gross and/or microscopic examination of the described specimens and rendered or confirmed the above diagnosis. Specimen(s) Received: ? Endometrial curettings Clinical History: ? Menorrhagia Gross Description: ? Received in formalin labelled Landy and endometrial curettings are 2.0 x 1.5 x 0.8 cm of multiple botello-red, hemorrhagic soft tissue fragments. ??The specimen is entirely submitted in one cassette. ??(Meagan Caceres/sergio End of Report [facility] 10/16/2002 10/16/2002 15: 27 EDT Anne Marie Lee MD PATHOLOGY ORDERABLES Performing Organization Address City/State/[facility] Co de Phone Number [facility] [address] [place] [address] documented in this encounter Visit Diagnoses Not on filedocumented in this encounter
--- OUTSIDE RECORDS SUMMARY | 2023-11-01 16:50 | XMS_ITS | Encounter Summary ---
Author Organization [facility] Address [facility] [place] [address] Care Team Providers Care Chief Human Resources Officer Name Role Phone Rodrigo Shin Primary Care Provider [phone]- [phone] Reason for Visit * Reason Comments Procedure Encounter Details Date Type Department Care Team (Late st Contact Info) Description 06/04/2015 9:30 AM EDT Office Visit Dermatology at [facility] [address] [place] [address] Nell Davila MD [facility] [address] [place] [address] Gadiel Fleming RN Spider veins Social History Tobacco Use Types Packs/Day Years Used Date Smoking Tobacco: Never Alcohol Use Standard Drinks/Week Comments Not Asked 0 (1 standard drink = 0.6 oz pur e alcohol) Sex and Gender Information Value Date Recorded Sex Assigned at Not on file Gender Identity Not on file Sexual Orientation Not on file documented as of this encounter Progress Notes * Gadiel Fleming RN - 06/04/2015 10:40 AM EDT Provider: MD Gadiel Queen RN Nancy J Darrah 1950 Chief Problem: 1. Spider Veins 2. Second treatment , ? Sclerotherapy History/Discussion: 65 y.o. year old female. Here for a medical consultation visit to discuss cause, prevention and treatment options for spider veins. Spent this visit discussing spider veins, including pathophysiology, some of the causes, and tendency to form new vessels over time, even with treatment. Laser may be the best treatment option for spider veins in the future, but I believe sclerotherapy is best initial procedure for her right now. Discussed sclerotherapy expectations, side effects such as bleeding, bruising, burning and crampingpain at the injection sites as well as uncommon but possible complications such as swelling, hyperpigmentation, telangiectatic matting, small ulcer formation and thrombophlebitis. One treatment may not result in complete resolution of the spider veins, and combination therapy with laser is perhaps the best overall treatment. There will likely be some bruising and the appearance bug bites at the injections sites that willlast for 1-3 days. The patient knows that Sclerotherapy is strictly a cosmetic procedure, aware insurances will not cover these procedures, and we will not submit it to the company. The patient will have to pay for theprocedure, at the time of the visit. Understood. Retreatment will be necessary. Examination: Focal examination of the legs bilaterally. Minimal amount of blue-purple spider veins on right medial right leg Diagnosis/Assessment: 1. Spider Veins, legs, amenable to sclerotherapy Plan/Treatment: Sclerotherapy Procedure (18% hypertonic saline) 1. Discussed and signed the consent form, and answered remaining questions. 2. Proceeded with sclerotherapy procedure: alcohol prep to vessels, and slow injection 18% hypertonic saline, of the most advanced and noticeable spider veins on legs. Hemostasis with mild pressure and bandaids where needed. 3. There were no complications. Patient should call if they have questions. The complete effect maynot be evident for weeks and if not complete 4. Will schedule Laser in 6 weeks for spider veins on right medial leg 4. Cosmetic Cost today: $ 250.00 with additional products I am documenting this encounter and performed the cosmetic consult and procedure: GADIEL FLEMING RN I agree with the accuracy of the documentation in this encounter, MD Nell Queen MD Section of Dermatology documented in this encounter Plan of Treatment Not on file documented as of this encounter Visit Diagnoses Diagnosis Spider veins Nevus, non-neoplastic documented in this encounter Care Teams Chief Human Resources Officer Relationship Specialty Start Date End Date Rodrigo Shin PA [address] [place] [address] PCP - General Family Medicine 02/22/15 2 documented as of this encounter
--- OUTSIDE RECORDS SUMMARY | 2023-11-01 16:50 | XMS_ITS | Encounter Summary ---
Author Organization [facility] Address [address] [place] [address] Care Team Providers Care Renewable Energy Technician Name Role Phone Rodrigo Shin PA-C Primary Care Provider + Reason for Visit * Reason Comments Follow-up Encounter Details Date Type Department Care Team (Late st Contact Info) Description 09/03/2023 13:30 EDT Office Visit [facility] Orthopedics & Podiatry [address], [address] [place], [place] [id number] Raj Nicole DPM [address] [facility] [address] [place], [place] [id number] Cellulitis of toe of right foot (Primary Dx); Diabetic ulcer of toe of right foot associated with type 2 diabetes mellitus, unspecified ulcer stage ([facility]) Social History Tobacco Use Types Packs/Day Years Used Date Smoking Tobacco: Never Assessed Sex and Gender Information Value Date Recorded Sex Assigned at Not on file Gender Identity Not on file Sexual Orientation Not on file documented as of this encounter Progress Notes * Ying Reyna RN - 09/03/2023 1330 EDT Quyen presents today for follow up right second toe ulcer. Last seen 08/27/23. Betadine gauze. Epsom soaks recommended. * Raj Nicole DPM - 09/03/2023 6846 EDT CHIEF COMPLAINT: Chief Complaint Patient presents with Right Foot - Follow-up SUBJECTIVE: Quyen Bill is a 73 y.o. female who presents today for follow up with concerns to her right second toe. Last seen 1 week ago where large blister and wound were deroofed/debrided. She hasfinished her antibiotics and has been compliant with dressing changes. Feels like the toe is improving in appearance but remains discouraged with the present situation. Denies new pedal complaints. Denies constitutional symptoms. I have reviewed the medication list. Pertinent changes noted. ROS: Constitutional: negative for, fever, Musculoskeletal:positive for foot pain OBJECTIVE: There were no vitals taken for this visit. Gen: A+Ox3, NAD Lower extremity examination Ulcer #1 Type: Diabetic Location: Right 2nd toe Severity: Stage II with exposed subcutaneous tissue Size predebridement: 1.0 cm 1.5cm x 0.2cm Size postdebridement: 1.0 cm 1.5cm x 0.2cm Edges: macerated Shape: Irregular Drainage: none Odor: None Wound bed: 80% granular, 20% fibrotic Periwound: Erythematous, dry, no calor Infection: None Progress: Improved Vascular: Dorsalis pedis and posterior pulses palpable, CFT immediate to all digits, TG warm to warm within normal limits. Moderate Edema present to right second toe Neurological: protective sensation diminished Dermatological: right second toe with improved ulceration measuring 1.5cm x 1.0cm x 0.2cm deep withcentral skin bridging, improved erythema, no drainage, no other open lesions, no clinical signs of infection present Musculoskeletal: mild pain with debridement of blister ASSESSMENT/PLAN: 1. Cellulitis of toe of right foot Improved, no further antibiotics warranted. Continue to monitor and present to Emergency Room if any symptoms of infection arise. 2. Diabetic ulcer of toe of right foot associated with type 2 diabetes mellitus, unspecified ulcer stage ([facility]) No debridement performed today. Significantly improved from last visit. Recommend continued care ofbetadine/gauze/bandaid with epsom salt soaks. Continue to use surgical shoe. Be alert for signs/symptoms of infection. Follow up 2 weeks for continued wound care This note was prepared using voice recognition software and the EMR. There may be inadvertent errors and omissions. Raj Nicole DPM 09/03/2023 documented in this encounter Plan of Treatment Upcoming Encounters Date Type Department Care Team (Late st Contact Info) Description 11/16/2023 11:00 EDT Office Visit [facility] Vascular Surgery [facility] [address] [place] [address] Eros Cervantes MD [address] [place] [address], [facility] [address] [place] [address] documented as of this encounter Visit Diagnoses Diagnosis Cellulitis of toe of right foot- Primary Cellulitis and abscess of toe, unspecified Diabetic ulcer of toe of right foot associated with type 2 diabetes mellitus, unspecified ulcer stage ([facility]) documented in this encounter Care Teams Renewable Energy Technician Relationship Specialty Start Date End Date Rodrigo Shin PA-C [address] [place] [address] PCP - General 10/18/20 documented as of this encounter
--- OUTSIDE RECORDS SUMMARY | 2023-11-01 16:50 | XMS_ITS | Encounter Summary ---
Author Organization [facility] Address [facility] [place] [address] Care Team Providers Care Oncology Social Worker Name Role Phone Rodrigo Shin Primary Care Provider [phone]- [phone] Reason for Visit * Reason Onset Date Comments Results 03/31/2015 Encounter Details Date Type Department Care Team (Late st Contact Info) Description 03/31/2015 Telephone Dermatology at [facility] [address] [place] [address] Julio Hernandez MD [address] [facility] [place] [address] Results Social History Tobacco Use Types Packs/Day Years Used Date Smoking Tobacco: Never Alcohol Use Standard Drinks/Week Comments Not Asked 0 (1 standard drink = 0.6 oz pur e alcohol) Sex and Gender Information Value Date Recorded Sex Assigned at Not on file Gender Identity Not on file Sexual Orientation Not on file documented as of this encounter Miscellaneous Notes * Telephone Encounter - Julio Hernandez MD - 03/31/2015 2:55 PM EST Discussed pathology results and treatment recommendations with the patient. Pathology Report [id number] DIAGNOSIS Skin, right lateral arm, shave biopsy only: - PIGMENTED BASAL CELL CARCINOMA, extending to the peripheral and deep specimen edges. Assessment and Recomendation Basal Cell Carcinoma, Right Lateral Arm Recommend excision with 4mm margins. Discussed other approved options, though less efficacious and longer treatment course, include C&E, cryotherapy, shave saucerization, PDT, efudex, aldara. Risks and benefits of each, including but not limited to scar (scar spread, track che, keloid, hypertrophic scar), pain, infection, nerve damage), bleeding/hematoma. Given increased risk for a new primary skin cancer as well as recurrence, following treatment, recommend skin cancer screening every 3 mo for the first year, every 6 mo for the second year and every year thereafter if no new or recurrent skin cancers. Answered all questions. documented in this encounter Plan of Treatment Not on file documented as of this encounter Visit Diagnoses Diagnosis Basal cell carcinoma, upper extremity, right documented in this encounter Care Teams Oncology Social Worker Relationship Specialty Start Date End Date Rodrigo Shin PA [address] [place] [address] PCP - General Family Medicine 02/22/15 04/09/16 documented as of this encounter
--- OUTSIDE RECORDS SUMMARY | 2023-11-01 16:50 | XMS_ITS | Encounter Summary ---
Author Organization [facility] Address [facility] [place] [address] Care Team Providers Care Dental Prosthetist Name Role Phone Rodrigo Shin Primary Care Provider +1- [phone] Encounter Details Date Type Department Care Team (Late st Contact Info) Description 06/04/2015 10:00 AM EDT [facility] [address] [place] [address] Social History Tobacco Use Types Packs/Day Years [...] on filedocumented in this encounter Care Teams Dental Prosthetist Relationship Specialty Start Date End Date Rodrigo Shin PA [address] [place] [address] PCP - General Family Medicine 02/22/15 04/09/16 documented as of this encounter
--- OUTSIDE RECORDS SUMMARY | 2023-11-01 16:50 | XMS_ITS | Referral Summary ---
Author Organization [facility] Address [address] [place] [address] Care Team Providers Care Vegetable Picker Name Role Phone Rodrigo Shin PA-C Primary Care Provider + Encounters Date Type Department Care Team Description 10/26/2023 12:15 EDT Phlebotomy Only [facility] - Outpatient Phlebotomy Drawing [address] [place] [address] [place], [facility] Cellulitis of toe of right foot; Diabetic ulcer of toe of right foot associated with type 2 diabetes mellitus, unspecified ulcer stage ([facility]) 10/26/2023 11:[address] [facility] Podiatry [address] [place] [address] Raj Nicole DPM Cellulitis of toe of right foot (Primary Dx); Diabetic ulcer of toe of right foot associated with type 2 diabetes mellitus, unspecified ulcer stage ([facility]) 10/03/[address] [facility] Sport Medicine [address], [address] [place] [address] Raj Nicole DPM Other 09/17/2023 16:[address] [facility] [address] [place] [address] Raj Nicole DPM Cellulitis of toe of right foot (Primary Dx); Diabetic ulcer of toe of right foot associated with type 2 diabetes mellitus, unspecified ulcer stage ([facility]); Acute right ankle pain; Venous insufficiency 09/03/2023 13:[address] [facility] [address] [place], [place] [id number] Raj Nicole DPM Cellulitis of toe of right foot (Primary Dx); Diabetic ulcer of toe of right foot associated with type 2 diabetes mellitus, unspecified ulcer stage ([facility]) 08/31/[address] [facility] [address] [place], [place] [phone] Ying Reyna, ABDULALHI Other 08/30/[address] [facility] [address] [place] [address] Ying Reyna, ABDULLAHI Results 08/30/[address] [facility] [address] [place], [place] [phone] Raj Nicole DPM Cellulitis of toe of right foot (Primary Dx) 08/27/2023 13:[address] [facility] [address] [place], [place] [id number] Raj Nicole DPM Diabetic ulcer of toe of right foot associated with type 2 diabetes mellitus, unspecified ulcer stage ([facility]) (Primary Dx); Cellulitis of toe of right foot 08/14/[address] [facility] [address] [place] [address] Ying Reyna, ABDULLAHI Appointment Related from Last 3 Months Allergies No known active allergies Medications Medication Sig Dispensed Refills Start Date End Date Status clindamycin (CLEOCIN) 300 mg capsuleIndication s:Cellulitis of toe of right foot Take 1 Capsule by mouth 3 times daily for 7 days. 21 Capsule 10/05/2023 10/05/2023 Discontinued clindamycin (CLEOCIN) 300 mg capsuleIndication s:Cellulitis of toe of right foot Take 1 Capsule by mouth 3 times daily for 7 days. 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 Venous insufficiency (chronic) (peripheral) 04/2020 Immunizations Name Administration Dates Next Due Covid-19 mRNA Vaccine (MODER NA COVID-19) PF 0.5 ml IM (12 yrs+) 07/04/2020,06/06/2020 Social History Tobacco Use Types Packs/Day Years Used Date Smoking Tobacco: Never Assessed Sex and Gender Information Value Date Recorded Sex Assigned at Not on file Gender Identity Not on file Sexual Orientation Not on file Last Filed Vital Signs Vital Sign Reading Time Taken Comments Blood Pressure 170/90 10/22/2020 1137 EDT Pulse 81 09/17/2023 1626 EDT Temperature - - Respiratory Rate - - Oxygen Saturation 100% 09/17/2023 1626 EDT Inhaled Oxygen Concentration - - Weight - - Height - - Body Mass Index - - Plan of Treatment Upcoming Encounters Date Type Department Care Team (Late st Contact Info) Description 11/16/2023 11:00 EDT Office Visit [facility] Vascular Surgery [facility] [address] [place] [address] Eros Cervantes MD [address] [facility], [address] [place] [id number] Procedures Procedure Name Priority Date/Time Associated Diagnosis Comments COMPLETE BLOOD COUNT AND DIFFERENTIAL Routine 10/26/2023 12:19 EDT Cellulitis of toe of right foot Diabetic ulcer of toe of right foot associated with type 2 diabetes mellitus, unspecified ulcer stage ([facility]) C REACTIVE PROTEIN Routine 10/26/2023 12 :19 EDT Cellulitis of toe of right foot Diabetic ulcer of toe of right foot associated with type 2 diabetes mellitus, unspecified ulcer stage ([facility]) XR ANKLE RIGHT 3 OR MORE VIEWS Routine 09/17/2023 16:49 EDT Acute right ankle pain BACTERIAL CULTURE/SMEAR Routine 08/27/2023 14:21 EDT Diabetic ulcer of toe of right foot associated with type 2 diabetes mellitus, unspecified ulcer stage ([facility]) Cellulitis of toe of right foot XR TOE RIGHT 2 OR MORE VIEWS Routine 08/27/2023 13:34 EDT Diabetic ulcer of toe of right foot associated with type 2 diabetes mellitus, unspecified ulcer stage ([facility]) from Last 3 Months Results * COMPLETE BLOOD COUNT AND DIFFERENTIAL (10/26/2023 12:19 EDT) WBC 8.33 4.00 - 12.40 K/cmm 10/26/2023 12:35 [facility] RBC 4.38 3.86 - 5.04 M/cmm 10/26/2023 12:35 [facility] Hemoglobin 12.3 11.6 - 15.2 g/dL 10/26/2023 12:35 [facility] HCT 36.7 34.9 - 44.4 % 10/26/2023 12:35 [facility] MCV 84 81 - 98 fL 10/26/2023 12:35 [facility] MCH 28.1 26.7 - 33.3 pg 10/26/2023 12:35 [facility] MCHC 33.5 32.1 - 35.9 g/dL 10/26/2023 12:35 [facility] RDW-CV 14.2 <14.7 % 10/26/2023 12:35 [facility] RDW-SD 43.6 <50.4 fl 10/26/2023 12:35 [facility] PLT 271 141 - 377 K/cmm 10/26/2023 12:35 [facility] MPV 11.1 9.5 - 12.7 fL 10/26/2023 12:35 [facility] % Neutrophils 72.6 % 10/26/2023 12:35 [facility] % Lymphocytes 19.7 % 10/26/2023 12:35 [facility] % Monocytes 4.8 % 10/26/2023 12:35 [facility] % Eosinophils 2.2 % 10/26/2023 12:35 [facility] % Basophils 0.2 % 10/26/2023 12:35 [facility] % Immature Grans 0.5 <0.9 % 10/26/19 12:35 [facility] Absolute Neutrophils 6.05 2.20 - 8.85 K/cmm 10/26/2023 12:35 [facility] Absolute Lymphocytes 1.64 1.09 - 3.30 K/cmm 10/26/2023 12:35 [facility] Absolute Monocytes 0.40 0.10 - 0.80 K/cmm 10/26/2023 12:35 [facility] Absolute Eosinophils 0.18 0.03 - 0.61 K/cmm 10/26/2023 12:35 [facility] ABS Basophils 0.02 0.01 - 0.11 K/cmm 10/26/2023 12:35 [facility] Absolute Immature Grans 0.04 0.00 - 0.06 K/cmm 10/26/2023 12:35 [facility] Type of Differential: Auto 10/26/2023 12:35 [facility] Blood VENOUS BLOOD / Unknown Venipuncture / Unknown 10/26/2023 12:19 EDT 10/26/2023 12:32 EDT Raj Nicole DPM PACKAGES & DNA GA OBE ORDERABLES [facility] [address] [place] [address] * C REACTIVE PROTEIN (10/26/2023 12:19 EDT) C-Reactive Protein <5.0 <10.0 mg/L 10/26/2023 13:11 EDT [facility] Blood VENOUS BLOOD / Unknown Venipuncture / Unknown 10/26/2023 12:19 EDT 10/26/2023 12:38 EDT Raj Martinez Corey DPLiv CHEMISTRY & BLOOD GAS ORDERABLES [facility] [address] [place] [address] * XR ANKLE RIGHT 3 OR MORE VIEWS (09/17/2023 16:49 EDT) Anatomical Region Laterality Modality Lower Extremities, Ankle Right Compute d Radiography 09/17/2023 16:5 4 EDT Impressions 09/18/2023 14:04 EDT Soft tissue swelling about the ankle could represent a soft tissue injury. Clinical correlation is recommended. Further evaluation as clinically warranted. Calcaneal spurs. THIS DOCUMENT HAS BEEN ELECTRONICALLY SIGNED BY POLO LERMA MD FOR ANY QUESTIONS OR CONCERNS REGARDING THIS REPORT PLEASE CALL [facility] AT [phone] Narrative 09/18/2023 14:04 EDT PROCEDURE INFORMATION: Exam: XR Right Ankle Exam date and time: 09/17/2023 4:54 PM Age: 73 years old Clinical indication: Pain in right ankle and joints of right foot; Additional info: Right ankle pain TECHNIQUE: Imaging protocol: Radiologic exam of the right ankle. Views: 3 or more views. COMPARISON: CR XR TOE RIGHT 2 OR MORE VIEWS 08/27/2023 1:27 PM FINDINGS: Bones/joints: There is no evidence of a fracture or a dislocation. There is a large inferior calcaneal spur. There is an Achilles tendon spur. Soft tissues: There is soft tissue swelling about the ankle. This could indicate a soft tissue injury. Procedure Note Polo Lerma MD - 09/18/2023 PROCEDURE INFORMATION: Exam: XR Right Ankle Exam date and time: 09/17/2023 4:54 PM Age: 73 years old Clinical indication: Pain in right ankle and joints of right foot; Additional info: Right ankle pain TECHNIQUE: Imaging protocol: Radiologic exam of the right ankle. Views: 3 or more views. COMPARISON: CR XR TOE RIGHT 2 OR MORE VIEWS 08/27/2023 1:27 PM FINDINGS: Bones/joints: There is no evidence of a fracture or a dislocation. There is a large inferior calcaneal spur. There is an Achilles tendon spur. Soft tissues: There is soft tissue swelling about the ankle. This could indicate a soft tissue injury. IMPRESSION Soft tissue swelling about the ankle could represent a soft tissue injury. Clinical correlation is recommended. Further evaluation as clinically warranted. Calcaneal spurs. THIS DOCUMENT HAS BEEN ELECTRONICALLY SIGNED BY POLO LERMA MD FOR ANY QUESTIONS OR CONCERNS REGARDING THIS REPORT PLEASE CALL [facility] [phone] Raj Nicole DPM IMG DIAGNOSTIC IM AGING ORDERABLES * (ABNORMAL) BACTERIAL CULTURE/SMEAR (08/27/2023 14:21 EDT) Organism ID Few Raoultella ornithinolytic a(A) VITEK SUSCEPTIBILITY 08/30/2023 7:17 EDT [facility] Comment: Organism ID Rare VITEK SUSCEPTIBILITY 08/30/2023 7:17 [facility] Comment: Usual skin davey Smear No Neutrophils Seen 08/30/2023 7:17 EDT [facility] Smear No bacteria seen 08/30/2023 7:17 [facility] Comment:ESWAB Swab FOOT STRUCTURE / Unknown Swab / Unknown 08/27/2023 14:21 EDT 08/27/2023 14:21 EDT Narrative Organism Antibiotic Method Susceptibility Raoultella ornithinolytica Amoxicillin Clavulanic acid VITEK SUSCEPTIBILITY 4 ug/mL: Susceptible Raoultella ornithinolytica Ampicillin VITEK SUSCEPTIBILITY 16 ug/mL: Resistant Raoultella ornithinolytica Ampicillin Sulbactam VITEK SUSCEPTIBILITY 4 ug/mL: Susceptible Raoultella ornithinolytica Cefepime VITEK SUSCEPTIBILITY <=1 ug/mL: Susceptible Raoultella ornithinolytica Ceftriaxone VITEK SUSCEPTIBILITY <=1 ug/mL: Susceptible Raoultella ornithinolytica Ciprofloxacin VITEK SUSCEPTIBILITY <=0.25 ug/mL: Susceptible Raoultella ornithinolytica Gentamicin VITEK SUSCEPTIBILITY <=1 ug/mL: Susceptible Raoultella ornithinolytica Imipenem VITEK SUSCEPTIBILITY <=0.25 ug/mL: Susceptible Raoultella ornithinolytica Tobramycin VITEK SUSCEPTIBILITY <=1 ug/mL: Susceptible Raoultella ornithinolytica Trimethoprim-Sulfame thoxazole VITEK SUSCEPTIBILITY <=20 ug/mL: Susceptible Raj Martinez Corey [facility] ORDERABLES [facility] [address] [place] [address] * XR TOE RIGHT 2 OR MORE VIEWS (08/27/2023 13:34 EDT) Anatomical Region Laterality Modality Lower Extremities Right Computed Radio graphy 08/27/2023 13:2 7 EDT Impressions 08/28/2023 14:37 EDT 1. ?? Marked soft tissue swelling at the level of the 2nd toe. No evidence of osteomyelitis. If osteomyelitis is of a clinical concern further evaluation could be obtained with a three-phase nuclear medicine bone scan versus MRI examination. 2. ?? Suspect old trauma as above. THIS DOCUMENT HAS BEEN ELECTRONICALLY SIGNED BY POLO LERMA MD FOR ANY QUESTIONS OR CONCERNS REGARDING THIS REPORT PLEASE CALL [facility] AT [phone] Narrative 08/28/2023 14:37 EDT PROCEDURE INFORMATION: Exam: XR Right Toe(s) Exam date and time: 08/27/2023 1:27 PM Age: 73 years old Clinical indication: Type 2 diabetes mellitus with foot ulcer; Non-pressure chronic ulcer of other part of right foot with unspecified severity; Pain; Toes; Additional info: Toe pain TECHNIQUE: Imaging protocol: Radiologic exam of the right toes. Views: Minimum 2 views. COMPARISON: No relevant prior studies available. FINDINGS: Bones/joints: There is no evidence of a fracture or a dislocation. There is no evidence of osteomyelitis. There is a well corticated bony fragment at the base of the distal phalanx of the great toe. This could represent an old traumatic injury. Soft tissues: There is marked soft tissue swelling at the level of the 2nd toe. Procedure Note Polo Lerma MD - 08/28/2023 PROCEDURE INFORMATION: Exam: XR Right Toe(s) Exam date and time: 08/27/2023 1:27 PM Age: 73 years old Clinical indication: Type 2 diabetes mellitus with foot ulcer; Non-pressure chronic ulcer of other part of right foot with unspecified severity; Pain; Toes; Additional info: Toe pain TECHNIQUE: Imaging protocol: Radiologic exam of the right toes. Views: Minimum 2 views. COMPARISON: No relevant prior studies available. FINDINGS: Bones/joints: There is no evidence of a fracture or a dislocation. There is no evidence of osteomyelitis. There is a well corticated bony fragment at the base of the distal phalanx of the great toe. This could represent an old traumatic injury. Soft tissues: There is marked soft tissue swelling at the level of the 2nd toe. IMPRESSION 1. Marked soft tissue swelling at the level of the 2nd toe. No evidence of osteomyelitis. If osteomyelitis is of a clinical concern further evaluation could be obtained with a three-phase nuclear medicine bone scan versus MRI examination. 2. Suspect old trauma as above. THIS DOCUMENT HAS BEEN ELECTRONICALLY SIGNED BY POLO LERMA MD FOR ANY QUESTIONS OR CONCERNS REGARDING THIS REPORT PLEASE CALL [facility] [phone] Raj Nicole DPM IMG DIAGNOSTIC IM AGING ORDERABLES from Last 3 Months Care Teams Vegetable Picker Relationship Specialty Start Date End Date Rodrigo Shin PA-C [address] [place] [phone] PCP - General 10/18/20
--- OUTSIDE RECORDS SUMMARY | 2023-11-01 16:50 | XMS_ITS | Encounter Summary ---
Author Organization [facility] Address [address] [place] [address] Care Team Providers Care Anaesthetic Technician Name Role Phone Unavailable Primary Care Provider Unavailabl e Encounter Details Date Type Department Care Team (Late st Contact Info) Description 09/10/2002 Results Only [facility] - Maple conversion [address] [place] [address] Anne Marie Lee MD [address] [place] [address] [place] [address] Social History Tobacco Use Types Packs/Day Years Used Date Smoking Tobacco: Never Assessed Sex and Gender Information Value Date Recorded Sex Assigned at Not on file Gender Identity Not on file Sexual Orientation Not on file documented as of this encounter Plan of Treatment Upcoming Encounters Date Type Department Care Team (Late st Contact Info) Description 11/16/2023 11:00 EDT Office Visit [facility] Vascular Surgery [place] [address] [place] [address] Eros Cervantes MD [address] [facility], [facility], [address] [place] [phone] documented as of this encounter Procedures Procedure Name Priority Date/Time Associated Diagnosis Comments SURGICAL PATHOLOGY Routine 09/10/2002 0:00 EDT documented in this encounter Results * SURGICAL PATHOLOGY (09/10/2002 0:00 EDT) Pathology Report: SURGICAL PATHOLOGY REPORT Reports generated via electronic interface contain original data; however they are lacking the format of the original report. Caution should be taken when reading/interpreti ng unformatted reports. Name: ? QUYEN BILL ? Accession #: ? [id number] ? : ? 1950 (Age: 52) ??F ? Collect Date: ? 09/10/2002 ? Location: ? [facility] ? Receive Date: ? 09/12/2002 ? Provider: ANNE MARIE LEE MD Copy to: THAIS BROWER FIRE PREVENTION ENGINEER ? Final Pathologic Diagnosis: ? Endometrium, biopsy: 1. ?Focally disordered proliferative endometrium. 2. ?Eosinophilic and tubal metaplasia. 3. ?No hyperplasia, atypia or malignancy. Document reviewed and electronically signed by: DALIA VILLAREAL MD Report ??Date: 09/15/2002 17:04 By the signature above, the attending physician certifies that he/she has personally conducted a gross and/or microscopic examination of the described specimens and rendered or confirmed the above diagnosis. Specimen(s) Received: ? Endometrial bx Clinical History: ? DUB, no hormone; LMP: ??08/19/02 Gross Description: ? Received in formalin labelled Landy and endometrium is a 2.5 x 2.0 x 0.6 cm aggregate of botello soft tissue fragments admixed with blood clot. ??Entirely submitted in (A1) and (A2). ??(Nika Rosario/trista End of Report [facility] 09/10/2002 09/12/2002 10: 36 EDT Anne Marie Lee MD PATHOLOGY ORDERABLES Performing Organization Address City/State/[facility] Co de Phone Number [facility] [address] [place] [address] documented in this encounter Visit Diagnoses Not on filedocumented in this encounter
--- OUTSIDE RECORDS SUMMARY | 2023-11-01 16:50 | XMS_ITS | Encounter Summary ---
Author Organization [facility] [place] [address] Care Team Providers Care Churn Operator Margarine Name Role Phone Eileen Reis MD Primary Care Provider [phone] Reason for Visit * Reason Comments Breast Mass Encounter Details Date Type Department Care Team (Late st Contact Info) Description 08/19/2010 11:15 AM EDT Office [place] [address] Ale Womack, BALANCE STAFF STAKER [facility] [place] [address] Breast cyst (Primary Dx) Discharge Disposition: Home Social History Tobacco Use Types Packs/Day Years Used Date Smoking Tobacco: Never Alcohol Use Standard Drinks/Week Comments Not Asked 0 (1 standard drink = 0.6 oz pur e alcohol) Sex and Gender Information Value Date Recorded Sex Assigned at Not on file Gender Identity Not on file Sexual Orientation Not on file documented as of this encounter Progress Notes * Ale Womack, BALANCE STAFF STAKER - 08/19/2010 12:40 PM EDT Ms. Bill is a 60 y.o. year-old patient who is seen in consultation from Dr Eileen Reis for evaluation and possible aspiration of a large cystic mass in the superior aspect of her right breast. Ms. Bill appreciated this on self exam in June. In April of this year she had a bilateral mammogram at [facility] which was read as a cat 1 on the left and a cat 0 on the right. She then felt a right breast mass and had a right mammogram and US which was read as a cat 3 (large 2.7cm simple cyst at 1200 with an adjacent 5mm mass medial to the cyst) a 6month follow up US is scheduled for 12/2010. The mas has become increasingly more painful and Quyen would like it aspirated. She denies any skin changes, breast trauma, prior breast surgery or nipple discharge. She does not have a history of cystic breast tissue and has not had cysts aspirated in the past. She does do regular self-breast exams. Weight stable. She has no new or concerning complaints of fatigue, cardiovascular or respiratory symptoms. All other ROS are negative. Reproductive History: , had her first child at the age of 28 and did not nurse her children. Menarche began at 16.Her LMP was July 2010 (sje is cee menopausal) . HRT/OC: none Family History: Negative for breast or ovarian cancer. Social History: She works for her . She does not smoke. Past Medical History:Type 2 DM,HTN,Neuropathy Past Surgical History: Noncontributory Physical Exam: She looks well and is in no apparent distress. Her skin is anicteric with good turgor. Sclera are anicteric. Her head and neck are without masses or adenopathy. Her arms have good ROM without any evidence of lymphedema. Her breasts are symmetric. Her nipples are everted. There is no axillary adenopathy on the right or the left. There are no skin changes or dimpling noted in either breast. The right breast is notable for generally homogenous breast tissue,with a large discrete mass at 1200.Mass is approx 3cm in dimension Her left breast exam is similar in character to her right breast,without discrete masses. With her permission, I identified the mass to be aspirated and under sterile technique, I infiltrated her skin with lidocaine and aspirated 15cc of greenish botello fluid with resolution of the mass. Assessment: Clinical breast exam notable for fibrocystic breast tissue With a large simple cyst in her right breast,resolved with aspiration. Plan: I have advised Ms. Bill to continue to do regular self-breast exam and continue to get annual clinical breast exams. We discussed how the symptoms she is experiencing are most likely related to perimenopausal changesand will improve over time. In light of her history and findings, I recommend observation at this time and PRN surgical follow up. She will also contact me if she develops any new masses in her breast. Her next breast imaging is due 12/2010 or sooner if indicated. Ms. Bill agrees to this plan. EILEEN REIS MD documented in this encounter Plan of Treatment Not on file documented as of this encounter Visit Diagnoses Diagnosis Breast cyst- Primary Solitary cyst of breast documented in this encounter Care Teams Churn Operator Margarine Relationship Specialty Start Date End Date Eileen Reis MD [facility] [address] [place] [address] [place] [address] PCP - General 03/23/10 02/21/15 documented as of this encounter
--- OUTSIDE RECORDS SUMMARY | 2023-11-01 16:50 | XMS_ITS | Encounter Summary ---
Author Organization [facility] Address [address] [place] [address] Care Team Providers Care Transport Truck Driver Name Role Phone Rodrigo Shin PA-C Primary Care Provider + Reason for Referral * Consult (Routine/Next Available) - Authorization Not Required Specialty Diagnoses / Procedures Ref[facility] Referred To Contact Vascular Surgery Diagnoses Acute right ankle pain Venous insufficiency Rja Nicole DPM [address] [facility] [address] [place] [id number] Surgery [address] [place] [address] Referral ID Status Reason Start Date Expiration Date Visits Requested Visits Authorized [id number] Authorization Not Required Specialty Services Required 4 1 1 Question Answer Reason for Request: previous patient, venous insufficiency wants to follow up Reason for Visit * Reason Comments Follow-up Encounter Details Date Type Department Care Team ([facility] Contact Info) Description 09/17/2023 16:30 EDT Office Visit [facility] [address] [place], [place] [id number] Raj Nicole DPM [address] [facility] [address] [place], [place] [phone] Cellulitis of toe of right foot (Primary Dx); Diabetic ulcer of toe of right foot associated with type 2 diabetes mellitus, unspecified ulcer stage ([facility]); Acute right ankle pain; Venous insufficiency Social History Tobacco Use Types Packs/Day Years Used Date Smoking Tobacco: Never Assessed Sex and Gender Information Value Date Recorded Sex Assigned at Not on file Gender Identity Not on file Sexual Orientation Not on file documented as of this encounter Last Filed Vital Signs Vital Sign Reading Time Taken Comments Blood Pressure - - Pulse 81 09/17/2023 1626 EDT Temperature - - Respiratory Rate - - Oxygen Saturation 100% 09/17/2023 1626 EDT Inhaled Oxygen Concentration - - Weight - - Height - - Body Mass Index - - documented in this encounter Progress Notes * Raj Nicole, DPLiv - 09/17/2023 1630 EDT CHIEF COMPLAINT: Chief Complaint Patient presents with Right Foot - Follow-up SUBJECTIVE: Quyen Bill is a 73 y.o. female who presents today for follow up wound care. Has been compliant with dressing changes. Seen today in regular shoes because the surgical shoe was too uncomfortable. Denies any acute events since the last visit. Continues to have right ankle pain and swelling that she feels is related to her venous insufficiency and varicose veins. She has seen a vascular surgeon for this in the past however did not follow up. Denies other pedal complaints. I have reviewed the medication list. Pertinent changes noted. ROS: Constitutional: negative for, fever, Musculoskeletal:positive for foot pain OBJECTIVE: Pulse 81 SpO2 100% Gen: A+Ox3, NAD Lower extremity examination Ulcer [...] Musculoskeletal: mild pain with debridement of blister Radiographs of right ankle were ordered and taken in the office today. These were independently reviewed by me. IMPRESSION: No acute osseous abnormalities ASSESSMENT/PLAN: 1. Cellulitis of toe of right foot Remains under control. No antibiotics warranted 2. Diabetic ulcer of toe of right foot associated with type 2 diabetes mellitus, unspecified ulcer stage ([facility]) No debridement performed today. Significantly improved from last visit. Recommend continued care ofcalcium alginate/gauze/bandaid with toe pillow. Continue with epsom salt soaks. Continue to use surgical shoe. Be alert for signs/symptoms of infection. Follow up 2 weeks for continued wound care 3. Acute right ankle pain 4. Venous insufficiency No osseous abnormalities on Xray. Continue to RICE and use compression stockings. New referral for vascular surgery sent today. May consider an MRI in the future if symptoms persist or worsen. - XR ANKLE RIGHT 3 OR MORE VIEWS This note was prepared using voice recognition software and the EMR. There may be inadvertent errors and omissions. Raj Nicole DPM 09/17/2023 documented in this encounter Plan of Treatment Upcoming Encounters Date Type Department Care Team (Late st Contact Info) Description 11/16/2023 11:00 EDT Office Visit [facility] Vascular Surgery [address] [address] Eros Cervantes MD [address] [place] [address], [address] [place] [address] Scheduled Referrals Name Type Priority Associated Diagnoses Orde r Schedule AMB CONS/FOLLOW UP VASCULAR SURGERY Outpatient Referral Routine/Next Available Acute right ankle pain Venous insufficiency Expected: 10/20/2023 (Approximate), Expires: 09/18/2024 documented as of this encounter Procedures Procedure Name Priority Date/Time Associated Diagnosis Comments XR ANKLE RIGHT 3 OR MORE VIEWS Routine 09/17/2023 16:49 EDT Acute right ankle pain documented in this encounter Results * XR ANKLE RIGHT 3 OR MORE [...] REGARDING THIS REPORT PLEASE CALL [facility] AT [phone] Narrative 09/18/2023 14:04 EDT PROCEDURE INFORMATION: Exam: [...] CONCERNS REGARDING THIS REPORT PLEASE CALL [facility] [phone] Raj Nicole DPM IMG DIAGNOSTIC IM AGING ORDERABLES documented in this encounter Visit Diagnoses Diagnosis Cellulitis of toe of right foot- Primary Cellulitis and abscess of toe, unspecified Diabetic ulcer of toe of right foot associated with type 2 diabetes mellitus, unspecified ulcer stage ([facility]) Acute right ankle pain Venous insufficiency Unspecified venous (peripheral) insufficiency documented in this encounter Care Teams Transport Truck Driver Relationship Specialty Start Date End Date Rodrigo Shin PA-C [address] [place] [phone] PCP - General 10/18/20 documented as of this encounter
--- OUTSIDE RECORDS SUMMARY | 2023-11-01 16:50 | XMS_ITS | Encounter Summary ---
Author Organization [facility] Address [address] [place] [address] Care Team Providers Care Gambling Supervisor Name Role Phone Rodrigo Shin PA-C Primary Care Provider + Reason for Visit * Reason Comments Other consult-varicose vei ns * Referral (Routine) - Receiving Office to Obtain Authorization Specialty Diagnoses / Procedures Referred By Venancio medeiros Referred To Contact Vascular Surgery Diagnoses Varicose veins of other specified sites Rodrigo Shin PA-C [address] [place] [address] Surgery [address] [place] [address] Referral ID Status Reason Start Date Expiration Date Visits Requested Visits Authorized [id number] Receiving Office to Obtain Authorization 1 1 Encounter Details Date Type Department Care Team (Late st Contact Info) Description 10/22/2020 11:[address] [facility] Vascular Surgery - [place] [address] [place] [address] Nan Villarreal MD [address] [facility], [facility], [address] [place] [address] Symptomatic reticular veins (Primary Dx); Venous insufficiency (chronic) (peripheral) Social History Tobacco Use Types Packs/Day Years [...] 11:31 EDT documented as of this encounter Last Filed Vital Signs Vital Sign Reading Time Taken Comments Blood Pressure 170/90 10/22/2020 1137 EDT Pulse - - Temperature - - Respiratory Rate - - Oxygen Saturation - - Inhaled Oxygen Concentration - - Weight - - Height - - Body Mass Index - - documented in this encounter Progress Notes * Nan Villarreal MD - 10/22/2020 1130 EDT Images from the original note were not included. Subjective: Quyen Bill is a 70 y.o. female who was referred by Rodrigo Shin for evaluation of varicose veins. She reports a long history of lower extremity varicose veins and spider veins. She has had sclerotherapy in the past. Prior to Covid, she had been evaluated at [facility] and had a plan for surgery but then backed out of that. She is desirous of a 2nd opinion. She reports bilateral lower extremity aching discomfort, worse at the end of the day if she is beenmore active. She will have a pulling sensation in the right thigh. She also has nighttime leg cramps that wake her from sleep. She has itching as well especially in the right thigh where visible varicosities are present. She notes swelling to the mid calves as well. Quyen has never worn compression. She does have type 2 diabetes with some peripheral neuropathy forwhich she takes Neurontin. She is pleased that her last A1c was 6.7. She does have a family history of varicose veins but no family or personal history of thrombosis. Past Medical History: Diagnosis Date ??? Actinic keratosis ??? Anxiety ??? Dermatitis ??? Diabetes mellitus ([facility]) type 2 ??? Hyperlipidemia ??? Hypertension ??? Hypothyroidism ??? Metabolic syndrome X ??? Onychomycosis Patient Active Problem List Diagnosis ??? Symptomatic reticular veins ??? Venous insufficiency (chronic) (peripheral) Past Surgical History: Procedure Laterality Date ??? BREAST SURGERY augmentation ??? SECTION ??? OK INJECTION SCLEROSANT SINGLE INCMPTNT VEIN History reviewed. No pertinent family history. Social History Socioeconomic History ??? Marital status: Spouse name: None ??? Number of children: None ??? Years of education: None ??? Highest education level: None Occupational History ??? None Tobacco Use ??? Smoking status: None Substance and Sexual Activity ??? Alcohol use: None ??? Drug use: None ??? Sexual activity: None Other Topics Concern ??? None Social History Narrative ??? None Social Determinants of Health Financial Resource Strain: ??? Difficulty of Paying Living Expenses: Food Insecurity: ??? Worried About Running Out of Food in the Last Year: ??? Ran Out of Food in the Last Year: Transportation Needs: ??? Lack of Transportation (Medical): ??? Lack of Transportation (Non-Medical): Physical Activity: ??? Days of Exercise per Week: ??? Minutes of Exercise per Session: Stress: ??? Feeling of Stress : Social Connections: ??? Frequency of Communication with Friends and Family: ??? Frequency of Social Gatherings with Friends and Family: ??? Attends Sikh Services: ??? Active Member of Clubs or Organizations: ??? Attends Club or Organization Meetings: ??? Marital Status: No current outpatient medications on file. No current facility-administered medications for this visit. Prior to encounter medications: No current outpatient medications on file prior to visit. No current facility-administered medications on file prior to visit. No Known Allergies Review of Systems A comprehensive review of systems was negative except for: symptoms as above Objective: Vitals: 10/22/20 1137 BP: (!) 170/90 BP Cuff Location: Right arm BP Patient Position: Sitting General: alert, cooperative and no distressExtremities: varicose veins noted - few bulging varicosities in the right anterolateral calf and anterolateral right thigh; numerous scattered reticular andsmall varicosities, with spider veins over both lower extremities Pulses: 2+ and symmetric Skin: No induration, inflammation, or hyperpigmentation; mild edema bilaterally Imaging:Duplex of Bilateral lower extremity was performed and revealed superficial venous insufficiency in the bilateral great saphenous veins and right anterior saphenous vein. The reflux was less than 2 seconds in the great saphenous veins. There was no evidence of deep insufficiency or thrombosis. Assessment: Quyen Bill is a 70-year-old woman with longstanding chronic venous disease. She has reflux in thegreat saphenous veins and symptoms of venous disease with aching pain, nighttime cramping, swelling, and itching. She has never used compression. I did talk to her about that. She also has small reticular and spider veins for which she has had sclerotherapy in the past. She is desirous of that treatment again. Plan: 1. Treatment options of compression, sclerotherapy, surgical treatment of venous insufficiency discussed with patient. We talked about option of radiofrequency ablation of the bilateral great saphenous veins with stab phlebectomy and about sclerotherapy. Achy pain, swelling, night sx may be best relieved with GSV treatment, though she may have some relief of itching and local symptoms over visible veins with just sclerotherapy. 2. Compression stocking. Rx provided for knee high and thigh high 20-30 mmHg compression. Stressed importance of thigh high compression after sclerotherapy 3. Follow up: for sclerotherapy - would like to do that first and then consider surgery. I spent a total of 40 minutes on the date of this encounter meeting with the patient and reviewing documentation/coordinating care as described in the above note. No procedures were performed at the time of the visit. documented in this encounter Plan of Treatment Upcoming Encounters Date Type Department Care Team (Late st Contact Info) Description 11/16/2023 11:[address] [facility] Vascular Surgery [address] [address] Eros Cervantes MD [address] [place] [address], [address] [place] [address] documented as of this encounter Procedures Procedure Name Priority Date/Time Associated Diagnosis Comments ORDERS - SCANNED 11/29/2020 13:57 EDT documented in this encounter Results * ORDERS - SCANNED (11/29/2020 13:57 EDT) 11/29/2020 13:5 7 EDT Scan 2 Fringe Weaver ADMISSION ORDERABLE S documented in this encounter Visit Diagnoses Diagnosis Symptomatic reticular veins- Primary Varicose veins of lower extremities with other complications Venous insufficiency (chronic) (peripheral) Unspecified venous (peripheral) insufficiency documented in this encounter Care Teams Gambling Supervisor Relationship Specialty Start Date End Date Rodrigo Shin PA-C [address] [place] [phone] PCP - General 10/18/20 documented as of this encounter
--- OUTSIDE RECORDS SUMMARY | 2023-11-01 16:50 | XMS_ITS | Encounter Summary ---
Author Organization [facility] [address] Care Team Providers Care Lamination Builder Name Role Phone Daphne Cervantes MD Primary Care Provider [phone] Encounter Details Date Type Department Care Team (Late st Contact Info) Description 09/05/2010 Orders [place] [address] Ale Womack APRN [facility] [place] [address] Social History Tobacco Use Types Packs/Day Years [...] Name Priority Date/Time Associated Diagnosis Comments FILM LIBRARY STORAGE ONLY MAMMO Routine 09/05/2010 12:00 PM EDT documented in this encounter Results * FILM LIBRARY- STORAGE ONLY MAMMO (09/05/2010 12:00 PM EDT) 09/05/2010 12:0 0 PM EDT Narrative [facility] - 06/25/2013 7:03 PM EDT This is a non-reportable exam. Procedure Note González Olguin - 06/25/2013 This is a non-reportable exam. Ale Womack APRN IMG FILM LIBRARY ORDERABLES RAD [address] [facility] [place] [address] documented in this encounter Visit Diagnoses Not on filedocumented in this encounter Care Teams Lamination Builder Relationship Specialty Start Date End Date Daphne Cervantes MD [facility] [address] [place] [address] [place] [address] PCP - General 03/23/10 1 documented as of this encounter
--- OUTSIDE RECORDS SUMMARY | 2023-11-01 16:50 | XMS_ITS | Encounter Summary ---
Author Organization [facility] Address [address] [place] [address] Care Team Providers Care Seamer Elastic Band Name Role Phone Rodrigo Shin PA-C Primary Care Provider + Encounter Details Date Type Department Care Team (Late st Contact Info) Description 10/26/2023 12:15 EDT Phlebotomy Only [facility] - Outpatient Phlebotomy Drawing [address] [place] [address] Lab, [facility] Op Phlebotomy Cellulitis of toe of right foot; Diabetic ulcer of toe of right foot associated with type 2 diabetes mellitus, unspecified ulcer stage ([facility]) Social History Tobacco Use Types Packs/Day Years Used Date Smoking Tobacco: Never Assessed Sex and Gender Information Value Date Recorded Sex Assigned at Not on file Gender Identity Not on file Sexual Orientation Not on file documented as of this encounter Plan of Treatment Upcoming Encounters Date Type Department Care Team (Late Contact Info) Description 11/16/2023 11:00 EDT Office Visit [facility] Vascular Surgery - [place] [address] [place] [address] Eros Cervantes MD 111 [facility] [address] [place] [address] documented as of this encounter Procedures Procedure Name Priority Date/Time Associated Diagnosis Comments COMPLETE BLOOD COUNT AND DIFFERENTIAL Routine 10/26/2023 12:19 EDT Cellulitis of toe of right foot Diabetic ulcer of toe of right foot associated with type 2 diabetes mellitus, unspecified ulcer stage ([facility]) C REACTIVE PROTEIN Routine 10/26/2023 12 :19 EDT Cellulitis of toe of right foot Diabetic ulcer of toe of right foot associated with type 2 diabetes mellitus, unspecified ulcer stage ([facility]) documented in this encounter Results * COMPLETE BLOOD COUNT AND DIFFERENTIAL (10/26/2023 12:19 EDT) WBC 8.33 4.00 - 12.40 K/cmm 10/26/2023 12:35 [facility] RBC 4.38 3.86 - 5.04 M/cmm 10/26/2023 12:35 [facility] Hemoglobin 12.3 11.6 - 15.2 g/dL 10/26/2023 12:35 [facility] HCT 36.7 34.9 - 44.4 % 10/26/2023 12:35 [facility] MCV 84 81 - 98 fL 10/26/2023 12:35 [facility] MCH 28.1 26.7 - 33.3 pg 10/26/2023 12:35 [facility] MCHC 33.5 32.1 - 35.9 g/dL 10/26/2023 12:35 [facility] RDW-CV 14.2 <14.7 % 10/26/2023 12:35 [facility] RDW-SD 43.6 <50.4 fl 10/26/2023 12:35 [facility] PLT 271 141 - 377 K/cmm 10/26/2023 12:35 [facility] MPV 11.1 9.5 - 12.7 fL 10/26/2023 12:35 [facility] % Neutrophils 72.6 % 10/26/2023 12:35 [facility] % Lymphocytes 19.7 % 10/26/2023 12:35 [facility] % Monocytes 4.8 % 10/26/2023 12:35 [facility] % Eosinophils 2.2 % 10/26/2023 12:35 [facility] % Basophils 0.2 % 10/26/2023 12:35 [facility] % Immature Grans 0.5 <0.9 % 10/26/19 12:35 [facility] Absolute Neutrophils 6.05 2.20 - 8.85 K/cmm 10/26/2023 12:35 [facility] Absolute Lymphocytes 1.64 1.09 - 3.30 K/cmm 10/26/2023 12:35 [facility] Absolute Monocytes 0.40 0.10 - 0.80 K/cmm 10/26/2023 12:35 [facility] Absolute Eosinophils 0.18 0.03 - 0.61 K/cmm 10/26/2023 12:35 [facility] ABS Basophils 0.02 0.01 - 0.11 K/cmm 10/26/2023 12:35 [facility] Absolute Immature Grans 0.04 0.00 - 0.06 K/cmm 10/26/2023 12:35 [facility] Type of Differential: Auto 10/26/2023 12:35 [facility] Blood VENOUS BLOOD / Unknown Venipuncture / Unknown 10/26/2023 12:19 EDT 10/26/2023 12:32 EDT Raj Nicole DPM PACKAGES & DNA CT OBE ORDERABLES [facility] [address] [place], [place] [phone] * C REACTIVE PROTEIN (10/26/2023 12:19 EDT) C-Reactive Protein <5.0 <10.0 mg/L 10/26/2023 13:11 EDT [facility] Blood VENOUS BLOOD / Unknown Venipuncture / Unknown 10/26/2023 12:19 EDT 10/26/2023 12:38 EDT Raj Nicole DPM CHEMISTRY & BLOOD GAS ORDERABLES [facility] [address] [place] [address] documented in this encounter Visit Diagnoses Diagnosis Cellulitis of toe of right foot Cellulitis and abscess of toe, unspecified Diabetic ulcer of toe of right foot associated with type 2 diabetes mellitus, unspecified ulcer stage ([facility]) documented in this encounter Care Teams Seamer Elastic Band Relationship Specialty Start Date End Date Rodrigo Shin PA-C [address] [place] [phone] PCP - General 10/18/20 documented as of this encounter
--- OUTSIDE RECORDS SUMMARY | 2023-11-01 16:50 | XMS_ITS | Encounter Summary ---
Author Organization [facility] Address [address] [place] [address] Care Team Providers Care Staff Mechanical Engineer Name Role Phone Rodrigo Shin PA-C Primary Care Provider + Reason for Visit * Reason Onset Date Comments Appointment Related 08/14/2023 Encounter Details Date Type Department Care Team (Late st Contact Info) Description 08/14/2023 Telephone [facility] [address], [address] [place] [address] Ying Reyna, RN Appointment Related Social History Tobacco Use Types Packs/Day Years Used Date Smoking Tobacco: Never Assessed Sex and Gender Information Value Date Recorded Sex Assigned at Not on file Gender Identity Not on file Sexual Orientation Not on file documented as of this encounter Miscellaneous Notes * Telephone Encounter - Ying Reyna RN - 08/16/2023 0927 EDT Noted scheduled for 08/27/23. * Telephone Encounter - Ying Reyna RN - 08/14/2023 0951 EDT Call placed to Quyen to schedule an appointment after receiving a referral for right foot pain and right great toe issue. Per ID 1-2 weeks. Left message asking for call back. documented in this encounter Plan of Treatment Upcoming Encounters Date Type Department Care Team (Late st Contact Info) Description 11/16/2023 11:00 EDT Office Visit [facility] Vascular Surgery - [place] [address] [place] [address] Eros Cervantes MD 111 [facility], [facility] [address] [place] [phone] documented as of this encounter Visit Diagnoses Not on filedocumented in this encounter Care Teams Staff Mechanical Engineer Relationship Specialty Start Date End Date Rodrigo Shin PA-C [address] [place] [phone] PCP - General 10/18/20 documented as of this encounter
--- OUTSIDE RECORDS SUMMARY | 2023-11-01 16:50 | XMS_ITS | Encounter Summary ---
Author Organization [facility] Address [facility] [place] [address] Care Team Providers Care Log Tumbler Name Role Phone Rodrigo Shin Primary Care Provider [phone]- [phone] Reason for Visit * Reason Comments Procedure excision BCC right l ateral arm Encounter Details Date Type Department Care Team (Late st Contact Info) Description 05/12/2015 1:00 PM EDT Procedure visit Dermatology at [facility] [address] [place] [address] Julio Hernandez MD [address] [facility] [place] [address] Basal cell carcinoma, upper extremity, right (Primary Dx) Social History Tobacco Use Types Packs/Day Years [...] Sign Reading Time Taken Comments Blood Pressure 161/71 05/12/2015 12:55 PM EDT Pulse 67 05/12/2015 12:55 PM EDT Temperature - - Respiratory Rate - - Oxygen Saturation - - Inhaled Oxygen Concentration - - Weight - - Height - - Body Mass Index - - documented in this encounter Patient Instructions * Patient Instructions* Blake Kelsey LPN - 05/12/2015 1:36 PM EDT Section of Dermatology POST OPERATIVE INSTRUCTIONS Wash your hand before changing the dressing. The dressing on the site should remain in place and dry until Sunday morning The dressing should then be removed gently After removing the dressing, daily wound care should be performed as follows: Clean the wound with warm water and pat dry Apply either Vaseline or Aquaphor Ointment Cover the wound with a new dressing such as Telfa and Tape, or a Band-Aid Do not use peroxide or Antibiotic cream or ointment on the wound For discomfort, you may take Tylenol or other non-aspirin pain medication. If bleeding should occur, pressure should be applied constantly for 15 minutes on the dressing withthe help of a towel, wash cloth, or piece of gauze. The sutures should be removed in 10 - 12 days. It is important that you avoid strenuous and/or vigorous activities, heavy lifting (More than 5-10 lbs), and bending for a period of 2 weeks If you have questions, please contact the office of Julio Hernandez MD during the day at [phone] Nurse: Blake [phone] After 5 PM and on weekends, please call the [facility] number , and ask for the [employer] business solutions director. documented in this encounter Progress Notes * Diana Cota LPN - 05/18/2015 9:12 AM EDTQuick Note: Spoke to patient regarding pathology results * Blake Kelsey LPN - 05/12/2015 1:07 PM EDT Visit for: Procedure History of Present Illness Quyen Bill is a 65 y.o. female here for treatment of a pigmented BCC on the right lateral arm Interval Changes in Medications and Medical History Since Last Visit 07 Apr 2015: No significant and pertinent interval changes. Allergies No Known Allergies Examination Pain 0/10. Mood is appropriate. Well developed, well-nourished in no apparent distress, alert and oriented to time, person, place and situation. Focused examination of the right arm significant for the following: ?? Atrophic, depigmented 10x4mm papule on the right lateral arm Pathology Results [id number] Skin, right lateral arm, shave biopsy only: - PIGMENTED BASAL CELL CARCINOMA, extending to the peripheral and deep specimen edges. Procedure Previously discussed with patient treatment options and, after mutual decision to undergo this procedure, the risks of excision, including but not limited to recurrence, cosmesis (scar, dyspigmentation, scar spread), pain, keloid/hypertrophic scar, bleeding, infection, hematoma, nerve damage, and br uising. Patient verbally understands and elects excision with primary closure. Consent: written informed consent signed. Surgeon: Julio Hernandez MD, FAAD State Assessed Properties Director: Blake Kelsey LPN Blood Thinner Denies or Breast Feeding Denies Defibrillator or Pacemaker Denies Prosthetic devices/implants Denies Take antibiotics prior to procedures Denies Time Out Performed: Full Name, , and site(s) confirmed with patient Procedure Excision with 4mm margins and primary complex linear repair Location Right Lateral Arm Pre-Operative Diagnosis BCC Anesthesia: 1% lidocaine+1:100,000 epinephrine, 8ml Sterile Prep Alcohol, Chloraprep Lesion 10x4 mm Defect 18x12 mm Final Length 52 mm Lesion was injected with 1% lidocaine with 1:100,000 epinephrine (volume above), and sterilized in the usual sterile fashion. The lesion was excised with 4mm margins to deep fat in an elliptical fashion. The specimen was tagged superiorly at 12 o/clock and sent to Pathology for further histologic examination. The wound edges were extensively undermined and hemostasis was achieved with electrocautery. Wound edges approximated with interrupted subcutaneous vertical mattress 3-0 vicryl sutures andrunning simple 4-0 prolene sutures. A pressure dressing was placed. <1ml blood loss. No complications. Specimen: Placed in formalin and sent to Pathology for histologic examination. Post-op care: Vaseline, Pressure Dressing Post-operative pain: 0/10 Assessment and Plan Basal Cell Carcinoma, Right Lateral Arm Wound care instructions provided. Remove pressure dressing in 48h. Ice pack over pressure dressing 5-10min every waking hour for 48h. No soaking baths or swimming for 96h. Wound care: Vaseline or antibiotic ointment, telfa, gauze, paper tape every 12-24h. No heavy lifting for three weeks. Pain: Ibuprofen 400mg po q6h and/or Tylenol 325-650mg po q6h prn pain Follow-up: in 12-14 days for suture removal or sooner as needed for infection or concern about the procedure site. I am documenting this encounter acting as the scribe for and in the presence of Dr. Hernandez: BLAKE KELSEY LPN I performed the above scribed service and agree with the accuracy of the documentation in this encounter. Julio Hernandez MD FAAD Section of Dermatology [facility] documented in this encounter Plan of Treatment Not on file documented as of this encounter Procedures Procedure Name Priority Date/Time Associated Diagnosis Comments SPECIMEN TO PATHOLOGY (NON-OR) Routine 05/12/2015 1:45 PM EDT Basal cell carcinoma, upper extremity, right SURGICAL PATHOLOGY REPORT Routine 05/12/2015 1:44 PM EDT documented in this encounter Results * Specimen to Pathology (NON-OR) (05/12/2015 1:45 PM EDT) AP Specimen 05/12/2015 1:45 PM EDT 05/12/2015 3:48 PM EDT Narrative [facility] - 05/12/2015 3:48 PM EDT Specimen requisition ordered. ??Separate Pathology report to follow Resulting Agency Comment Spec In Lab Julio Hernandez MD PATHOLOGY/CYTOLOGY O RDERABLES [facility] [place] [address] * Surgical Pathology Report (05/12/2015 1:44 PM EDT) Final Diagnosis [id number] ?Location: [facility] The signing pathologist has (i) examined the relevant preparation(s) for the specimen(s) and (ii) rendered or confirmed the diagnosis(es). . ?Surgical Pathology DIAGNOSIS Skin, right lateral arm, excision: - FOCAL RESIDUAL BASAL CELL CARCINOMA, MARGINS CLEAR - DERMAL SCAR AND PROCEDURE SITE CHANGES 05/13/15 DLD 05/17/15 Verified by: ? Milan HU, Gerardo Rowell ?Dermatopathol ogist ?(Electronic Signature) The attending pathologist whose signature appears on this report has reviewed all diagnostic slides and has edited the gross and/or microscopic portion of the report in rendering the final pathologic diagnosis. ADDITIONAL STUDIES Multiple step-leveled sections are reviewed. CLINICAL INFORMATION Specimen Submitted: A - Skin, right lateral arm, excision, (1) Clinical History: 10 x 5 mm depigmented atrophic papule, specimen tagged superior margin, see pathology [id number] Clinical Diagnosis: BCC SPECIMEN PROCESSING A - Labeled/Fixativ e: Right lateral arm, formalin. Quantity/Size: Single, 3.5 x 1.5 x 0.8 cm. Tissue Description: Ellipse of botello-nelson skin. ??There is a suture at one apex. ??Suture is oriented at 12 o'clock. Skin surface are botello-nelson with a central pale pink-botello 1.0 x 0.8 cm previous biopsy site. The margin from 12 o'clock to 9 o'clock to 6 o'clock is marked blue; the margin from 12 o'clock to 3 o'clock to 6 o'clock is marked black. Sections/Proces sing: The specimen is serially sectioned from 12 o'clock to 6 o'clock and totally submitted, with 12 o'clock apex in A1 and 6 o'clock apex in A6. ??(T6) ??pps 05/17/2015 10:08 AM EDT [facility] SPECIMEN FROM SKIN / Unknown 05/12/2015 1:44 PM EDT 05/12/2015 1:44 PM EDT Julio Hernandez MD PATHOLOGY/CYTOLOGY O RDERAOG [facility] [place] [address] documented in this encounter Visit Diagnoses Diagnosis Basal cell carcinoma, upper extremity, right- Primary documented in this encounter Care Teams Log Tumbler Relationship Specialty Start Date End Date Rodrigo Shin PA [address] [place] [address] PCP - General Family Medicine 02/22/15 04/09/16 documented as of this encounter
--- OUTSIDE RECORDS SUMMARY | 2023-11-01 16:50 | XMS_ITS | Encounter Summary ---
Author Organization [facility] [place] [address] Care Team Providers Care Front Tender Name Role Phone Daphne Cervantes MD Primary Care Provider [phone] Encounter Details Date Type Department Care Team (Late st Contact Info) Description 08/18/2010 External Results [place] [id number] Provider, Scanning Social History Tobacco Use Types Packs/Day Years Used Date Smoking Tobacco: Never Assessed Sex and Gender Information Value Date Recorded Sex Assigned at Not on file Gender Identity Not on file Sexual Orientation Not on file documented as of this encounter Plan of Treatment Not on file documented as of this encounter Procedures Procedure Name Priority Date/Time Associated Diagnosis Comments MAMMO GENERIC BILATERAL DIAGNOSTIC Routine 06/21/2010 MAMMO GENERIC BILATERAL SCREENING Routine 04/19/2006 documented in this encounter Results * *Mammo generic bilateral diagnostic (06/21/2010) Anatomical Region Laterality Modality Breast Bilateral Mammography Historical Provider MD KRUSE MAMMO ORDERAB LES * *Mammo generic bilateral screening (04/19/2006) Anatomical Region Laterality Modality Breast Bilateral Mammography Historical Provider MD KRUSE MAMMO ORDERAB LES documented in this encounter Visit Diagnoses Not on filedocumented in this encounter Care Teams Front Tender Relationship Specialty Start Date End Date Daphne Cervantes MD [facility] [address] [place] [address] [place] [address] PCP - General 03/23/10 02/21/15 documented as of this encounter
--- OUTSIDE RECORDS SUMMARY | 2023-11-01 16:50 | XMS_ITS | Encounter Summary ---
Author Organization [facility] Address [address] [place] [address] Care Team Providers Care Server Security Administrator Name Role Phone Rodrigo Shin PA-C Primary Care Provider + Reason for Visit * Reason Onset Date Comments Other 08/31/2023 Encounter Details Date Type Department Care Team (Late st Contact Info) Description 08/31/2023 Telephone [facility] Orthopedics & Podiatry [address] [place], [place] [id number] Ying Reyna, RN Other Social History Tobacco Use Types Packs/Day Years Used Date Smoking Tobacco: Never Assessed Sex and Gender Information Value Date Recorded Sex Assigned at Not on file Gender Identity Not on file Sexual Orientation Not on file documented as of this encounter Miscellaneous Notes * Telephone Encounter - Ying Reyna, ABDULLAHI - 08/31/2023 1114 EDT Received voicemail message from Quyen. Wants to know if she needs to continue taking first antibiotic or if she should stop taking first one. Call placed to Quyen. Relayed that she should stop taking first antibiotic, clindamycin, and only take the bactrim. Quyen voiced understanding. documented in this encounter Plan of Treatment Upcoming Encounters Date Type Department Care Team (Late st Contact Info) Description 11/16/2023 11:00 EDT Office Visit [facility] V[facility] - [place] [address] [place], [place] [address] [place] [address] Eros Cervantes MD [address] [facility], [address] [place] [address] documented as of this encounter Visit Diagnoses Not on filedocumented in this encounter Care Teams Server Security Administrator Relationship Specialty Start Date End Date Rodrigo Shin PA-C [address] [place] [phone] PCP - General 10/18/20 documented as of this encounter
--- OUTSIDE RECORDS SUMMARY | 2023-11-01 16:50 | XMS_ITS | Encounter Summary ---
Author Organization [facility] Address [address] [place] [address] Care Team Providers Care Gas Worker Name Role Phone Rodrigo Shin PA-C Primary Care Provider + Encounter Details Date Type Department Care Team (Latest Contact Info) Description 10/22/2020 Travel Social History Tobacco Use Types Packs/Day [...] Info) Description 11/16/2023 11:00 EDT Office Visit [facility] Vascular Surgery [facility] [address] [facility] [place] [address] Eros Cervantes MD [address] [facility], [address] [place] [address] documented as of this encounter Visit Diagnoses Not on filedocumented in this encounter Care Teams Gas Worker Relationship Specialty Start Date End Date Rodrigo Shin PA-C [address] [place] [phone] PCP - General 10/18/20 documented as of this encounter
--- OUTSIDE RECORDS SUMMARY | 2023-11-01 16:50 | XMS_ITS | Encounter Summary ---
Author Organization [facility] Address [facility] [place] [address] Care Team Providers Care Machine Pan Greaser Name Role Phone Rodrigo Shin Primary Care Provider [phone] Reason for Visit * Reason Comments Nail Problem Encounter Details Date Type Department Care Team (Late st Contact Info) Description 04/21/2015 4:00 PM EST [place] [address] Henry Marroquin [facility] [place] [address] Thickened nails (Primary Dx); Type 2 diabetes mellitus with complication Social History Tobacco Use Types Packs/Day Years [...] Sign Reading Time Taken Comments Blood Pressure 125/80 04/21/2015 4:07 PM EST Pulse 86 04/21/2015 4:07 PM EST Temperature 36.9 ??C (98.4 ??F) 04/21/2015 4:07 PM ES T Respiratory Rate - - Oxygen Saturation 98% 04/21/2015 4:07 PM EST Inhaled Oxygen Concentration - - Weight 88.5 kg (195 lb) 04/21/2015 4:07 PM EST Height 167.6 cm (5' 6) 04/21/2015 4:07 PM EST Body Mass Index 31.47 04/21/2015 4:07 PM EST documented in this encounter Patient Instructions * Patient Instructions* Henry Marroquin DPM - 04/21/2015 4:16 PM EST Continue with current home foot care regimen. Follow up for nail procedures. documented in this encounter Progress Notes * Henry Marroquin DPM - 04/21/2015 4:10 PM EST Outpatient Podiatry Clinic Note Name: Quyen Bill Age:64 y.o. MR#: [id number] Date of Service: 04/21/2015 Chief Complaint: thick toenails HPI: Quyen Bill is a 64 y.o. year old diabetic female who presents today for further evaluationand treatment of thick great toenails. Patient states she has noticed this for a few years. She states she has stopped having pedicures about 2 and half years ago. She states it is only her great toenails. She states she has had an oral course of Lamisil for about 6 months in the past 2 years and did not have any issues with her liver. She states this oral medication did not solve the problem. She states a sample was taken of the nails by another associate genetics professor and he stated that no fungus was present. She states they are painful when the edges are not clipped. She states she is taking metformin and relates that her last 11 A1c was 6.9% in January 2015. ROS: Denies F/C/N/V/CP/SOB/cough. Outside reports reviewed: historical medical records. Past Medical History Diagnosis Date ??? Breast cyst 06/2010 Patient Active Problem List Diagnosis Date Noted ??? Thickened nails 04/21/2015 ??? Breast mass 08/19/2010 No past surgical history on file. No family history on file. History Social History ??? Marital Status: Spouse Name: N/A Number of Children: N/A ??? Years of Education: N/A Social History Main Topics ??? Smoking status: Never Smoker ??? Smokeless tobacco: None ??? Alcohol Use: None ??? Drug Use: None ??? Sexual Activity: None Other Topics Concern ??? None Social History Narrative Current Outpatient Prescriptions Medication Sig Dispense Refill ??? fish oil-omega-3 fatty acids 1,000 mg [...] Take 1,200 Units by mouth daily. ??? vitamin E 400 unit capsule Take by mouth. No current facility-administered medications for this visit. No Known Allergies Physical Exam: Vitals: Blood pressure 125/80, pulse 86, temperature 36.9 ??C (98.4 ??F), temperature source Oral, height 167.6 cm (5' 6), weight 88.451 kg (195 lb), SpO2 98 %. Gen: WD, alert, oriented. NAD. Derm: Hallux nails are thickened, dystrophic, and discolored. Other nails are within normal limits.No interdigital macerations, erythema or ecchymosis noted. There is a small blister on the dorsal aspect of the left fourth toe overlying the PIPJ that is not filled with any fluid today. It is merely a discoloration at this point in time. There is no surrounding erythema. Vasc: DP/PT pulses palpable. CFT < 3 seconds digits 1-5 bilateral. Hair present to digits bilateral. The. Neuro: Epicritic sensation intact to light touch bilateral. MSK: No pain with direct palpation to the hallux nails bilateral. Radiologic/Vascular Studies: none to review Assessment/Plan: Quyen Bill is a 64 y.o. year old diabetic female who presents today for further evaluation and treatment of thick great toenails. Performed history and physical. Discussed condition and treatment options with patient. We have discussed options including conservative debridement, taking a sample of the nail for further fungal culture and proceeding with oral or topical antifungal medications if dermatophytes are isolated. We have also discussed total temporary versus permanent nail avulsions. Patient would like to proceed with total temporary nail avulsions bilateral hallux nails and is willing to watchfully wait these grow out and see if there is any change. Patient understands that if there is no change and she is still having issues with the nails that she can follow-up for total permanent nail avulsion in the future. Patient is in agreement with this plan move forward and all questions were answered. She can follow-up in the coming weeks for her nail procedures. documented in this encounter Plan of Treatment Not on file documented as of this encounter Visit Diagnoses Diagnosis Thickened nails- Primary Other specified disease of nail Type 2 diabetes mellitus with complication documented in this encounter Care Teams Machine Pan Greaser Relationship Specialty Start Date End Date Rodrigo Shni PA [address] [place] [address] PCP - General Family Medicine 02/22/15 04/09/16 documented as of this encounter
--- OUTSIDE RECORDS SUMMARY | 2023-11-01 16:50 | XMS_ITS | Encounter Summary ---
Author Organization [facility] Address [address] [place] [address] Care Team Providers Care Automatic Driller And Reamer Name Role Phone Rodrigo Shin PA-C Primary Care Provider + Reason for Visit * Reason Comments Injections bilateral sclerother apy Encounter Details Date Type Department Care Team (Late st Contact Info) Description 11/08/2020 10:45 EDT Procedure visit [facility] Vascular Surgery - [address] [place], [place] [id number] Nan Villarreal MD [address] [facility], [address] [place] [address] Symptomatic reticular veins (Primary Dx); [...] 10:54 EDT documented as of this encounter Progress Notes * Nan Villarreal MD - 11/08/2020 1043 EDT Quyen Bill comes in today for planned sclerotherapy. She is a 70-year-old woman who was evaluateda few weeks ago for symptomatic lower extremity varicose veins. She was desirous of sclerotherapy. November 08, 2020 PROCEDURE NOTE PROCEDURE PERFORMED: SCLEROTHERAPY bilateral LEG ATTENDING SURGEON: Nan Villarreal MD INDICATIONS: Patient presents for sclerotherapy for the treatment of reticular and small varicose veins 0.5 - 2 MM in size. The procedure, alternatives, and risks were discussed with the patient and all questions answered. Specifically the risks include but are not limited to scar, incomplete or unsatisfactory treatment, bruising, pigment change, phlebitis and recurrence. After both written and verbal consent was obtained the procedure was carried out. PROCEDURE: The patient was placed supine on the procedure room table. The skin was prepped with alcohol. Usinga 30gauge needle on a 1cc syringe, 0.1 % sodium tetradecyl sulfate was injected into reticular and varicose veins in the legs. The vessels were well cannulized without extravasation. A total of 0.8 mL of 1% Sotradecol was injected after dilution to 0.1 % strength. The patient tolerated the procedure well without complication. The legs were wrapped in a pressure dressing and the patient was asked to follow-up in 3 weeks for reevaluation. She was provided with post-procedure instructions. Nan Villarreal MD * Jose E Lynne RN - 11/08/2020 1045 EDT 0.8 ml of Sotradecol used for bilateral legs Sclerotherapy injections. [facility]#: [id number] LOT#: [id number] Exp date: Nov 2020 JOSE E LYNNE RN 11/08/2020 14:20 documented in this encounter Plan of Treatment Upcoming Encounters Date Type Department Care Team (Late st Contact Info) Description 11/16/2023 11:00 EDT Office Visit 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
--- OUTSIDE RECORDS SUMMARY | 2023-11-01 16:50 | XMS_ITS | Encounter Summary ---
Author Organization [facility] Address [facility] [place] [address] Care Team Providers Care Activity Leader Name Role Phone Rodrigo Shin Primary Care Provider +1- [phone] Reason for Visit * Reason Comments Procedure Encounter Details Date Type Department Care Team (Late st Contact Info) Description 07/15/2015 11:30 AM EDT Office Visit Dermatology at [facility] [address] [place] [address] Vera Godoy RN Spider veins Social History [...] Progress Notes * Vera Godoy RN - 07/15/2015 2:04 PM EDT Provider: Nell Davila MD Chief Problem: 1. Spider veins 2. Here for Discussion of Treatment options HISTORY & DISCUSSION: 65 y.o. year old female, here for a medical consultation visit and discussion of spider veins treatment options, including the possibility of laser treatment. Last seen by myself for sclerotherapy, pt tolerated the procedure well, states she is happy with the results. Topical medical therapy, camoflage, surgical options, including laser, discussed. Over half of thisvisit devoted to these options and expectations. Patient most interested in laser therapy today. V-beam/pulsed dye laser is most appropriate for the patient. Discussed potential adverse events including pain or stinging, possible bruising (common), hyperpigmentation and hypopigmentation, edema, erosion or blister formation (uncommon). Patient clearly understood these potential risks. Verbal consent given Multiple treatments will be required for optimum benefit.Total number of treatments depend on the baseline degree of spider veins, patient's response, expectations and desires. Most patients require 3 to 5 laser treatments. Patient clearly understood this. The patient knows that the V-Beam Laser, for this purpose is strictly a cosmetic procedure, insurances will not cover these procedures, and we will not submit it to the company. The patient will haveto pay for the procedure, at the time of the procedure/visit. EXAMINATION: Focal examination of the leg Telangiectatic changes scattered over the right inner thigh Legs involved - Moderate amount of vascular changes DIAGNOSIS/ASSESSMENT: 1. Spider veins 2. V-Beam/Pulsed Dye Laser therapy PLAN: LASER PROCEDURE 1. The decision was made to have a test site today as pt is botello. After the medical consultation andbrief discussion above. Verbal consent, expectations, and potential adverse events discussed. 2. Use of eye protection/eye coleman performed, and post-laser care, sun avoidance, mild [place] laser discussed. Patient knows to call if there are any questions. Laser procedure performed today x 5 pulses V-Beam Laser Settings: - V-Beam (595 nm): 11 J/m2 @ 10 msec Spot Size: 3 x 10 Pulses: 5 to right inner thigh V-Beam Laser Procedure: Applied V-beam guided head at skin surface, cryospray pre-laser, overlapping areas slightly, pulseduntil area adequately covered. No immediate post-laser complications. Follow-up as discussed. Call clinic with questions post-laser Follow up: Cosmetic cost today: Test site I am documenting this encounter acting as the scribe for and in the presence of Dr. Nell Davila. Vera Godoy,RN I performed the above scribed service and agree with the accuracy of the documentation in this encounter, Nell Davila MD Section of Dermatology documented in this encounter Plan of Treatment Not on file documented as of this encounter Visit Diagnoses Diagnosis Spider veins Nevus, non-neoplastic documented in this encounter Care Teams Activity Leader Relationship Specialty Start Date End Date Rodirgo Shin PA [address] [place] [address] PCP - General Family Medicine 02/22/15 2 documented as of this encounter
--- OUTSIDE RECORDS SUMMARY | 2023-11-01 16:50 | XMS_ITS | Encounter Summary ---
Author Organization [facility] [place] [address] Care Team Providers Care Hot Plate Plywood Press Laborer Name Role Phone Unavailable Primary Care Provider Unavailabl e Encounter Details Date Type Department Care Team (Late st Contact Info) Description 2006 Ancillary Procedure Radiology Library at [facility] [place] [address] Rodrigo Shin PA [address] [place] [address] Social History Tobacco Use Types Packs/Day Years [...] Comments FILM LIBRARY STORAGE ONLY MAMMO Routine 2006 12:00 AM EST documented in this encounter Results * Film Library- Storage Only Mammo (2006 12:00 AM EST) Narrative [facility] - 01/24/2021 1:45 PM EST This exam is auto-finalizing. It's purpose is for storage only. Rodrigo KRUSE FILM LIBRARY O RDERABLES [place], [place] documented in this encounter Visit Diagnoses Not on filedocumented in this encounter
--- OUTSIDE RECORDS SUMMARY | 2023-11-01 16:50 | XMS_ITS | Encounter Summary ---
Author Organization [facility] Address [address] [place] [address] Care Team Providers Care Maternity Nurse Name Role Phone Unavailable Primary Care Provider Unavailabl e Encounter Details Date Type Department Care Team (Late st Contact Info) Description 04/25/2006 Results Only [facility] - Maple conversion [address] [place] [address] Estelita Stevens, ROSAURA Social History Tobacco Use [...] Info) Description 11/16/2023 11:00 EDT Office Visit [facility] Vascular Surgery [address] [address] rEos Cervantes MD [address] [facility] [address] [place] [id number] documented as of this encounter Procedures Procedure Name Priority Date/Time Associated Diagnosis Comments CYTOPATHOLOGY Routine 04/25/2006 0:00 EST documented in this encounter Results * CYTOPATHOLOGY (04/25/2006 0:00 EST) Pathology Report: CYTOPATHOLOGY REPORT Reports generated via electronic interface contain original data; however they are lacking the format of the original report. Caution should be taken when reading/interpreti ng unformatted reports. Name: ? QUYEN BILL ? Accession #: ? [id number] : ? 1950 (Age: 56) ??F ?Collect Date: ? 04/25/2006 Location: ? [facility] ? Receive Date: ? 2006 Provider: ?ESTELITA STEVENS NP Copy to: ? Specimen/Source: ?ThinPrep Pap Test, Cervix/Endocervix, processed on [employer] ThinPrep Imaging System, with manual evaluation Last Menstrual Period: ? 03/28/06 Other: ? HPVA - HPV testing requested if ASC-US on the current ThinPrep Pap test. ? SPECIMEN ADEQUACY ? Satisfactory for Evaluation - transformation zone component present GENERAL CATEGORIZATION ? Negative for Intraepithelial Lesion or Malignancy ? Document reviewed and electronically signed by: ? EDER Pa(ASCP) ? Report Date: ??04/30/2006 11:54 End of Report [facility] ACUNA 04/25/2006 2006 Estelita Stevens NP PATHOLOGY ORDERABLES WILIAM ACUNA [address] [place] [address] documented in this encounter Visit Diagnoses Not on filedocumented in this encounter
--- OUTSIDE RECORDS SUMMARY | 2023-11-01 16:50 | XMS_ITS | Encounter Summary ---
Author Organization [facility] [place] [address] Care Team Providers Care Planner/Scheduler Name Role Phone Rodrigo Shin Primary Care Provider +1- [phone] Reason for Visit * Reason Onset Date Comments Pre Procedure Call 05/10/2015 Encounter Details Date Type Department Care Team (Late st Contact Info) Description 05/10/2015 Telephone Dermatology at [facility] [address] [place] [address] Nan Huber CMA Pre Procedure Call Social History Tobacco Use Types Packs/Day Years Used Date Smoking Tobacco: Never Alcohol Use Standard Drinks/Week Comments Not Asked 0 (1 standard drink = 0.6 oz pur e alcohol) Sex and Gender Information Value Date Recorded Sex Assigned at Not on file Gender Identity Not on file Sexual Orientation Not on file documented as of this encounter Miscellaneous Notes * Telephone Encounter - Nan Huber CMA - 05/10/2015 2:34 PM EDT Pre-Op excision phone call Date of Call: 05/10/15 Surgical procedure to be done: right lateral arm Surgical Pathology: Skin, right lateral arm, shave biopsy only: - PIGMENTED BASAL CELL CARCINOMA, extending to the peripheral and deep specimen edges. Spoke with Quyen Bill by phone to review the following. Review of allergies and medications: instructed to take all medications prior to procedure Does take any blood thinners.Asa 81 mg Does not have any allergies to Lidocaine or epinephrine. Does not take antibiotics before dental procedures. Does not have any cardiac issues, murmurs or valve replacements. Does not have a pacemaker or defibrillator. Has not had a total joint replacement with in the past 2 years. Recommend that she be accompanied by someone who can drive her home if needed. Discussed length of procedure and time variables. Post operative instructions reviewed including physical limitations after procedure. Phone number given should any questions or concerns arise before or after the procedure. Quyen Bill states that she understands all of the above. Nan Huber CMA documented in this encounter Plan of Treatment Not on file documented as of this encounter Visit Diagnoses Not on filedocumented in this encounter Care Teams Planner/Scheduler Relationship Specialty Start Date End Date Rodrigo Shin PA [address] [place] [address] PCP - General Family Medicine 02/22/15 04/09/16 documented as of this encounter
--- OUTSIDE RECORDS SUMMARY | 2023-11-01 16:50 | XMS_ITS | Encounter Summary ---
Author Organization [facility] Address [address] [place] [address] Care Team Providers Care Retail Account Manager Name Role Phone Rodrigo Shin PA-C Primary Care Provider + Encounter Details Date Type Department Care Team (Latest Contact Info) Description 11/08/2020 Travel Social History Tobacco Use Types Packs/Day [...] Info) Description 11/16/2023 11:00 EDT Office Visit [facility] Vascular Surgery [facility] [address] [place] [address] Eros Cervantes MD [address] [facility], [address] [place] [address] documented as of this encounter Visit Diagnoses Not on filedocumented in this encounter Care Teams Retail Account Manager Relationship Specialty Start Date End Date Rodrigo Shin PA-C [address] [place] [id number] PCP - General 10/18/20 documented as of this encounter
--- OUTSIDE RECORDS SUMMARY | 2023-11-01 16:50 | XMS_ITS | Encounter Summary ---
Author Organization [facility] Address [facility] [place] [address] Care Team Providers Care Yarn Tester Name Role Phone Rodrigo Shni Primary Care Provider +1- [phone] Reason for Visit * Reason Comments Advice Only Encounter Details Date Type Department Care Team (Late st Contact Info) Description 04/07/2015 9:30 AM EST Office Visit Dermatology at [facility] [address] [place] [address] Raj Lucas MD [facility] [address] [place] [address] Spider veins Social History Tobacco Use Types [...] this encounter Patient Instructions * Patient Instructions* Alexei Driscoll, ABDULLAHI - 04/07/2015 10:09 AM EST Most important : Do not expose your treated areas to sun light. .....wear sun block and clothes to protect skin We want your spider veins to stay sclerosed ( scarred down ) Do not do anything that would open ( dilate ) veins , hot tub, running Light support stockings may be helpful the next couple of days . You may have re-treatment In 1-2 months .. May need another sclerotherapy in the future or laser also. Call [phone] General dermatology clinic phone number Ask for scheduling Vera Godoy RN For next treatment documented in this encounter Progress Notes * Raj Lucas MD - 04/07/2015 10:04 AM EST Images from the original note were not included. Provider: Meagan Lucas M.D. ([id number]) Quyen Bill 1950 Chief Problem: 1. Spider Veins 2. Initial Consultation 3. ? Sclerotherapy History/Discussion: 64 y.o. year old female. Here for a [...] Examination: Focal examination of the legs bilaterally. Moderate amount of blue-purple spider veins. Right medial thigh Diagnosis/Assessment: 1. Spider Veins, legs, amenable to sclerotherapy Plan/Treatment: Sclerotherapy Procedure (18% hypertonic saline) 1. Discussed, and answered remaining questions. Verbal consent. 2. Proceeded with sclerotherapy procedure: alcohol prep to vessels, and slow injection 18% hypertonic saline, of the most advanced and noticeable spider veins on legs. Hemostasis with mild pressure and bandaids where needed. 3. There were no complications. Patient should call if they have questions. The complete effect maynot be evident for weeks and if not complete, the patient should schedule a follow visit for discussion and/or re-treatment. Laser may be an option in the future. 4. Cosmetic Cost today: $ 350. Processed at discharge from clinic I am documenting this encounter acting as the scribe for and in the presence of ALEXEI Nicole, RN I performed the above scribed service and agree with the accuracy of the documentation in this encounter, MD Meagan Rojas M.D. Section of Dermatology documented in this encounter Plan of Treatment Not on file documented as of this encounter Visit Diagnoses Diagnosis Spider veins Nevus, non-neoplastic documented in this encounter Care Teams Yarn Tester Relationship Specialty Start Date End Date Rodrigo Shin PA [address] [place] [address] PCP - General Family Medicine 02/22/15 04/09/16 documented as of this encounter
--- OUTSIDE RECORDS SUMMARY | 2023-11-01 16:50 | XMS_ITS | Encounter Summary ---
Author Organization [facility] Address [address] [place] [address] Care Team Providers Care Social Worker Name Role Phone Rodrigo Shin PA-C Primary Care Provider + Reason for Visit * Reason Comments Follow-up Encounter Details Date Type Department Care Team (Late st Contact Info) Description 10/26/2023 11:30 EDT Office Visit [facility] Orthopedics & Podiatry [address] [place], [place] [phone] Raj Nicole DPM [address] [facility] [address] [place], [place] [id number] Cellulitis of toe of right foot (Primary Dx); Diabetic ulcer of toe of right foot associated with type 2 diabetes mellitus, unspecified ulcer stage ([facility]) Social History Tobacco Use Types Packs/Day Years Used Date Smoking Tobacco: Never Assessed Sex and Gender Information Value Date Recorded Sex Assigned at Not on file Gender Identity Not on file Sexual Orientation Not on file documented as of this encounter Progress Notes * Raj Nicole DPM - 10/26/2023 1130 EDT CHIEF COMPLAINT: Chief Complaint Patient presents with Right Foot - Follow-up SUBJECTIVE: Quyen Bill is a 73 y.o. female who presents today for follow up for wound care to herright foot. Since her last visit she was seen by her PCP who though her second toe looked more red and suggested that antibiotics be prescribed. These antibiotics were completed. Since completing theantibiotics Quyen has seen improvement in the swelling and redness of the toe and the ankle. She has healed her ulcer. She has concerns that she has osteomyelitis. Almost all of her pedal concerns have resolved at this time. Denies new pedal complaints. I have reviewed the medication list. Pertinent changes noted. ROS: Constitutional: negative for, fever, Musculoskeletal:positive for foot pain OBJECTIVE: There were no vitals taken for this visit. Gen: A+Ox3, NAD Lower extremity examination Vascular: Dorsalis pedis and posterior pulses palpable, CFT immediate to all digits, TG warm to warm within normal limits. Moderate Edema present to right second toe Neurological: protective sensation diminished Dermatological: right second toe with healed ulceration no openings, mild residual erythema, no drainage, no other open lesions, no clinical signs of infection present Musculoskeletal: No pain with palpation ASSESSMENT/PLAN: 1. Cellulitis of toe of right foot 2. Diabetic ulcer of toe of right foot associated with type 2 diabetes mellitus, unspecified ulcer stage ([facility]) I spoke with Quyen today regarding her concerns. She has healed her ulcer and there are no concernswith skin breakdown or clinical signs of infection today. She remains concerned about a bone infection, although there is low clinical suspicion. Bloodwork ordered to ensure no active infection/inflammation - will call with results. Recommend continuing to monitor the toe. Be alert for signs and symptoms of infection, including increased redness or warmth, and present to the Emergency Room or Express Care immediately if any arise. Recommend continuing to follow up with her vascular surgeon. Follow up with podiatry as needed in the future. - C REACTIVE PROTEIN; Future - COMPLETE BLOOD COUNT AND DIFFERENTIAL; Future This note was prepared using voice recognition software and the EMR. There may be inadvertent errors and omissions. Raj Nicole DPM 10/26/2023 documented in this encounter Plan of Treatment Upcoming Encounters Date Type Department Care Team (Late st Contact Info) Description 11/16/2023 11:00 EDT Office Visit [facility] Vascular Surgery [place] [address] [address] [place] [address] Eros Cervantes MD [address] [facility], [address] [place] [address] documented as of this encounter Results * COMPLETE BLOOD COUNT AND DIFFERENTIAL (10/26/2023 12:19 ED) WBC 8.33 4.00 - 12.40 K/cmm 10/26/2023 12:35 [facility] RBC 4.38 3.86 - 5.04 M/cmm 10/26/2023 12:35 [facility] Hemoglobin 12.3 11.6 - 15.2 g/dL 10/26/2023 12:35 [facility] HCT 36.7 34.9 - 44.4 % 10/26/2023 12:35 [facility] MCV 84 81 - 98 fL 10/26/2023 12:35 [facility] MCH 28.1 26.7 - 33.3 pg 10/26/2023 12:35 [facility] MCHC 33.5 32.1 - 35.9 g/dL 10/26/2023 12:35 [facility] RDW-CV 14.2 <14.7 % 10/26/2023 12:35 [facility] RDW-SD 43.6 <50.4 fl 10/26/2023 12:35 [facility] PLT 271 141 - 377 K/cmm 10/26/2023 12:35 [facility] MPV 11.1 9.5 - 12.7 fL 10/26/2023 12:35 [facility] % Neutrophils 72.6 % 10/26/2023 12:35 [facility] % Lymphocytes 19.7 % 10/26/2023 12:35 [facility] % Monocytes 4.8 % 10/26/2023 12:35 [facility] % Eosinophils 2.2 % 10/26/2023 12:35 [facility] % Basophils 0.2 % 10/26/2023 12:35 [facility] % Immature Grans 0.5 <0.9 % 10/26/19 12:35 [facility] Absolute Neutrophils 6.05 2.20 - 8.85 K/cmm 10/26/2023 12:35 [facility] Absolute Lymphocytes 1.64 1.09 - 3.30 K/cmm 10/26/2023 12:35 [facility] Absolute Monocytes 0.40 0.10 - 0.80 K/cmm 10/26/2023 12:35 [facility] Absolute Eosinophils 0.18 0.03 - 0.61 K/cmm 10/26/2023 12:35 [facility] ABS Basophils 0.02 0.01 - 0.11 K/cmm 10/26/2023 12:35 [facility] Absolute Immature Grans 0.04 0.00 - 0.06 K/cmm 10/26/2023 12:35 [facility] Type of Differential: Auto 10/26/2023 12:35 [facility] Blood VENOUS BLOOD / Unknown Venipuncture / Unknown 10/26/2023 12:19 EDT 10/26/2023 12:32 EDT Raj Nicole DPM PACKAGES & DNA WA OBE ORDERABLES [facility] [address] [place] [address] * C REACTIVE PROTEIN (10/26/2023 12:19 EDT) C-Reactive Protein <5.0 <10.0 mg/L 10/26/2023 13:11 [facility] Blood VENOUS BLOOD / Unknown Venipuncture / Unknown 10/26/2023 12:19 EDT 10/26/2023 12:38 EDT Raj Nicole DPM CHEMISTRY & BLOOD GAS ORDERABLES [facility] [address] [place] [address] documented in this encounter Visit Diagnoses Diagnosis Cellulitis of toe of right foot- Primary Cellulitis and abscess of toe, unspecified Diabetic ulcer of toe of right foot associated with type 2 diabetes mellitus, unspecified ulcer stage ([facility]) documented in this encounter Care Teams Social Worker Relationship Specialty Start Date End Date Rodrigo Shin PA-C [address] [place] [address] PCP - General 10/18/20 documented as of this encounter
--- OUTSIDE RECORDS SUMMARY | 2023-11-01 16:50 | XMS_ITS | Encounter Summary ---
Author Organization [facility] [place] [address] Care Team Providers Care Overlock Sewing Machine Operator Name Role Phone Rodrigo Shin Primary Care Provider +1- [phone] Encounter Details Date Type Department Care Team (Latest Contact Info) Description 03/29/2015 2:40 PM EST - 03/29/2015 11:59 PM [facility] Hospital [place] [id number] Rodrigo Shin PA [address] [place] [address] Encounter for screening mammogram for breast cancer [...] Sig Dispensed Refills Start Date End Date lisinopril (PRINIVIL;ZESTRIL) 2.5 mg tablet Take 40 mg by mouth daily. metFORMIN (GLUCOPHAGE) 500 mg tablet Take 500 mg by mouth daily. 08/19/2010 gabapentin (NEURONTIN) 300 mg capsule Take 600 mg by mouth daily. 08/19/2010 aspirin 81 mg EC tablet Take 81 mg by mouth daily. 07/03/2023 gemfibrozil (LOPID) 600 mg tablet Take 500 mg by mouth 2 times daily (before meals). 07/03/2023 amlodipine (NORVASC) 10 mg tablet Take 10 mg by mouth daily. 07/03/2023 niacin (NIASPAN ER) 500 mg ER tablet Take 1,000 mg by mouth daily. 08/19/2010 04/21/2015 vitamin E 400 unit capsule Take by mouth. 05/10/2015 cholecalciferol, Vitamin D3, 400 unit tablet Take 1,200 Units by mouth daily. 07/03/2023 documented as of this encounter Plan of Treatment Not on file documented as of this encounter Procedures Procedure Name Priority Date/Time Associated Diagnosis Comments MAMMO SCREENING CAD AND MAGED BILATERAL Routine 03/29/2015 3:03 PM EST Encounter for screening mammogram for breast cancer documented in this encounter Results * Mammo Digital Bilateral Screening With CAD and Tomosynthesis (03/29/2015 3:03 PM EST) Anatomical Region Laterality Modality Breast Bilateral Mammography Narrative 03/30/2015 8:38 AM EST BILATERAL MAMMOGRAPHY REASON FOR EXAM: Screening TECHNIQUE: [...] No mammographic evidence of malignancy. RECOMMENDATION: The [employer] and The Society of [...] Breast Imaging Center. BIRADS CATEGORY 1: NEGATIVE Jeniane L Rathburn PA IMG MAMMO ORDERABL ES documented in this encounter Visit Diagnoses Diagnosis Encounter for screening mammogram for breast cancer documented in this encounter Care Teams Overlock Sewing Machine Operator Relationship Specialty Start Date End Date Rodrigo Shin PA [address] [place] [address] PCP - General Family Medicine 02/22/15 04/09/16 documented as of this encounter
--- OUTSIDE RECORDS SUMMARY | 2023-11-01 16:50 | XMS_ITS | Encounter Summary ---
Author Organization [facility] Address [address] [place] [address] Care Team Providers Care Soap Slabber Name Role Phone Unavailable Primary Care Provider Unavailabl e Encounter Details Date Type Department Care Team (Late st Contact Info) Description 10/25/2005 Results Only [facility] - [place] [facility] [address] [place] [address] Eileen Reis MD [facility] [address] [place] [address] Social History Tobacco Use Types Packs/Day Years Used Date Smoking Tobacco: Never Assessed Sex and Gender Information Value Date Recorded Sex Assigned at Not on file Gender Identity Not on file Sexual Orientation Not on file documented as of this encounter Plan of Treatment Upcoming Encounters Date Type Department Care Team (Late st Contact Info) Description 11/16/2023 11:00 EDT Office Visit [facility] Vascular Surgery - [place] [address] [place] [address] Eros Cervantes MD [address] [facility], [facility], Level 5 [place] [phone] documented as of this encounter Procedures Procedure Name Priority Date/Time Associated Diagnosis Comments SURGICAL PATHOLOGY Routine 10/25/2005 0:00 EDT documented in this encounter Results * SURGICAL PATHOLOGY (10/25/2005 0:00 EDT) Pathology Report: SURGICAL PATHOLOGY REPORT Reports generated via electronic interface contain original data; however they are lacking the format of the original report. Caution should be taken when reading/interpreti ng unformatted reports. Name: ? QUYEN BILL ? Accession #: ? [id number] ? : ? 1950 (Age: 55) ??F ? Collect Date: ? 10/25/2005 ? Location: ? [facility] ? Receive Date: ? 10/26/2005 ? Provider: EILEEN REIS MD Copy to: ? Final Pathologic Diagnosis: ? Skin of lower extremity, right, excisional biopsy: 1. ?Dermatofibroma. ? - Dermatofibroma extends to deep margin of excisional biopsy specimen. Microscopic Description: ? There is irregular epidermal hyperplasia with basal hyperpigmentation. Within the dermis, there is a spindle cell proliferation accompanied by histiocytes. ??The spindle cells have plump nuclei that vary to a mild degree in size and shape. ??The proliferation is associated with thick bundles of collagen (collagen trapping) and areas of sclerosis. ??(Dr. Jorgensen)/[facility] Document reviewed and electronically signed by: Antionette Jorgensen MD Report ??Date: 10/30/2005 15:30 By the signature above, the attending physician certifies that he/she has personally conducted a gross and/or microscopic examination of the described specimens and rendered or confirmed the above diagnosis. Specimen(s) Received: ? RLE lesion Clinical History: ? Dermatofibroma Gross Description: ? Received in formalin labelled Landy and RLE lesion is a 1.6 x 0.7 cm unoriented pale botello skin ellipse excised to a maximum depth of 0.2 cm. Centrally there is an ill-defined 0.6 x 0.4 x less than 0.1 cm smooth white fibrous-like papule. ??The specimen is inked, sectioned, and entirely submitted as follows: BLOCK FISCHER A1, A2 ?Central sequential sections A3 ?Tips, reverse en face (Betito Ruiz)/[facility] End of Report WILIAM ACUNA 10/25/2005 10/26/2005 9:1 4 EDT Eileen Reis MD PATHOLOGY ORDERABLES WILIAM ACUNA [address] [place] [address] documented in this encounter Visit Diagnoses Not on filedocumented in this encounter
--- OUTSIDE RECORDS SUMMARY | 2023-11-01 16:50 | XMS_ITS | Encounter Summary ---
Author Organization [facility] Address [address] [place] [address] Care Team Providers Care Transcription Typist Name Role Phone Rodrigo Shin PA-C Primary Care Provider + Reason for Visit * Reason Onset Date Comments Other 10/03/2023 Encounter Details Date Type Department Care Team (Late st Contact Info) Description 10/03/2023 Telephone [facility] Orthopedics & Sport Medicine [address] [place], [place] [phone] Raj Nicole, [facility] [address] [facility] [address] [place], [place] [id number] Other Social History Tobacco Use Types Packs/Day Years Used Date Smoking Tobacco: Never Assessed Sex and Gender Information Value Date Recorded Sex Assigned at Not on file Gender Identity Not on file Sexual Orientation Not on file documented as of this encounter Ordered Prescriptions Prescription Sig Dispensed Refills Start Date End Da te clindamycin (CLEOCIN) 300 mg capsuleIndications:Cellu litis of toe of right foot Take 1 Capsule by mouth 3 times daily for 7 days. 21 Capsule 10/05/2023 10/12/2023 clindamycin (CLEOCIN) 300 mg capsuleIndications:Cellu litis of toe of right foot Take 1 Capsule by mouth 3 times daily for 7 days. 21 Capsule 10/05/2023 10/05/2023 documented in this encounter Miscellaneous Notes * Addendum Note - Rosa Reyna RN - 10/05/2023 1008 EDTAddended by: ROSA REYNA on: 10/05/2023 10:08 Modules accepted: Orders * Telephone Encounter - Rosa Reyna RN - 10/05/2023 1007 EDT Call placed to Quyen. Updated that prescription had been sent. Per Quyen's request re-sent to [facility] in [place], [place] as the [facility] in [place] is still closed. * Telephone Encounter - Rosa Reyna RN - 10/05/2023 0940 EDT Received voicemail message from Quyen. She wasn't feeling well so she didn't come to her appointment with Dr. Nicole on 10/03/23. States she saw her PCP on Sunday and they looked at the toe. Quyen is going out of town and wants an antibiotic. States her PCP thinks it is a good idea. Wants a call back to talk about this. Call placed to Quyen. States there still continues to be swelling of her toe. [place] recommended after looking at her toe and saying that it looks really red and swollen and antibiotic to take with her on her cruise. She is concerned, and feels in her heart that she has a bone infection. Rescheduled to be seen by Dr. Nicole after her trip. * Telephone Encounter - Manasa Simmons - 10/03/2023 1419 EDT Quyen called to cancel her appointment today because she has no ride and doesn't feel well. She is asking if Dr. Nicole can give her another and different prescription of an Antibiotic because she is leaving town on 10/08 and her primary asked her to call us. She can be reached at [phone]. Thanks Manasa documented in this encounter Plan of Treatment Upcoming Encounters Date Type Department Care Team (Late st Contact Info) Description 11/16/2023 11:00 EDT Office Visit [facility] Vascular Surgery [facility] [address] [place] [address] Eros Cervantes MD [address] [place] [address], [facility] [address] [place] [phone] documented as of this encounter Visit Diagnoses Diagnosis Cellulitis of toe of right foot- Primary Cellulitis and abscess of toe, unspecified documented in this encounter Discontinued Medications Medication Sig Discontinue Reason Start Date End Da te clindamycin (CLEOCIN) 300 mg capsuleIndications:Cellu litis of toe of right foot Take 1 Capsule by mouth 3 times daily for 7 days. 10/05/2023 10/05/2023 documented as of this encounter Care Teams Transcription Typist Relationship Specialty Start Date End Date Rodrigo Shin PA-C [address] [place] [address] PCP - General 10/18/20 documented as of this encounter
--- OUTSIDE RECORDS SUMMARY | 2023-11-01 16:50 | XMS_ITS | Encounter Summary ---
Author Organization [facility] Address [address] [place] [address] Care Team Providers Care Glycerin Operator Name Role Phone Rodrigo Shin PA-C Primary Care Provider + Reason for Visit * Reason Onset Date Comments Results 08/30/2023 Encounter Details Date Type Department Care Team (Late st Contact Info) Description 08/30/2023 Telephone [facility] Orthopedics & Podiatry [address], [address] [place] [address] Ying Reyna, RN Results Social History Tobacco Use Types Packs/Day Years Used Date Smoking Tobacco: Never Assessed Sex and Gender Information Value Date Recorded Sex Assigned at Not on file Gender Identity Not on file Sexual Orientation Not on file documented as of this encounter Miscellaneous Notes * Telephone Encounter - Ying Reyna, RN - 08/30/2023 0850 EDT Call placed to Quyen to relay wound culture results from Dr. Nicole and orders to change antibiotic. Quyen voiced understanding. documented in this encounter Plan of Treatment Upcoming Encounters Date Type Department Care Team (Late st Contact Info) Description 11/16/2023 11:00 EDT Office Visit [facility] V[facility] Surgery - [place] [address] [facility] [place], [place] [phone] Eros Cervantes MD [address] [facility], [address] [place] [phone] documented as of this encounter Visit Diagnoses Not on filedocumented in this encounter Care Teams Glycerin Operator Relationship Specialty Start Date End Date Rodrigo Shin PA-C [address] [place] [phone] PCP - General 10/18/20 documented as of this encounter
--- OUTSIDE RECORDS SUMMARY | 2023-11-01 16:50 | XMS_ITS | Encounter Summary ---
Author Organization [facility] [place] [address] Care Team Providers Care Cement Based Materials Pump Tender Name Role Phone Rodrigo Shin Primary Care Provider [phone] Reason for Visit * Reason Comments Wound Care bileteral great toes Encounter Details Date Type Department Care Team (Late st Contact Info) Description 06/04/2015 11:30 AM EDT Office [place] [address] Queenie Fulton, RN Ingrown nail Social History Tobacco Use Types Packs/Day Years [...] Sign Reading Time Taken Comments Blood Pressure 118/86 06/04/2015 11:30 AM EDT Pulse 69 06/04/2015 11:30 AM EDT Temperature 36.5 ??C (97.7 ??F) 06/04/2015 11:30 AM E DT Respiratory Rate 14 06/04/2015 11:30 AM EDT Oxygen Saturation 100% 06/04/2015 11:30 AM EDT Inhaled Oxygen Concentration - - Weight - - Height - - Body Mass Index - - documented in this encounter Progress Notes * Queenie Butts RN - 06/04/2015 5:19 PM EDT [facility] Progress Note HPI: Quyen Bill is a 65 y.o. female referred by Dr. Henry Marroquin DPM for follow up assessment of bilateral halluces. The patient is s/p total temporary nail avulsion of the bilateral hallux nailson 05/26/15. SUBJECTIVE: Feels well, denies fever/chills/sweats Has pain to left lateral hallux Stopped soaking toes 2 days ago, today is the first day she did not apply band aid and abx ointment PE: Alert, well appearing in NAD. Right hallux nail avulsion site is well healed, no erythema, crusting or drainage Left hallux with macerated tissue to left lateral border and small amount of crusted drainage. No surrounding erythema or flucutance Treatment 2% topical lidocaine gel applied to left hallux site due to pain with debridement and left in [id number] minutes Devitalized tissue then debrided from the area with tissue nippers, revealing a pink, superficial moist wound bed that measures ~0.5 cm x 0.5 cm Site cleansed with NS, bacitracin and a band aid applied Pain Reassessment (0-10): 03/31 Assessment/Plan: Quyen Bill is a 65 y.o. female s/p total temporary nail avulsion of the bilateral hallux nails on 05/26/15. The right hallux is well healed, left hallux with crusting and maceration, debrided to reveal healthy small wound bed. Patient given instructions to continue with soaking to prevent crust formation which will lead to the area not being able to drain which can cause discomfort. She will continue to soak toe for 10-20 minutes per day and use abx ointment and a band aid until the area is healed. She is going on vacation next week, she will call with any questions or concerns. Follow Up: PRN documented in this encounter Plan of Treatment Not on file documented as of this encounter Visit Diagnoses Diagnosis Ingrown nail Ingrowing nail documented in this encounter Care Teams Cement Based Materials Pump Tender Relationship Specialty Start Date End Date Rodrigo Shin PA [address] [place] [address] PCP - General Family Medicine 02/22/15 04/09/16 documented as of this encounter
--- OUTSIDE RECORDS SUMMARY | 2023-11-01 16:50 | XMS_ITS | Clinical Summary ---
Author Organization [facility] Address [address] [place] [address] Care Team Providers Care Nuclear Waste Process Operator Name Role Phone Rodrigo Shin PA-C Primary Care Provider + Allergies No known active allergies Medications Medication [...] veins 10/22/2020 Venous insufficiency (chronic) (peripheral) 04/2020 Encounters Date Type Department Care Team Description 10/26/2023 12:15 EDT Phlebotomy Only [facility] - Outpatient Phlebotomy Drawing [address] [place] [address] Lab, [facility] Cellulitis of toe of right foot; Diabetic ulcer of toe of right foot associated with type 2 diabetes mellitus, unspecified ulcer stage ([facility]) 10/26/2023 11:30 EDT Office Visit [facility] Orthopedics & Podiatry [address] [place] [address] Raj Nicole, DPM Cellulitis of toe of right foot (Primary Dx); Diabetic ulcer of toe of right foot associated with type 2 diabetes mellitus, unspecified ulcer stage ([facility]) 10/03/2023 Telephone [facility] Orthopedics & Sport Medicine [address] [place], [place] [phone] Raj Nicole DPM Other 09/17/2023 16:30 EDT Office Visit [facility]opedics & Podiatry [address], [address] [place], [place] [phone] Raj Nicole DPM Cellulitis of toe of right foot (Primary Dx); Diabetic ulcer of toe of right foot associated with type 2 diabetes mellitus, unspecified ulcer stage ([facility]); Acute right ankle pain; Venous insufficiency 09/03/2023 13:30 EDT Office Visit [facility] Orthopedics & Podiatry [address] [place], [place] [phone] Raj Nicole DPM Cellulitis of toe of right foot (Primary Dx); Diabetic ulcer of toe of right foot associated with type 2 diabetes mellitus, unspecified ulcer stage ([facility]) 08/31/2023 Telephone [facility] Pod[facility] [address] [place], [place] [phone] Ying Reyna, RN Other 08/30/2023 Telephone [facility] Pod[facility] [address] [place], [place] [phone] Ying Reyna, RN Results 08/30/2023 Orders Only [facility]opedics [facility] Podiatry [address] [place] [address] Raj Nicole DPM Cellulitis of toe of right foot (Primary Dx) 08/27/2023 13:00 EDT Office Visit [facility]ics [facility] Podiatry [address] [place], [place] [phone] Raj Nicole DPM Diabetic ulcer of toe of right foot associated with type 2 diabetes mellitus, unspecified ulcer stage ([facility]) (Primary Dx); Cellulitis of toe of right foot 08/14/2023 Telephone [facility] Orthopedics & Podiatry [address] [place] [address] Ying Reyna, RN Appointment Related from Last 3 Months Immunizations Name Administration Dates Next Due Covid-19 mRNA Vaccine (MODER NA COVID-19) PF 0.5 ml IM (12 yrs+) 07/04/2020,06/06/2020 Surgical History Surgery Date Site/Laterality Comments SECTION ABDOMINOPLASTY 02/20/2016 - 02/18/2017 BREAST SURGERY reduction MASTOPEXY [place] INJECTION SCLEROSANT SING LE INCMPTNT VEIN [place] INJECTION SCLEROSANT SING LE INCMPTNT VEIN 11/08/2020 Bilateral bilateral Medical History Medical History Date Comments Dermatitis Anxiety Hypothyroidism Hyperlipidemia Hypertension Diabetes mellitus ([facility]) type 2 Metabolic syndrome X Onychomycosis Actinic keratosis Family History Medical History Relation Comments Varicose Veins Mother Relation Status Comments Mother Social History Tobacco Use Types Packs/Day Years Used Date Smoking Tobacco: Never Assessed Sex and Gender Information Value Date Recorded Sex Assigned at Not on file Gender Identity Not on file Sexual Orientation Not on file Obstetrics History Last Filed Vital Signs Vital Sign Reading [...] Info) Description 11/16/2023 11:00 EDT Office Visit [facility] Vascular Surgery - [place] [address] [place] [address] Eros Cervantes MD [address] [place] [address], [facility] [address] [place] [address] Health Maintenance Due Date Last Done Comments Eye Exam 1950 Foot Exam 1950 Hemoglobin A1C (Ha1C) 1950 Hepatitis C Screen 1950 Microalbumin/Creatinine Ratio 1950 Lipid Profile Screening (Cholesterol) 04/25/1954 RSV Immunization ( o r 60+ Years) (1 - 1-dose 60+ series) 2011 Fall Risk Screening 04/25/2016 COVID-19 Vaccine ( season) 2023, 06/06/2020 Procedures Procedure Name Priority Date/Time Associated Diagnosis Comments COMPLETE BLOOD COUNT AND DIFFERENTIAL Routine 10/26/2023 12:19 EDT Cellulitis of toe of right foot Diabetic ulcer of toe of right foot associated with type 2 diabetes mellitus, unspecified ulcer stage (HCC-CMS) C REACTIVE PROTEIN Routine 10/26/2023 12 :19 EDT Cellulitis of toe of right foot Diabetic ulcer of toe of right foot associated with type 2 diabetes mellitus, unspecified ulcer stage (HCC-CMS) XR ANKLE RIGHT 3 OR MORE VIEWS Routine 09/17/2023 16:49 EDT Acute right ankle pain BACTERIAL CULTURE/SMEAR Routine 08/27/2023 14:21 EDT Diabetic ulcer of toe of right foot associated with type 2 diabetes mellitus, unspecified ulcer stage (HCC-CMS) Cellulitis of toe of right foot XR TOE RIGHT 2 OR MORE VIEWS Routine 08/27/2023 13:34 EDT Diabetic ulcer of toe of right foot associated with type 2 diabetes mellitus, unspecified ulcer stage (HCC-CMS) from Last 3 Months Results * COMPLETE BLOOD COUNT AND DIFFERENTIAL (10/26/2023 12:19 EDT) WBC 8.33 4.00 - 12.40 K/cmm 10/26/2023 12:35 T [facility] RBC 4.38 3.86 - 5.04 M/cmm 10/26/2023 12:35 [facility] Hemoglobin 12.3 11.6 - 15.2 g/dL 10/26/2023 12:35 [facility] HCT 36.7 34.9 - 44.4 % 10/26/2023 12:35 [facility] MCV 84 81 - 98 fL 10/26/2023 12:35 [facility] MCH 28.1 26.7 - 33.3 pg 10/26/2023 12:35 [facility] MCHC 33.5 32.1 - 35.9 g/dL 10/26/2023 12:35 [facility] RDW-CV 14.2 <14.7 % 10/26/2023 12:35 [facility] RDW-SD 43.6 <50.4 fl 10/26/2023 12:35 [facility] PLT 271 141 - 377 K/cmm 10/26/2023 12:35 [facility] MPV 11.1 9.5 - 12.7 fL 10/26/2023 12:35 [facility] % Neutrophils 72.6 % 10/26/2023 12:35 [facility] % Lymphocytes 19.7 % 10/26/2023 12:35 [facility] % Monocytes 4.8 % 10/26/2023 12:35 [facility] % Eosinophils 2.2 % 10/26/2023 12:35 [facility] % Basophils 0.2 % 10/26/2023 12:35 [facility] % Immature Grans 0.5 <0.9 % 10/26/19 12:35 [facility] Absolute Neutrophils 6.05 2.20 - 8.85 K/cmm 10/26/2023 12:35 [facility] Absolute Lymphocytes 1.64 1.09 - 3.30 K/cmm 10/26/2023 12:35 [facility] Absolute Monocytes 0.40 0.10 - 0.80 K/cmm 10/26/2023 12:35 [facility] Absolute Eosinophils 0.18 0.03 - 0.61 K/cmm 10/26/2023 12:35 EDT [facility] ABS Basophils 0.02 0.01 - 0.11 K/cmm 10/26/2023 12:35 EDT [facility] Absolute Immature Grans 0.04 0.00 - 0.06 K/cmm 10/26/2023 12:35 EDT [facility] Type of Differential: Auto 10/26/2023 12:35 EDT [facility] Blood VENOUS BLOOD / Unknown Venipuncture / Unknown 10/26/2023 12:19 EDT 10/26/2023 12:32 EDT Raj Nicole DPM PACKAGES & DNA [place] OBE ORDERABLES Performing Organization Address City/[facility]/ZIP Co de Phone Number [facility] [address] [place] [address] * C REACTIVE PROTEIN (10/26/2023 12:19 EDT) C-Reactive Protein <5.0 <10.0 mg/L 10/26/2023 13:11 EDT [facility] Blood VENOUS BLOOD / Unknown Venipuncture / Unknown 10/26/2023 12:19 EDT 10/26/2023 12:38 EDT Raj Nicole DPM CHEMISTRY & BLOOD GAS ORDERABLES Performing Organization Address City/[facility]/ZIP Co de Phone Number [facility] [address] [place] [address] * XR ANKLE RIGHT 3 OR MORE [...] REGARDING THIS REPORT PLEASE CALL [facility] AT [phone] Narrative 09/18/2023 14:04 EDT PROCEDURE INFORMATION: Exam: [...] CONCERNS REGARDING THIS REPORT PLEASE CALL [facility] [phone] Raj Nicole DPM IMG DIAGNOSTIC IM AGING ORDERABLES * (ABNORMAL) BACTERIAL CULTURE/SMEAR (08/27/2023 14:21 EDT) Organism ID Few Raoultella ornithinolytic a(A) VITEK SUSCEPTIBILITY 08/30/2023 7:17 EDT [facility] Comment: Organism ID Rare VITEK SUSCEPTIBILITY 08/30/2023 7:17 EDT [facility] Comment: Usual skin davey Smear No Neutrophils Seen 08/30/2023 7:17 EDT [facility] Smear No bacteria seen 08/30/2023 7:17 EDT [facility] Comment:ESWAB Swab [...] thoxazole VITEK SUSCEPTIBILITY <=20 ug/mL: Susceptible Raj Nicole DPM MICROBIOLOGY - [facility] ORDERABLES Performing Organization Address City/State/[facility] Co de Phone Number [facility] [address] [place] [address] * XR TOE RIGHT 2 OR MORE [...] REGARDING THIS REPORT PLEASE CALL [facility] AT [phone] Narrative 08/28/2023 14:37 EDT PROCEDURE INFORMATION: Exam: [...] CONCERNS REGARDING THIS REPORT PLEASE CALL [facility] [phone] Raj Nicole DPM IMG DIAGNOSTIC IM AGING ORDERABLES from Last 3 Months Care Teams Nuclear Waste Process Operator Relationship Specialty Start Date End Date Rodrigo Shin PA-C [address] [place] [address] PCP - General 10/18/20
--- OUTSIDE RECORDS SUMMARY | 2023-11-01 16:50 | XMS_ITS | Encounter Summary ---
Author Organization [facility] Address [address] [place] [address] Care Team Providers Care Basketball Assembler Name Role Phone Rodrigo Shin PA-C Primary Care Provider + Encounter Details Date Type Department Care Team (Late st Contact Info) Description 08/30/2023 Orders Only [facility] Orthopedics & Podiatry [address] [place], [place] [address] [facility] [address] [place] [address] [phone] Cellulitis of toe of right foot (Primary Dx) Social History Tobacco Use Types Packs/Day Years Used Date Smoking Tobacco: Never Assessed Sex and Gender Information Value Date Recorded Sex Assigned at Not on file Gender Identity Not on file Sexual Orientation Not on file documented as of this encounter Ordered Prescriptions Prescription Sig Dispensed Refills Start Date End Da te sulfamethoxazole-trimetho prim (BACTRIM) 400-80 mg per tabletIndications:Celluli tis of toe of right foot Take 1 Tablet by mouth 2 times daily for 7 days. 14 Tablet 08/30/2023 09/06/2023 documented in this encounter Plan of Treatment Upcoming Encounters Date Type Department Care Team (Late st Contact Info) Description 11/16/2023 11:00 EDT Office Visit [facility] Vascular Surgery [address] [address] Eros Cervantes MD [address] [facility], [address] [place] [phone] documented as of this encounter Visit Diagnoses Diagnosis Cellulitis of toe of right foot- Primary Cellulitis and abscess of toe, unspecified documented in this encounter Care Teams Basketball Assembler Relationship Specialty Start Date End Date Rodrigo Shin PA-C [address] [place] [phone] PCP - General 10/18/20 documented as of this encounter
--- OUTSIDE RECORDS SUMMARY | 2023-11-01 16:50 | XMS_ITS | Encounter Summary ---
Author Organization [facility] Address [address] [place] [address] Care Team Providers Care Guest Associate Name Role Phone Unavailable Primary Care Provider Unavailabl e Encounter Details Date Type Department Care Team (Late st Contact Info) Description 01/25/2011 Results Only [facility] [phone] Brenda Crenshaw PAMichaelC [address] [place] [address] Social History Tobacco Use Types Packs/Day Years Used Date Smoking Tobacco: Never Assessed Sex and Gender Information Value Date Recorded Sex Assigned at Not on file Gender Identity Not on file Sexual Orientation Not on file documented as of this encounter Plan of Treatment Upcoming Encounters Date Type Department Care Team (Late st Contact Info) Description 11/16/2023 11:00 EDT Office Visit [facility] Vascular Surgery - [place] [address] [place] [address] Eros Cervantes MD 111 [facility], [facility], [address] [place] [phone] documented as of this encounter Procedures Procedure Name Priority Date/Time Associated Diagnosis Comments SURGICAL PATHOLOGY Routine 01/25/2011 0:00 EST documented in this encounter Results * SURGICAL PATHOLOGY (01/25/2011 0:00 EST) Pathology Report: SURGICAL PATHOLOGY REPORT Reports generated via electronic interface contain original data; however they are lacking the format of the original report. Caution should be taken when reading/interpreti ng unformatted reports. Name: ? QUYEN BILL ? Accession #: ? [id number] ? : ? 1950 (Age: 60) ??F ? Collect Date: ? 01/25/2011 ? Location: ? [facility] ? Receive Date: ? 01/26/2011 ? Provider: BRENDA LANTIGUA PA-C Copy to: RICHARD BECK PROFESSOR OF BIOCHEMISTRY ? Final Pathologic Diagnosis: A. ?Skin of back, right side lower, punch biopsy: 1. ?Melanocytic nevus, intradermal type. B. ?Skin of back, central mid, punch biopsy: 1. ?Melanocytic nevus, junctional type, with unusual architectural features and mild cytologic atypia. ? - Lesion extends to peripheral edge of biopsy specimen. Document reviewed and electronically signed by: SAMARIA CALLAWAY MD Report ??Date: 01/27/2011 17:10 By the signature above, the attending physician certifies that he/she has personally conducted a gross and/or microscopic examination of the described specimens and rendered or confirmed the above diagnosis. Specimen(s) Received: A. ?8.0 mm punch biopsy excision R side low back (#1) B. ? 4.0 mm punch biopsy excision central mid back (#2) Clinical History: ? A. ??Working diagnosis: nevomelanocytic nevus, 7.0 mm x 6.0 mm (raised) flesh colored papule with light brown center, irritating to patient has grown in size on R side, lower back; B. ??Working diagnosis: ??nevus ??pls r/o melanoma, 3.0 mm x 3.0 mm dark brown/black colored macule mid back, dark than other nevi, h/o increased sun exposure (evidence of sun damage present) Gross Description: ? Received in formalin labelled Quyen Bill and 1 ??R side low back is a circular punch biopsy of botello-white skin measuring 0.8 cm in diameter and 0.3 cm in thickness. ??There is a central 0.8 x 0.7 x 0.3 cm irregular botello-nelson focally granular papule. ??The specimen is trisected and entirely submitted as (A). Received in formalin labelled Quyen Bill and 2 ??central mid back is a circular punch biopsy of botello-white skin measuring 0.4 cm in diameter and 0.2 cm in thickness. ??There is a central 0.4 x 0.3 cm irregular brown macule. ??The specimen is bisected and entirely submitted as (B). ??(Betito Ghosh)/[facility] End of Report WILIAM ACUNA 01/25/2011 01/26/2011 9:1 9 EST Brenda Crenshaw PA-C PATHOLOGY ORDERABL ES WILIAM ACUNA [address] [place] [address] documented in this encounter Visit Diagnoses Not on filedocumented in this encounter
--- OUTSIDE RECORDS SUMMARY | 2023-11-01 16:50 | XMS_ITS | Encounter Summary ---
Author Organization [facility] Address [facility] [place] [address] Care Team Providers Care Nuclear Waste Management Engineer Name Role Phone Rodrigo Shin Primary Care Provider +1- [phone] Reason for Visit * Reason Comments Advice Only Encounter Details Date Type Department Care Team (Late st Contact Info) Description 07/15/2015 11:00 AM EDT Office Visit Dermatology at [facility] [address] [place] [address] Nell Davila MD [facility] [address] [place] [address] Vera Godoy RN Fat deposits Social History [...] Notes * Vera Godoy RN - 07/15/2015 1:46 PM EDT Images from the original note were not included. Provider: MD Vera Queen RN Chief Problem: 1. Unwanted fat distrubution 2. Discussion of cryolipolysis HISTORY & DISCUSSION: 65 y.o.. year female, here for discussion and possibly treatment today for reduction of unwanted fat distribution. Established patient to me. Patient most interested in the cryolipolysis treatment . Body sculpting with the cryolipolysis technique most appropriate for the patient and his/her expectations/goals. Discussed potential adverse events including pain, cramping, strong suction sensation, stinging and(during the procedure and 1-21 days after), , [...] at the time of the procedure/visit. Understood. EXAMINATION: Focal examination of the trunkel area DIAGNOSIS/ASSESSMENT: 1. Unwanted fat distrubution of the flanks, upper and lower abdomen. PLAN: 1. Patient wished to proceed, will call and schedule patient 2. Pt has excess skin on lower abdomen, I do not believe she would benefit from coolsculpting in this area. Appropriate for coolcore on right and left flanks and coolmax on upper right and left abdomen. Plan: Coolmax x 2 sites on right and left upper abdomen = $3000.00 Coolcore x 2 sites on right and left flanks = $1500 - 20 % = $1200.00 Will call pt to schedule, will coordinate appointment with v-beam for spider veins I performed the above scribed service and agree with the accuracy of the documentation in this encounter. Vera Godoy RN Section of Dermatology [facility] Patient seen and evaluated with staff supply manager: Nell Davila MD Section of Dermatology [facility] documented in this encounter Plan of Treatment Not on file documented as of this encounter Visit Diagnoses Diagnosis Fat deposits Localized adiposity documented in this encounter Care Teams Nuclear Waste Management Engineer Relationship Specialty Start Date End Date Rodrigo Shin PA [address] [place] [address] PCP - General Family Medicine 02/22/15 2 documented as of this encounter
--- OUTSIDE RECORDS SUMMARY | 2023-11-01 16:50 | XMS_ITS | Encounter Summary ---
Author Organization [facility] [place] [address] Care Team Providers Care Outreach Educator Name Role Phone Rodrigo Shin Primary Care Provider +1- [phone] Reason for Visit * Reason Comments Nail Problem Encounter Details Date Type Department Care Team (Late st Contact Info) Description 05/26/2015 10:30 AM EDT Office Visit [place] [address] Henry Marroquin DPM [facility] [place] [address] Ingrown nail (Primary Dx); Thickened nails; Type 2 diabetes mellitus with complication Social [...] Sign Reading Time Taken Comments Blood Pressure 128/76 05/26/2015 10:45 AM EDT Pulse 74 05/26/2015 10:45 AM EDT Temperature 36.6 ??C (97.9 ??F) 05/26/2015 10:45 AM E DT Respiratory Rate - - Oxygen Saturation 100% 05/26/2015 10:45 AM EDT Inhaled Oxygen Concentration - - Weight - - Height - - Body Mass Index - - documented in this encounter Patient Instructions * Patient Instructions* Henry Marroquin DPM - 05/26/2015 10:51 AM EDT Keep bulky dressing on for 24 hours. Ok to remove dressing and shower/soak foot in warm soapy/Epsom salt water for 15 minutes daily. Remove any crust/scab material from area of procedure. Pat toe dry. Apply antibiotic ointment to area and cover with bandaid. Rest and avoid increase in activity for 72 hours. Ok to increase activity with tolerance of pain. Take over the counter tylenol or anti-inflammatories for pain. Also can ice and elevate left foot to relieve pain and swelling. Follow up in 7-14 days for nail check. Call clinic or present to ED for increased redness of toe or extending up foot, increased drainage,pus or fever/chills. documented in this encounter Progress Notes * Henry Marroquin DPM - 05/26/2015 10:52 AM EDT Outpatient Podiatry Clinic Note Name: Quyen Bill Age:65 y.o. MR#: [id number] Date of Service: 05/26/2015 Chief Complaint: here for bilateral great toe removal procedures HPI: Quyen Bill is a 65 y.o. year old diabetic female who presents today for bilateral great toenail removals. Patient presented today for the procedure that we discussed at her last appointment.She notes the right great toenail was not attached very well and the left great toenail is thick and painful. ROS: Denies F/C/N/V. Patient's medications, allergies, past medical, surgical, social and family histories were reviewedand updated as appropriate. Physical Exam: Vitals: Blood pressure 128/76, pulse 74, temperature 36.6 ??C (97.9 ??F), temperature source Oral, SpO2 100 %. Gen: WD, alert, oriented. NAD. Derm: Hallux nails are thickened, dystrophic, and discolored. The right hallux nail is not very well attached. There is no erythema or drainage the nail borders. Vasc: DP/PT pulses palpable. Feet warm to touch. Neuro: Epicritic sensation intact to light touch bilateral. MSK: Mild pain with direct palpation to the hallux nails bilateral. Assessment/Plan: Quyen Bill is a 65 y.o. year old diabetic female who presents today for bilateral great toenail removal. We have discussed at her last appointment the possibility of performing bilateral total nail avulsions. Patient presented today for this procedure and it was performed, see procedure below. Patient tolerated the procedure well and was given written and oral post procedure instructions on how to care for her toes. Patient will follow up in a few weeks for a nail check. Procedure: Quyen Bill was appropriately identified, allergies reviewed and confirmed prior to procedure and the appropriate toe and nail border(s) identified. Quyen Bill has elected to have a total temporary nail avulsion of the bilateral hallux nails. Right and left halluces prepped with alcohol and 4 mL of 1% lidocaine plain was injected to each hallux for anesthesia. After adequate anesthesia was obtained the affected digit was prepped with betadine solution. A digital tourniquet was placed on the toe for hemostasis. A spatula was used to freethe affected nail from under- and overlying soft tissue from distal to proximal under the eponychium. Next, a straight hemostat was used to grasp the offending nail, which was removed from the nail fold. A spatula was used to ensure the entire offending nail was removed and no nail spicule was leftbehind. Bacitracin ointment was applied, the tourniquet was removed, and a dry, sterile bulky compression dressing was applied. Quyen Bill was instructed on proper care of the toe. She is to remove the dressing after about 24 hours. She may shower/bathe/soak the toe in warm, soapy water and remove any crusting material present in the nail fold and can dress the area with an antibiotic ointment and Bandaid daily. Quyen Guardado will RTC in 1-2 weeks for a nail check. documented in this encounter Plan of Treatment Not on file documented as of this encounter Visit Diagnoses Diagnosis Ingrown nail- Primary Ingrowing nail Thickened nails Other specified disease of nail Type 2 diabetes mellitus with complication documented in this encounter Care Teams Outreach Educator Relationship Specialty Start Date End Date Raturn, Jeniane L, PA [address] [place] [address] PCP - General Family Medicine 02/22/15 2 documented as of this encounter
--- OUTSIDE RECORDS SUMMARY | 2023-11-01 16:50 | XMS_ITS | Encounter Summary ---
Author Organization [facility] Address [address] [place] [address] Care Team Providers Care Transportation Superintendent Name Role Phone Rodrigo Shin PA-C Primary Care Provider + Reason for Visit * Reason Comments New Patient Visit New Patient Visit * Referral (Routine) - Authorization Not Required Specialty Diagnoses / Procedures Referred By Venancio medeiros Referred To Contact Orthopedic Surgery Diagnoses Cellulitis of unspecified toe Jennifer Canchola [address] [place] [address] [facility] [address] [place] [address] Referral ID Status Reason Start Date Expiration Date Visits Requested Visits Authorized [id number] Authorization Not Required 1 1 Encounter Details Date Type Department Care Team (Late st Contact Info) Description 08/27/2023 13:00 EDT Office Visit [facility] Orthopedics & Podiatry [address] [place], [place] [id number] Raj Nicole, [facility] [address] [facility] [address] [place] [phone] Diabetic ulcer of toe of right foot associated with type 2 diabetes mellitus, unspecified ulcer stage ([facility]) (Primary Dx); Cellulitis of toe of right foot Social History Tobacco Use Types Packs/Day Years Used Date Smoking Tobacco: Never Assessed Sex and Gender Information Value Date Recorded Sex Assigned at Not on file Gender Identity Not on file Sexual Orientation Not on file documented as of this encounter Last Filed Vital Signs Vital Sign Reading Time Taken Comments Blood Pressure - - Pulse 80 08/27/2023 1311 EDT Temperature - - Respiratory Rate - - Oxygen Saturation 96% 08/27/2023 1311 EDT Inhaled Oxygen Concentration - - Weight - - Height - - Body Mass Index - - documented in this encounter Ordered Prescriptions Prescription Sig Dispensed Refills Start Date End Da te clindamycin (CLEOCIN) 300 mg capsuleIndications:Diabe tic ulcer of toe of right foot associated with type 2 diabetes mellitus, unspecified ulcer stage ([facility]),Cellulitis of toe of right foot Take 1 Capsule by mouth 3 times daily for 7 days. 21 Capsule 08/27/2023 09/03/2023 documented in this encounter Progress Notes * Raj Nicole, DPLiv - 08/27/2023 1300 EDT Images from the original note were not included. CHIEF COMPLAINT: Chief Complaint Patient presents with Right Foot - New Patient Visit Right 2nd Toe - New Patient Visit SUBJECTIVE: Quyen Bill is a 73 y.o. female who presents as a new patient for evaluation of her right second toe. She states that she was initially presenting to see podiatry for concerns to her right ankle, however over the weekend she noticed this very large bulla formation of her right second toe with associated cellulitis. She has contractures of her toes and has seen a different inside wirer in the past, but the concerns today have not been evaluated by another provider. She is a diabetic and is concerned for her feet as she has heard that issues can arise. She notes that she cannot remember any damage to the toe and it is not painful, but does note that she has been spending time in freshwater if this could be an issue. She feels a little tired, but overall denies constitutional symptoms. Denies other acute pedal complaints. I reviewed the patients problem list, social history, allergies, medications, family history of surgical history. See scanned document. ROS: Constitutional: negative for, fever OBJECTIVE: Pulse 80 SpO2 96% Gen: A+Ox3, NAD. Pleasant Ulcer #1 Type: Diabetic Location: Right 2nd toe Severity: Stage II with exposed subcutaneous tissue Size predebridement: Covered in callus and blister unable to measure Size postdebridement: 3.0 cm 2.5cm x 0.2cm Edges: macerated Shape: Irregular Drainage: purulosanguinous Odor: None Wound bed: 80% granular, 20% fibrotic Periwound: Erythematous, dry, no calor Infection: Present Progress: New Vascular: Dorsalis pedis and posterior pulses palpable, CFT immediate to all digits, TG warm to warm within normal limits. Moderate Edema present to right second toe Neurological: protective sensation diminished Dermatological: right second toe with large bulla formation and possible distal ulcer with positiveerythema - post debridement bulla lanced with roughly 3cc of purulosanguinous fluid no probe to bone no surrounding fluctuance, negative ecchymosis, no open lesions, no clinical signs of infection present Musculoskeletal: mild pain with debridement of blister Radiographs of were ordered and taken in the office today. These were independently reviewed by me. IMPRESSION: No acute bony changes to indicate osteomyelitis ASSESSMENT/PLAN: 1. Diabetic ulcer of toe of right foot associated with type 2 diabetes mellitus, unspecified ulcer stage ([facility]) Excisional debridement performed, see procedure note. Unclear what caused this but will treat as a wound. Dressed with betadine gauze today - recommend daily dressing changes and Epsom salt soaks. Beaware of signs and symptoms of worsening infection and present to the Emergency Room if any arise. Excisional Wound Debridement Consent: Risk and benefits of procedure were discussed in detail with patient, patient gives verbalconsent to this procedure. A time out was performed confirming appropriate patient name, , Site and side of procedure. . Character of ulcer after debridement removal of overlying hyperkeratotic tissue from surrounding ulceration revealing ulcer base, then reduction of slough down to bleeding granular wound base, removal of all nonviable tissue. Post procedure wound measurements see exam. Bleeding Minimal bleeding controlled with pressure by gauze/q-tip. Type of Tissue Removed: slough. Depth to get to healthy tissue: into fat layer. Prep: Washed with Sterile Saline. Anesthesia: none due to neuropathy. Debridement: excisional sharp debridement with 15 blade down to and including nonviable and viable subcutaneous tissue . Tolerance: The patient tolerated the procedure well with no complications.. Change In Size of Wound: Wounds debrided with reduction of slough. Post debridement measurements noted in exam. Dressing: see treatment. - XR TOE RIGHT 2 OR MORE VIEWS; Future - clindamycin (CLEOCIN) 300 mg capsule; Take 1 Capsule by mouth 3 times daily for 7 days. Dispense:21 Capsule; Refill: 0 - BACTERIAL CULTURE/SMEAR 2. Cellulitis of toe of right foot Wound culture obtained. Antibiotics prescribed - may change antibiotics based on results of culture. Be aware of signs and symptoms of worsening infection and present to the Emergency Room if any arise. Follow up 1 week - clindamycin (CLEOCIN) 300 mg capsule; Take 1 Capsule by mouth 3 times daily for 7 days. Dispense:21 Capsule; Refill: 0 - BACTERIAL CULTURE/SMEAR Quyen will return to clinic in 1 week to re-evaluate the current treatment plan and assess treatment progress. Thank you for allowing me to be a part of your treatment today I spent a total of 30 minutes on the date of this encounter meeting with the patient and reviewing documentation/coordinating care as described in the above note. This was separate from any procedures performed at the time of the visit. This note was prepared using voice recognition software and the EMR. There may be inadvertent errors and omissions. Raj Nicole DPM 08/27/2023 documented in this encounter Plan of Treatment Upcoming Encounters Date Type Department Care Team (Late st Contact Info) Description 11/16/2023 11:00 EDT Office Visit [facility] Vascular Surgery [address] [address] Eros Cervantes MD [address] [place] [address], [facility] [address] [place] [address] documented as of this encounter Procedures Procedure Name Priority Date/Time Associated Diagnosis Comments BACTERIAL CULTURE/SMEAR Routine 08/27/2023 14:21 EDT Diabetic ulcer of toe of right foot associated with type 2 diabetes mellitus, unspecified ulcer stage ([facility]) Cellulitis of toe of right foot documented in this encounter Results * (ABNORMAL) BACTERIAL CULTURE/SMEAR (08/27/2023 14:21 EDT) Organism ID Few Raoultella ornithinolytic a(A) VITEK SUSCEPTIBILITY 08/30/2023 7:17 EDT [facility] Comment: Organism ID Rare VITEK SUSCEPTIBILITY 08/30/2023 7:17 EDT [facility] Comment: Usual skin davey Smear No Neutrophils Seen 08/30/2023 7:17 EDT [facility] Smear No bacteria seen 08/30/2023 7:17 EDT [facility] Comment:ESWAB Swab FOOT STRUCTURE [...] ug/mL: Susceptible Raj Nicole DPM MICROBIOLOGY - GE NERAL ORDERABLES [facility] [address] [place] [address] * XR TOE RIGHT 2 OR MORE [...] REGARDING THIS REPORT PLEASE CALL [facility] AT [phone] [facility] 08/28/2023 14:37 EDT PROCEDURE INFORMATION: Exam: XR [...] of the 2nd toe. Procedure Note Polo Leram MD - 08/28/2023 PROCEDURE INFORMATION: Exam: XR [...] CONCERNS REGARDING THIS REPORT PLEASE CALL [facility] [phone] Raj Nicole DPM IMG DIAGNOSTIC IM AGING ORDERABLES documented in this encounter Visit Diagnoses Diagnosis Diabetic ulcer of toe of right foot associated with type 2 diabetes mellitus, unspecified ulcer stage ([facility])- Primary Cellulitis of toe of right foot Cellulitis and abscess of toe, unspecified documented in this encounter Care Teams Transportation Superintendent Relationship Specialty Start Date End Date Rodrigo Shin PA-C [address] [place] [address] PCP - General 10/18/20 documented as of this encounter
[2023-11-01 19:34] LABS: Anion Gap 11.5 mmol/L (3-11); BUN 26 mg/dL (7-18); CO2 23.5 mmol/L (21.0-32.0); CREATININE 1.3 mg/dL (0.55-1.02); Calcium 9.5 mg/dL (8.5-10.1); Chloride 103 mmol/L (98-107); Estimated GFR 43.69 (mL/min/1.73m2); Glucose 219 mg/dL (74-106); Potassium 4.2 mmol/L (3.5-5.1); Sodium 138 mmol/L (136-145)
== END 2023-11-01 16:45 | disposition home or self-care (01) ==
LOC: NCHCN 16:44
PROVIDERS: PCP Physician Assistant Medical; Visit Provider Physician Assistant Medical
DX: I10 Essential (primary) hypertension (principal)
CPT/HCPCS: 80048

== ENCOUNTER 2024-01-31 02:09 | Outpatient (CLI) | payer MEDICARE, SELFPAY ==
--- NOTE | 2024-01-31 | DI.DEXA_ITS ---
Exam(s) XR DEXA BONE DENSITY W/WO MANI EXAM: XR DEXA BONE DENSITY W/WO MANI CLINICAL HISTORY: MENOPAUSAL Z78.0 SCREENING FOR OSTEOPOROSIS TECHNIQUE: Hologic Horizon C densitometer analysis of left hip, lumbar spine and right forearm. La teral survey image of the thoracic and lumbar spine. COMPARISON: No exams were available for comparison FINDINGS: Lateral view of the thoracic and lumbar spine shows mild anterior wedging of the T12 vertebral body. Bone mineral density measurements of the lumbar spine correspond to a total T-score of 0.0, in the n ormal range. Bone mineral density measurements of the left hip correspond to a total T-score of 0.8. The femoral neck T-score is -1.6, in the osteopenic range.. Theright forearm bone mineral density measurements correspond to a T-score of the distal 3rd of -1.1 , in the mildly osteopenic range. IMPRESSION: Normal bone mineral density of the lumbar spine. Mild anterior wedging of the T12 vertebral body. Osteopenia of the right forearm and hip.
--- NOTE | 2024-01-31 15:10 | DI.MAMMO_ITS ---
Exam(s) MAMMO SCREENING EXAM: MAMMO SCREENING CLINICAL HISTORY: SCREENING MAMMO Z12.39. TECHNIQUE: Bilateral full field digital CC and MLO mammographic images were obtained with 3D tomosyn thesis and utilizing computer aided detection (CAD). COMPARISON: Prior mammograms dating back to 2016 were reviewed. FINDINGS: There has been no significant change in the appearance and distribution of the fibroglandular tissue. Asymmetric densities in both breasts remain unchanged from prior studies. There are no new findings immediate vicinity of the biopsy marker clip in the right breast. There are no new spiculated masses nor new malignant appearing microcalcification groups. There is no significant architectural distortion nor skin thickening-retraction. IMPRESSION: Stable benign-appearing findings. No radiographic evidence of malignancy. BI-RADS Category 2 - Benign Findings Breast Density - Category B - Scattered areas of fibroglandular density Breast density Category C or D implies that the patient has dense breast tissue. Dense breast tissue can make it harder to find cancer on a mammogram. Dense breast tissue is also associated with an incr eased risk of breast cancer. This information about the result of the mammogram report was provided to the patient to raise their awareness. Use this report when you speak with the patient about their risks for breast cancer, which includes their family history. At that time, you may recommend additional screening tests (Ultrasoun d or MRI) as these tests may add significant information. A negative radiographic report should not delay biopsy if a dominant or clinically suspicious mass is present. Up to ten percent of cancers are not identified on mammography. A negative report may reinforce clinical impression. Adenosis and dense breasts may obscure an underlying neoplasm. False positive reports average 6 to 10%. Patient will receive a letter notifying them of these results.
== END 2024-01-31 02:29 ==
LOC: DI 02:09
PROVIDERS: PCP Physician Assistant Medical; Visit Provider Physician Assistant Medical
DX: Z78.0 Asymptomatic menopausal state (principal); Z13.820 Encounter for screening for osteoporosis; Z12.31 Encounter for screening mammogram for malignant neoplasm of breast
CPT/HCPCS: 77063; 77067; 77080

== ENCOUNTER 2024-06-04 13:47 | Outpatient (REF) | payer MEDICARE, SELFPAY ==
[2024-06-04 20:20] LABS: HCT 36.8 % (36.0-46.0); HGB 12.3 g/dL (11.2-15.7); MCH 28.1 pg (27.0-33.0); MCHC 33.4 % (32.0-36.0); MCV 84 fL (80-95); MPV 11.3 fL (8.0-11.0); Platelet Count 265 10^3/uL (130-400); RBC 4.37 10^6/uL (3.93-5.22); RDW 13.6 % (11.7-14.6); WBC 8.65 10^3/uL (4.4-10.8)
[2024-06-04 20:46] LABS: Hemoglobin A1C 6.7 % (<5.7)
[2024-06-04 21:25] LABS: ALT 21 U/L (14-59); AST 9 U/L (15-37); Albumin 4.1 g/dL (3.4-5.0); Alkaline Phosphatase 68 U/L (46-116); Anion Gap 12.3 mmol/L (3-11); BUN 24 mg/dL (7-18); Bilirubin, Total 0.7 mg/dL (0.2-1.0); CO2 22.7 mmol/L (21.0-32.0); CREATININE 1.2 mg/dL (0.55-1.02); Calcium 9.6 mg/dL (8.5-10.1); Chloride 106 mmol/L (98-107); Glucose 108 mg/dL (74-106); Sodium 141 mmol/L (136-145); TSH (W/Ref FT4) 2.07 uIU/mL (0.36-3.74); Total Protein 6.8 g/dL (6.4-8.2)
[2024-06-04 21:57] LABS: Calculated LDL 75 mg/dL (<100); Cholesterol 163 mg/dL (<200); HDL Cholesterol 32 mg/dL (>or=50); Triglyceride 281 mg/dL (<150)
== END 2024-06-04 13:48 | disposition home or self-care (01) ==
LOC: NCHCN 13:47
PROVIDERS: PCP Physician Assistant Medical; Visit Provider Physician Assistant Medical
DX: E11.9 Type 2 diabetes mellitus without complications (principal); Z01.818 Encounter for other preprocedural examination; E03.9 Hypothyroidism, unspecified; E78.5 Hyperlipidemia, unspecified
CPT/HCPCS: 80053; 80061; 85027; 83036; 84443